=== PATIENT | female | born 1935 | race Caucasian/White ===

== ENCOUNTER → 2017-04-07 | Outpatient (CLI) | payer MEDICARE, BC | LOC: RAD 10:55 | PROVIDERS: ATTEND Internal Medicine | DX: Z12.31 Encounter for screening mammogram for malignant neoplasm of breast (principal) | CPT/HCPCS: 77067 ==

== ENCOUNTER 2017-08-07 13:28 | Emergency (ER) | payer MEDICARE, BC ==
[~2017-08-07] VITALS: Ht 160 cm; Wt 65.8 kg
--- OUTSIDE RECORDS SUMMARY | 2017-08-07 13:34 | XMS REPORT | Continuity of Care Document ---
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 Phone [employer] Unavailable Unavailable Problems Problem Status Onset Date Classification Date Reported Comments Source Diarrhea (finding) 2015 Diagnosis 07/26/2016 [facility] Hypertensive disorder, systemic arterial (disorder) 04/01/2016 [facility] Impacted cerumen (disorder) 04/01/2016 Diagnosis 2015 [facility] Single major depressive episode, mild (disorder) 04/01/2016 Diagnosis 04/05/2016 [facility] Pure hypercholesterolemia (disorder) 04/01/2016 [facility]2016 [facility] Gastroesophageal reflux disease (disorder) 10/02/2015 Diagnosis 10/06/2015 [facility] Bursitis of shoulder (disorder) 09/22/2015 Diagnosis [facility] Shoulder joint pain (finding) 06/25/2015 Diagnosis 2014 [facility] Follow-up examination following other surgery 05/28/2015 Diagnosis 06/01/2015 [facility] Radial styloid tenosynovitis 05/13/2015 Diagnosis 2014 [facility], [facility]. Goiter, unspecified 2014 Diagnosis 04/13/2015 [facility] Pain in joint involving shoulder region 04/09/2015 Diagnosis 04/13/2015 [facility] Need for prophylactic vaccination against Streptococcus pneumoniae [ pneumococcus] 04/09/2015 Diagnosis 04/13/2015 [facility] Unspecified essential hypertension 04/09/2015 Diagnosis 04/13/2015 [facility] Pain in limb 04/09/2015 Diagnosis 04/13/2015 [facility] Coronary atherosclerosis of unspecified type of vessel, [place] or graft 03/12/2015 Diagnosis 03/16/2015 [facility] Unspecified chest pain 03/06 Diagnosis 03/10/2015 [facility] Cardiology [facility] Brachial neuritis or radiculitis NOS 11/07/2014 Diagnosis 11/11/2014 [facility] Neurology Esophageal reflux 2014 [facility] Oste[facility]osis, unspecified Diagnosis 10/13/2014 [facility] Carpal tunnel syndrome 10/09 Diagnosis 10/13/2014 [facility] Lateral epicondylitis 2013 Diagnosis 06/18/2014 [facility] Carpal tunnel syndrome 06/14 Diagnosis 06/18/2014 [facility] Depressive disorder, not elsewhere classified 04/12/2014 Diagnosis 04/16/2014 [facility] Screening for osteoporosis 04/12/2014 Diagnosis [facility] Other and unspecified hyperlipidemia 04/12/2014 Diagnosis 04/16/2014 [facility], [facility]iology Services Allergic rhinitis, cause unspecified 04/12/2014 Diagnosis 04/16/2014 [facility] Unspecified essential hypertension 04/12/2014 Diagnosis 04/16/2014 [facility], [facility] Esophageal reflux 2013 Diagnosis 04/16/2014 [facility] Other and unspecified angina pectoris 01/24/2014 Diagnosis 01/28/2014 [facility] Allergic rhinitis (disorder) Active Problem 04/19/2016 [facility], [facility], [facility], [facility], [facility] Cardiology Services, [facility] Neurology Cervical radiculopathy (disorder) Active Problem 2015 [facility], [facility], [facility], [facility], [facility] Cardiology Services, [facility] Neurology Coronary arteriosclerosis (disorder) Active Problem 04/19 [facility], [facility], [facility] Depressive disorder (disorder) Active Problem 12/15/2015 [facility]. , [facility], [facility], [facility] Cardiology [facility], [facility] Neurology, [facility] Gastroesophageal reflux disease (disorder) Active Problem 04/19/2016 [facility], [facility], [facility], [facility] Card[facility] Services, [facility] Neurology, [facility] Hypertensive disorder, systemic arterial (disorder) Active Problem 04/19/2016 [facility], [facility], [facility] Cardiology Services, [facility] Neurology, [facility] 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) Active Problem 04/19/2016 [facility], [facility], [facility], [facility] Cardiology Services, [facility] Neurology Osteoporosis (disorder) Active Problem 04/19/2016 [facility], [facility], [facility] Cardiology Services, [facility] Neurology, [facility] Pure hypercholesterolemia (disorder) Active Problem 04/19 [facility], [facility] Single major depressive episode, mild (disorder) Active Problem 04/19/2016 [facility] Hyperlipidemia (disorder) Active Problem 09/26/2015 [facility], [facility], [facility] Card[facility], [facility] Neurology, [facility] Discharge Diagnosis: Bursitis of right shoulder Diagnosis 12/15/2015 [facility] Discharge Diagnosis: Stiffness of right shoulder, not elsewhere classified Diagnosis 12/15/2015 [facility] Discharge Diagnosis: Other symptoms and signs involving the musculoskeletal system Diagnosis 12/15/2015 [facility] Medications Medication Details Route Status Patient Instructions Ordering Provider Order Date Source No Known Medications No known medications Active [facility] Allergies, Adverse Reactions, Alerts Substance Category Reaction Severity Reaction type Status Date Reported Comments Source penicillin Assertion hives Drug allergy [facility], [facility], [facility], [facility] Neurology penicillin drug allergy hives Allergy Active [facility] Immunizations Immunization Date Given Site Status Last Updated Comments Source influenza virus vaccine 07/22/2016 Right Deltoid influenza virus vaccine [facility] Influenza, high dose seasonal 06/25/2015 Left Deltoid influenza virus vaccine [facility], [facility] Pneumococcal conjugate PCV 13 04/09/2015 Left Deltoid pneumococcal 13-valent vaccine [facility], [facility] Influenza, high dose seasonal 06/14/2014 Right [facility]to[facility] influenza virus [facility] influenza virus vaccine 06/12/2013 influenza virus vaccine<sup>1</sup> [facility] Location History: [facility], [facility] Influenza, seasonal, injectable 06/23/2012 Left [facility]toid influenza virus [facility], [facility] zoster vaccine live 09/12/2009 zoster vaccine live [facility] , [facility] pneumococcal 23-valent vaccine 04/14/2000 pneumococcal 23-valent vaccine [facility], [facility] Cardiology Services, [facility] Neurology, [facility] diphtheria-tetanus toxoids 04/14/2000 diphtheria-tetanus toxoids [facility], [facility]iology Services, [facility] pneumococcal 23-valent vaccine 04/14/2000 pneumococcal 23-valent vaccine [facility], [facility] diphtheria-tetanus toxoids 04/14/2000 diphtheria-tetanus toxoids [facility], [facility] Results Vital Signs Encounters Location Location Details Encounter Type Encounter Number Reason For Visit Attending Provider ADM Date DC Date Status Source OFPR [id number] Clinic ( Outpatient) [id number] Aldo Bryan 08/16/2013 Active [facility] OFPR CD:[id number] Clinic ( Outpatient) [id number] . LAB OFPR 08/17/2013 Active [facility] CSOL CD:[id number] Clinic ( Outpatient) [id number] [facility] 01[facility]24/2014 Active [facility] Cardiology Services Clinic [id number] [facility] 01/24/2014 [facility] CD:[id number] Outpatient [id number] Aldo Bryan 03/27/2014 Active [facility], [facility]. [facility] [id number] Aldo Bryan 04/12/2014 04/13/2014 [facility] [id number] . LAB OFPR 04/15/2014 04/16/2014 [facility] [id number] Outpatient [id number] Aldo Bryan 04/19/2014 Active [facility]. [facility] [id number] Aldo Bryan 06/14/2014 06/15/2014 [facility] [id number] Aldo Bryan 10/09/2014 10/10/2014 [facility] [id number] Outpatient [id number] Aldo Bryan 10/10/2014 Active [facility] [id number] . LAB OFPR 10/10/2014 10/11/2014 [facility] OFDE CD:[id number] Clinic ( Outpatient) [id number] . LAB OFPR 10/11/2014 Active [facility] [id number] Sabas Anderson 11/07/2014 11/08/2014 [facility] Neurology [facility] CD:[id number] Outpatient [id number] Aldo Bryan 11/28/2014 Active [facility] [id number] . LAB OFPR 12/16/2014 12/17/2014 [facility] Cardiology Services Clinic [id number] Sophia Spencer 03/06/2015 03/07/2015 [facility] Cardiology Services [facility] CD:[id number] Outpatient [id number] Miko Beverley 03/12/201509/2014 Active [facility] CD:[id number] Outpatient [id number] Aldo Glodidier 04/01/2015 Active [facility] Services [facility] [id number] Miko Beverley 04/01/2015 [facility] Cardiology Services [facility] [id number] Aldo Codydidier 04/09/2015 04/10/2015 [id number] [id number] Kalyani Llanos 04/23/2015 Active [facility] CD:[id number] Clinic ( Outpatient) [id number] Kalyani Llanos 04/23/2015 Active [facility] CD:[id number] Amb Surgery [id number] Kalyani Llanos 05/13/2015 05/13/2015 Active [facility] [id number] Kalyani Llanos 05/28/2015 05/29/2015 [facility] [id number] Aldo Bryan 06/25/2015 06/26/2015 [facility] Orth[facility] Clinic [id number] Lupe Pandya 09/22/2015 09/23/2015 [facility] CD:[id number] Outpatient [id number] Lupe Pandya 09/23/2015 10/12/2015 Active [facility] [id number] Aldo Bryan 10/02/2015 10/03/2015 [facility] CD:[id number] Outpatient [id number] Lupe Pandya 10/13/2015 11/10/2015 Active [facility] CD:[id number] Outpatient [id number] Lupe Pandya 11/11/2015 12/11/2015 Active [facility] [id number] Aldo Bryan 04/01/2016 04/02/2016 [facility] CD:[id number] Outpatient [id number] Aldo Bryan 04/02/2016 Active [facility] CI CD:[id number] Outpatient [id number] Aldo Bryan 04/14/2016 Active [facility] [id number] Aldo Bryan 07/22/2016 07/23/2016 [facility] [id number] . LAB OFPR 07/26/2016 07/27/2016 [facility] Procedures Procedure Code Date Perfomer Comments Source First Dorsal Compartment Release, Right 05/13/2015 [facility] No data available for this section Pending sale to [facility] Plan of Care Social History Assessment and Plan Family History Value Date Source Advance Directives Order Name Results Value Date Source
[2017-08-07] MEDS ORDERED: OMEP20CA12 (13:51)
[2017-08-07] MEDS ORDERED: SPIR100T2 (13:51)
[2017-08-07] MEDS ORDERED: LOVA20TA2 (13:51)
[2017-08-07] MEDS ORDERED: ATEN25TA (13:51)
[2017-08-07] MEDS ORDERED: FLUO10CA19 (13:51)
[2017-08-07] MEDS ORDERED: FLUT16SP22 (13:51)
[2017-08-07] MEDS ORDERED: ALEN70TA47 (13:51)
--- NOTE | 2017-08-07 13:53 | ED Cough/URI ---
General Chief Complaint: Cough/Cold/Flu Symptoms Stated Complaint: BP ISSUES/NOT FEELING WELL Nursing Triage Note: pt reprots nasal congestion, dental pain, and head congestion/pain starting this morning. pt also reports cough x2 days. pt alos reports elevated bp. Source: patient, family (daughter and granddaughter) Exam Limitations: no limitations History of Present Illness Time seen by provider: 13:40 Initial Comments Patient presents to ER by private conveyance with her family and a chief complaint that today she woke up with some headache, frontal and maxillary sinus pain. For the last week or 2 weeks she's had some nasal discharge that was yellow as well as she has been coughing up yellow phlegm. She does not have shortness of breath however her chest does ache especially with deep inspiration or coughing. She routinely uses Advil for osteoarthritis. She denies any chest pain otherwise nor abdominal pain. No nausea, vomiting, fever, chills, diarrhea, constipation. She does not have any coronary artery disease history. About 2 months ago her blood pressure medicines were changed and she was taken off the medication because she was having problems with either syncope or near syncope. She says for 2 weeks she long her blood pressure using her blood pressure cuff and it was [address] Perez kept her on that medication regimen. She says she didn't take her medications this morning however she was a little late taking her blood pressure medicines because she had to take 30 minutes at least after her osteoporosis medication. She is having no weakness, facial asymmetry, speech changes per the patient or her family. She has not had her blood pressure cuff checked against a mercury cuff at her doctor's clinic. Patient states she has some dental pain all over but she saw her dentist not that long ago was told that her teeth are okay and without cavities or abscesses. She has no oropharynx discharge, malodor, pain, throat swelling, hoarseness, dysphonia. She is using a second generation antihistamine as well as fluticasone nasal spray. Allergies and Home Medications Allergies Coded Allergies: Penicillins (Verified Allergy, Unknown, 08/07/17) Home Medications Alendronate Sodium 70 Mg Tablet, (Reported) Atenolol 25 Mg Tablet, (Reported) Fluoxetine HCl 10 Mg Capsule, (Reported) Fluticasone Propionate 16 Gm Hendricks.susp, (Reported) Lovastatin 20 Mg Tablet, (Reported) Omeprazole 20 Mg Capsule.dr (Reported) Spironolactone 100 Mg Tablet, (Reported) Constitutional: No chills, No diaphoresis, No dizziness, No fever, malaise, No weakness EENTM: ear pain (bilat), mouth pain (dental pain all over), nose congestion, No ear discharge, No hearing loss, No epistaxis, No throat pain Respiratory: cough, phlegm (yellow), No wheezing Cardiovascular: No chest pain, No palpitations Gastrointestinal: No abdominal pain, No nausea, No vomiting Genitourinary: No discharge, No dysuria, frequency (times one week) Musculoskeletal: No back pain, No joint pain Skin: No pruritus, No rash Psychiatric/Neurological: Headache (global times one day constant), Denies Numbness, Denies Paresthesia Past Felsrns-Burese-Qlywcc Hx Patient Social History Alcohol Use: Denies Use Recreational Drug Use: No Smoking Status: Never a Smoker Recent Foreign Travel: No Contact w/Someone Who Travel: No Recent Infectious Disease Expo: No Recent Hopitalizations: No Physical Abuse: No Sexual Abuse: No Mistreated: No Surgeries History of Surgeries: Yes (l foot, heart cath no stents) Surgeries: Hysterectomy, Orthopedic Respiratory History of Respiratory Disorde: No Cardiovascular History of Cardiac Disorders: Yes Cardiac Disorders: Hypertension Neurological History of Neurological Disord: No Genitourinary History of Genitourinary Disor: No Gastrointestinal History of Gastrointestinal Di: No Musculoskeletal History of Musculoskeletal Dis: No Endocrine History of Endocrine Disorders: No HEENT History of HEENT Disorders: No Cancer History of Cancer: No Psychosocial History of Psychiatric Problem: No Suicide Risk Score: 0 Integumentary History of Skin or Integumenta: No Blood Transfusions History of Blood Disorders: No Physical Exam Vital Signs Vital Sign - Last 12Hours 08/07/17 13:42 Temp 97.8 Pulse 98 Resp 20 B/P (MAP) 191/101 Pulse Ox 94 O2 Delivery Room Air Capillary Refill : Less Than 3 Seconds General Appearance: WD/WN, no apparent distress Eyes: Bilateral Eye Normal Inspection, Bilateral Eye PERRL, Bilateral Eye EOMI HEENT: PERRL/EOMI, TMs normal, pharynx normal, other (nasopharynx with thick purulent discharge. Maxillary sinus tender to palpation. Frontal sinuses nontender. TMJ nontender. Dentition without tenderness, abscess, erythema.) Neck: non-tender, supple, normal inspection Respiratory: chest non-tender, lungs clear, normal breath sounds, no respiratory distress, no accessory muscle use, No rales, No rhonchi, No wheezing Cardiovascular: normal peripheral pulses, regular rate, rhythm, no edema Neurologic/Psychiatric: alert, normal mood/affect, oriented x 3 Skin: normal color, warm/dry Progress/Results/Core Measures Suspected Sepsis Recent Fever Within 48 Hours: No Infection Criteria Present: None New/Unexplained Altered Menta: No Sepsis Screen: No Definite Risk Sepsis Diagnosis: SIRS Temperature:97.8 Pulse: 98 Respiratory Rate: 20 Laboratory Tests 08/07/17 14:00: White Blood Count 8.8 Blood Pressure 191 /101 Mean: 131 Laboratory Tests 08/07/17 14:00: Creatinine 0.73, Platelet Count 206, Total Bilirubin 0.9 Results/Orders Lab Results Laboratory Tests Test 08/07/17 13:58 08/07/17 14:00 08/07/17 14:38 Range/Units Glucometer 103 70-110 MG/DL White Blood Count 8.8 4.3-11.0 10^3/uL Red Blood Count 4.25 L 4.35-5.85 10^6/uL Hemoglobin 12.7 11.5-16.0 G/DL Hematocrit 36 35-52 % Mean Corpuscular Volume 85 80-99 FL Mean Corpuscular Hemoglobin 30 25-34 PG Mean Corpuscular Hemoglobin Concent 35 32-36 G/DL Red Cell Distribution Width 12.3 10.0-14.5 % Platelet Count 206 130-400 10^3/uL Mean Platelet Volume 9.6 7.4-10.4 FL Neutrophils (%) (Auto) 75 42-75 % Lymphocytes (%) (Auto) 18 12-44 % Monocytes (%) (Auto) 6 0-12 % Eosinophils (%) (Auto) 1 0-10 % Basophils (%) (Auto) 1 0-10 % Neutrophils # (Auto) 6.6 1.8-7.8 X 10^3 Lymphocytes # (Auto) 1.5 1.0-4.0 X 10^3 Monocytes # (Auto) 0.6 0.0-1.0 X 10^3 Eosinophils # (Auto) 0.1 0.0-0.3 10^3/uL Basophils # (Auto) 0.0 0.0-0.1 10^3/uL Sodium Level 138 135-145 MMOL/L Potassium Level 3.7 3.6-5.0 MMOL/L Chloride Level 104 98-107 MMOL/L Carbon Dioxide Level 24 21-32 MMOL/L Anion Gap 10 5-14 MMOL/L Blood Urea Nitrogen 9 7-18 MG/DL Creatinine 0.73 0.60-1.30 MG/DL Estimat Glomerular Filtration Rate > 60 BUN/Creatinine Ratio 12 Glucose Level 106 H 70-105 MG/DL Calcium Level 9.2 8.5-10.1 MG/DL Total Bilirubin 0.9 0.1-1.0 MG/DL Aspartate Amino Transf (AST/SGOT) 25 5-34 U/L Alanine Aminotransferase (ALT/SGPT) 24 0-55 U/L Alkaline Phosphatase 86 40-136 U/L Total Protein 7.1 6.4-8.2 GM/DL Albumin 3.8 3.2-4.5 GM/DL Urine Color YELLOW Urine Clarity CLEAR Urine pH 8 5-9 Urine Specific [place] 1.010 L 1.016-1.022 Urine Protein NEGATIVE NEGATIVE Urine Glucose (UA) NEGATIVE NEGATIVE Urine Ketones NEGATIVE NEGATIVE Urine Nitrite NEGATIVE NEGATIVE Urine Bilirubin NEGATIVE NEGATIVE Urine Urobilinogen NORMAL NORMAL MG/DL Urine Leukocyte Esterase 1+ H NEGATIVE Urine RBC (Auto) NEGATIVE NEGATIVE Urine RBC NONE /HPF Urine WBC 0-2 /HPF Urine Squamous Epithelial Cells RARE /HPF Urine Crystals NONE /LPF Urine Bacteria TRACE /HPF Urine Casts NONE /LPF Urine Mucus NEGATIVE /LPF Urine Culture Indicated NO My Orders Orders - SUNITA PINO Cbc With Automated Diff (08/07/17 13:53) Comprehensive Metabolic Panel (08/07/17 13:53) Ua Culture If Indicated (08/07/17 13:53) Chest Pa/Lat (2 View) (08/07/17 13:53) Accucheck Stat ONCE (08/07/17 13:53) Metoprolol Tartrate (Ir) Tab (Lopressor (08/07/17 15:00) Vital Signs/I&O Vital Sign - Last 12Hours 08/07/17 08/07/17 13:42 13:42 Temp 97.8 Pulse 98 Resp 20 B/P (MAP) 191/101 Pulse Ox 94 O2 Delivery Room Air Capillary Refill : Less Than 3 Seconds Blood Pressure Mean: 131 Progress Note : Time: 14:00 Progress Note Blood pressure does not seem to be associated with cardiac or neurologic problems. We will obtain chest x-ray, urine, basic blood in the kidneys and white count. Her maxillary sinusitis could certainly explain it. She is using Flonase which would explain why her ears look good. Does not seem to be a dental origin for her facial pain. She'll probably respond well to a Z-Rosalino. Would like to look for any other infectious source for her acute hypertension. At least 2 weeks ago her blood pressure was normal so this hypertension is probably related to her recent illness. We will allow her to rest for 10-15 minutes and see what her blood pressure does and if it goes below 160 systolic no further intervention needed today. Plan will be to have her follow up to 4 weeks with her primary care physician with a daily log of her blood pressure and get her blood pressure cuff checked against the clinic's blood pressure cuff. Diagnostic Imaging Diagonstic Imaging: Xray Plain Films/CT/US/NM/MRI: chest (2v) Reviewed: Reviewed by Me Departure Impression Impression: Primary Impression: Maxillary sinusitis, acute Qualified Codes: J01.01 - Acute recurrent maxillary sinusitis Additional Impressions: Asymptomatic hypertension Bronchitis Disposition: HOME, SELF-CARE Condition: Stable Departure-Patient Inst. Decision time for Depature: 15:27 Referrals: VISH PEREZ MD (PCP/Family) Primary Care Physician Add. Discharge Instructions: Drink copious amounts of fluids to help flush your nasal sinuses out. Take 2 tablets of the azithromycin today and then every day after that take one tablet until completion. If you're having pain or fevers you should take 1000 g Tylenol and/or 800 mg of Advil every 8 hours as needed. If you're not improving in 7-10 days then you should follow up with your primary care physician for further evaluation and management. Plan to follow up with your primary care physician in one to 2 weeks to address your blood pressure. You may log your blood pressure daily in the morning when you first get up and take that with you to your appointment. If you have wheezing or shortness of breath you may use 2 puffs of albuterol by mouth every 4 hours as needed. If this does not improve your wheezing or shortness of breath you should follow up with your primary care physician. All discharge instructions reviewed with patient and/or family. Voiced understanding. Scripts Albuterol Sulfate (PROAIR HFA) 1 Puff Puff 2 PUFF IH Q4H Y for WHEEZING, #1 EACH 0 Refills 1 PUFF = 90 MCG Prov: SUNITA PINO 08/07/17 Azithromycin (Azithromycin) 250 Mg Tablet 250 MG PO UD for 5 Days, #6 TAB 0 Refills TAKE 2 TABLETS ON DAY ONE THEN TAKE 1 TABLET DAILY FOR FOUR MORE DAYS Prov: SUNITA PINO 08/07/17 Copy Copies To 1: VISH PEREZ MD, TITUS J Aug 07, 2017 13:53
[2017-08-07 14:09] LABS: BASOPHILS % (AUTO) 1 % (0-10); EOSINOPHILS # (AUTO) 0.1 10^3/uL (0.0-0.3); EOSINOPHILS % (AUTO) 1 % (0-10); LYMPHOCYTES # (AUTO) 1.5 X 10^3 (1.0-4.0); LYMPHOCYTES % (AUTO) 18 % (12-44); MEAN CORPUSCULAR HEMOGLOBIN 30 PG (25-34); MEAN CORPUSCULAR HGB CONC 35 G/DL (32-36); MEAN CORPUSCULAR VOLUME 85 FL (80-99); MEAN PLATELET VOLUME 9.6 FL (7.4-10.4); MONOCYTES # (AUTO) 0.6 X 10^3 (0.0-1.0); MONOCYTES % (AUTO) 6 % (0-12); NEUTROPHILS # (AUTO) 6.6 X 10^3 (1.8-7.8); NEUTROPHILS % (AUTO) 75 % (42-75); PLATELET COUNT 206 10^3/uL (130-400); RED BLOOD COUNT 4.25 10^6/uL (4.35-5.85); RED CELL DISTRIBUTION WIDTH 12.3 % (10.0-14.5); WHITE BLOOD COUNT 8.8 10^3/uL (4.3-11.0)
[2017-08-07 14:31] LABS: ALANINE AMINOTRANSFERASE 24 U/L (0-55); ALBUMIN 3.8 GM/DL (3.2-4.5); ANION GAP 10 MMOL/L (5-14); ASPARTATE AMINO TRANSFERASE 25 U/L (5-34); BILIRUBIN,TOTAL 0.9 MG/DL (0.1-1.0); BLOOD UREA NITROGEN 9 MG/DL (7-18); BUN/CREATININE RATIO 12; CALCIUM 9.2 MG/DL (8.5-10.1); CARBON DIOXIDE 24 MMOL/L (21-32); CHLORIDE 104 MMOL/L (98-107); CREATININE SERUM 0.73 MG/DL (0.60-1.30); GFR ESTIMATED > 60; GLUCOSE 106 MG/DL (70-105); POTASSIUM 3.7 MMOL/L (3.6-5.0); SODIUM 138 MMOL/L (135-145); TOTAL PROTEIN 7.1 GM/DL (6.4-8.2)
--- NOTE | 2017-08-07 14:31 | Diagnostic Imaging Report ---
INDICATION: Head pain, facial pressure. FINDINGS: Air trapping and chronic COPD. There is mild cardiomegaly. There is prominence of interstitial lung markings and Jennifer Bs which may be chronic or reflect a process such as interstitial edema. Some thickening of the central airways and parabronchial cuffing which may be from bronchitis or other reactive airway disease. Some partial atelectasis in the lung bases. IMPRESSION: Borderline cardiomegaly, underlying COPD and air trapping chronic. There are patchy zones of nonspecific basilar infiltrate or atelectasis with some thickening of the central airways and suggestion of bronchitis. No pneumothorax. No substantial venous congestion. Dictated by: Dictated on workstation # [id number]
[2017-08-07 14:44] LABS: BILIRUBIN,URINE NEGATIVE (NEGATIVE); KETONES,URINE NEGATIVE (NEGATIVE); LEUKOCYTE ESTERASE ,URINE 1+ (NEGATIVE); NITRITE,URINE NEGATIVE (NEGATIVE); PH,URINE 8 (5-9); PROTEIN,URINE NEGATIVE (NEGATIVE); UROBILINOGEN,URINE NORMAL (NORMAL)
[2017-08-07 14:52] LABS: SQUAMOUS EPITHELIAL CELL,UR RARE /HPF; WBC,URINE 0-2 /HPF
[2017-08-07] MEDS ORDERED: meTOprolol TARTRATE 25 MG (LOPRESSOR) TABLET PO ONE (15:00)
[2017-08-07] MEDS ORDERED: AZIT250T12 PO (15:29)
[2017-08-07] MEDS ORDERED: RT-ALBUINH IH (15:29)
[2017-08-07 15:47] VITALS: BP 176/85
== END 2017-08-07 15:50 | disposition home or self-care (01) ==
LOC: EDUNIT# 13:28 → ER 13:31
DX: J01.00 Acute maxillary sinusitis, unspecified (principal); I10 Essential (primary) hypertension; J40 Bronchitis, not specified as acute or chronic; Z90.710 Acquired absence of both cervix and uterus
CPT/HCPCS: 36415; 71020; 80053; 81000; 82962; 85025; 99283

== ENCOUNTER 2017-10-21 05:32 | Outpatient (CLI) | payer MEDICARE ==
[~2017-10-21] VITALS: Ht 160 cm; Wt 65.8 kg
[~2017-10-21 05:32] MED LIST: ALEN70TA47 PO; ATEN25TA PO; AZIT250T12 PO; FLUO10CA19 PO; FLUT16SP22 NSEACH; LOVA20TA2 PO; OMEP20CA12 PO; RT-ALBUINH IH; SPIR100T2
[2017-10-21] MEDS ORDERED: SPIR50TA2 PO (15:10)
== END 2017-10-21 15:13 ==
LOC: PREOP 05:32
PROVIDERS: ATTEND Internal Medicine
DX: Z01.818 Encounter for other preprocedural examination (principal); Z12.11 Encounter for screening for malignant neoplasm of colon

== ENCOUNTER 2017-10-28 07:00 | Day surgery (SDC) | payer MEDICARE ==
--- NOTE | 2017-10-27 15:35 | HISTORY AND PHYSICAL ---
DATE OF SERVICE: COLONOSCOPY HISTORY AND PHYSICAL HISTORY OF PRESENT ILLNESS: The patient is an 82-year-old white female, who presented to the office for followup of hypertension on 10/03/2017. It has been 10 years since her last colonoscopy and she had had a past history of colon polyps. She denied any bowel habit change and had been feeling well. She has noted no bright red blood per rectum or melena. PHYSICAL EXAMINATION: GENERAL: Revealed a white female, who appeared to be in no acute distress. VITAL SIGNS: Blood pressure was 130/60. Weight is 146.2 pounds, was down 2.8 pounds from 2 months earlier, but at the low end of her usual weight range. CHEST: Clear. CARDIOVASCULAR: Regular rate and rhythm without murmur, S3 or S4. ABDOMEN: Soft, supple without mass, organomegaly or tenderness. EXTREMITIES: Reveal no cyanosis, clubbing or edema. ASSESSMENT AND PLAN: 1. The patient was set up for screening colonoscopy as she is quite spry for her age and would expect a life expectancy well into her 90s, on average. 2. Hypertension, under good control. She is scheduled for routine followup in 4 months. Job ID: [id number] DocumentID: [id number] Dictated Date: 10/27/2017 13:56:44 Cracking Still Operator Date: 10/27/2017 14:29:47 Dictated By: VISH PEREZ MD
[~2017-10-28] VITALS: Ht 160 cm; Wt 65.8 kg
[~2017-10-28 07:00] MED LIST changes: +SPIR50TA2 PO
[2017-10-28] MEDS ORDERED: 1/2 NS IV SOLUTION 1,000 ML IV STA (07:09)
[2017-10-28] MEDS ORDERED: MIDAZOLAM 2 MG/2 ML (VERSED) VIAL IVP PRN (07:15)
[2017-10-28] MEDS ORDERED: LIDOCAINE JELLY 2% (XYLOCAINE) 5 ML TUBE MM PRN (07:15)
[2017-10-28] MEDS ORDERED: fentaNYL INJECTION 100 MCG/2 ML AMP IVP PRN (07:15)
[2017-10-28 07:22] VITALS: BP 130/69
[2017-10-28] MEDS ORDERED: LIDOCAINE JELLY 2% (XYLOCAINE) 5 ML TUBE ONE (07:42)
[2017-10-28] MEDS ORDERED: fentaNYL INJECTION 100 MCG/2 ML AMP ONE (07:42)
[2017-10-28] MEDS ORDERED: MIDAZOLAM 2 MG/2 ML (VERSED) VIAL ONE (07:43)
--- NOTE | 2017-10-28 08:06 | Pre-Op Note & Conscious Sedat ---
Pre-Operative Progress Note H&P Reviewed The H&P was reviewed, patient examined and no changes noted. Date H&P Reviewed: Oct 28, 2017 Time H&P Reviewed: 07:55 Conscious Sedation Pre-Proced ASA Class: 2 Airway Mallampati Classification: ([place] appropriate class) I. II. III, IV Lungs Heart ASA score ASA 1: a normal healthy patient ASA 2: a patient with a mild systemic disease (mid diabetes, controlled hypertension, obesity ASA 3: a patient with a severe systemic disease that limits activity (angina , COPD, prior Myocardial infarction) ASA 4: a patient with an incapacitating disease that is a constant threat to life (CHF, renal failure) ASA 5: a moribund patient not expected to survive 24 hrs. (ruptured aneurysm) ASA 6: a declared brain patient whose organs are being harvested. For emergent operations, add the letter E after the classification Grade 2 Sedation Plan: Analgesia, Amnesia, Plan communicated to team members, Discussed options with patient/fam, Discussed risks with patient/fam Note The patient is an appropriate candidate to undergo the planned procedure, sedation, and anesthesia. The patient immediately re-assessed prior to indication. VISH PEREZ MD Oct 28, 2017 08:05
[2017-10-28 08:55] VITALS: BP 130/69
[2017-10-28 09:25] VITALS: BP 117/58
[2017-10-28 09:30] VITALS: BP 117/58
--- NOTE | 2017-10-28 12:07 | OPERATIVE REPORT ---
DATE OF SERVICE: 10/28/2017 PROCEDURE PERFORMED: Screening colonoscopy. The patient was placed in the left lateral decubitus position. Prior to undergoing colonoscopy, digital rectal evaluation was performed. Anal sphincter tone was normal and the perianal reflex was intact. No abnormalities on additional inspection of the anal canal or distal rectal vault. The colonoscope was then inserted into the rectum and under direct visualization advanced to the cecum. The cecum was identified by identification of the valve and cecal strap. Photographic documentation was obtained. Colonic prep was good. FINDINGS: There was no evidence for internal or external hemorrhoids. The rectum, sigmoid colon, descending colon, splenic flexure, transverse colon, hepatic flexure, ascending colon and cecum were unremarkable. No evidence for neoplasia or diverticular disease was noted. ASSESSMENT: Normal colonoscopy to the cecum. Considering this patient's age, we will not be recommending future screening colonoscopy. Job ID: [id number] DocumentID: [id number] Dictated Date: 10/28/2017 09:13:48 Front Loader Residential Driver Date: 10/28/2017 12:06:27 Dictated By: VISH PEREZ MD
--- OUTSIDE RECORDS SUMMARY | 2017-10-28 16:18 | XMS REPORT ---
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
--- OUTSIDE RECORDS SUMMARY | 2017-10-28 16:18 | XMS REPORT ---
Author Author [facility] Organization [facility] Address Unknown Phone Unavailable Care Team Providers Care Fiction And Nonfiction Author Name Role Phone Aldo Bryan PCP Aldo Bryan PCP Encounter [id number] Date(s): 11/07/14 - 11/07/14 [facility] 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
--- OUTSIDE RECORDS SUMMARY | 2017-10-28 16:18 | XMS REPORT ---
Author Author [facility] Organization [facility] Address Unknown Phone Unavailable Care Team Providers Care Printer Technician Name Role Phone Aldo Bryan PCP Aldo Bryan PCP Encounter [id number] Date(s): 10/10/14 - 10/10/14 [place] [address]- Attending Physician: LAB OFPR Vital Signs No data available for this [...] Medications No data available for this section Results No data available for this section Immunizations Vaccine Date Refusal Reason diphtheria-tetanus toxoids 04/14/00 pneumococcal 23-valent vaccine 04/14/00 Procedures No data available for this section Social History No data available for this section Assessment and Plan No data available for this section
--- OUTSIDE RECORDS SUMMARY | 2017-10-28 16:18 | XMS REPORT ---
Author Organization Unknown Address Unknown Phone Unavailable Care Team Providers Care Take Off Man Name Role Phone Aldo Bryan PCP Aldo Bryan PCP Encounter [id number] Date(s): 06/14/14 - 06/14/14 [place] [address]- Discharge Diagnosis: Lateral epicondylitis of right elbow Discharge Diagnosis: Carpal tunnel syndrome, right Attending Physician: Aldo Bryan MD Vital Signs No data available for [...]
--- OUTSIDE RECORDS SUMMARY | 2017-10-28 16:18 | XMS REPORT ---
Author Organization Unknown Address Unknown Phone Unavailable Care Team Providers Care Mold Yard Crane Operator Name Role Phone Aldo Bryan PCP Aldo Bryan PCP Encounter [id number] Date(s): 01/24/14 - 01/24/14 [facility] [address] [place] [id number] Discharge Diagnosis: Hyperlipidemia Discharge Diagnosis: HTN - Hypertension Discharge Diagnosis: Stable angina Attending Physician: Miko Lowery MD Referring Physician: Miko Lowery MD Reason for Visit P8G/ANNUAL FOLLOW UP Problem List Condition Effective Dates Status Health Status Informant Depression(Confirmed Active ) GERD - Active Gastro-esophageal [...]
--- OUTSIDE RECORDS SUMMARY | 2017-10-28 16:18 | XMS REPORT ---
Author Author [facility] [employer]. Organization [facility] Address Unknown Phone Unavailable Care Team Providers Care Shrimping Boat Captain Name Role Phone Aldo Bryan PCP Alod Bryan PCP Encounter [id number] Date(s): 03/12/15 - 03/12/15 [facility] [address] [place] [id number] Discharge Diagnosis: Coronary artery disease Discharge Disposition: Home Attending Physician: Miko Lowery MD Admitting Physician: Miko Lowery MD Referring Physician: Aldo Bryan MD Vital Signs No data available for this section Problem List Condition Effective Dates Status Health Status Informant Allergic Active rhinitis(Confirmed) Cervical Active radiculopathy at C8(Confirmed) Coronary artery Active disease(Confirmed) Depression(Confirmed Active ) GERD - Active Gastro-esophageal reflux disease(Confirmed) HTN - Active Hypertension(Confirm ed) Hyperlipidemia(Confi Active rmed) 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
--- OUTSIDE RECORDS SUMMARY | 2017-10-28 16:18 | XMS REPORT ---
Author Author [facility] Address Unknown Phone Unavailable Care Team Providers Care Supervisor Asbestos Textile Name Role Phone Aldo Bryan PCP Aldo Bryan PCP Encounter [id number] [id number] Date(s): 04/01/15 - 03/13/15 [facility] [id number] [place] [id number] Attending Physician: Miko Lowery MD Referring Physician: Miko Lowery MD Vital Signs No data available for [...]
--- OUTSIDE RECORDS SUMMARY | 2017-10-28 16:18 | XMS REPORT ---
Author Author [facility] Organization [facility] Address Unknown Phone Unavailable Care Team Providers Care Assistant Executive Housekeeper Name Role Phone Aldo Bryan PCP Aldo Bryan PCP Encounter [id number] Date(s): 07/22/16 - 07/22/16 [place] [address]- Attending Physician: Aldo Bryan MD Vital Signs No data available for this section Problem List Condition Effective Dates Status Health Status Informant Allergic Active rhinitis(Confirmed) Cervical Active radiculopathy at C8(Confirmed) Coronary artery Active disease(Confirmed) GERD - Active Gastro-esophageal reflux disease(Confirmed) HTN - Active Hypertension(Confirm ed) 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, dry, both eyes(Confirmed) Osteoporosis(Confirm Active ed) Hyperlipidemia(Confi Active rmed) Depression(Confirmed Active ) Diagnosis Diagnosis Type Effective Dates Health Status Clinical Service Informant Diarrhea, Discharge 07/22/16 unspecified Diagnosis Allergies, Adverse Reactions, Alerts Substance Reaction Severity Status penicillin hives Active Medications No Known Medications Results No data available for this section Immunizations Given and Recorded Vaccine Date Status Refusal Reason diphtheria-tetanus toxoids 04/14/00 Recorded influenza virus vaccine 07/22/16 Given influenza virus vaccine 06/25/15 Given influenza virus vaccine 06/14/14 Given influenza virus vaccine1 06/12/13 Recorded influenza virus vaccine 06/23/12 Given pneumococcal 13-valent vaccine 04/09/15 Given pneumococcal 23-valent vaccine 04/14/00 Recorded zoster vaccine live 09/12/09 Recorded 1Location History: [facility] Procedures No data available for this section Social History No data available for this section Assessment and Plan No data available for this section
--- OUTSIDE RECORDS SUMMARY | 2017-10-28 16:18 | XMS REPORT ---
Author Organization Unknown Address Unknown Phone Unavailable Care Team Providers Care Mailer Name Role Phone Aldo Bryan PCP Aldo Bryan PCP Encounter [id number] [id number] Date(s): 04/12/14 - 04/12/[address] [id number] Discharge Diagnosis: Depression Discharge Diagnosis: Screening for Osteoporosis Discharge Diagnosis: Hyperlipidemia Discharge Diagnosis: Epicondylitis, lateral, right Discharge Diagnosis: Allergic rhinitis Discharge Diagnosis: HTN - Hypertension Discharge Diagnosis: GERD - Gastro-esophageal reflux disease Attending Physician: Aldo Bryan MD Reason for Visit HTN/CHOL/OTHER ISSUE WOULD NOT SAY Problem List Condition Effective Dates Status Health [...]
--- OUTSIDE RECORDS SUMMARY | 2017-10-28 16:18 | XMS REPORT ---
Author Author [employer] Organization [facility] Address Unknown Phone Unavailable Care Team Providers Care Fisheries Enforcement Officer Name Role Phone Aldo Bryan PCP Aldo Bryan PCP Encounter [id number] Date(s): 10/10/14 - 10/11/14 [facility] [address] Discharge Disposition: Home Attending Physician: Aldo Bryan MD Admitting Physician: Aldo Bryan MD Referring Physician: Aldo Bryan MD Vital [...]
--- OUTSIDE RECORDS SUMMARY | 2017-10-28 16:18 | XMS REPORT ---
Author Organization Unknown Address Unknown Phone Unavailable Care Team Providers Care Digital Associate Media Director Name Role Phone Aldo Bryan PCP Aldo Bryan PCP Encounter [facility]_NBR [id number] Date(s): 03/27/14 - 03/28/[address] Attending Physician: Aldo Bryan MD Admitting Physician: Aldo Bryan MD Referring Physician: Aldo Bryan MD Reason for Visit ROUTINE Problem List Condition Effective Dates Status Health [...]
--- OUTSIDE RECORDS SUMMARY | 2017-10-28 16:18 | XMS REPORT ---
Author Author [facility] Organization [facility] Address Unknown Phone Unavailable Care Team Providers Care Technical Maintenance Technician Name Role Phone Aldo Bryan PCP Aldo Bryan PCP Encounter [id number] [id number] Date(s): 12/16/14 - 12/16/14 [place] [address]- Attending Physician: LAB OFPR Vital Signs No [...]
--- OUTSIDE RECORDS SUMMARY | 2017-10-28 16:18 | XMS REPORT | Continuity of Care Document ---
Author Author [employer] Organization [facility] Address Unknown Phone Unavailable Care Team Providers Care Forestry Faculty Member Name Role Phone [employer] Unavailable Unavailable Problems Problem Status Onset Date Classification Date Reported Comments Source Diarrhea (finding) 2015 Diagnosis 07/26/2016 [facility] Pure hypercholesterolemia (disorder) 04/01/2016 Diagnosis 04/05/2016 [facility] Hypertensive disorder, systemic arterial (disorder) 04/01/2016 Diagnosis 04/05/2016 [facility] Impacted cerumen (disorder) 04/01/2016 Diagnosis 2015 [facility] Single major depressive episode, mild (disorder) 04/01/2016 Diagnosis 04/05/2016 [facility] Gastroesophageal reflux disease (disorder) 10/02/2015 Diagnosis 10/06/2015 [facility] Bursitis of shoulder (disorder) 09/22/2015 Diagnosis [facility] Shoulder joint pain (finding) 06/25/2015 Diagnosis 2014 [facility] Follow-up examination following other surgery 05/28/2015 Diagnosis 06/01/2015 [facility] Radial styloid tenosynovitis 05/13/2015 Diagnosis 2014 [facility] Pain in limb 04/09/2015 Diagnosis 04/13/2015 [facility] Unspecified essential hypertension 04/09/2015 Diagnosis 04/13/2015 [facility] Goiter, unspecified 2014 Diagnosis 04/13/2015 [facility] Pain in joint involving shoulder region 04/09/2015 Diagnosis 04/13/2015 [facility] Need for prophylactic vaccination against Streptococcus pneumoniae [ pneumococcus] 04/09/2015 Diagnosis 04/13/2015 [facility] Coronary atherosclerosis of unspecified type of vessel, craig or graft 03/12/2015 Diagnosis 03/16/2015 [facility] Unspecified chest pain 03/06 Diagnosis 03/10/2015 [facility] Brachial neuritis or radiculitis NOS 11/07/2014 Diagnosis 11/11/2014 [facility] Esophageal reflux 2014 Diagnosis 10/13/2014 [facility] Osteoporosis, unspecified Diagnosis 10/13/2014 [facility] Carpal tunnel syndrome 10/09 Diagnosis 10/13/2014 [facility] Lateral epicondylitis 2013 Diagnosis 06/18/2014 [facility] Carpal tunnel syndrome 06/14 Diagnosis 06/18/2014 [facility] Depressive disorder, not elsewhere classified 04/12/2014 Diagnosis 04/16/2014 [facility] Screening for osteoporosis 04/12/2014 Diagnosis 2013 [facility] Other and unspecified hyperlipidemia 04/12/2014 Diagnosis 04/16/2014 [facility] Allergic rhinitis, cause unspecified 04/12/2014 Diagnosis 04/16/2014 [facility] Unspecified essential hypertension 04/12/2014 Diagnosis 04/16/2014 [facility] Esophageal reflux 2013 Diagnosis 04/16/2014 [facility] Other and unspecified angina pectoris 01/24/2014 Diagnosis 01/28/2014 [facility] Depressive disorder (disorder) Active Problem 10/06/2015 [facility] Gastroesophageal reflux disease (disorder) Active Problem 07/30/2016 [facility] Hypertensive disorder, systemic arterial (disorder) Active Problem 07/30/2016 [facility] Hyperlipidemia (disorder) Active Problem 06/29/2015 [facility] Osteoporosis (disorder) Active Problem 07/30/2016 [facility] Allergic rhinitis (disorder) Active Problem 07/30/2016 [facility] 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 Discharge Diagnosis: Stiffness of right shoulder, not elsewhere classified Diagnosis 12/15/2015 [facility] Discharge Diagnosis: Other symptoms and signs involving the musculoskeletal system Diagnosis 12/15/2015 [facility] Medications Medication Details Route Status Patient Instructions Ordering Provider Order Date Source No Known Medications No known medications [facility] Allergies, Adverse Reactions, Alerts Substance Category Reaction Severity Reaction type Status Date Reported Comments Source penicillin drug allergy hives Allergy Active [facility] penicillin Assertion hives Drug allergy [facility] Immunizations Immunization Date Given Site Status Last Updated Comments Source influenza virus vaccine 07/22/2016 Right Deltoid influenza virus vaccine [facility] Influenza, high dose seasonal 06/25/2015 [facility] Pneum[facility] PCV 13 04/09/2015 Left Deltoid pneumococcal 13-valent vaccine [facility] Influenza, high dose seasonal 06/14/2014 [facility] virus vaccine 06/12/2013 influenza virus vaccine<sup>1</sup> [facility] Location History: [facility] Influenza, seasonal, injectable 06/23/2012 Left [facility] live 09/12/2009 zoster vaccine live [facility] pneumococcal 23-valent vaccine 04/14/2000 pneumococcal 23-valent vaccine [facility] diphtheria-tetanus toxoids 04/14/2000 diphtheria-tetanus toxoids [facility] pneumococcal 23-valent vaccine 04/14/2000 pneumococcal 23-valent vaccine [facility] diphtheria-tetanus toxoids 04/14/2000 diphtheria-tetanus toxoids [facility] Results Vital Signs Encounters Location Location Details Encounter Type Encounter Number Reason For Visit Attending Provider ADM Date DC Date Status Source OFPR [id number] Clinic ( Outpatient) [id number] Aldo [facility] 08/16/2013 [place] [employer] [facility] OFPR [id number] Clinic ( Outpatient) [id number] . LAB OF[facility] 08/17/2013 [place] [facility] CSOL [id number] Clinic ( Outpatient) [id number] [facility] 01/24/2014 Active [facility] Services CSOL [id number] Clinic ( Outpatient) [id number] [facility] 01/24/2014 Active [facility], [facility] Services Clinic [id number] [facility] 01/24/2014 [facility] CD:[id number] Outpatient [id number] [facility] 03/27/2014 Active [facility], [facility]. Pavilion [id number] [facility] 03/27/2014 03/29/2014 [facility]. OFPR [id number] Clinic ( Outpatient) [id number] [facility] 04/12/[address] [facility] [id number] [facility] 04/12/2014 04/13/2014 [facility] OFPR [id number] Clinic ( Outpatient) [id number] . LAB OFPR 04/15/[address] [facility] [id number] . LAB OFPR 04/15/2014 04/16/2014 [facility] OMCI CD:[id number] Outpatient [id number] [facility] 04/19/2014 Active [facility]. OFPR CD:[id number] Clinic ( Outpatient) [id number] [facility] 06/14/[address] [facility] [id number] [facility] 06/14/2014 06/15/2014 [facility] OFPR [id number] Clinic ( Outpatient) [id number] [facility] 10/09/[address] [facility] [id number] [facility] 10/09/2014 10/10/2014 [facility] OMCI CD:[id number] Outpatient [id number] [facility] 10/10/2014 Active [facility]. OFPR [id number] Clinic ( Outpatient) [id number] . LAB OFPR 10/10/2014 Active [facility], [facility]. Pavilion [id number] [facility] 10/10/2014 10/12/2014 [facility]. [facility] [id number] . LAB OFPR 10/10/2014 10/11/2014 [facility] OFPR CD:[id number] Clinic ( Outpatient) [id number] . LAB OFPR 10/11/2014 Active Count includes the [facility] [id number] Clinic ( Outpatient) [id number] Sab[facility] Julio Cynes 11/07/2014 [facility] [id number] [facility] 11/07/2014 11/08/2014 [facility] OMCI CD:[id number] Outpatient [id number] Aldo Bryan 11/28/2014 Active [facility], [facility] OFPR CD:[id number] Clinic ( Outpatient) [id number] . LAB OFPR 12/16/2014 [facility] [id number] . LAB OFPR 12/16/2014 12/17/2014 [facility] CSOL [id number] Clinic ( Outpatient) [id number] [facility] [place] 03/06/2015 [facility] Cardiology Services [facility] Services Clinic [id number] [facility] 03/06/2015 03/07/2015 [facility] CD:[id number] Outpatient [id number] [facility] 03/12/201509/2014 Active [facility], [facility]. Extended Recovery [id number] [facility] 03/12/2015 03/12/2015 [facility], [facility] OMCI CD:[id number] Outpatient [id number] Aldo Bryan 04/01/2015 Active [facility] CSOL [id number] Clinic ( Outpatient) [id number] [facility] 04/01/2015 Active [facility] Cardiology Services [facility], [facility] Pavilion [id number] Aldo Bryan 04/01/2015 04/03/2015 [facility], [facility] Cardiology Services Clinic [id number] [facility] 04/01/2015 [facility] OFPR [id number] Clinic ( Outpatient) [id number] Aldo Bryan 04/09/[address] [facility] [id number] Aldo Bryan 04/09/2015 04/10/2015 [facility] JCO [id number] Clinic ( Outpatient) [id number] [facility] 04/23/2015 Active [facility] JCO [id number] Clinic ( Outpatient) [id number] Kalyani Llanos 04/23/2015 Active [facility] CI CD:[id number] Amb Surgery [id number] Kalyani Llanos 05/13/2015 05/13/2015 Active [facility] Ambulatory Surgery [id number] KalyaniBolivar Llanos 201405/14/2015 [facility] JCO CD:[id number] Clinic ( Outpatient) [id number] Kalyani Llanos 05/28/2015 Active [facility] Orthopedics & Sports [facility] [id number] KalyaniBolivar Llanos 05/28/2015 05/29/2015 [facility] CD:[id number] Clinic ( Outpatient) [id number] Aldo Bryan 06/25/2015 Active [facility] [id number] Aldo Bryna 06/25/2015 06/26/2015 [facility] JCO [id number] Clinic ( Outpatient) [id number] Lupe Pandya 09/22/2015 Active [facility] [id number] Lupe Pandya 09/22/2015 09/23/2015 [facility] CD:[id number] Outpatient [id number] Lupe Pandya 09/23/2015 10/12/2015 Active [facility] Series Outpatient [id number] Lupe Pandya 09/23/2015 10/13/2015 [facility] OFMT CD:[id number] Clinic ( Outpatient) [id number] Aldo Bryan 10/02/2015 Active [facility] [id number] Aldo Bryan 10/02/2015 10/03/2015 [facility] OMCI CD:[id number] Outpatient [id number] Lupe Pandya 10/13/2015 11/10/2015 Active [facility] Series Outpatient [id number] Lupe Pandya 10/13/2015 11/11/2015 [facility] OMCI CD:[id number] Outpatient [id number] Lupe [place] 11/11/2015 12/11/2015 Active [facility] Series Outpatient [id number] Lupe [place] 11/11/2015 12/12/2015 [facility] OFPR CD:[id number] Clinic ( Outpatient) [id number] [facility] 04/01/2016 [facility] [id number] [facility] 04/01/2016 04/02/2016 [facility] OMCI CD:[id number] Outpatient [id number] [facility] 04/02/2016 Active [facility] Pavilion [id number] [facility] 04/02/2016 04/04/2016 [facility] OMCI CD:[id number] Outpatient [id number] [facility] 04/14/2016 Active [facility] Pavilion [id number] [facility] 04/14/2016 04/16/2016 [facility] OFPR CD:[id number] Clinic ( Outpatient) [id number] [facility] 07/22/2016 [facility] [id number] [facility] 07/22/2016 07/23/2016 [facility] OFPR CD:[id number] Clinic ( Outpatient) [id number] . LAB OFPR 07/26/2016 [facility] [id number] . LAB OFPR 07/26/2016 07/27/2016 [facility] Procedures Procedure Code Date Perfomer Comments Source First Dorsal Compartment Release, Right 05/13/2015 [facility]. Plan of Care Social History Assessment and Plan Family History Advance Directives Functional Status
--- OUTSIDE RECORDS SUMMARY | 2017-10-28 16:18 | XMS REPORT ---
Author Author [facility] Address Unknown Phone Unavailable Care Team Providers Care Patient Advocate Name Role Phone Aldo Bryan PCP Aldo Bryan PCP Encounter [id number] [id number] Date(s): 10/09/14 - 10/09/14 [place] [address]- Discharge Diagnosis: Pain of left calf Discharge Diagnosis: GERD - Gastro-esophageal reflux disease Discharge Diagnosis: Osteoporosis Discharge Diagnosis: Bilateral carpal tunnel syndrome Discharge Diagnosis: HTN - Hypertension Attending Physician: Aldo Bryan MD Vital Signs [...]
--- OUTSIDE RECORDS SUMMARY | 2017-10-28 16:19 | XMS REPORT ---
Author Author [place] [employer] Organization [facility] Address Unknown Phone Unavailable Care Team Providers Care Dry House Operator Name Role Phone Aldo Bryan PCP Aldo Bryan PCP Encounter [email or web address] [id number] Date(s): 11/11/15 - 12/11/15 [facility] [address] Discharge Diagnosis: Bursitis of right shoulder Discharge Diagnosis: Stiffness of right shoulder, not elsewhere classified Discharge Diagnosis: Other symptoms and signs involving the musculoskeletal system Discharge Disposition: Home Attending Physician: Lupe Pandya MD Admitting Physician: Lupe Pandya MD Referring Physician: Aldo Bryan MD Vital Signs No data available for this section Problem List Condition Effective Dates Status Health Status Informant Allergic Active rhinitis(Confirmed) Cervical Active radiculopathy at C8(Confirmed) Coronary artery Active disease(Confirmed) Depression(Confirmed Active ) GERD - Active Gastro-esophageal reflux disease(Confirmed) HTN - Active Hypertension(Confirm ed) 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
--- OUTSIDE RECORDS SUMMARY | 2017-10-28 16:19 | XMS REPORT ---
Author Author [facility] Organization [facility] Address Unknown Phone Unavailable Care Team Providers Care Bartender Manager Name Role Phone Aldo Bryan PCP Aldo Bryan PCP Encounter [id number] [id number] Date(s): 09/22/15 - 09/22/15 [facility] [address] [place] [address]- Attending Physician: Lupe Pandya MD Vital Signs No data available for this section Problem List Condition Effective Dates Status Health Status Informant Allergic Active rhinitis(Confirmed) Cervical Active radiculopathy at C8(Confirmed) Coronary artery Active disease(Confirmed) Depression(Confirmed Active ) GERD - Active Gastro-esophageal reflux disease(Confirmed) HTN - Active Hypertension(Confirm ed) Hyperlipidemia(Confi Active rmed) 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, dry, both eyes(Confirmed) Osteoporosis(Confirm Active ed) Diagnosis Diagnosis Type Effective Dates Health Status Clinical Service Informant Bursitis of right Discharge 09/22/15 Non-Specified shoulder Diagnosis Allergies, Adverse Reactions, Alerts Substance Reaction [...]
--- OUTSIDE RECORDS SUMMARY | 2017-10-28 16:19 | XMS REPORT ---
Author Author [facility] Organization [facility] Address Unknown Phone Unavailable Care Team Providers Care Leguillon Debeader Name Role Phone Aldo Bryan PCP Aldo Bryan PCP Encounter [id number] [id number] Date(s): 05/28/15 - 05/28/15 [facility] [address] [place] [address]- Discharge Diagnosis: Follow-up examination after orthopedic surgery Attending Physician: Kalyani Llanos MD Vital Signs No data available for [...]
--- OUTSIDE RECORDS SUMMARY | 2017-10-28 16:19 | XMS REPORT ---
Author Author [facility] Address Unknown Phone Unavailable Care Team Providers Care Barber Instructor Name Role Phone Aldo Bryan PCP Aldo Bryan PCP Encounter [id number] [id number] Date(s): 06/25/15 - 06/25/15 [place] [address]- Discharge Diagnosis: Right shoulder pain Attending Physician: Aldo Bryan MD Vital Signs [...]
--- OUTSIDE RECORDS SUMMARY | 2017-10-28 16:19 | XMS REPORT ---
Author Author [facility] Organization [facility] Address Unknown Phone Unavailable Care Team Providers Care Grain Elevator Agent Name Role Phone Aldo Bryan PCP Aldo Bryan PCP Encounter [id number] [id number] Date(s): 04/01/16 - 04/01/16 [place] [address]- Attending Physician: Aldo Bryan MD Vital Signs [...] Effective Dates Health Status Clinical Service Informant HTN - Hypertension Discharge 04/01/16 Diagnosis Left ear impacted Discharge 04/01/16 cerumen Diagnosis Major depressive Discharge 04/01/16 disorder, single Diagnosis episode, mild Pure Discharge 04/01/16 hypercholesterolem Diagnosis ia Allergies, Adverse Reactions, Alerts Substance Reaction Severity Status penicillin hives Active Medications No Known Medications Results No data available for this section Immunizations Given and Recorded Vaccine Date Status Refusal Reason diphtheria-tetanus toxoids 04/14/00 Recorded influenza virus vaccine 06/25/15 Given influenza virus [...]
--- OUTSIDE RECORDS SUMMARY | 2017-10-28 16:19 | XMS REPORT ---
Author Author [facility] Address Unknown Phone Unavailable Care Team Providers Care Christian Science Nurse Name Role Phone Aldo Bryan PCP Aldo Bryan PCP Encounter [id number] [id number] Date(s): 10/02/15 - 10/02/15 [place] [address]- Attending Physician: Aldo Bryan MD Vital Signs No data available for this section Problem List Condition Effective Dates Status Health Status Informant Allergic Active rhinitis(Confirmed) Cervical Active radiculopathy at C8(Confirmed) Coronary artery Active disease(Confirmed) Depression(Confirmed Active ) GERD - Active Gastro-esophageal reflux disease(Confirmed) HTN - Active Hypertension(Confirm ed) 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, dry, both eyes(Confirmed) Osteoporosis(Confirm Active ed) Hyperlipidemia(Confi Active rmed) Diagnosis Diagnosis Type Effective Dates Health Status Clinical Service Informant GERD - Discharge 10/02/15 Non-Specified Gastro-esophageal Diagnosis reflux disease Pure Discharge 10/02/15 Non-Specified hypercholesterolem Diagnosis ia HTN - Hypertension Discharge 10/02/15 Non-Specified Diagnosis Allergies, Adverse Reactions, Alerts Substance Reaction [...]
--- OUTSIDE RECORDS SUMMARY | 2017-10-28 16:19 | XMS REPORT ---
Author Author [place] [employer] Organization [facility] Address Unknown Phone Unavailable Care Team Providers Care Canine Deputy Name Role Phone Aldo Bryan PCP Aldo Bryan PCP Encounter [id number] Date(s): 04/02/16 - 04/03/16 [facility] [address] Attending Physician: Aldo Bryan MD Admitting Physician: [...] ed) Hyperlipidemia(Confi Active rmed) Depression(Confirmed Active ) Allergies, Adverse Reactions, Alerts Substance Reaction Severity [...]
--- OUTSIDE RECORDS SUMMARY | 2017-10-28 16:19 | XMS REPORT ---
Author Author [place] [employer] Organization [facility] Address Unknown Phone Unavailable Care Team Providers Care Switch Technician Name Role Phone Aldo Bryan PCP Aldo Bryan PCP Encounter [email or web address] [id number] Date(s): 10/13/15 - 11/10/15 [facility] [id number] [place] [address] Discharge Diagnosis: Bursitis of right shoulder [...]
--- OUTSIDE RECORDS SUMMARY | 2017-10-28 16:19 | XMS REPORT ---
Author Author [place] [employer] Organization [facility] Address Unknown Phone Unavailable Care Team Providers Care Business Support Associate Name Role Phone Aldo Bryan PCP Aldo Bryan PCP Encounter [email or web address] [id number] Date(s): 09/23/15 - 10/12/15 [facility] [address] Discharge Diagnosis: Bursitis of right [...]
--- OUTSIDE RECORDS SUMMARY | 2017-10-28 16:19 | XMS REPORT ---
Author Author [facility] Organization [facility] Address Unknown Phone Unavailable Care Team Providers Care Wrapper Sorter Name Role Phone Aldo Bryan PCP Aldo Bryan PCP Encounter [id number] [id number] Date(s): 07/26/16 - 07/26/16 [place] [address]- Attending Physician: LAB OFPR Vital Signs No [...]
--- OUTSIDE RECORDS SUMMARY | 2017-10-28 16:19 | XMS REPORT ---
Author Author [facility] Organization [facility] Address Unknown Phone Unavailable Care Team Providers Care Mortgage Closing Clerk Name Role Phone Aldo Bryan PCP Aldo Bryan PCP Encounter [id number] [id number] Date(s): 04/09/15 - 04/09/15 [place] [address]- Discharge Diagnosis: Thyromegaly Discharge Diagnosis: Chronic right shoulder pain Discharge Diagnosis: Pneumococcal Vaccination Discharge Diagnosis: HTN - Hypertension Discharge Diagnosis: Chronic pain of right thumb Attending Physician: Aldo Bryan MD Vital Signs [...]
--- OUTSIDE RECORDS SUMMARY | 2017-10-28 16:19 | XMS REPORT ---
Author Author [facility] Address Unknown Phone Unavailable Care Team Providers Care Auto Body Service Mechanic Name Role Phone Aldo Bryan PCP Aldo Bryan PCP Encounter [id number] [id number] Date(s): 03/06/15 - 03/06/15 [facility] [address] [place] [id number] Discharge Diagnosis: Chest pain Attending Physician: Sophia Spencer APRN Referring Physician: Miko Lowery MD Vital Signs [...]
--- OUTSIDE RECORDS SUMMARY | 2017-10-28 16:19 | XMS REPORT ---
Author Author [employer] [facility] Address Unknown Phone Unavailable Care Team Providers Care Veneer Glue Spreader Name Role Phone Aldo Bryan PCP Aldo Bryan PCP Encounter [id number] Date(s): 04/01/15 - 04/02/[address] [facility] [address] Discharge Disposition: Home Attending Physician: [...]
--- OUTSIDE RECORDS SUMMARY | 2017-10-28 16:19 | XMS REPORT ---
Author Author [employer] [facility] Address Unknown Phone Unavailable Care Team Providers Care Ladle Liner Helper Name Role Phone Aldo Bryan PCP Aldo Bryan PCP Encounter [id number] Date(s): 05/13/15 - 05/13/15 [facility] [address] [address] Discharge Diagnosis: Radial styloid tenosynovitis of right hand Attending Physician: Kalyani Llanos MD Admitting Physician: Kalyani Llanos MD Referring Physician: Aldo Bryan MD Vital [...] Procedures Procedure Date Related Diagnosis Body Site First Dorsal Compartment Release, Right 05/13/15 Social History No data available for this section Assessment and Plan No data available for this section
--- OUTSIDE RECORDS SUMMARY | 2017-10-28 16:20 | XMS REPORT ---
Author Author [employer] Organization [email or web address] Address Unknown Phone Unavailable Care Team Providers Care Crankshaft Balancer Name Role Phone Aldo Bryan PCP Aldo Bryan PCP Encounter [id number] Date(s): 04/14/16 - 04/15/16 [facility] [address] Attending Physician: Aldo Bryan MD Admitting Physician: Alod Bryan MD Referring Physician: Aldo Bryan MD [...]
== END 2017-10-28 09:30 | disposition home or self-care (01) ==
LOC: ENDO 07:00
PROVIDERS: ATTEND Internal Medicine
DX: Z12.11 Encounter for screening for malignant neoplasm of colon (principal); I10 Essential (primary) hypertension; Z86.010 Personal history of colon polyps

== ENCOUNTER → 2019-05-16 | Outpatient (CLI) | payer MEDICARE ==
[~2019-05-16] MED LIST changes: -ALEN70TA47 PO; +ALEN70TA5 PO; -OMEP20CA12 PO; +OMEP20CA13 PO; -SPIR100T2; +SPIR100T4; -SPIR50TA2 PO; +SPIR50TA4 PO
--- NOTE | 2019-05-16 18:40 | Diagnostic Imaging Report ---
INDICATION: Routine screening. Comparison is made with prior mammogram from 05/09/2018 and 04/07/2017. 2-D and 3-D bilateral screening mammography was performed with CAD. The current study was also evaluated with a Computer Aided Detection (CAD) system. 3-D tomosynthesis was also performed and reviewed. Scattered fibroglandular densities are identified bilaterally. Nodular densities in the right breast appears stable and most consistent with benign etiology. No new mass or malignant appearing microcalcifications are seen. Axillae are unremarkable. IMPRESSION: No mammographic features suspicious for malignancy are identified. ACR BI-RADS Category 2: Benign findings. Result letter will be mailed to the patient. Note: At least 10% of breast cancer is not imaged by mammography. Dictated by: Dictated on workstation # [id number]
== END ==
LOC: RAD 09:04
PROVIDERS: ATTEND Internal Medicine
DX: Z12.31 Encounter for screening mammogram for malignant neoplasm of breast (principal)
CPT/HCPCS: 77067

== ENCOUNTER → 2020-01-30 | Outpatient (CLI) | payer MEDICARE ==
[~2020-01-30] MED LIST changes: -FLUO10CA19 PO; +FLUO10CA30 PO; -OMEP20CA13 PO; +OMEP20CA18 PO
--- NOTE | 2020-01-30 11:31 | Diagnostic Imaging Report ---
PROCEDURE: CT head without contrast. TECHNIQUE: Multiple contiguous axial images were obtained through the brain without the use of intravenous contrast. Auto Exposure Controls were utilized during the CT exam to meet ALARA standards for radiation dose reduction. DATE: January 30, 2020. COMPARISON: None. INDICATION: 84-year-old female, fall 3 months ago. Dizziness. Memory loss. FINDINGS: There are areas of abnormal low-attenuation in the periventricular and subcortical white matter which are nonspecific but most likely relate to changes of chronic small vessel ischemic disease. The ventricles and cerebral spinal fluid spaces are of normal size and configuration for the patient's age. There is no mass effect or midline shift. There is no acute intracranial hemorrhage. There is no abnormal extra-axial fluid collection. The visualized portions of the paranasal sinuses, mastoid air cells and middle ears are well aerated. There is no identified skull fracture. IMPRESSION: 1. No identified acute intracranial abnormality. 2. Mild probable changes of chronic small vessel ischemic disease. Dictated by: Dictated on workstation # [id number]
== END ==
LOC: RAD 10:17
PROVIDERS: ATTEND Internal Medicine
DX: I10 Essential (primary) hypertension (principal); R41.3 Other amnesia
CPT/HCPCS: 70450

== ENCOUNTER 2020-03-06 11:10 | Emergency (ER) | payer MEDICARE ==
[~2020-03-06] VITALS: Ht 157.5 cm; Wt 65.8 kg
--- NOTE | 2020-03-06 11:27 | ED Upper Extremity ---
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 PEREZ Allergies and Home Medications Allergies Coded Allergies: Penicillins (Verified Allergy, Unknown, 08/07/17) Home Medications Alendronate Sodium 70 Mg Tablet, 70 MG PO WEEK, (Reported) Atenolol 25 Mg Tablet, 50 MG PO DAILY, (Reported) take 2 (25mg) tabs Fluoxetine HCl 10 Mg Capsule, 10 MG PO DAILY, (Reported) Fluticasone Propionate 16 Gm [place].susp, 1 SPRAY NSEACH DAILY, (Reported) Hydrocodone/Acetaminophen 1 Each Tablet, 1 EACH PO Q4-6 HOURS PRN for PAIN Prescribed by: FARZAD MORRIS on 03/06/20 1219 Lovastatin 20 Mg Tablet, 20 MG PO HS, (Reported) Omeprazole 20 Mg Capsule.dr, 20 MG PO DAILY, (Reported) Spironolactone 50 Mg Tablet, 50 MG PO DAILY, (Reported) Patient Home Medication List Home Medication List Reviewed: Yes Review of Systems Constitutional: no symptoms reported Musculoskeletal: see HPI Skin: no symptoms reported Psychiatric/Neurological: No Symptoms Reported Past Fopozwd-Ropcpx-Ukacdm Hx Past Med/Social Hx: Reviewed and Corrections made Patient Social History Recent Foreign Travel: No Contact w/Someone Who Travel: No Recent Hopitalizations: No Immunizations Up To Date Date of Influenza Vaccine: Jun 20, 2017 Seasonal Allergies Seasonal Allergies: No Past Medical History Surgeries: Yes (CARDIAC CATH-NO INTERVENTION; RIGHT KNEE SCOPE; HYST/BSO; LEFT FOOT SURGERY) Gallbladder, Hysterectomy, Oophorectomy, Orthopedic Respiratory: No Cardiac: Yes (CARDIAC CATH-NO INTERVENTION) Hypertension Neurological: No Reproductive Disorders: No Genitourinary: No Gastrointestinal: No Musculoskeletal: Yes (LEFT FOOT AND RIGHT KNEE SURGERY) Endocrine: No HEENT: No Cancer: No Psychosocial: No Integumentary: No Blood Disorders: No Physical Exam Vital Signs Vital Signs - First Documented 03/06/20 11:13 Temp 36.6 Pulse 92 Resp 18 B/P (MAP) 177/87 (117) Pulse Ox 98 O2 Delivery Room Air Capillary Refill : Height, Weight, BMI Height: 5'3.00" Weight: 145lbs. 0.0oz. 65.596314wv; 25.7 BMI Method:Stated General Appearance: WD/WN, no apparent distress, thin Neck: normal inspection Cardiovascular: normal peripheral pulses, regular rate, rhythm Respiratory: chest non-tender, normal breath sounds Gastrointestinal: non tender Back: normal inspection, no CVA tenderness, no vertebral tenderness Shoulder: normal inspection, non-tender, no evidence of injury Elbow/Forearm: Left (MILD TENDERNESS TO LEFT ELBOW AND FOREARM) Wrist: Yes bone tenderness (LEFT WRIST), Yes ecchymosis, Yes limited ROM, Yes pain, Yes soft tissue tenderness, Yes swelling Hand: normal inspection Neurologic/Tendon: normal sensation, normal motor functions, normal tendon functions Neurologic/Psychiatric: blueprint duplicator II-XII nml as tested, no motor/sensory deficits, alert, normal mood/affect, oriented x 3 Skin: normal color, warm/dry, ecchymosis Procedures/Interventions Splinting and Joint Reduction : Arm Sling: [place] Splints: [place] Wrist Progress/Results/Core Measures Results/Orders My Orders Orders - ARTUROFARZAD DO Humerus, Left, 2 Views (03/06/20 11:22) Wrist, Left, 3 Views Or More (03/06/20 11:22) Ed Ortho/Other Supplies Order (03/06/20 12:15) Hydrocodone/Apap 5/325 Tablet (Lortab 5 (03/06/20 12:30) Vital Signs/I&O 03/06/20 11:13 Temp 36.6 Pulse 92 Resp 18 B/P (MAP) 177/87 (117) Pulse Ox 98 O2 Delivery Room Air Diagnostic Imaging Comments XRAYS LEFT WRIST--FX DISTAL RADIUS AND ULNAR STYLOID XRAYS LEFT HUMERUS--NO ACUTE PROCESS -PER RADIOLOGIST REPORTS AT 1228 Reviewed: Reviewed by Me Departure Impression Primary Impression: Left wrist fracture Disposition: 01 HOME, SELF-CARE Condition: Stable Departure-Patient Inst. Referrals: VISH PEREZ MD (PCP/Family) Primary Care Physician BRENDAN HAIDER MD Patient Instructions: How to Use a Shoulder Sling, SPLINT CARE, Wrist Fracture (DC) Add. Discharge Instructions: WEAR SPLINT AND SLING AT ALL TIMES ICE TO AREA AT 20 MINUTE INTERVALS FOLLOW UP WITH DR. HAIDER IN 2-3 DAYS FOR FURTHER CARE All discharge instructions reviewed with patient and/or family. Voiced understanding. Scripts Hydrocodone/Acetaminophen (Hydrocodone-Acetamin 5-325 mg) 1 Each Tablet 1 EACH PO Q4-6 HOURS PRN for PAIN, #20 TAB Prov: FARZAD MORRIS DO 03/06/20 FARZAD MORRIS DO Mar 06, 2020 11:27
--- OUTSIDE RECORDS SUMMARY | 2020-03-06 11:57 | XMS REPORT ---
Author Author [email or web address] [facility] [employer] [facility] Specific [employer] Address [address] [place] [id number] Care Team Providers Care Data Communications Technician Name Role Phone VISH PEREZ Unavailable VISH PEREZ MD Unavailable Unavailable VISH PEREZ MD Unavailable Unavailable SUNITA PINO Unavailable Unavailable Unavailable Unavailable Unavailable Unavailable Allergies No Information Medications No Information Problems Active Problems Problem Normalized Date Last Normalized Normalized Provider Fa cility Classification Problem(s) Recorded Problem Problem Sta tus Duration Residual Acquired Episodic Active SUNITA ODETTE [facility] Via codes; absence of [facility] unclassified both cervix Hospital - (3 sources.) and uterus [facility] (28696) Other upper Acute Episodic Active SUNITA ODETTE [facility] Via respiratory maxillary [facility] infections (3 sinusitis, Hospital - sources.) unspecified [facility] (83924) Other Encounter for Episodic Active VISH PEREZ , Not Available screening for screening (65319) suspected mammogram for conditions malignant (not mental neoplasm of disorders or breast infectious Translations: disease) (20 [ ENCOUNTER sources.) FOR SCREENING FOR MALIGNANT NE] Essential Essential 01-31-2020 - Chronic Active SUNITA ODETTE [facility] Via hypertension (primary) [facility] (9 sources.) hypertension [facility] ([address]63) Headache; Headache Episodic Active SUNITA ODETTE [facility] Via including [facility] migraine (3 Hospital - sources.) [facility] (03730) Residual Other amnesia 01-31-2020 - Episodic Active VISH CHAVIS ON , [facility] Via codes; [facility] unclassified Hospital - (3 sources.) [facility] (45505) Past or Other Problems Problem Normalized Date Last Normalized Normalized Provider Fa cility Classification Problem(s) Recorded Problem Problem Sta tus Duration Other and Personal Episodic Completed VISH PEREZ , [facility] Via unspecified history of [facility] benign colonic polyps Hospital - neoplasm (3 [facility] sources.) (05140) Procedures The data below is from unstructured sourcesNo procedure information available. Immunizations No Information Results No Information Vital Signs The data below is from unstructured sources Vital Response Date/Time Temperature (Fahrenheit) 97.8 degree s F (97.6 - 99.5) 08/07/2017 1:42pm Temperature (Calculated Celsius) 36. 79504 degrees C (36.4 - 37.5) 08/07/2017 1:42pm Temperature Source Temporal 08/07/2017 1:42pm Pulse Rate (adult) 98 bpm (60 - 90) 08/07/2017 1:42pm Respiratory Rate 20 bpm (12 - 24) 08/07/2017 1:42pm O2 Sat by Pulse Oximetry 94 % (88 - 100) 08/07/2017 1:42pm Blood Pressure 191/101 mm Hg 08/07/2017 1:42pm Blood Pressure Mean 131 mm Hg (65 - 110) 08/07/2017 1:42pm Pain Numeric Pain Scale 6 1:42pm Height (Feet) 5 feet 1:42pm Height (Inches) 3.00 inches 08/07/2017 1:42pm Height (Calculated Centimeters) 160. 907422 cm 08/07/2017 1:42pm Height Method Stated 1:42pm Weight (Pounds) 145 pounds 08/07/2017 1:42pm Weight (Calculated Kilograms) 65.770 894 kilograms 08/07/2017 1:42pm Weight Method Stated 1:42pm Capillary Refill Capillary Refill Less Than 3 Seconds 08/07/2017 1:42pm Height 5 ft 3 in 017 1:42pm Weight 145 lb 08/07/2017 1:42pm Body Mass Index 25.7 kg/m^2 08/07/2017 1:42pm Vital Response Date/Time Height (Feet) 5 feet 05/2018 3:00pm Height (Inches) 3.00 inches 10/21/2017 3:00pm Height (Calculated Centimeters) 160. 781004 cm 10/21/2017 3:00pm Weight (Pounds) 145 pounds 10/21/2017 3:00pm Weight (Ounces) 0.0 oz 0 10/21/2017 3:00pm Weight (Calculated Grams) 58437.89 gm 10/21/2017 3:00pm Weight (Calculated Kilograms) 65.770 894 kilograms 10/21/2017 3:00pm Calculated BMI 25.7 05/2018 3:00pm Vital Response Date/Time Temperature (Fahrenheit) 97.9 degree s F (97.6 - 99.5) 10/28/2017 9:30am Temperature (Calculated Celsius) 36. 21840 degrees C (36.4 - 37.5) 10/28/2017 9:30am Temperature Source Temporal 10/28/2017 9:30am Pulse Rate (adult) 67 bpm (60 - 90) 10/28/2017 9:30am Respiratory Rate 18 bpm (12 - 24) 10/28/2017 9:30am O2 Sat by Pulse Oximetry 97 % (88 - 100) 10/28/2017 9:30am Blood Pressure 117/58 mm Hg 10/28/2017 9:30am Blood Pressure Mean 89 mm Hg (65 - 110) 10/28/2017 7:22am Pain Numeric Pain Scale 0-No Pain 10/28/2017 9:30am Pain Intensity 0 2017 9:25am Height (Feet) 5 feet 7:17am Height (Inches) 3.00 inches 10/28/2017 7:17am Height (Calculated Centimeters) 160. 390041 cm 10/28/2017 7:17am Weight (Pounds) 145 pounds 10/28/2017 7:17am Weight (Ounces) 0.0 oz 0 10/28/2017 7:17am Weight (Calculated Grams) 63973.89 gm 10/28/2017 7:17am Weight (Calculated Kilograms) 65.770 894 kilograms 10/28/2017 7:17am Calculated BMI 25.7 10/13 7:17am Vital Response Date/Time Temperature (Fahrenheit) 97.9 degree s F (97.6 - 99.5) 10/28/2017 9:30am Temperature (Calculated Celsius) 36. 36903 degrees C (36.4 - 37.5) 10/28/2017 9:30am Temperature Source Temporal 10/28/2017 9:30am Pulse Rate (adult) 67 bpm (60 - 90) 10/28/2017 9:30am Respiratory Rate 18 bpm (12 - 24) 10/28/2017 9:30am O2 Sat by Pulse Oximetry 97 % (88 - 100) 10/28/2017 9:30am Blood Pressure 117/58 mm Hg 10/28/2017 9:30am Blood Pressure Mean 89 mm Hg (65 - 110) 10/28/2017 7:22am Pain Numeric Pain Scale 0-No Pain 10/28/2017 9:30am Pain Intensity 0 2017 9:25am Height (Feet) 5 feet 7:17am Height (Inches) 3.00 inches 10/28/2017 7:17am Height (Calculated Centimeters) 160. 894696 cm 10/28/2017 7:17am Weight (Pounds) 145 pounds 10/28/2017 7:17am Weight (Ounces) 0.0 oz 0 10/28/2017 7:17am Weight (Calculated Grams) 73201.89 gm 10/28/2017 7:17am Weight (Calculated Kilograms) 65.770 894 kilograms 10/28/2017 7:17am Calculated BMI 25.7 10/13 7:17am Interventions No Information Plan of Treatment The data below is from unstructured sources Discharge Date 08/07/17 3:50pm Disposition 01 HOME, SELF-CARE Condition at Discharge Stable Prescriptions See Medication Section Referrals VISH PEREZ MD Order Date: Primary Care Physician Address: [address] [place] [address], [address] [place] [id number] Additional Instructions/Education Dr reid copious amounts of fluids to help flush your nasal sinuses out. Take 2 tablets of the azithromycin today and then every day after that take one tablet until completion. If you're having pain or fevers you should take 1000 g Tylenol and/or 800 mg of Advil every 8 hours as needed. If you're not improving in 7-10 days then you should follow up with your primary care physician for further evaluation and management. Plan to follow up with your primary care physician in one to 2 weeks to address your blood pressure. You may log your blood pressure daily in the morning when you first get up and take that with you to your appointment. If you have wheezing or shortness of breath you may use 2 puffs of albuterol by mouth every 4 hours as needed. If this does not improve your wheezing or shortness of breath you should follow up with your primary care physician. All discharge instructions reviewed with patient and/or family. Voiced understanding. Discharge Date 10/21/17 3:13pm Prescriptions See Medication Section Discharge Date 10/28/17 9:30am Instructions/Education Provided COLO NOSCOPY Prescriptions See Medication Section Discharge Date 10/28/17 9:30am Instructions/Education Provided COLO NOSCOPY Prescriptions See Medication Section Goals No Information Social History No Information Functional Status The data below is from unstructured sourcesNo functional status information available.No functional status information available.No functional status information available.No functional status information available.No functional status information available. Mental Status No Information Encounters Encounter Normalized Encounter Encounter Diagnosis Care Provi bogdan Organization Date Type 08-07-2017 Emergency department no information no name no organization name - patient visit 08-07-2017 05-09-2018 Patient encounter no information no name no or ganization name 05-09-2018 Patient encounter no information no name no or ganization name 10-28-2017 Patient encounter no information no name no or ganization name - 10-28-2017 04-07-2017 Patient encounter no information no name no or ganization name 01-30-2020 Patient encounter no information VISH PEREZ MD (no [facility] procedure phone) [facility] (no phone) 05-16-2019 Patient encounter no information no name no or ganization name procedure 05-16-2019 Patient encounter no information no name no or ganization name procedure 10-21-2017 Patient encounter no information no name no or ganization name - procedure 10-21-2017 04-07-2017 Patient encounter no information no name no or ganization name procedure no information Encounter for other no name no organiz ation name preprocedural examination Medical Equipment No Information Payers No Information Advance Directives Directive Response Recor ded Date/Time Advance Directives No 1:42pm Resuscitation Status Full Code 08/07/17 1:42pm Directive Response Recor ded Date/Time Advance Directives No 3:02pm Resuscitation Status Full Code 10/21/17 3:02pm Directive Response Recor ded Date/Time Advance Directives No 7:23am Health Care Power of Charge Operator No 10/28/17 7:23am Organ Donor No 10/28/17 7:23am Resuscitation Status Full Code 10/28/17 7:23am Discharge Instructions No hospital discharge instruction information available.No hospital discharge instruction information available.No hospital discharge instruction information available. Additional Source Comments This clinical document has been generated using [employer] software that has been certified by the Office of the National Coordinator for Health Information Technology (ONC 15.99.04.3023.Diam.31.00.0.752380) and the National Committee for Register Of Deeds (NCQA, as an eMeasure certified technology). FOR RECORDS PERTAINING TO PATIENTS WHO ARE OR HAVE BEEN ENROLLED IN A CHEMICAL D EPENDENCY/SUBSTANCE ABUSE PROGRAM, SOME INFORMATION MAY BE OMITTED. This clinica l summary was aggregated from multiple sources. Caution should be exercised in using it in the provision of clinical care. This summary normalizes information from multiple sources, and as a consequence, information in this document may ma terially change the coding, format and clinical context of patient data. In myla tion, data may be omitted in some cases. CLINICAL DECISIONS SHOULD BE BASED ON T HE PRIMARY CLINICAL RECORDS. [employer] provides no warranty or guara ntee of the accuracy or completeness of information in this document.The followi ng information is based on time limited clinical information
--- OUTSIDE RECORDS SUMMARY | 2020-03-06 11:58 | XMS REPORT | Continuity of Care Document ---
Author Organization Unknown Address Unknown Phone Unavailable Allergies Active Description Code Type Severity Reaction Onset Reported/Identified Relationship to Patient Clinical Status Yes Penicillins [id number] Drug Aller gy Unknown N/A 08/07/2017 Medications There is no data. Problems Date Dx Coded Attending Type Code Diagnosis Diagnosed By 05/06/2017 VISH PEREZ MD, Ot Z12. 31 ENCNTR SCREEN MAMMOGRAM FOR MALIGNANT NE 08/07/2017 VISH PEREZ MD, Ot Z12. 31 ENCNTR SCREEN MAMMOGRAM FOR MALIGNANT NE 08/07/2017 SUNITA PINO MD Ot I10 ESSENTIAL (PRIMARY) HYPERTENSION 08/07/2017 SUNITA PINO MD Ot J01. 00 ACUTE MAXILLARY SINUSITIS, UNSPECIFIED 08/07/2017 SUNITA PINO MD Ot J40 BRONCHITIS, NOT SPECIFIED ACUTE OR CH 08/07/2017 SUNITA PINO MD Ot R51 HEADACHE 08/07/2017 SUNITA PINO MD Ot Z90.710 ACQUIRED ABSENCE OF BOTH CERVIX AND UTER 10/21/2017 VISH PEREZ MD Ot Z01.818 ENCOUNTER FOR OTHER PREPROCEDURAL EXAMIN 10/21/2017 VISH PEREZ MD Ot Z12. 11 ENCOUNTER FOR SCREENING FOR MALIGNANT NE 10/25/2017 VISH PEREZ MD Ot Z01.818 ENCOUNTER FOR OTHER PREPROCEDURAL EXAMIN 10/25/2017 VISH PEREZ MD Ot Z12. 11 ENCOUNTER FOR SCREENING FOR MALIGNANT NE 10/27/2017 VISH PEREZ MD Ot Z01.818 ENCOUNTER FOR OTHER PREPROCEDURAL EXAMIN 10/27/2017 VISH PEREZ MD Ot Z12. 11 ENCOUNTER FOR SCREENING FOR MALIGNANT NE 10/27/2017 VISH PEREZ MD Ot Z12. 31 ENCNTR SCREEN MAMMOGRAM FOR MALIGNANT NE 10/28/2017 VISH PEREZ MD Ot I10 ESSENTIAL (PRIMARY) HYPERTENSION 10/28/2017 VISH PEREZ MD Ot Z12. 11 ENCOUNTER FOR SCREENING FOR MALIGNANT NE 10/28/2017 VISH PEREZ MD Ot Z86.010 PERSONAL HISTORY OF COLONIC POLYPS 11/01/2017 VISH PEREZ MD Ot I10 ESSENTIAL (PRIMARY) HYPERTENSION 11/01/2017 VISH PEREZ MD Ot Z12. 11 ENCOUNTER FOR SCREENING FOR MALIGNANT NE 11/01/2017 VISH PEREZ MD Ot Z86.010 PERSONAL HISTORY OF COLONIC POLYPS 05/10/2018 VISH PEREZ MD Ot Z12. 31 ENCNTR SCREEN MAMMOGRAM FOR MALIGNANT NE 06/02/2018 VISH PEREZ MD Ot Z12. 31 ENCNTR SCREEN MAMMOGRAM FOR MALIGNANT NE 04/30/2019 VISH PEREZ MD Ot Z12. 31 ENCNTR SCREEN MAMMOGRAM FOR MALIGNANT NE 05/12/2019 VISH PEREZ MD Ot Z12. 31 ENCNTR SCREEN MAMMOGRAM FOR MALIGNANT NE 05/16/2019 VISH PEREZ MD Ot Z12. 31 ENCNTR SCREEN MAMMOGRAM FOR MALIGNANT NE 05/16/2019 VISH PEREZ MD Ot Z12. 31 ENCNTR SCREEN MAMMOGRAM FOR MALIGNANT NE 05/16/2019 VISH PEREZ MD Ot Z12. 31 ENCNTR SCREEN MAMMOGRAM FOR MALIGNANT NE 05/22/2019 VISH PEREZ MD Ot Z12. 31 ENCNTR SCREEN MAMMOGRAM FOR MALIGNANT NE 06/07/2019 VISH PEREZ MD Ot Z12. 31 ENCNTR SCREEN MAMMOGRAM FOR MALIGNANT NE 01/31/2020 VISH PEREZ MD Ot I10 ESSENTIAL (PRIMARY) HYPERTENSION 01/31/2020 VISH PEREZ MD Ot R41. 3 OTHER AMNESIA 02/22/2020 VISH PEREZ MD Ot I10 ESSENTIAL (PRIMARY) HYPERTENSION 02/22/2020 VISH PEREZ MD Ot R41. 3 OTHER AMNESIA Procedures There is no data. Results Test Result Range Capillary blood glucose measurement by g lucometer (mass/volume) - 08/07/17 13:58 Capillary blood glucose measurement by glucometer (mas s/volume) 103 mg/dL 70-110 Complete blood count (CBC) with automate d white blood cell (WBC) differential - 08/07/17 14:00 Blood leukocytes automated count (number/volume) 8.8 10*3/uL 4.3-11.0 Blood erythrocytes automated count (number/volume) 4.25 10*6/uL 4.35-5.85 Venous blood hemoglobin measurement (mass/volume) 12.7 g/dL 11.5-16.0 Blood hematocrit (volume fraction) 36 % 35-52 Automated erythrocyte mean corpuscular volume 85 [ foz_us] 80-99 Automated erythrocyte mean corpuscular h emoglobin (mass per erythrocyte) 30 pg 25-34 Automated erythrocyte mean corpuscular h emoglobin concentration measurement (mass/volume) 35 g/dL 32-36 Automated erythrocyte distribution width ratio 12. 3 % 10.0- 14.5 Automated blood platelet count (count/volume) 206 10*3/uL 130-400 Automated blood platelet mean volume measurement 9.6 [foz_us] 7.4-10.4 Automated blood neutrophils/100 leukocytes 75 % 42-75 Automated blood lymphocytes/100 leukocytes 18 % 12-44 Blood monocytes/100 leukocytes 6 % 0-12 Automated blood eosinophils/100 leukocytes 1 % 0-10 Automated blood basophils/100 leukocytes 1 % 0-10 Blood neutrophils automated count (number/volume) 6.6 10*3 1.8-7.8 Blood lymphocytes automated count (number/volume) 1.5 10*3 1.0-4.0 Blood monocytes automated count (number/volume) 0. 6 10*3 0.0-1.0 Automated eosinophil count 0.1 10*3/uL 0 .0-0.3 Automated blood basophil count (count/volume) 0.0 10*3/uL 0.0-0.1 Comprehensive metabolic panel - 08/07/17 14:00 Serum or plasma sodium measurement (moles/volume) 138 mmol/L 135-145 Serum or plasma potassium measurement (moles/volume) 3.7 mmol/L 3.6-5.0 Serum or plasma chloride measurement (moles/volume) 104 mmol/L 98-107 Carbon dioxide 24 mmol/L 21-32 Serum or plasma anion gap determination (moles/volume) 10 mmol/L 5-14 Serum or plasma urea nitrogen measurement (mass/volume ) 9 mg/dL 7-18 Serum or plasma creatinine measurement (mass/volume) 0.73 mg/dL 0.60-1.30 Serum or plasma urea nitrogen/creatinine mass ratio 12 NRG Serum or plasma creatinine measurement w ith calculation of estimated glomerular filtration rate > NRG Serum or plasma glucose measurement (mass/volume) 106 mg/dL 70-105 Serum or plasma calcium measurement (mass/volume) 9.2 mg/dL 8.5-10.1 Serum or plasma total bilirubin measurement (mass/volu me) 0.9 mg/dL 0.1-1.0 Serum or plasma alkaline phosphatase myles surement (enzymatic activity/volume) 86 U/L 40-136 Serum or plasma aspartate aminotransfera se measurement (enzymatic activity/volume) 25 U/L 5-34 Serum or plasma alanine aminotransferase measurement (enzymatic activity/volume) 24 U/L 0-55 Serum or plasma protein measurement (mass/volume) 7.1 g/dL 6.4-8.2 Serum or plasma albumin measurement (mass/volume) 3.8 g/dL 3.2-4.5 Complete urinalysis with reflex to cultu re - 08/07/17 14:38 Urine color determination YELLOW NRG Urine clarity determination CLEAR NR G Urine pH measurement by test strip 8 5-9 Specific gravity of urine by test strip 1.010 1.016-1.022 Urine protein assay by test strip, semi-quantitative NEGATIVE NEGATIVE Urine glucose detection by automated test strip NE GATIVE NEGATIVE Erythrocytes detection in urine sediment by light micr oscopy NEGATIVE NEGATIVE Urine ketones detection by automated test strip NE GATIVE NEGATIVE Urine nitrite detection by test strip NEGATIVE NEGATIVE Urine total bilirubin detection by test strip NEGA TIVE NEGATIVE Urine urobilinogen measurement by automated test strip (mass/volume) NORMAL NORMAL Urine leukocyte esterase detection by dipstick 1+ NEGATIVE Automated urine sediment erythrocyte cou nt by microscopy (number/high power field) NONE NRG Automated urine sediment leukocyte count by microscopy (number/high power field) [HPF] NRG Bacteria detection in urine sediment by light microsco py TRACE NRG Squamous epithelial cells detection in u rine sediment by light microscopy RARE NRG Crystals detection in urine sediment by light microsco py NONE NRG Casts detection in urine sediment by light microscopy NONE NRG Mucus detection in urine sediment by light microscopy NEGATIVE NRG Complete urinalysis with reflex to culture NO NRG Encounters ACCT No. Visit Date/Time Discharge Status Pt. Type Provider Facility Loc./Unit Complaint [id number] 01/30/2020 10:17:00 020 23:59:59 CLS Outpatient VISH PEREZ MD [facility] RAD MEMORY LOSS [id number] 05/16/2019 09:04:00 019 23:59:59 CLS Outpatient VISH PEREZ MD [facility] RAD SCREENING Z12.31 [id number] 05/09/2018 10:52:00 018 23:59:59 CLS Outpatient VISH PEREZ MD [facility] RAD SCREENING [id number] 10/28/2017 07:00:00 018 09:30:00 DIS Outpatient VISH PEREZ MD [facility] ENDO SCREENING [id number] 10/21/2017 05:32:00 018 15:13:00 DIS Outpatient VISH PEREZ MD [facility] PREOP COLONOSCOPY [id number] 08/07/2017 13:31:00 017 15:50:00 DIS Emergency SUNITA PINO MD [facility] ER BP ISSUES/NOT FEELING W ELL [id number] 04/07/2017 10:55:00 017 23:59:59 CLS Outpatient VISH PEREZ MD [facility] RAD ROUTINE SCREENING
--- OUTSIDE RECORDS SUMMARY | 2020-03-06 11:58 | XMS REPORT | Continuity of Care Document ---
Author Author YANICK MAYNARD Organization [facility] Address Unknown Phone Unavailable Care Team Providers Care Lone Lead Lineman Name Role Phone [facility] Unavailable Unavailable Problems Problem Status Onset Date Classification Date Reported Comments Source Diarrhea (finding) 07/22/2016 Diagnosis 07/26/2016 [facility], Pure hypercholesterolemia (disorder) 04/01/2016 Diagnosis 04/05/2016 [facility] [employer] [facility], Hypertensive disorder, systemic arterial (disorder) 04/01/2016 Diagnosis 04/05/2016 [facility], Impacted cerumen (disorder) 04/01/2016 Diagnosis 04/05/2016 [facility], Single major depressive episode, mild (disorder) 04/01/2016 Diagnosis 04/05/2016 [facility], Gastroesophageal reflux disease (disorder) 10/02/2015 Diagnosis 10/06/2015 [facility] [employer] [facility], Bursitis of shoulder (disorder) 09/22/2015 Diagnosis 09/26/2015 [facility], Shoulder joint pain (finding) 06/25/2015 [facility] [place], Follow-up examination following other surgery 05/28/2015 Diagnosis 06/01/2015 [facility], Radial styloid tenosynovitis 05/13/2015 Diagnosis 05/17/2015 [facility] Unspecified essential hypertension 04/09/2015 Diagnosis 04/13/2015 [facility] [employer] [facility] [place], [facility], Pain in limb 04/09/2015 Diagnosis 04/13/2015 [facility], Goiter, unspecified 04/09/2015 Diagnosis 04/13/2015 [facility], Pain in joint involving shoulder region 04/09/2015 Diagnosis 04/13/2015 [facility], Need for prophylactic vaccination agains t Streptococcus pneumoniae [pneumococcus] 04/09/2015 Diagnosis 04/13/2015 [facility], Coronary atherosclerosis of unspecified type of vessel, [place] or graft 03/12/2015 Diagnosis 03/16/2015 [facility] Unspecified chest pain 03/06/2015 Diagnosis 03/10/2015 [facility], Brachial neuritis or radiculitis NOS 11/07/2014 Diagnosis 11/11/2014 [facility] Neurology, Carpal tunnel syndrome 10/09/2014 Diagnosis 10/13/2014 [facility], Esophageal reflux 10/09/2014 Diagnosis 10/13/2014 [facility], Osteoporosis, unspecified 10/09/2014 Diagnosis 10/13/2014 [facility], Lateral epicondylitis 06/14/2014 Diagnosis 06/18/2014 [facility], Depressive disorder, not elsewhere classified 04/12/2014 [facility] Screening for osteoporosis 04/12/2014 Diagnosis 04/16/2014 [facility], Other and unspecified hyperlipidemia 04/12/2014 Diagnosis 04/16/2014 [facility], [facility], Allergic rhinitis, cause unspecified 04/12/2014 Diagnosis 04/16/2014 [facility], Other and unspecified angina pectoris 01/24/2014 Diagnosis 01/28/2014 [facility], Allergic rhinitis (disorder) A ctive Problem [facility], [facility], [facility]rology, [facility], Cervical radiculopathy (disorder) Active Problem [facility], [facility], [facility] Neurology, [facility] Orthopedics [facility], Coronary arteriosclerosis (disorder) Active Problem [facility], [facility]iology [facility], [facility] Orthopedics [facility], Gastroesophageal reflux disease (disorder) Active Problem 07/30/2016 [facility], [facility], [facility] Cardiology [facility], [facility] Neurology, [facility] Orthopedics Sports [facility], [facility], Hypertensive disorder, systemic arterial (disorder) Active Problem 07/30/2016 [facility], [facility], [facility] Cardiology [facility], [facility] Neurology[facility] Orthopedics Sports [facility], [facility], Nonexudative age-related macular degener ation (disorder) Active Prob yi 07/30/2016 [facility], [facility] Cardiology [facility], [facility] Neurology[facility], Osteoporosis (disorder) Active Problem 07/30/2016 [facility], [facility]iology [facility], [facility] Neurology, [facility] Orthopedics [facility], [facility], Pure hypercholesterolemia (disorder) Active Problem [facility], [facility], Single major depressive episode, mild (disorder) Active Problem 07/30/2016 [facility], [facility], Depressive disorder (disorder) Active Problem 12/2015 [facility], [facility], [facility] Neurology, [facility] Orthopedics Sports [facility], [facility], Hyperlipidemia (disorder) Acti ve Problem [facility], [facility], [facility] Neurology, [facility] Orthopedics & Sports Medi [facility], [facility], Discharge Diagnosis: Bursitis of right shoulder Diagnosis 12/15/2015 [facility] Discharge Diagnosis: Stiffness of right shoulder, not elsewhere classified Diagnosis 12/15/2015 [facility] Discharge Diagnosis: Other symptoms and signs involving the musculoskeletal system Diagnosis 12/15/2015 [facility], Medications No Data Provided for This Section Allergies, Adverse Reactions, Alerts Substance Category Reaction Severity Reaction type Status Date Reported Comments Source penicillin drug allergy hives Allergy Active [facility], penicillin Assertion hives Drug allergy [facility], [facility], [facility] Cardiology [facility], [facility] Neurology, [facility] Orthopedics & Sports [facility], Immunizations Immunization Date Given Site Status Last Updated Comments Source Evaluated Forecast 03/06/2020 completed table.evaluated-forecast { border-collapse: collapse; font-family: [place], Helvetica, sans-serif; } .evaluated-forecast th, .evaluated-forecast td { paddinpx 8px; } .evaluated-forecast thead th { background: #[id number]; text-transform: lowercase; text-align: left; font-size: 15px; color: #fff; } .evaluated-forecast tr { border: 1px solid #[id number]; } .evaluated- forecast tbody tr { border-bottom: 1px solid #[id number]; } .evaluated- forecast tbody tr:nth-child(odd) { background: #[id number]; } .e valuated-forecast tbody th, .evaluated-forecast tbody tr td { border- right: 1px solid #[id number]; } .evaluated-forecast tfoot th { background: #[id number]; text-align: left; font-weight: normal; font-size: 10px; color: #fff; } .evaluated-forecast tr *:nth- child(3), .evaluated-forecast tr *:nth-child(4) { text-align: right; } Tdap 1942 PPSV23 (Pneumovax 23) 2001 ELLIOTT (Varivax) 07/24/2009 Zoster Subunit (Shingrix) 08/21/2009 Influenza IIV4 MDV 03/12/2019 Polio, UF KN49303-0^Too Old^LN MMR DT41594-0^Immune^LN Hib, UF NM72215-0^Too Old^LN Hep B, UF QO46758-2^Too Old^LN Hep A, UF UG61408-8^Too Old^LN Rotavirus, UF AS25199-3^Too Old^LN Meningococcal, UF AH35828-7^Too Old^LN HPV, UF WD76095-8^Too Old^LN [id number], influenza virus vaccine 07/22/2016 Right Deltoid influenza virus vaccine [facility], Influenza, high dose seasonal 06/25/2015 Left Deltoid influenza virus vaccine [facility], [facility], Pneumococcal conjugate PCV 13 04/09/2015 Left Deltoid pneumococcal 13-valent vaccine [facility], Influenza, high dose seasonal 06/14/2014 Right Deltoid influenza virus vaccine [facility], [facility], influenza virus vaccine 06/12/2013 influenza virus vaccine<sup>1</sup> [facility] Location History: [facility], [facility], Influenza, seasonal, injectable 06/23/2012 Left Deltoid influenza virus vaccine [facility], [facility], zoster vaccine live 09/12/2009 zoster vaccine live [facility], Zoster (Zostavax) 06/26/2009 Left Posterolateral fat of Upper Arm Not Given [id number], pneumococcal 23-valent vaccine 04/14/2000 pneumococcal 23-valent vaccine [facility], [facility] Services, [facility] Neurology, [facility] Orthopedics & Sports [facility], diphtheria-tetanus toxoids 04/14/2000 diphtheria-tetanus toxoids [facility], [facility], [facility] Neurology, [facility] Orthopedics & Sports [facility], pneumococcal 23-valent vaccine 04/14/2000 pneumococcal 23-valent vaccine [facility], [facility], diphtheria-tetanus toxoids 04/14/2000 diphtheria-tetanus toxoids [facility], [facility], Results No Data Provided for This Section Pathology Reports No Data Provided for This Section Diagnostic Reports No Data Provided for This Section Consultation Notes No Data Provided for This Section Discharge Summaries No Data Provided for This Section History and Physicals No Data Provided for This Section Vital Signs No Data Provided for This Section Encounters Location Location Details Encounter Type Encounter Number Reason For Visit Attending Provider ADM Date DC Date Status Source OFPR CD:[id number] Clinic (Outpatient) [id number] [facility] 08/16/2013 Active [facility] CD:[id number] Clinic (Outpatient) [id number] . LAB OFPR 08/17/2013 [facility] [id number] [facility] 01/24/2014 01/25/2014 [facility], [facility] CD:[id number] Clinic (Outpatient) [id number] [facility] 01/24/2014 [facility] CD:[id number] Outpatient [id number] Tiana Bryan 03/27/2014 03/27/2014 [facility] [id number] [facility] 04/12/2014 04/13/2014 [facility] [id number] . LAB OFPR 04/15/2014 04/16/2014 [facility] CD:[id number] Outpatient [id number] Tiana Bryan 04/19/2014 04/19/2014 Active [facility] [id number] Aldo Glodidier 06/14/2014 06/15/2014 [facility] [id number] Aldo Bryan 10/09/2014 10/10/2014 [facility] CD:[id number] Outpatient [id number] Tiana Bryan 10/10/2014 10/10/2014 Active [facility], [facility] [id number] . LAB OFPR 10/10/2014 10/11/2014 [facility] CD:[id number] Clinic (Outpatient) [id number] . LAB OFPR 10/11/2014 Active Count includes the [facility]rology [facility] [id number] Sabas Barron 11/07/2014 11/08/2014 [facility] Neurology, [facility] CD:[id number] Outpatient [id number] Tiana Bryan 11/28/2014 11/28/2014 Active [facility], [facility] [id number] . LAB OFPR 12/16/2014 12/17/2014 [facility] Cardiology Services Clinic [id number] Sophia Beverley Tj 03/06/2015 03/07/2015 [facility], [facility] CD:[id number] Outpatient [id number] Miko Lowery 03/12/2015 03/12/2015 Active [facility], [facility] CD:[id number] Outpatient [id number] Tiana vashti Irvin 04/01/2015 04/01/2015 Active [facility], [facility] Cardiology Services Clinic [id number] Miko Beverley Beverley 04/01/2015 03/13/2015 [facility], [facility] [id number] Aldo Glodidier 04/09/2015 04/10/2015 [facility] CD:[id number] Clinic (Outpatient) [id number] Kalyani Llanos 04/23/2015 Active [facility]ics [facility], [facility] CD:[id number] Clinic (Outpatient) [id number] KalyaniHome Llanos 04/23/2015 Active [facility] access hospital Orthopedics & Sports Medicine, [facility] CD:[id number] Amb Surgery [id number] Kalyani Viet 05/13/2015 05/13/2015 Active [facility] Orthopedics Clinic [id number] KalyaniHome Llanos 05/28/2015 05/29/2015 [facility] Orthopedics & Sports [facility], [facility] [id number] Aldo Bryan 06/25/2015 06/26/2015 [facility] [id number] Lupe Pandya 09/22/2015 09/23/2015 [facility] Orthopedics & Sports [facility], [facility] CD:[id number] Outpatient [id number] Luep Pandya 09/23/2015 10/13/2015 Discharged [facility] [id number] Aldo Bryan 10/02/2015 10/03/2015 [facility] CD:[id number] Outpatient [id number] Lupe Pandya 10/13/2015 11/11/2015 Discharged [facility] CD:[id number] Outpatient [id number] Lupe Pandya 11/11/2015 12/12/2015 Discharged [facility] [id number] Aldo Bryan 04/01/2016 04/02/2016 [facility] [place] CD:[id number] Outpatient [id number] Tiana Bryan 04/02/2016 04/02/2016 Active [facility] CD:[id number] Outpatient [id number] Tiana Bryan 04/14/2016 04/14/2016 Active [facility] [id number] Aldo Bryan 07/22/2016 07/23/2016 [facility] [id number] . [facility] 07/26/2016 07/27/2016 [facility] [place], Procedures Procedure Code Date Perfomer Comments Source First Dorsal Compartment Release, Right 05/13/2015 [facility], [facility] cardaic cath [facility], [facility] Plan of Care No Data Provided for This Section Social History No Data Provided for This Section Assessment and Plan No Data Provided for This Section Family History No Data Provided for This Section Advance Directives No Data Provided for This Section Functional Status No Data Provided for This Section
[2020-03-06] MEDS ORDERED: HYDR-83 PO (12:19)
--- NOTE | 2020-03-06 12:22 | Diagnostic Imaging Report ---
Clinical indication: Patient fell landing on left wrist. Patient has left wrist swelling and bruising. EXAM: X-ray of the left humerus, 2 views. COMPARISON: None. FINDINGS: There is no acute fracture or dislocation. There is mild hypertrophic spurs involving the left acromioclavicular interval and left glenoid rim. IMPRESSION: There is no acute fracture or dislocation. Dictated by: Dictated on workstation # [id number]
--- NOTE | 2020-03-06 12:24 | Diagnostic Imaging Report ---
INDICATION: Left wrist injury from a fall Three views of the left wrist show a dorsally displaced and dorsally angulated fracture of the distal radius at the level of the metaphysis. There is associated ulnar styloid fracture. There is calcification of the triangular fibrocartilage. IMPRESSION: 1. Dorsally impacted and displaced fracture of the distal radius with associated ulnar styloid fracture. Dictated by: Dictated on workstation # [id number]
[2020-03-06 12:30] VITALS: BP 177/87
[2020-03-06] MEDS ORDERED: HYDROcodone/APAP 5 MG/325 MG (LORTAB) TAB PO ONE (12:30)
== END 2020-03-06 12:30 | disposition home or self-care (01) ==
LOC: EDUNIT# 11:10 → ER 11:11
DX: S52.502A Unspecified fracture of the lower end of left radius, initial encounter for closed fracture (principal); S52.612A Displaced fracture of left ulna styloid process, initial encounter for closed fracture; I10 Essential (primary) hypertension; Z88.0 Allergy status to penicillin; Z79.51 Long term (current) use of inhaled steroids; Z95.9 Presence of cardiac and vascular implant and graft, unspecified; W18.39XA Other fall on same level, initial encounter
CPT/HCPCS: 73060; 73110; 99282; A4565

== ENCOUNTER 2020-05-23 10:24 | Outpatient (RCR) | payer MEDICARE ==
[~2020-05-23 10:24] MED LIST changes: +ACHD5005 PO
== END 2020-06-09 10:00 | disposition home or self-care (01) ==
PROVIDERS: ATTEND Orthopaedic Surgery
DX: R26.89 Other abnormalities of gait and mobility (principal); R29.6 Repeated falls; I10 Essential (primary) hypertension; H26.9 Unspecified cataract

== ENCOUNTER 2021-04-26 13:34 | Emergency (ER) | payer MEDICARE ==
[~2021-04-26] VITALS: Ht 165 cm; Wt 65.0 kg
[~2021-04-26 13:34] MED LIST changes: -ALEN70TA5 PO; +ALEN70TA80 PO; -FLUO10CA30 PO; +FLUO10CA31 PO
[2021-04-26 14:42] LABS: BASOPHILS % (AUTO) 0 % (0-10); EOSINOPHILS # (AUTO) 0.1 10^3/uL (0.0-0.3); EOSINOPHILS % (AUTO) 1 % (0-10); HEMATOCRIT 39 % (35-52); HEMOGLOBIN 13.3 g/dL (11.5-16.0); LYMPHOCYTES # (AUTO) 1.6 10^3/uL (1.0-4.0); LYMPHOCYTES % (AUTO) 20 % (12-44); MEAN CORPUSCULAR HEMOGLOBIN 31 pg (25-34); MEAN CORPUSCULAR HGB CONC 34 g/dL (32-36); MEAN CORPUSCULAR VOLUME 90 fL (80-99); MEAN PLATELET VOLUME 9.4 fL (9.0-12.2); MONOCYTES # (AUTO) 0.7 10^3/uL (0.0-1.0); MONOCYTES % (AUTO) 9 % (0-12); NEUTROPHILS # (AUTO) 5.6 10^3/uL (1.8-7.8); NEUTROPHILS % (AUTO) 69 % (42-75); PLATELET COUNT 208 10^3/uL (130-400); WHITE BLOOD COUNT 8.1 10^3/uL (4.3-11.0)
[2021-04-26 14:45] LABS: ALBUMIN 4.5 GM/DL (3.2-4.5); POTASSIUM 4.5 MMOL/L (3.6-5.0)
[2021-04-26] MEDS ORDERED: NS IV 500 ML 500 ML IV ONE (14:45)
[2021-04-26 14:46] LABS: CALCIUM 10.1 MG/DL (8.5-10.1)
--- NOTE | 2021-04-26 14:47 | ED GI ---
General Chief Complaint: Abdominal/GI Problems Stated Complaint: RECIEVED COVID SHOT, DIARRHEA,WEAKNESS Nursing Triage Note: ARRIVED VIA WC WITH COMPLAINTS X2 BLACK DIARRHEA STOOLS. ONE YESTERDAY AND ONE TODAY. Source of Information: Patient, Caregiver Exam Limitations: Physical Impairments History of Present Illness Date Seen by Provider: Apr 26, 2021 Time Seen by Provider: 14:25 Initial Comments Here with report of 2 diarrhea episodes, one yesterday and one today. Both episodes involved watery black stools. Patient has had some rumbling in her abdomen without significant pain and she does not have pain currently. She does have dementia so is a little confused and answering questions. Family member at bedside is assisting. Patient really denies no other complaints other than the diarrhea. She is apparently not on blood thinners and does not take aspirin. She had normal colonoscopy 3 years ago reportedly per family members. She f omarlows with Dr. Ribera. Timing/Duration: 1-2 Days, Intermittent Severity/Quality: Mild, Cramping Location: Generalized Abdomen Radiation: No Radiation Activities at Onset: None Modifying Factors: Improves With Defecating Associated Symptoms: No Back Pain, No Chest Pain, No Fever/Chills, No Nausea/Vomiting, No Shortness of Air; Weakness Allergies and Home Medications Allergies Coded Allergies: Penicillins (Verified Allergy, Unknown, 08/07/17) Home Medications Alendronate Sodium 70 Mg Tablet, 70 MG PO WEEK, (Reported) Atenolol 25 Mg Tablet, 50 MG PO DAILY, (Reported) take 2 (25mg) tabs Fluoxetine HCl 10 Mg Capsule, 10 MG PO DAILY, (Reported) Fluticasone Propionate 16 Gm [place].susp, 1 SPRAY NSEACH DAILY, (Reported) Hydrocodone/Acetaminophen 1 Each Tablet, 1 EACH PO Q4-6 HOURS PRN for PAIN Prescribed by: FARZAD MORRIS on 03/06/20 1219 Lovastatin 20 Mg Tablet, 20 MG PO HS, (Reported) Omeprazole 20 Mg Capsule.dr, 20 MG PO DAILY, (Reported) Spironolactone 50 Mg Tablet, 50 MG PO DAILY, (Reported) Patient Home Medication List Home Medication List Reviewed: Yes Review of Systems Review of Systems Constitutional: see HPI; No chills, No fever EENTM: No Symptoms Reported Respiratory: Denies Cough, Denies Shortness of Air Cardiovascular: Denies Chest Pain, Denies Edema Gastrointestinal: Diarrhea; Denies Vomiting Genitourinary: No Symptoms Reported Musculoskeletal: no symptoms reported All Other Systems Reviewed Negative Unless Noted: Yes Past Ziaxhxw-Zjpnaq-Wcusdj Hx Patient Social History Tobacco Use?: No Substance use?: No Immunizations Up To Date Second COVID19 Vaccination Doug: UNKNOWN Seasonal Allergies Seasonal Allergies: No Past Medical History Surgeries: Yes (CARDIAC CATH-NO INTERVENTION; RIGHT KNEE SCOPE; HYST/BSO; LEFT FOOT SURGERY) Gallbladder, Hysterectomy, Oophorectomy, Orthopedic Respiratory: No Cardiac: Yes (CARDIAC CATH-NO INTERVENTION) Hypertension Neurological: No Reproductive Disorders: No Genitourinary: No Gastrointestinal: No Musculoskeletal: Yes (LEFT FOOT AND RIGHT KNEE SURGERY) Endocrine: No HEENT: Yes Cataract Hearing Impairment: Hard of Hearing Cancer: No Psychosocial: No Integumentary: No Blood Disorders: No Family Medical History Reviewed Nursing Family Hx Physical Exam Vital Signs Vital Signs - First Documented 04/26/21 14:10 Temp 37.0 Pulse 83 Resp 16 B/P (MAP) 146/82 (103) Pulse Ox 98 O2 Delivery Room Air Capillary Refill : Less Than 3 Seconds Height/Weight/BMI Height: 5'3.00" Weight: 145lbs. 0.0oz. 65.890254kc; 23.00 BMI Method:Stated General Appearance: WD/WN, no apparent distress HEENT: PERRL/EOMI, pharynx normal Neck: full range of motion, supple Respiratory: lungs clear, normal breath sounds Cardiovascular: regular rate, rhythm, no murmur Peripheral Pulses: 2+ Dorsalis Pedis (R), 2+ Left Dors-Pedis (L), 2+ Radial Pulses (R), 2+ Radial Pulses (L) Gastrointestinal: non tender, soft Extremities: non-tender, normal inspection Back: normal inspection, no CVA tenderness, no vertebral tenderness Neurologic/Psychiatric: alert, normal mood/affect Skin: normal color, warm/dry Progress/Results/Core Measures Results/Orders Lab Results Laboratory Tests Test 04/26/21 14:25 04/26/21 15:43 Range/Units White Blood Count 8.1 4.3-11.0 10^3/uL Red Blood Count 4.32 3.80-5.11 10^6/uL Hemoglobin 13.3 11.5-16.0 g/dL Hematocrit 39 35-52 % Mean Corpuscular Volume 90 80-99 fL Mean Corpuscular Hemoglobin 31 25-34 pg Mean Corpuscular Hemoglobin Concent 34 32-36 g/dL Red Cell Distribution Width 12.4 10.0-14.5 % Platelet Count 208 130-400 10^3/uL Mean Platelet Volume 9.4 9.0-12.2 fL Immature Granulocyte % (Auto) 1 % Neutrophils (%) (Auto) 69 42-75 % Lymphocytes (%) (Auto) 20 12-44 % Monocytes (%) (Auto) 9 0-12 % Eosinophils (%) (Auto) 1 0-10 % Basophils (%) (Auto) 0 0-10 % Neutrophils # (Auto) 5.6 1.8-7.8 10^3/uL Lymphocytes # (Auto) 1.6 1.0-4.0 10^3/uL Monocytes # (Auto) 0.7 0.0-1.0 10^3/uL Eosinophils # (Auto) 0.1 0.0-0.3 10^3/uL Basophils # (Auto) 0.0 0.0-0.1 10^3/uL Immature Granulocyte # (Auto) 0.0 0.0-0.1 10^3/uL Sodium Level 134 L 135-145 MMOL/L Potassium Level 4.5 3.6-5.0 MMOL/L Chloride Level 98 98-107 MMOL/L Carbon Dioxide Level 26 21-32 MMOL/L Anion Gap 10 5-14 MMOL/L Blood Urea Nitrogen 20 H 7-18 MG/DL Creatinine 0.95 0.60-1.30 MG/DL Estimat Glomerular Filtration Rate 56 BUN/Creatinine Ratio 21 Glucose Level 92 70-105 MG/DL Calcium Level 10.1 8.5-10.1 MG/DL Corrected Calcium 9.7 8.5-10.1 MG/DL Total Bilirubin 0.6 0.1-1.0 MG/DL Aspartate Amino Transf (AST/SGOT) 25 5-34 U/L Alanine Aminotransferase (ALT/SGPT) 21 0-55 U/L Alkaline Phosphatase 62 40-136 U/L C-Reactive Protein High Sensitivity 0.37 0.00-0.50 MG/DL Total Protein 7.7 6.4-8.2 GM/DL Albumin 4.5 3.2-4.5 GM/DL Urine Color YELLOW Urine Clarity CLEAR Urine pH 6.0 5-9 Urine Specific [place] 1.015 L 1.016-1.022 Urine Protein NEGATIVE NEGATIVE Urine Glucose (UA) NEGATIVE NEGATIVE Urine Ketones 1+ H NEGATIVE Urine Nitrite NEGATIVE NEGATIVE Urine Bilirubin NEGATIVE NEGATIVE Urine Urobilinogen 0.2 < = 1.0 MG/DL Urine Leukocyte Esterase 1+ H NEGATIVE Urine RBC (Auto) NEGATIVE NEGATIVE Urine RBC NONE /HPF Urine WBC 5-10 H /HPF Urine Squamous Epithelial Cells 0-2 /HPF Urine Renal Epithelial Cells 0-2 /HPF Urine Crystals NONE /LPF Urine Bacteria TRACE /HPF Urine Casts PRESENT /LPF Urine Hyaline Casts 0-2 H /LPF Urine Mucus NEGATIVE /LPF Urine Culture Indicated YES My Orders Orders - RIGO MASON MD Cbc With Automated Diff (04/26/21 14:37) Comprehensive Metabolic Panel (04/26/21 14:37) Hs C Reactive Protein (04/26/21 14:37) Ua Culture If Indicated (04/26/21 14:37) Ed Iv/Invasive Line Start (04/26/21 14:37) Fecal Occult Bedside (04/26/21 14:37) Straight Cath For Spec.-Adult (04/26/21 14:37) Ns Iv 500 Ml (Sodium Chloride 0.9%) (04/26/21 14:45) Urine Culture (04/26/21 15:43) Medications Given in ED Current Medications Medications Dose Ordered Sig/Ricki Route Start Time Stop Time Status Last Admin Dose Admin Sodium Chloride 500 ml @ 0 mls/hr Q0M ONCE IV 04/26/21 14:45 04/26/21 14:46 DC 04/26/21 14:48 500 MLS/HR Vital Signs/I&O 04/26/21 14:10 Temp 37.0 Pulse 83 Resp 16 B/P (MAP) 146/82 (103) Pulse Ox 98 O2 Delivery Room Air Blood Pressure Mean: 103 Progress Progress Note : Progress Note Seen and evaluated. Labs and UA ordered. Normal saline 500 mL bolus ordered. Monitor patient. 1625: UA is slightly concerning for urinary tract infection. We will go ahead and treat that outpatient. Otherwise she is doing well now. Discharged home with return precautions. Patient and family verbalized understand instructions and agreement with plan. Departure Impression Primary Impression: UTI (urinary tract infection) Qualified Codes: N30.00 - Acute cystitis without hematuria Additional Impressions: Diarrhea Qualified Codes: R19.7 - Diarrhea, unspecified Dehydration Disposition: HOME, SELF-CARE Condition: Improved Departure-Patient Inst. Decision time for Depature: 16:27 Referrals: SILKE RODRIGUEZ DO (PCP) Primary Care Physician Patient Instructions: Diarrhea, Adult ED, Urinary Tract Infection, Adult ED, Dehydration, Adult (DC) Add. Discharge Instructions: All discharge instructions reviewed with patient and/or family. Voiced understanding. Encourage/drink plenty of fluids. Eat a light diet over the next few days and then advance as tolerated. Follow-up with your doctor in a few days for recheck. Return for worse pain, fever, vomiting, weakness, breathing problems or other concerns as needed. Scripts Nitrofurantoin Macrocrystal (Nitrofurantoin) 100 Mg Capsule 100 MG PO BID, #6 CAP 0 Refills Prov: RIGO MASON MD 04/26/21 RIGO MASON MD Apr 26, 2021 14:47
[2021-04-26 14:48] LABS: TOTAL PROTEIN 7.7 GM/DL (6.4-8.2)
[2021-04-26 14:49] LABS: BILIRUBIN,TOTAL 0.6 MG/DL (0.1-1.0)
[2021-04-26 14:51] LABS: CREATININE SERUM 0.95 MG/DL (0.60-1.30)
[2021-04-26 15:51] LABS: BILIRUBIN,URINE NEGATIVE (NEGATIVE); CLARITY,URINE CLEAR; COLOR,URINE YELLOW; GLUCOSE, URINE (UA) NEGATIVE (NEGATIVE); KETONES,URINE 1+ (NEGATIVE); LEUKOCYTE ESTERASE ,URINE 1+ (NEGATIVE); NITRITE,URINE NEGATIVE (NEGATIVE); PROTEIN,URINE NEGATIVE (NEGATIVE)
[2021-04-26 16:17] LABS: BACTERIA,URINE TRACE /HPF; RENAL EPITHELIAL CELLS,URINE 0-2 /HPF; SQUAMOUS EPITHELIAL CELL,UR 0-2 /HPF
[2021-04-26 16:18] LABS: HYALINE CASTS, URINE 0-2 /LPF
[2021-04-26] MEDS ORDERED: NITR100C PO (16:27)
[2021-04-26 16:43] VITALS: BP 139/81
== END 2021-04-26 16:43 | disposition home or self-care (01) ==
LOC: EDUNIT# 13:34 → ER 13:36
DX: N39.0 Urinary tract infection, site not specified (principal); R19.7 Diarrhea, unspecified; E86.0 Dehydration; I10 Essential (primary) hypertension; Z79.899 Other long term (current) drug therapy
CPT/HCPCS: 36415; 80053; 81000; 82274; 85025; 86141; 87077; 87088

== ENCOUNTER 2021-05-04 09:51 | Emergency (ER) | payer MEDICARE ==
[~2021-05-04] VITALS: Ht 167.7 cm; Wt 68.0 kg
[~2021-05-04 09:51] MED LIST changes: +NITR100C PO
--- NOTE | 2021-05-04 11:15 | ED General ---
General Chief Complaint: Trauma-Non Activation Stated Complaint: WEAKNESS,FALL Nursing Triage Note: PT BROUGHT IN BY [facility] FROM HOME WITH COMPLAINT OF FALL. PT FELL GOING TO THE BATHROOM. DAUGHTER AND CAREGIVER WERE UNABLE TO GET PT UP OFF FLOOR. PT WAS IN ER A LAST TUESDAY AND DIAGNOSED WITH UTI. PER DAUGHTER, PT HAS BEEN GETTING PROGRESSIVELY WEAKER OVER THE WEEK. PT IS COMPLAINING OF RIGHT HIP PAIN. Source of Information: Patient Exam Limitations: No Limitations History of Present Illness Date Seen by Provider: May 04, 2021 Time Seen by Provider: 11:12 Initial Comments To ER with reports of general weakness and several falls. They were here about a week ago, diagnosed with urinary tract infection. Given antibiotics and completed those. Call Dr. Ribera today because patient was too weak to get out of bed even with help and he recommended to call EMS and come to ER. Daughter notices the patient has had increasing weakness over the course of the past week despite treatment for the UTI. She does have some right hip pain as result of the fall. She initially had some neck pain after the fall but that resolved about 2 days later. She has underlying dementia. Timing/Duration: 1 Week Severity: Moderate Associated Systoms: Denies Symptoms Allergies and Home Medications Allergies Coded Allergies: Penicillins (Verified Allergy, Unknown, 08/07/17) Home Medications Acetaminophen 500 Mg Tablet, 500-1,000 MG PO Q8H PRN for PAIN-MILD (1-4), (Reported) Fluoxetine HCl 10 Mg Capsule, 10 MG PO DAILY, (Reported) Lovastatin 20 Mg Tablet, 20 MG PO HS, (Reported) Omeprazole 20 Mg Capsule.dr, 20 MG PO DAILY, (Reported) Spironolactone 50 Mg Tablet, 50 MG PO HS, (Reported) Valproic Acid 250 Mg Capsule, 250 MG PO BID, (Reported) Patient Home Medication List Home Medication List Reviewed: Yes Review of Systems Review of Systems Constitutional: see HPI EENTM: see HPI Respiratory: no symptoms reported Cardiovascular: no symptoms reported Genitourinary: no symptoms reported Musculoskeletal: see HPI Skin: no symptoms reported Psychiatric/Neurological: No Symptoms Reported Hematologic/Lymphatic: No Symptoms Reported Immunological/Allergic: no symptoms reported Past Gwwebya-Snlhtd-Yjykda Hx Patient Social History Tobacco Use?: No Smoking Status: Never a Smoker Substance use?: No Alcohol Use?: No Pt feels they are or have been: No Seasonal Allergies Seasonal Allergies: No Past Medical History Surgeries: Yes (CARDIAC CATH-NO INTERVENTION; RIGHT KNEE SCOPE; HYST/BSO; LEFT FOOT SURGERY) Gallbladder, Hysterectomy, Oophorectomy, Orthopedic Respiratory: No Cardiac: Yes (CARDIAC CATH-NO INTERVENTION) Hypertension Neurological: No Reproductive Disorders: No Genitourinary: No Gastrointestinal: No Musculoskeletal: Yes (LEFT FOOT AND RIGHT KNEE SURGERY) Endocrine: No HEENT: Yes Cataract Hearing Impairment: Hard of Hearing Cancer: No Psychosocial: No Integumentary: No Blood Disorders: No Physical Exam Vital Signs Vital Signs - First Documented 05/04/21 09:55 Temp 36.6 Pulse 82 Resp 16 B/P (MAP) 186/79 (114) Pulse Ox 95 O2 Delivery Room Air Capillary Refill : Less Than 3 Seconds Height, Weight, BMI Height: 5'3.00" Weight: 145lbs. 0.0oz. 65.746262gw; 24.00 BMI Method:Stated General Appearance: No Apparent Distress, WD/WN Eyes: Bilateral Eye Normal Inspection, Bilateral Eye PERRL, Bilateral Eye EOMI Neck: Full Range of Motion, Normal Inspection Respiratory: No Accessory Muscle Use, No Respiratory Distress Cardiovascular: Regular Rate, Rhythm, Normal Peripheral Pulses Gastrointestinal: Normal Bowel Sounds, Non Tender, Soft Extremity: Normal Capillary Refill, Normal Inspection, Other (Full ROM right hip, palpable hematoma over greater trochanter. ) Neurologic/Psychiatric: Alert Skin: Normal Color, Warm/Dry Progress/Results/Core Measures Suspected Sepsis SIRS Temperature: Pulse: 82 Respiratory Rate: 16 Laboratory Tests 05/04/21 10:00: White Blood Count 8.2 Blood Pressure 186 /79 Mean: 114 Laboratory Tests 05/04/21 10:00: Creatinine 0.89, INR Comment 1.1, Platelet Count 215, Total Bilirubin 0.7 Results/Orders Lab Results Laboratory Tests Test 05/04/21 10:00 05/04/21 10:42 05/04/21 13:16 Range/Units White Blood Count 8.2 4.3-11.0 10^3/uL Red Blood Count 4.41 3.80-5.11 10^6/uL Hemoglobin 13.6 11.5-16.0 g/dL Hematocrit 40 35-52 % Mean Corpuscular Volume 90 80-99 fL Mean Corpuscular Hemoglobin 31 25-34 pg Mean Corpuscular Hemoglobin Concent 34 32-36 g/dL Red Cell Distribution Width 12.3 10.0-14.5 % Platelet Count 215 130-400 10^3/uL Mean Platelet Volume 9.6 9.0-12.2 fL Immature Granulocyte % (Auto) 1 % Neutrophils (%) (Auto) 67 42-75 % Lymphocytes (%) (Auto) 21 12-44 % Monocytes (%) (Auto) 9 0-12 % Eosinophils (%) (Auto) 2 0-10 % Basophils (%) (Auto) 1 0-10 % Neutrophils # (Auto) 5.5 1.8-7.8 10^3/uL Lymphocytes # (Auto) 1.7 1.0-4.0 10^3/uL Monocytes # (Auto) 0.8 0.0-1.0 10^3/uL Eosinophils # (Auto) 0.2 0.0-0.3 10^3/uL Basophils # (Auto) 0.1 0.0-0.1 10^3/uL Immature Granulocyte # (Auto) 0.1 0.0-0.1 10^3/uL Prothrombin Time 14.3 12.2-14.7 SEC INR Comment 1.1 0.8-1.4 Sodium Level 135 135-145 MMOL/L Potassium Level 4.1 3.6-5.0 MMOL/L Chloride Level 98 98-107 MMOL/L Carbon Dioxide Level 28 21-32 MMOL/L Anion Gap 9 5-14 MMOL/L Blood Urea Nitrogen 20 H 7-18 MG/DL Creatinine 0.89 0.60-1.30 MG/DL Estimat Glomerular Filtration Rate 60 BUN/Creatinine Ratio 22 Glucose Level 90 70-105 MG/DL Calcium Level 10.1 8.5-10.1 MG/DL Corrected Calcium 9.9 8.5-10.1 MG/DL Total Bilirubin 0.7 0.1-1.0 MG/DL Aspartate Amino Transf (AST/SGOT) 19 5-34 U/L Alanine Aminotransferase (ALT/SGPT) 15 0-55 U/L Alkaline Phosphatase 66 40-136 U/L B-Type Natriuretic Peptide 85.0 <100.0 PG/ML Total Protein 7.4 6.4-8.2 GM/DL Albumin 4.2 3.2-4.5 GM/DL Urine Color YELLOW Urine Clarity CLEAR Urine pH 6.5 5-9 Urine Specific [place] 1.015 L 1.016-1.022 Urine Protein NEGATIVE NEGATIVE Urine Glucose (UA) NEGATIVE NEGATIVE Urine Ketones NEGATIVE NEGATIVE Urine Nitrite NEGATIVE NEGATIVE Urine Bilirubin NEGATIVE NEGATIVE Urine Urobilinogen 1.0 < = 1.0 MG/DL Urine Leukocyte Esterase NEGATIVE NEGATIVE Urine RBC (Auto) NEGATIVE NEGATIVE Urine RBC NONE /HPF Urine WBC RARE /HPF Urine Squamous Epithelial Cells RARE /HPF Urine Crystals NONE /LPF Urine Bacteria NEGATIVE /HPF Urine Casts NONE /LPF Urine Mucus NEGATIVE /LPF Urine Culture Indicated NO SARS-CoV-2 RNA (RT-PCR) Not Detected Not Detecte My Orders Orders - MICHAEL SILVA APRN Gee Cath (05/04/21 11:10) Cbc With Automated Diff (05/04/21 11:10) Comprehensive Metabolic Panel (05/04/21 11:10) Protime With Inr (05/04/21 11:10) Ua Culture If Indicated (05/04/21 11:10) Ct Head/Cervical Spine Wo (05/04/21 11:10) Ct Abdomen/Pelvis Wo (05/04/21 11:10) Pelvis With Right Hip 2-3views (05/04/21 11:10) BNP (05/04/21 11:10) Covid 19 Inhouse Test (05/04/21 12:48) Vital Signs/I&O 05/04/21 05/04/21 09:55 14:07 Temp 36.6 Pulse 82 77 Resp 16 17 B/P (MAP) 186/79 (114) 161/96 Pulse Ox 95 95 O2 Delivery Room Air Room Air Capillary Refill : Less Than 3 Seconds Blood Pressure Mean: 114 Diagnostic Imaging Diagonstic Imaging: CT Comments NAME: YANICK ENCISO Marilyn [facility] REC#: [id number] PT STATUS: REG ER : 1935 PHYSICIAN: MICHAEL SILVA APRN ADMIT DATE: 05/04/21/ER Draft Date of Exam:05/04/21 CT HEAD/CERVICAL SPINE WO PROCEDURE: CT head and CT cervical spine without contrast. TECHNIQUE: Multiple contiguous axial images were obtained through the brain and cervical spine without the use of intravenous contrast. Sagittal and coronal reformations through the cervical spine were then performed. Auto Exposure Controls were utilized during the CT exam to meet ALARA standards for radiation dose reduction. INDICATION: Fall. Weakness. COMPARISON: CT head without contrast from 01/30/2020. FINDINGS: CT HEAD: Moderate generalized parenchymal volume loss and leukoaraiosis. No CT evidence of a territorial infarction. No intracranial hemorrhage, mass effect, hydrocephalus, or extra-axial fluid collections. Osseous structures are intact. Paranasal sinuses and mastoids are clear. CT CERVICAL SPINE: Grade 1 anterolisthesis of C4 on C5 and retrolisthesis of C5 on C6. Advanced degenerative endplate changes at C5-C6. Vertebral body heights are preserved. No fractures. Mild atherosclerotic calcifications in the carotid bifurcations. Mass in the left thyroid measuring up to 2.6 cm. Lung apices are clear. IMPRESSION: 1. No acute intracranial or cervical spine CT findings. Chronic findings as above. 2. Mass in the left thyroid measuring up to 2.6 cm. Recommend nonemergent evaluation with dedicated ultrasound. Dictated on workstation # [id number] Dict: 05/04/21 1207 Trans: 05/04/21 1222 [id number] Interpreted by: JOHANN OLMSTEAD MD Electronically signed by: NAME: YANICK ENCISO [facility] REC#: [id number] PT STATUS: REG ER : 1935 PHYSICIAN: MICHAEL SILVA APRN ADMIT DATE: 05/04/21/ER Draft Date of Exam:05/04/21 CT ABDOMEN/PELVIS WO PROCEDURE: CT abdomen and pelvis without contrast. TECHNIQUE: Multiple contiguous axial images were obtained through the abdomen and pelvis without the use of intravenous contrast. Auto Exposure Controls were utilized during the CT exam to meet ALARA standards for radiation dose reduction. INDICATION: Fall and weakness. No prior studies are available for comparison. Imaging through lung bases does show some linear scarring or atelectasis in the left lower lobe as well as the lingula. The liver is unremarkable. Gallbladder surgically absent. There is no biliary duct dilatation. Pancreas and spleen are unremarkable. No adrenal mass is detected. No renal calculi or hydronephrosis is seen. Aorta is heavily calcified but nonaneurysmal. Bowel loops are of normal caliber. There is no obstruction. No free fluid or fluid collection seen. The bladder is decompressed by Gee catheter. Bony structures are nonacute. IMPRESSION: Unremarkable noncontrast CT of abdomen and pelvis. No acute features detected. Dictated on workstation # [id number] Dict: 05/04/21 1213 Trans: 05/04/21 1222 [facility] [id number] Interpreted by: CALIXTO GOMEZ MD Electronically signed by: Departure Communication (Admissions) Family Conversation ADmitted inpt rehab to dr villegas NAME: YANICK ENCISO [facility] REC#: [id number] PT STATUS: REG ER : 1935 PHYSICIAN: MICHAEL SILVA APRN ADMIT DATE: 05/04/21/ER Draft Date of Exam:05/04/21 PELVIS WITH RIGHT HIP 2-3VIEWS Indication: Fall, right hip pain FINDINGS: AP pelvis with 2 views right hip shows arthritic changes to the bilateral hips, the symphysis and SI joints but no fracture, avulsion or dislocation. IMPRESSION: Chronic degenerative changes but no acute appearing abnormality apparent. Dictated on workstation # [id number] Dict: 05/04/21 1147 Trans: 05/04/21 1151 [facility] [id number] Interpreted by: EUGENIE GE Electronically signed by: Impression Primary Impression: General weakness Disposition: ADMITTED INPATIENT Condition: Stable Admissions Decision to Admit Reason: Admit from ER (General) Decision to Admit/Date: May 04, 2021 Time/Decision to Admit Time: 15:00 Departure-Patient Inst. Referrals: NO,LOCAL PHYSICIAN (PCP/Family) Primary Care Physician MICHAEL SILVA APRN May 04, 2021 11:15
[2021-05-04 11:17] LABS: BASOPHILS # (AUTO) 0.1 10^3/uL (0.0-0.1); BASOPHILS % (AUTO) 1 % (0-10); EOSINOPHILS # (AUTO) 0.2 10^3/uL (0.0-0.3); EOSINOPHILS % (AUTO) 2 % (0-10); HEMATOCRIT 40 % (35-52); HEMOGLOBIN 13.6 g/dL (11.5-16.0); LYMPHOCYTES # (AUTO) 1.7 10^3/uL (1.0-4.0); LYMPHOCYTES % (AUTO) 21 % (12-44); MEAN CORPUSCULAR HEMOGLOBIN 31 pg (25-34); MEAN CORPUSCULAR HGB CONC 34 g/dL (32-36); MEAN CORPUSCULAR VOLUME 90 fL (80-99); MEAN PLATELET VOLUME 9.6 fL (9.0-12.2); MONOCYTES # (AUTO) 0.8 10^3/uL (0.0-1.0); MONOCYTES % (AUTO) 9 % (0-12); NEUTROPHILS # (AUTO) 5.5 10^3/uL (1.8-7.8); NEUTROPHILS % (AUTO) 67 % (42-75); PLATELET COUNT 215 10^3/uL (130-400); WHITE BLOOD COUNT 8.2 10^3/uL (4.3-11.0)
[2021-05-04 11:17] LABS: BILIRUBIN,URINE NEGATIVE (NEGATIVE); CLARITY,URINE CLEAR; COLOR,URINE YELLOW; GLUCOSE, URINE (UA) NEGATIVE (NEGATIVE); KETONES,URINE NEGATIVE (NEGATIVE); LEUKOCYTE ESTERASE ,URINE NEGATIVE (NEGATIVE); NITRITE,URINE NEGATIVE (NEGATIVE); PH,URINE 6.5 (5-9); PROTEIN,URINE NEGATIVE (NEGATIVE)
[2021-05-04 11:18] LABS: ALBUMIN 4.2 GM/DL (3.2-4.5)
[2021-05-04 11:19] LABS: POTASSIUM 4.1 MMOL/L (3.6-5.0)
[2021-05-04 11:20] LABS: CALCIUM 10.1 MG/DL (8.5-10.1)
[2021-05-04 11:21] LABS: INR 1.1 (0.8-1.4); PROTHROMBIN TIME PATIENT 14.3 SEC (12.2-14.7); TOTAL PROTEIN 7.4 GM/DL (6.4-8.2)
[2021-05-04 11:23] LABS: BILIRUBIN,TOTAL 0.7 MG/DL (0.1-1.0)
[2021-05-04 11:25] LABS: CREATININE SERUM 0.89 MG/DL (0.60-1.30)
[2021-05-04 11:28] LABS: BACTERIA,URINE NEGATIVE /HPF; SQUAMOUS EPITHELIAL CELL,UR RARE /HPF; WBC,URINE RARE /HPF
--- NOTE | 2021-05-04 11:52 | Diagnostic Imaging Report ---
Indication: Fall, right hip pain FINDINGS: AP pelvis with 2 views right hip shows arthritic changes to the bilateral hips, the symphysis and SI joints but no fracture, avulsion or dislocation. IMPRESSION: Chronic degenerative changes but no acute appearing abnormality apparent. Dictated by: Dictated on workstation # [id number]
--- NOTE | 2021-05-04 12:22 | Diagnostic Imaging Report ---
PROCEDURE: CT head and CT cervical spine without contrast. TECHNIQUE: Multiple contiguous axial images were obtained through the brain and cervical spine without the use of intravenous contrast. Sagittal and coronal reformations through the cervical spine were then performed. Auto Exposure Controls were utilized during the CT exam to meet ALARA standards for radiation dose reduction. INDICATION: Fall. Weakness. COMPARISON: CT head without contrast from 01/30/2020. FINDINGS: CT HEAD: Moderate generalized parenchymal volume loss and leukoaraiosis. No CT evidence of a territorial infarction. No intracranial hemorrhage, mass effect, hydrocephalus, or extra-axial fluid collections. Osseous structures are intact. Paranasal sinuses and mastoids are clear. CT CERVICAL SPINE: Grade 1 anterolisthesis of C4 on C5 and retrolisthesis of C5 on C6. Advanced degenerative endplate changes at C5-C6. Vertebral body heights are preserved. No fractures. Mild atherosclerotic calcifications in the carotid bifurcations. Mass in the left thyroid measuring up to 2.6 cm. Lung apices are clear. IMPRESSION: 1. No acute intracranial or cervical spine CT findings. Chronic findings as above. 2. Mass in the left thyroid measuring up to 2.6 cm. Recommend nonemergent evaluation with dedicated ultrasound. Dictated by: Dictated on workstation # [id number]
--- NOTE | 2021-05-04 12:22 | Diagnostic Imaging Report ---
PROCEDURE: CT abdomen and pelvis without contrast. TECHNIQUE: Multiple contiguous axial images were obtained through the abdomen and pelvis without the use of intravenous contrast. Auto Exposure Controls were utilized during the CT exam to meet ALARA standards for radiation dose reduction. INDICATION: Fall and weakness. No prior studies are available for comparison. Imaging through lung bases does show some linear scarring or atelectasis in the left lower lobe as well as the lingula. The liver is unremarkable. Gallbladder surgically absent. There is no biliary duct dilatation. Pancreas and spleen are unremarkable. No adrenal mass is detected. No renal calculi or hydronephrosis is seen. Aorta is heavily calcified but nonaneurysmal. Bowel loops are of normal caliber. There is no obstruction. No free fluid or fluid collection seen. The bladder is decompressed by Gee catheter. Bony structures are nonacute. IMPRESSION: Unremarkable noncontrast CT of abdomen and pelvis. No acute features detected. Dictated by: Dictated on workstation # [id number]
[2021-05-04] MEDS ORDERED: LOPERAMIDE 2 MG (IMODIUM) TABLET PO PRN ×2 (13:45)
[2021-05-04] MEDS ORDERED: ENOXAPARIN 40 MG/0.4 ML (LOVENOX) SYR SC SCH ×2 (13:45)
[2021-05-04] MEDS ORDERED: guaiFENesin/CODEINE (ROBITUSSIN AC) 10ML UDC PO PRN ×2 (13:45)
[2021-05-04] MEDS ORDERED: NALOXONE 0.4 MG/ML 1 ML (NARCAN) VIAL IV PRN (13:45)
[2021-05-04] MEDS ORDERED: ALPRAZolam 0.25 MG (XANAX) TAB PO PRN ×2 (13:45)
[2021-05-04] MEDS ORDERED: MELATONIN 3 MG TABLET PO PRN ×2 (13:45)
[2021-05-04] MEDS ORDERED: ONDANSETRON 4 MG (ZOFRAN) ORAL DISSOLVE TAB PO PRN ×2 (13:45)
[2021-05-04] MEDS ORDERED: diphenhydrAMINE 25 MG TAB (BENADRYL) PO PRN ×2 (13:45)
[2021-05-04] MEDS ORDERED: LACTULOSE SYRUP 10GM/15ML (ENULOSE) 30ML UDC PO PRN ×2 (13:45)
[2021-05-04] MEDS ORDERED: DOCUSATE SODIUM 100 MG (COLACE) CAP PO PRN ×2 (13:45)
[2021-05-04] MEDS ORDERED: FLEET ENEMA ADULT 1 EA BTL PR PRN ×2 (13:45)
[2021-05-04] MEDS ORDERED: CALCIUM CARBONATE 500 MG (TUMS) TAB.CHEW PO PRN ×2 (13:45)
[2021-05-04] MEDS ORDERED: BISACODYL 10 MG SUPP (DULCOLAX) PR PRN ×2 (13:45)
[2021-05-04 14:07] VITALS: BP 161/96
[2021-05-04] MEDS ORDERED: ACET-2267 PO (14:55)
[2021-05-04] MEDS ORDERED: VALP250C3 PO (14:55)
[2021-05-04] MEDS ORDERED: polyethylene glycoL POWDER 17 GM (MIRALAX) PACK PO SCH ×2 (21:00)
[2021-05-04] MEDS ORDERED: SENNA W/DOCUSATE (SENOKOT S) TABLET PO SCH ×2 (21:00)
== END 2021-05-04 14:07 | disposition other institution (70) ==
LOC: EDUNIT# 09:51 → ER 09:55
DX: R53.1 Weakness (principal); I10 Essential (primary) hypertension; Z20.822 Contact with and (suspected) exposure to COVID-19
CPT/HCPCS: 36415; 51702; 70450; 72125; 74176; 80053; 81000; 83880; 85025; 85610; 87636

== ENCOUNTER 2021-05-04 13:40 | Inpatient (IN) | payer MEDICARE ==
[~2021-05-04] VITALS: Ht 160 cm; Wt 64.7 kg
[2021-05-04 14:10] VITALS: BP 211/81
[2021-05-04 14:15] VITALS: BP 171/77
[2021-05-04 14:36] VITALS: BP 146/68
[2021-05-04] MEDS ORDERED: ACET-2267 PO (14:55)
[2021-05-04] MEDS ORDERED: VALP250C3 PO (14:55)
--- NOTE | 2021-05-04 15:21 | Physical Therapy Evaluation ---
PT Evaluation-General Medical Diagnosis Admission Date May 04, 2021 at 13:40 Medical Diagnosis: Debility, weakness, falls Onset Date: May 04, 2021 Therapy Diagnosis Therapy Diagnosis: impaired mobility, strength, endurance, balance Height/Weight Height (Feet): 5 Height (Inches): 3.00 Weight (Pounds): 145 Weight (Ounces): 0.0 Precautions Precautions/Isolations: Fall Prevention, Standard Precautions, Pressure Ulcer Referral Physician: Irene Nj DO Reason for Referral: Evaluation/Treatment Medical History Additional Medical History Past Medical History Surgeries: Yes (CARDIAC CATH-NO INTERVENTION; RIGHT KNEE SCOPE; HYST/BSO; LEFT FOOT SURGERY) Gallbladder, Hysterectomy, Oophorectomy, Orthopedic Respiratory: No Cardiac: Yes (CARDIAC CATH-NO INTERVENTION) Hypertension Neurological: No Reproductive Disorders: No Genitourinary: No Gastrointestinal: No Musculoskeletal: Yes (LEFT FOOT AND RIGHT KNEE SURGERY) Endocrine: No HEENT: Yes Cataract Hearing Impairment: Hard of Hearing Reviewed History: Yes Social History Home: Single Level Current Living Status: Entry Into Home: Stairs With Railing PT Steps Into Home: 2 patient has a live-in caregiver Prior Prior Level of Function SCALE: Activities may be completed with or without assistive devices. 2-Klhcajnhkv-cdsypku completes the activity by him/herself with no assistance from a helper. 5-Set-up or Clean-up Assistance-helper sets up or cleans up; patient completes activity. Allen assists only prior to or following the activity. 4-Supervision or Touching Assistance-helper provides verbal cues and/or touching/steadying and/or contact guard assistance as patient completes activity. Assistance may be provided throughout the activity or intermittently. 3-Partial/Moderate Assistance-helper does LESS THAN HALF the effort. Allen lifts, holds or supports trunk or limbs, but provides less than half the effort. 2-Substantial/Maximal Assistance-helper does MORE THAN HALF the effort. Allen lifts or holds trunk or limbs and provides more than half the effort. 0-Vqpnamezm-vabkgc does ALL the effort. Patient does none of the effort to complete the activity. Or, the assistance of 2 or more helpers is required for the patient to complete the activity. If activity was not attempted, code reason: 7-Patient Refused. 9-Not Applicable-not attempted and the patient did not perform the activity before the current illness, exacerbation or injury. 10-Not Attempted due to Environmental Limitations-(lack of equipment, weather restraints, etc.). 88-Not Attempted due to Medical Conditions or Safety Concerns. Bed Mobility: 3 Transfers (B,C,W/C): 3 Gait: 3 Stairs: 3 Indoor Mobility (Ambulation): Needed Some Help Stairs: Needed Some Help Prior Devices Use: Walker PT Evaluation-Current Subjective Patient in bed pre tx, agrees to PT, has unrated pain in right low back and pelvis. Will be co-treating with OT due to poor patient mobility, strength, endurance, balance, severe pain with activity, coordinate UE and LE during activity. Initially patient has a BP of 171/77 but after a few minutes it comes down to 146/68. Pt/Family Goals Patient is unsure if she has any goals for therapy. Objective Patient Orientation: Person, Confused ROM/Strength ROM Lower Extremities WNL except not tested at the hip on either side due to pain. Strength Lower Extremities LLE (knee flexion 3+/5, knee extension 3+/5, dorsiflexion 4/5), RLE (knee flexion 3+/5, knee extension 3+/5, dorsiflexion 4/5), hip not tested due to pain. Sensory Vision: Wears Glasses Hearing: Hearing Aid/Aides Sensation Right Lower Extremit: Intact Sensation Left Lower Extremity: Intact Transfers Roll Left & Right (QC): 3 Sit to Lying (QC): 2 Lying to Sitting/Side of Bed(Q: 2 Sit to Stand (QC): 3 Chair/Ida-bu-Zxkrq Xfer(QC): 3 Toilet Transfer (QC): 3 Car Transfer (QC): 3 Patient performs bed mobility with min assist, supine <-> sit with max assist, sit <-> stand and transfers with min assist, car transfer min assist. Patient needs frequent cues for hand placement and positioning. She will often let go of walker to turn and do something. Needs cues for safety. Gait Does the Patient Walk?: Yes Mode of Locomotion: Walk Anticipated Mode of Locomotion: Walk Walk 10 feet (QC): 3 Walk 50 ft with 2 Turns(QC): 3 Walk 150 ft (QC): 3 Walking 10ft/uneven surface-QC: 3 Distance: 150', 120' Gait Assistive Device: FWW Comments/Gait Description Patient can ambulate 150' with a rolling walker with min assist (including 50' with at least 2 turns of 90 degrees and 10' over an uneven surface). Patient needs min assist to help guide walker especially in a cramped area. She has shuffling steps. Wheelchair Training Does the Pt Use a Wheelchair?: No Wheel 50 ft with 2 turns (QC): 9 Wheel 150 ft (QC): 9 Stairs #of Steps: 1 1 Step (curb) (QC): 3 4 Steps (QC): 88 12 Steps (QC): 88 Walking Assistive Device: Walker Patient can go up and down 1 step using a rolling walker with min assist for balance. Patient needs cues for foot placement and safety. Balance Sitting Static: Normal Sitting Dynamic: Normal Standing Static: Poor Standing Dynamic: Poor Picking up an Object (QC): 88 Treatment Patient also performed bathing and dressing and then ADl's at the sink. Patient was fatigued and losing balance at the sink so she had to complete it in a chair. Assessment/Needs Patient has impaired mobility, strength, endurance, balance. Patient in recliner post tx with nurse call, phone, tray, all needs met, chair alarm on. Patient is confused and needs frequent redirection and cues for safety and positioning. Rehab Potential: Fair PT Short Term Goals Short Term Goals Time Frame: May 11, 2021 Roll Left & Right: 6 Sit to lyin Lying to sitting on side of be: 3 Sit to stand: 4 Chair/efz-vk-weyvc transfer: 4 Walk 10 feet: 4 Walk 50 feet with two turns: 4 Walk 150 feet: 4 PT Classified Ad Taker Goals Penitentiary Goals PT Classified Ad Taker Goals Time Frame: May 25, 2021 Roll Left & Right (QC): 6 Sit to Lying (QC): 5 Lying-Sitting on Side/Bed(QC): 5 Sit to Stand (QC): 4 (SBA) Chair/Byn-ff-Jvzre Xfer(QC): 4 (SBA) Toilet Transfer (QC): 4 (SBA) Car Transfer (QC): 4 (SBA) Does the Patient Walk: Yes Walk 10 feet (QC): 4 (SBA) Walk 50ft with 2 Turns (QC): 4 (SBA) Walk 150 ft (QC): 4 (SBA) Walking 10ft on Uneven Surface: 4 (SBA) 1 Step (curb) (QC): 4 (CGA) 4 Steps (QC): 4 (CGA) 12 Steps (QC): 88 Picking up an Object (QC): 88 Wheel 50 feet with 2 turns (QC: 9 Wheel 150 feet: 9 PT Plan Problem List Problem List: Activity Tolerance, Functional Strength, Safety, Balance, Gait, Transfer, Bed Mobility, ROM Treatment/Plan Treatment Plan: Continue Plan of Care Treatment Plan: Bed Mobility, Education, Functional Activity Riley, Functional Strength, Group Therapy, Gait, Safety, Therapeutic Exercise, Transfers Treatment Duration: May 25, 2021 Frequency: At least 5 of 7 days/Wk (IRF) Estimated Hrs Per Day: 1.5 hours per day Patient and/or Family Agrees t: Yes Safety Risks/Education Patient Education: Gait Training, Transfer Techniques, Steps, Correct Positioning, Safety Issues Teaching Recipient: Patient Teaching Methods: Demonstration, Discussion Response to Teaching: Reinforcement Needed Discharge Recommendations Plan Patient will perform bed mobility and transfer training, balance and endurance training, functional strengthening, stair training, gait training, and education, to improve functional mobility and independence at home. Therapy Discharge Recommendati: 24 Hour Supervision Time/GCodes Time In: 1350 Time Out: 1530 Total Billed Treatment Time: 90 Total Billed Treatment 1 visit EVM 10' FA 80' PT eval from [id number], OT eval from [id number], co-treat from [id number] PT performed bed mobility, transfers, ambulation, stair training, gait training, standing and balance and positioning during bathing and dressing and ADL's, OT performed ADL's, bathing, dressing, assist with UE positioning and safety during mobility BARTOLO CRUZ PT May 04, 2021 15:21
--- NOTE | 2021-05-04 15:24 | Occupational Therapy Eval ---
OT Evaluation-General/PLF Medical Diagnosis Admission Date May 04, 2021 at 13:40 Medical Diagnosis: Debility, weakness, falls Onset Date: May 04, 2021 Therapy Diagnosis Therapy Diagnosis: decreased ADL status, weakness Height/Weight Height (Feet): 5 Height (Inches): 3.00 Weight (Pounds): 145 Weight (Ounces): 0.0 Precautions Precautions/Isolations: Fall Prevention, Standard Precautions, Pressure Ulcer Referral Physician: Ondina Referral Reason: Evaluation/Treatment Medical History Current History EMS from home c/o fall. Recent visit to ER 04/26, dx with UTI. Admit to ARU 05/04/21 for skilled therapies and medication management. Social History Home: Single Level Current Living Status: Caregiver Entry Into Home: Stairs With Railing Steps Into Home: 2 ADL-Prior Level of Function SCALE: Activities may be completed with or without assistive devices. 8-Sfvadiliaj-lfvvpon completes the activity by him/herself with no assistance from a helper. 5-Set-up or Clean-up Assistance-helper sets up or cleans up; patient completes activity. [place] assists only prior to or following the activity. 4-Supervision or Touching Assistance-helper provides verbal cues and/or touching/steadying and/or contact guard assistance as patient completes activity. Assistance may be provided throughout the activity or intermittently. 3-Partial/Moderate Assistance-helper does LESS THAN HALF the effort. [place] lifts, holds or supports trunk or limbs, but provides less than half the effort. 2-Substantial/Maximal Assistance-helper does MORE THAN HALF the effort. [place] lifts or holds trunk or limbs and provides more than half the effort. 2-Tweuectcl-dhigny does ALL the effort. Patient does none of the effort to complete the activity. Or, the assistance of 2 or more helpers is required for the patient to complete the activity. If activity was not attempted, code reason: 7-Patient Refused. 9-Not Applicable-not attempted and the patient did not perform the activity before the current illness, exacerbation or injury. 10-Not Attempted due to Environmental Limitations-(lack of equipment, weather restraints, etc.). 88-Not Attempted due to Medical Conditions or Safety Concerns. ADL PLOF Comments Pt has a caregiver present 04/04. Pt unable to provide information about home much assistance is required with ADLs. Pt uses FWW for functional mobility. Pt unable to provide information about home set up. Self Care: Needed Some Help Functional Cognition: Unknown OT Current Status Subjective Pt agreeable to OT evaluation and OT/PT cotreat. Reports pain in R hip and low back, does not verbalize pain rating. Pt unable to verbalize date or last name Mental Status/Objective Patient Orientation: Confused Attachments: Gee Catheter Current Glasses/Contacts: Yes Hearing Aids: No Dentures/Partials: Yes Hand Dominance: Right Upper Extremity ROM WFL, BUE shoulder flexion to approx 120 degrees Upper Extremity Coordination WFL Upper Extremity Sensation WFL Upper Extremity Strength grossly 3+/5 BUEs ADL-Treatment Eating (QC): 4 (based on clincial judgment, supervision required.) Oral Hygiene (QC): 4 (SBA, minimal cues for sequencing of toothpaste.) Shower/Bathe Self (QC): 3 (Pt required assistance with washing/drying buttocks and bilateral lower legs/feet. Pt able to wash UEs, chest/abdomen, periarea and thighs.) Upper Body Dressing (QC): 3 (Min A donning/doffing button up shirt.) Lower Body Dressing (QC): 2 (Pt required max A with donning/doffing pants.) On/Off Footwear (QC): 1 (assist donning/doffing gripper socks.) Toileting Hygiene (QC): 2 (Max A, assist with clothing management and washing buttocks, pt able to manage pericare.) Other Treatments OT evaluation complete. OT/PT cotreat due to skill of 2 clinicians required that a animal rehabilitator could not perform in order to coordinate UE/LEs with tasks, decrease fall risk, and due to pt's limitations in sequencing, strength, pain, mobility/transfers, and confusion. OT focused on UE placement, cues for sequencing and safety and ADLs, PT focused on LE placement, gross overall movement, and transfers/mobility. Pt completed functional transfers and mobility around ARU common area (please refer to PT evaluation for QC scores). Pt then completed shower and ADLs as outlines above, requiring moderate verbal cues overall for sequencing. Pt transferred to recliner. Post tx, pt seated in recliner, call light in reach and all needs met. chair alarm activated. Bed mobility min A, supine to/from sit max A, sit to/from stand and transfers min A, min A car transfer. Pt required frequent cues for positioning and hand placement, and cues for safety. Education OT Patient Education: Correct positioning, Modified ADL techniques, Progress toward Goal/Update tx plan, Purpose of tx/functional activities, Rehab process, Safety issues, Transfer techniques Teaching Recipient: Patient Teaching Methods: Discussion Response to Teaching: Verbalize Understanding, Reinforcement Needed OT Short Term Goals Short Term Goals Time Frame: May 29, 2021 Lower body dressin Putting on/taking off footwear: 3 OT Dialysis Chief Equipment Technician Goals Dialysis Chief Equipment Technician Goals Time Frame: May 29, 2021 Eating (QC): 5 Oral Hygiene (QC): 5 Toileting Hygiene (QC): 4 Shower/Bathe Self (QC): 4 Upper Body Dressing (QC): 5 Lower Body Dressing (QC): 4 On/Off Footwear (QC): 4 Additional Goals: 1-Demonstrate ADL Tasks, 2-Verbalize Understanding, 3- ImproveStrength/Riley 1=Demonstrate adherence to instructed precautions during ADL tasks. 2=Patient will verbalize/demonstrate understanding of assistive devices/modifications for ADL. 3=Patient will improve strength/tolerance for activity to enable patient to perform ADL's. OT Education/Plan Problem List/Assessment Assessment: Decreased Activ Tolerance, Decreased Safety Aware, Decreased UE Strength, Impaired Cognition, Impaired Funct Balance, Impaired I ADL's, Impaired Self-Care Skills Discharge Recommendations Plan/Recommendations: Continue POC Treatment Plan/Plan of Care Patient would benefit from OT for education, treatment and training to promote independence in ADL's, mobility, safety and/or upper extremity function for ADL's. Plan of Care: ADL Retraining, Cognitive Retraining, Functional Mobility, Group Exercise/Act as Ind, UE Funct Exercise/Act Treatment Duration: May 29, 2021 Frequency: At least 5 of 7 days/Wk (IRF) Estimated Hrs Per Day: 1.5 hours per day Rehab Potential: Fair Time/GCodes Start Time: 14:00 Stop Time: 15:30 Total Time Billed (hr/min): 90 Billed Treatment Time [id number] OT eval, [id number] OT/PT cotreat 1, EVM (10'), FA 2 (30'), ADL 3 (50') ROB RICHTER OT May 04, 2021 15:24
[2021-05-04 19:23] VITALS: BP 168/77
[2021-05-04] MEDS: SIMvastatin 10 MG (ZOCOR) TAB PO SCH (20:43)
[2021-05-04] MEDS: SPIRONOLACTONE 25 MG (ALDACTONE) TAB PO SCH (20:43)
[2021-05-04] MEDS: DIVALPROX SPRINKLE 125 MG (DEPAKOTE) CAP PO SCH (20:44)
[2021-05-04] MEDS ORDERED: NON-FORMULARY MEDICATION 1 EA EA (Lovastatin 20 MG) PO SCH (21:00)
[2021-05-04] MEDS ORDERED: VALPROIC ACID 250 MG PO SCH (21:00)
[2021-05-04] MEDS ORDERED: NON-FORMULARY MEDICATION 1 EA EA (Spironolactone 50 MG) PO SCH (21:00)
--- NOTE | 2021-05-04 21:33 | PM&R Post Admission Assessment ---
PM&R HP Date of Visit: May 04, 2021 Time of Visit: 14:00 History of Present Illness Chief complaint: Severe debility with multiple falls HPI: This is an 85yoWF clinic pt of Dr. Ribera who presented to the ER after several Er visits due to multiple falls at home. She has become so frail the family cannot continue having her remain at the house and she does have a 24/7 care director but the falls have been very concerning for the pt and the family. We will bring her to rehab and try strengthen and work on cognition due to dementia and then move to [facility] to assisted living. Past Zadxsje-Lwzdjc-Vkubhq Hx Past Med/Social Hx: Reviewed Nursing Past Med/Soc Hx, Reviewed and Corrections made Patient Social History Marrital Status: single Employed/Student: retired Alcohol Use: Denies Use Smoking Status: Never a Smoker 2nd Hand Smoke Exposure: No Recent Hopitalizations: No Immunizations Up To Date Date of Influenza Vaccine: Jun 20, 2017 Seasonal Allergies Seasonal Allergies: No Past Medical History Surgeries: Gallbladder, Hysterectomy, Oophorectomy, Orthopedic Cardiac: High Cholesterol, Hypertension Neurological: Dementia Reproductive: No Gastrointestinal: Gastroesophageal Reflux HEENT: Cataract Hearing Impairment: Hard of Hearing History of Blood Disorders: No Prior Level of Function Bed Mobility: 3 Transfers: 3 Gait: 3 Stairs: 3 Indoor Mobility (Ambulation): Needed Some Help Stairs: Needed Some Help Prior Devices Use: Walker Self Care: Needed Some Help Functional Cognition: Unknown Current Level of Fuctioning Roll Left to Right: 3 Sit to Lyin Lying to Sitting/Side of Bed: 2 Sit to Stand: 3 Chair/Poe-oi-Mpgxl Xfer: 3 Car Transfer: 3 Does the Patient Walk: Yes Mode of Locomotion: Walk Anticipated Mode of Locomotion: Walk Walk 10 feet: 3 Walk 50 ft with 2 Turns: 3 Walk 150 ft: 3 Walking 10ft on uneven surface: 3 Gait Assistive Device: FWW Does the Pt Use a Wheelchair: No Wheel 50 ft with 2 turns: 9 Wheel 150 ft: 9 #of Steps: 1 1 Step (curb): 3 4 Steps: 88 Walking Assistive Device: Walker 12 Steps: 88 Picking up an Object: 88 Eatin (based on clincial judgment, supervision required.) Oral Hygiene: 4 (SBA, minimal cues for sequencing of toothpaste.) Shower/Bathe Self: 3 (Pt required assistance with washing/drying buttocks and bilateral lower legs/feet. Pt able to wash UEs, chest/abdomen, periarea and thighs.) Upper Body Dressin (Min A donning/doffing button up shirt.) Lower Body Dressin (Pt required max A with donning/doffing pants.) On/Off Footwear: 1 (assist donning/doffing gripper socks.) Toileting Hygiene: 2 (Max A, assist with clothing management and washing buttocks, pt able to manage pericare.) PM&R Allergy/Meds/Data Review Allergies Coded Allergies: Penicillins (Verified Allergy, Unknown, 08/07/17) Home Medications Scheduled Fluoxetine HCl (Fluoxetine HCl), 10 MG PO DAILY, (Reported) Lovastatin (Lovastatin), 20 MG PO HS, (Reported) Omeprazole (Omeprazole), 20 MG PO DAILY, (Reported) Spironolactone (Spironolactone), 50 MG PO HS, (Reported) Valproic Acid (Valproic Acid), 250 MG PO BID, (Reported) Scheduled PRN Acetaminophen (Tylenol Extra Strength), 500-1,000 MG PO Q8H PRN for PAIN-MILD (1-4), (Reported) Discontinued Medications Alendronate Sodium (Alendronate Sodium), 70 MG PO WEEK, (Reported) Discontinued Reason: No Longer Taking Atenolol (Atenolol), 50 MG PO DAILY, (Reported) Discontinued Reason: No Longer Taking Fluticasone Propionate (Fluticasone Propionate), 1 SPRAY NSEACH DAILY, (Reported) Discontinued Reason: No Longer Taking Hydrocodone/Acetaminophen (Hydrocodone-Acetamin 5-325 mg), 1 EACH PO Q4-6 HOURS PRN for PAIN Discontinued Reason: No Longer Taking Nitrofurantoin Macrocrystal (Nitrofurantoin), 100 MG PO BID Discontinued Reason: No Longer Taking Current Medications Current Medications Reviewed Review of Systems Constitutional: see HPI, dizziness, malaise, weakness EENTM: no symptoms reported Respiratory: no symptoms reported Cardiovascular: no symptoms reported Gastrointestinal: no symptoms reported Genitourinary: no symptoms reported Musculoskeletal: no symptoms reported Skin: no symptoms reported Psychiatric/Neurological: Weakness All Other Systems Reviewed Negative Unless Noted: Yes Physical Exam Physical Exam Vital Signs Vital Signs - First Documented 8/23/21 14:10 Temp 36.5 Pulse 85 Resp 20 B/P (MAP) 211/81 (124) Pulse Ox 96 O2 Delivery Room Air Capillary Refill : Height, Weight, BMI Height: 5'3.00" Weight: 145lbs. 0.0oz. [id number]; 26.56 BMI Method:Stated General Appearance: No Apparent Distress, WD/WN, Chronically ill, Thin, Other (Frail) Eyes: Bilateral Eye Normal Inspection, Bilateral Eye PERRL HEENT: PERRL/EOMI, Normal ENT Inspection, Pharynx Normal, Other (Very hard of hearing) Neck: Full Range of Motion, Normal Inspection, Non Tender, Supple, Carotid Bruit Respiratory: Chest Non Tender, Lungs Clear, Normal Breath Sounds, No Accessory Muscle Use, No Respiratory Distress Cardiovascular: Regular Rate, Rhythm, No Edema, No Gallop, No JVD, No Murmur, Normal Peripheral Pulses Gastrointestinal: Normal Bowel Sounds, No Organomegaly, No Pulsatile Mass, Non Tender, Soft Back: Normal Inspection, No CVA Tenderness, No Vertebral Tenderness Extremity: Normal Capillary Refill, Normal Inspection, Normal Range of Motion, Non Tender, No Calf Tenderness, No Pedal Edema Neurologic/Psychiatric: Alert, Oriented x3, precipitator II-XII Norm as Tested, Abnormal Gait, Depressed Affect, Motor Weakness (Generalized weakness), Other (Confusion noted poor recall) Skin: Normal Color, Warm/Dry Lymphatic: No Adenopathy PM&R Medical Assessment & Plan REHAB/MEDICAL ASSESSMENT AND PLAN: REHAB IMPAIRMENT GROUP: Debility ETIOLOGIC DIAGNOSIS: Debility The comorbidities that impact the patients function and/or functional outcome by: Dementia, severe hard of hearing, fall risk, frail status REHAB PLAN: The patient is being admitted to our comprehensive inpatient rehabilitation facility and can tolerate the intensity of service consisting of at least: 180 minutes of therapy a day, 5 out of 7 days a week Rehab treatment will consist of: PT and OT will focus on fall risk prevention and strengthening with the use of assistive devices in addition speech therapy will work on cognition The patient/family has a good understanding of our discharge process and will benefit from an interdisciplinary inpatient rehabilitation program. The patient has potential to make improvement and is in need of at least two of the following multidisciplinary therapies including but not limited to physical, occupational, speech, and prosthetics and orthotics. Additionally the patient will need services from respiratory, nutritional services, wound care, psychology, etc. (Customize this to each patient). Given the patients complex condition and risk of further medical complications, rehabilitation services cannot be safely or effectively provided at a lower level of care such as a [facility] facility. BARRIERS TO DISCHARGE: Advanced dementia ESTIMATED LOS: 7 days DISPOSITION: Assisted living RELEVANT CHANGES SINCE PREADMISSION SCREENING: I have compared the patients medical and functional status at the time of the preadmission screening and there are: No changes PROGNOSIS: Guarded REHABILITATION GOALS: 1. PT and OT will focus on fall risk prevention and strengthening with the use of assistive devices in addition speech therapy will work on cognition All the above goals were reviewed with the patient and he/she is in agreement. By signing this document, I acknowledge that I have personally performed a full physical examination on this patient within 24 hours of admission to this inpatient rehabilitation facility and have determined the patient to be able to tolerate the above course of treatment at an intensive level for a reasonable period of time. I will be completing a detailed individualized Plan of Care for this patient by day #4 of the patients stay based upon the Preadmission Screen, the Post-Admission Evaluation, and the therapy evaluations. Admission Dx/Comorbidities: (1) Falls frequently ICD Codes: R29.6 - Repeated falls (2) Dementia ICD Codes: F03.90 - Unspecified dementia without behavioral disturbance (3) Presbycusis ICD Codes: H91.10 - Presbycusis, unspecified ear (4) Frail elderly ICD Codes: R54 - Age-related physical debility (5) Hypertension ICD Codes: I10 - Essential (primary) hypertension (6) Hyperlipidemia ICD Codes: E78.5 - Hyperlipidemia, unspecified (7) GERD (gastroesophageal reflux disease) ICD Codes: K21.9 - Gastro-esophageal reflux disease without esophagitis (8) General weakness Status: Acute ICD Codes: R53.1 - Weakness Assessment/Plan Assessment and Plan Assess & Plan/Chief Complaint Assessment: Debility Falls Hypertension Hyperlipidemia GERD Dementia Frail status Severe presbycusis Plan: Inpatient rehab protocol Home meds Fall risk LIUDMILA BROWN DO May 04, 2021 21:33
[2021-05-04] MEDS ORDERED: WATER (STERILE) FOR INJ 10 ML BTL INJ SCH (21:45)
[2021-05-04] MEDS ORDERED: HALOPERIDOL 5 MG/ML (HALDOL) VIAL IM PRN (21:45)
[2021-05-04] MEDS ORDERED: OLANZapine 5 MG ODT (ZyPREXA ZYDIS) PO PRN (21:45)
[2021-05-04] MEDS ORDERED: cloNIDine 0.1 MG (CATAPRES) TAB PO PRN (21:45)
[2021-05-04] MEDS ORDERED: ZIPRASIDONE 20 MG INJ (GEODON) VIAL IM PRN (21:45)
[2021-05-05] MEDS: DIVALPROX SPRINKLE 125 MG (DEPAKOTE) CAP PO SCH ×2 (07:39→20:09)
[2021-05-05] MEDS: FLUoxetine HCL 10 MG (PROzac) CAPSULE/TABLET PO SCH (07:44)
[2021-05-05] MEDS: PANTOPRAZOLE 20 MG TABLET (PROTONIX) PO SCH (07:44)
[2021-05-05 08:00] VITALS: BP 158/75
--- NOTE | 2021-05-05 08:39 | PM&R Progress Note ---
Subjective HPI/CC On Admission Date Seen by Provider: May 05, 2021 Time Seen by Provider: 08:45 Subjective/Events-last exam 05/05/2021: Pt did really well last night Dementia is significant but she can follow commands Bowels moved 05/03/21 Pain is well controlled Review of Systems General: Fatigue, Malaise Neurological: Weakness, Confusion Objective Exam Vital Signs Vital Signs Date Time Temp Pulse Resp B/P (MAP) Pulse Ox O2 Delivery O2 Flow Rate FiO2 05/05/21 20:25 Room Air 05/05/21 20:24 36.9 83 20 119/70 (86) 93 Capillary Refill : General Appearance: No Apparent Distress, WD/WN, Chronically ill, Thin, Other (Frail) HEENT: PERRL/EOMI, Normal ENT Inspection, Pharynx Normal, Other (Very hard of hearing) Neck: Full Range of Motion, Normal Inspection, Non Tender, Supple, Carotid Bruit Respiratory: Chest Non Tender, Lungs Clear, Normal Breath Sounds, No Accessory Muscle Use, No Respiratory Distress Cardiovascular: Regular Rate, Rhythm, No Edema, No Gallop, No JVD, No Murmur, Normal Peripheral Pulses Gastrointestinal: Normal Bowel Sounds, No Organomegaly, No Pulsatile Mass, Non Tender, Soft Back: Normal Inspection, No CVA Tenderness, No Vertebral Tenderness Extremity: Normal Capillary Refill, Normal Inspection, Normal Range of Motion, Non Tender, No Calf Tenderness, No Pedal Edema Neurologic/Psychiatric: Alert, Oriented x3, metal mover II-XII Norm as Tested, Abnormal Gait, Depressed Affect, Motor Weakness (Generalized weakness), Other (Confusion noted poor recall) Skin: Normal Color, Warm/Dry Lymphatic: No Adenopathy Results/Procedures Lab Laboratory Tests 05/05/21 08:45 Patient resulted labs reviewed. FIM Transfers Therapy Code Descriptions/Definitions Functional [place] Measure: 0=Not Assessed/NA 4=Minimal Assistance 1=Total Assistance 5=Supervision or Setup 2=Maximal Assistance 6=Modified [place] 3=Moderate Assistance 7=Complete IndependenceSCALE: Activities may be completed with or without assistive devices. 0-Lpjyhbjglm-ucgvvfl completes the activity by him/herself with no assistance from a helper. 5-Set-up or Clean-up Assistance-helper sets up or cleans up; patient completes activity. [place] assists only prior to or following the activity. 4-Supervision or Touching Assistance-helper provides verbal cues and/or touching/steadying and/or contact guard assistance as patient completes activity. Assistance may be provided throughout the activity or intermittently. 3-Partial/Moderate Assistance-helper does LESS THAN HALF the effort. [place] lifts, holds or supports trunk or limbs, but provides less than half the effort. 2-Substantial/Maximal Assistance-helper does MORE THAN HALF the effort. [place] lifts or holds trunk or limbs and provides more than half the effort. 5-Rtcptvbcb-vtukiz does ALL the effort. Patient does none of the effort to complete the activity. Or, the assistance of 2 or more helpers is required for the patient to complete the activity. If activity was not attempted, code reason: 7-Patient Refused. 9-Not Applicable-not attempted and the patient did not perform the activity before the current illness, exacerbation or injury. 10-Not Attempted due to Environmental Limitations-(lack of equipment, weather restraints, etc.). 88-Not Attempted due to Medical Conditions or Safety Concerns. Roll Left to Right (QC): 3 Sit to Lying (QC): 2 Sit to Stand (QC): 3 Chair/Epz-hd-Kknok Xfer(QC): 3 Car Transfer (QC): 3 Gait Training Does the Patient Walk?: Yes Walk 10 feet (QC): 3 Walk 50 ft with 2 Turns(QC): 3 Walk 150 ft (QC): 3 Walking 10ft/uneven surface-QC: 3 Gait Assistive Device: FWW Wheelchair Training Does the Pt Use a Wheelchair?: No Wheel 50 ft with 2 turns (QC): 9 Wheel 150 ft (QC): 9 Stair Training #of Steps: 1 1 Step (curb) (QC): 3 4 Steps (QC): 88 12 Steps (QC): 88 Balance Picking up an Object (QC): 88 ADL-Treatment Eating (QC): 4 (based on clincial judgment, supervision required.) Oral Hygiene (QC): 4 (SBA, minimal cues for sequencing of toothpaste.) Shower/Bathe Self (QC): 3 (Pt required assistance with washing/drying buttocks and bilateral lower legs/feet. Pt able to wash UEs, chest/abdomen, periarea and thighs.) Upper Body Dressing (QC): 3 (Min A donning/doffing button up shirt.) Lower Body Dressing (QC): 2 (Pt required max A with donning/doffing pants.) On/Off Footwear (QC): 1 (assist donning/doffing gripper socks.) Toileting Hygiene (QC): 2 (Max A, assist with clothing management and washing buttocks, pt able to manage pericare.) Assessment/Plan Assessment and Plan Assess & Plan/Chief Complaint Assessment: Debility Falls Hypertension Hyperlipidemia GERD Dementia Frail status Severe presbycusis Plan: Inpatient rehab protocol [facility] Fall risk 05/05/2021: Supportive care Dementia is a limitation but seems to be settling in well (1) Falls frequently (2) Dementia (3) Presbycusis (4) Frail elderly (5) Hypertension (6) Hyperlipidemia (7) GERD (gastroesophageal reflux disease) (8) General weakness Status: Acute LIUDMILA BROWN DO May 05, 2021 08:39
[2021-05-05] MEDS ORDERED: ALPRAZolam 0.25 MG (XANAX) TAB PO PRN (08:45)
[2021-05-05] MEDS ORDERED: guaiFENesin/CODEINE (ROBITUSSIN AC) 10ML UDC PO PRN (08:45)
[2021-05-05] MEDS ORDERED: DOCUSATE SODIUM 100 MG (COLACE) CAP PO PRN (08:45)
[2021-05-05] MEDS ORDERED: LOPERAMIDE 2 MG (IMODIUM) TABLET PO PRN (08:45)
[2021-05-05] MEDS ORDERED: FLEET ENEMA ADULT 1 EA BTL PR PRN (08:45)
[2021-05-05] MEDS ORDERED: CALCIUM CARBONATE 500 MG (TUMS) TAB.CHEW PO PRN (08:45)
[2021-05-05] MEDS ORDERED: ONDANSETRON 4 MG (ZOFRAN) ORAL DISSOLVE TAB PO PRN (08:45)
[2021-05-05] MEDS ORDERED: BISACODYL 10 MG SUPP (DULCOLAX) PR PRN (08:45)
[2021-05-05] MEDS ORDERED: LACTULOSE SYRUP 10GM/15ML (ENULOSE) 30ML UDC PO PRN (08:45)
[2021-05-05] MEDS ORDERED: diphenhydrAMINE 25 MG TAB (BENADRYL) PO PRN (08:45)
[2021-05-05 08:51] LABS: BASOPHILS # (AUTO) 0.1 10^3/uL (0.0-0.1); BASOPHILS % (AUTO) 1 % (0-10); EOSINOPHILS # (AUTO) 0.3 10^3/uL (0.0-0.3); EOSINOPHILS % (AUTO) 4 % (0-10); HEMATOCRIT 38 % (35-52); HEMOGLOBIN 13.1 g/dL (11.5-16.0); LYMPHOCYTES # (AUTO) 1.6 10^3/uL (1.0-4.0); LYMPHOCYTES % (AUTO) 17 % (12-44); MEAN CORPUSCULAR HEMOGLOBIN 31 pg (25-34); MEAN CORPUSCULAR HGB CONC 35 g/dL (32-36); MEAN CORPUSCULAR VOLUME 89 fL (80-99); MEAN PLATELET VOLUME 9.1 fL (9.0-12.2); MONOCYTES # (AUTO) 0.8 10^3/uL (0.0-1.0); MONOCYTES % (AUTO) 9 % (0-12); NEUTROPHILS # (AUTO) 6.3 10^3/uL (1.8-7.8); NEUTROPHILS % (AUTO) 69 % (42-75); PLATELET COUNT 183 10^3/uL (130-400); WHITE BLOOD COUNT 9.1 10^3/uL (4.3-11.0)
[2021-05-05] MEDS ORDERED: OMEPRAZOLE 20 MG (PriLOSEC) CAP NON-FORMULARY PO SCH (09:00)
[2021-05-05 09:13] LABS: ALBUMIN 4.1 GM/DL (3.2-4.5)
[2021-05-05 09:14] LABS: CALCIUM 9.8 MG/DL (8.5-10.1)
[2021-05-05 09:15] LABS: TOTAL PROTEIN 7.3 GM/DL (6.4-8.2)
[2021-05-05 09:17] LABS: BILIRUBIN,TOTAL 0.7 MG/DL (0.1-1.0)
[2021-05-05 09:19] LABS: CREATININE SERUM 0.87 MG/DL (0.60-1.30)
--- NOTE | 2021-05-05 11:14 | Occupational Ther Daily Note ---
OT Current Status-Daily Note Subjective Pt reports pain in back, unable to give numerical value or pain description. Pain Location Body Site: Back Mental Status/Objective Patient Orientation: Person Attachments: IV ADL-Treatment Therapy Code Descriptions/Definitions Functional [place] Measure: 0=Not Assessed/NA 4=Minimal Assistance 1=Total Assistance 5=Supervision or Setup 2=Maximal Assistance 6=Modified [place] 3=Moderate Assistance 7=Complete IndependenceSCALE: Activities may be completed with or without assistive devices. 3-Hajdxxmxds-kqnrrps completes the activity by him/herself with no assistance from a helper. 5-Set-up or Clean-up Assistance-helper sets up or cleans up; patient completes activity. [place] assists only prior to or following the activity. 4-Supervision or Touching Assistance-helper provides verbal cues and/or touching/steadying and/or contact guard assistance as patient completes activity. Assistance may be provided throughout the activity or intermittently. 3-Partial/Moderate Assistance-helper does LESS THAN HALF the effort. [place] lifts, holds or supports trunk or limbs, but provides less than half the effort. 2-Substantial/Maximal Assistance-helper does MORE THAN HALF the effort. [place] lifts or holds trunk or limbs and provides more than half the effort. 9-Exswjdxec-lhkabp does ALL the effort. Patient does none of the effort to complete the activity. Or, the assistance of 2 or more helpers is required for the patient to complete the activity. If activity was not attempted, code reason: 7-Patient Refused. 9-Not Applicable-not attempted and the patient did not perform the activity before the current illness, exacerbation or injury. 10-Not Attempted due to Environmental Limitations-(lack of equipment, weather restraints, etc.). 88-Not Attempted due to Medical Conditions or Safety Concerns. Other Treatment [id number]: OT/PT cotreat due to skill of 2 clinicians required that a rehabilitation therapy technician could not perform in order to coordinate UE/LEs with tasks, decrease fall risk, and due to pt's limitations in sequencing, strength, pain, mobility/transfers, and confusion. OT focused on UE placement, cues for sequencing and safety and ADLs, PT focused on LE placement, gross overall movement, and transfers/mobility. Pt ambulated to/from gym with use of FWW and min A. Verbal cues for walker management and posture. Consistent cues for safety and preferred hand placement with sit<>stands. While in gym, pt participated in standing tasks with emphasis on improving standing tolerance, balance, overall endurance, functional reach and posture. Pt stood for ~2-3 minutes at a time before requiring a sitting rest break secondary to fatigue and back pain. Pt demonstrates narrow MÓNICA and requires Initial cues to widen for improved balance. Several cues for upright posture during tasks as pt unable to sustain throughout activity. Zero UE support encouraged during tasks to increase indep with ADL tasks such as clothing management. Min-mod a for standing balance required throughout. Diff iculty sequencing steps and requires simplification of commands. Repetition needed at times secondary to being [place]. Pt hesitant to take side step or step forward when challenged to reach out of MÓNICA. Poor safety and problem solving noted when reaching in different planes or tossing ring/ball. Cues for improved body mechanics when reaching for ring below hip level. No significant LOB. She ambulated back to room with Physical therapy, min a and use of FWW. Pt returned to bed, all needs within reach, family in room. bed alarm activated. [id number]: OT/PT cotreat due to skill of 2 clinicians required that a rehabilitation therapy technician could not perform in order to coordinate UE/LEs with tasks, decrease fall risk, and due to pt's limitations in sequencing, strength, pain, mobility/transfers, and confusion. OT focused on UE placement, cues for sequencing and safety and ADLs, PT focused on LE placement, gross overall movement, and transfers/mobility. Pt performed functional mobility to kitchen area, located rico bags throughout kitchen. She required max verbal cues in order to locate rico bags on counter top and throughout cabinets/drawers. Pt took 1 seated rest break, then returned to room. Post tx, pt laying in bed, call light in reach and all needs met. Bed alarm activated. Education OT Patient Education: Correct positioning, Energy conservation, Progress toward Goal/Update tx plan, Purpose of tx/functional activities, Safety issues, Transfer techniques Teaching Recipient: Patient Teaching Methods: Demonstration, Discussion Response to Teaching: Reinforcement Needed OT Short Term Goals Short Term Goals Time Frame: May 29, 2021 Lower body dressin Putting on/taking off footwear: 3 OT Finisher Polisher Goals Penitentiary Goals Time Frame: May 29, 2021 Eating (QC): 5 Oral Hygiene (QC): 5 Toileting Hygiene (QC): 4 Shower/Bathe Self (QC): 4 Upper Body Dressing (QC): 5 Lower Body Dressing (QC): 4 On/Off Footwear (QC): 4 Additional Goals: 1-Demonstrate ADL Tasks, 2-Verbalize Understanding, 3- ImproveStrength/Riley 1=Demonstrate adherence to instructed precautions during ADL tasks. 2=Patient will verbalize/demonstrate understanding of assistive ida barbara/modifications for ADL. 3=Patient will improve strength/tolerance for activity to enable patient to perform ADL's. OT Education/Plan Problem List/Assessment Assessment: Decreased Activ Tolerance, Decreased Safety Aware, Decreased UE Strength, Impaired Bed Mobility, Impaired Cognition, Impaired Coordination, Impaired Funct Balance, Impaired I ADL's, Impaired Self-Care Skills Discharge Recommendations Plan/Recommendations: Continue POC Therapy Discharge Recommendati: 24 Hour Supervision, Post Acute OT Treatment Plan/Plan of Care Treatment,Training & Education: Yes Patient would benefit from OT for education, treatment and training to promote independence in ADL's, mobility, safety and/or upper extremity function for ADL's. Plan of Care: ADL Retraining, Cognitive Retraining, Functional Mobility, Group Exercise/Act as Ind, UE Funct Exercise/Act Treatment Duration: May 29, 2021 Frequency: At least 5 of 7 days/Wk (IRF) Estimated Hrs Per Day: 1.5 hours per day Rehab Potential: Fair Time/GCodes Start Time: 10:00 ([id number]) Stop Time: 13:30 ([id number]) Total Time Billed (hr/min): 90 Billed Treatment Time [id number] Co treat x60 min, 1, FA 4 (60') [id number] cotreat x30 mins 1, FA 2 (30') ROB RICHTER OT May 05, 2021 11:14
--- NOTE | 2021-05-05 11:17 | Physical Therapy Daily Note ---
PT Daily Note-Current Subjective Pt in bed upon arrival and agrees to co-treat. Pt repeatedly stated she is tried and fatigued throughout tx. Pt became agitated towards end of tx d/t fatigue. Mental Status Patient Orientation: Person, Place Transfers SCALE: Activities may be completed with or without assistive devices. 1-Wonbqyztdp-odckbzv completes the activity by him/herself with no assistance from a helper. 5-Set-up or Clean-up Assistance-helper sets up or cleans up; patient completes activity. [place] assists only prior to or following the activity. 4-Supervision or Touching Assistance-helper provides verbal cues and/or touching/steadying and/or contact guard assistance as patient completes activity. Assistance may be provided throughout the activity or intermittently. 3-Partial/Moderate Assistance-helper does LESS THAN HALF the effort. [place] lifts, holds or supports trunk or limbs, but provides less than half the effort. 2-Substantial/Maximal Assistance-helper does MORE THAN HALF the effort. [place] lifts or holds trunk or limbs and provides more than half the effort. 7-Ezwzocytp-vomzet does ALL the effort. Patient does none of the effort to co mplete the activity. Or, the assistance of 2 or more helpers is required for the patient to complete the activity. If activity was not attempted, code reason: 7-Patient Refused. 9-Not Applicable-not attempted and the patient did not perform the activity before the current illness, exacerbation or injury. 10-Not Attempted due to Environmental Limitations-(lack of equipment, weather restraints, etc.). 88-Not Attempted due to Medical Conditions or Safety Concerns. Sit to Lying (QC): 3 Lying to Sitting/Side of Bed(Q: 4 Sit to Stand (QC): 3 During sit to stand/stand to sit, pt required VC to push off of bed/mat as well as TC for hand placement. Pt required TC and VC to reach back and grab bed/mat when sitting. Gait Training Does the Patient Walk?: Yes Distance: 150' Walk 10 feet (QC): 4 Walk 50 ft with 2 Turns(QC): 4 Walk 150 ft (QC): 4 Gait Persons Needed: 1 Gait Assistive Device: FWW Pt amb 150' from bedroom to Therapy gym with FWW. Pt tends to push FWW far in front and stand to side of FWW. Pt requiring VC and TC to stay close to FWW and stay centered in FWW. Pt tends to push FWW far in front and stand to side of FWW. Pt amb back to room from Therapy Gym with encouragement after pt stated she was very tired. Wheelchair Training Does the Pt Use a Wheelchair?: No Neuromuscular Pt performed dynamic standing balance activities while throwing/bouncing ball and ring toss, requiring stepping strategy for some catching. PT A pt with balance, requiring Min/ModA to keep from LOB. Pt required multiple VC and TC to keep wide MÓNICA during activity. Treatments OT/PT cotreat due to skill of 2 clinicians required that a director of cardiac rehabilitation could not perform in order to coordinate UE/LEs with tasks, decrease fall risk, and due to pt's limitations in sequencing, strength, pain, mobility/transfers, and confusion. OT focused on UE placement, cues for sequencing and safety and ADLs, PT focused on LE placement, gross overall movement, and transfers/mobility. PT focused on dynamic standing balance and sit to stand transfers. Assessment Current Status: Fair Progress Pt showed signs of confusion throughout tx, requiring multiple VC and TC throughout. Pt required multiple rest breaks d/t easily fatiguing. PT Short Term Goals Short Term Goals Time Frame: May 11, 2021 Roll Left & Right: 6 Sit to lyin Lying to sitting on side of be: 3 Sit to stand: 4 Chair/hio-rf-zwyed transfer: 4 Walk 10 feet: 4 Walk 50 feet with two turns: 4 Walk 150 feet: 4 PT Exploration Engineer Goals Half-Way Goals PT Exploration Engineer Goals Time Frame: May 25, 2021 Roll Left & Right (QC): 6 Sit to Lying (QC): 5 Lying-Sitting on Side/Bed(QC): 5 Sit to Stand (QC): 4 (SBA) Chair/Lmq-rx-Kftwi Xfer(QC): 4 (SBA) Toilet Transfer (QC): 4 (SBA) Car Transfer (QC): 4 (SBA) Does the Patient Walk: Yes Walk 10 feet (QC): 4 (SBA) Walk 50ft with 2 Turns (QC): 4 (SBA) Walk 150 ft (QC): 4 (SBA) Walking 10ft on Uneven Surface: 4 (SBA) 1 Step (curb) (QC): 4 (CGA) 4 Steps (QC): 4 (CGA) 12 Steps (QC): 88 Picking up an Object (QC): 88 Wheel 50 feet with 2 turns (QC: 9 Wheel 150 feet: 9 PT Plan Problem List Problem List: Activity Tolerance, Safety, Balance Treatment/Plan Treatment Plan: Continue Plan of Care Treatment Plan: Bed Mobility, Education, Functional Activity Riley, Functional Strength, Group Therapy, Gait, Safety, Therapeutic Exercise, Transfers Treatment Duration: May 25, 2021 Frequency: At least 5 of 7 days/Wk (IRF) Estimated Hrs Per Day: 1.5 hours per day Patient and/or Family Agrees t: Yes Safety Risks/Education Patient Education: Gait Training, Transfer Techniques, Safety Issues Teaching Recipient: Patient, Family Teaching Methods: Demonstration, Discussion Response to Teaching: Verbalize Understanding, Unable to Return Demonstration, Reinforcement Needed Time/GCodes Time In: 1000 Time Out: 1100 Total Billed Treatment Time: 60 Total Billed Treatment 1, NM x2, GT x2 LENNIE SOTO SANDER HAND May 05, 2021 11:17
[2021-05-05] MEDS: SENNA W/DOCUSATE (SENOKOT S) TABLET PO SCH ×2 (12:49→20:09)
[2021-05-05] MEDS: DOCUSATE SODIUM 100 MG (COLACE) CAP PO SCH ×2 (12:49→20:09)
[2021-05-05] MEDS: polyethylene glycoL POWDER 17 GM (MIRALAX) PACK PO SCH ×2 (12:49→20:04)
--- NOTE | 2021-05-05 13:43 | Physical Therapy Daily Note ---
NIXON BENITEZ TAILOR APPRENTICE 05/05/21 1343: PT Daily Note-Current Subjective Pt in bed finishing lunch upon arrival. Pt states pain in R hip w/o rating out of 10. Pain Location: Right Location Body Site: Hip Pain Description: Ache Mental Status Patient Orientation: Person Pt had 2 ice packs on R hip. Transfers SCALE: Activities may be completed with or without assistive devices. 1-Iwzhzkqtha-lykqyic completes the activity by him/herself with no assistance from a helper. 5-Set-up or Clean-up Assistance-helper sets up or cleans up; patient completes activity. [place] assists only prior to or following the activity. 4-Supervision or Touching Assistance-helper provides verbal cues and/or touching/steadying and/or contact guard assistance as patient completes activity. Assistance may be provided throughout the activity or intermittently. 3-Partial/Moderate Assistance-helper does LESS THAN HALF the effort. [place] lifts, holds or supports trunk or limbs, but provides less than half the effort. 2-Substantial/Maximal Assistance-helper does MORE THAN HALF the effort. [place] lifts or holds trunk or limbs and provides more than half the effort. 0-Twnaxjxlp-joosrt does ALL the effort. Patient does none of the effort to complete the activity. Or, the assistance of 2 or more helpers is required for the patient to complete the activity. If activity was not attempted, code reason: 7-Patient Refused. 9-Not Applicable-not attempted and the patient did not perform the activity before the current illness, exacerbation or injury. 10-Not Attempted due to Environmental Limitations-(lack of equipment, weather restraints, etc.). 88-Not Attempted due to Medical Conditions or Safety Concerns. Sit to Lying (QC): 3 Lying to Sitting/Side of Bed(Q: 4 Sit to Stand (QC): 4 Gait Training Does the Patient Walk?: Yes Distance: 75' Walk 10 feet (QC): 4 Walk 50 ft with 2 Turns(QC): 4 Gait Persons Needed: 1 Gait Assistive Device: FWW Pt amb from bed to kitchen area and back to bed using FWW. Pt required multiple VC and TC for hand placement on FWW and to stay close to FWW. Wheelchair Training Does the Pt Use a Wheelchair?: No Treatments OT/PT cotreat due to skill of 2 clinicians required that a crane service technician could not perform in order to coordinate UE/LEs with tasks, decrease fall risk, and due to pt's limitations in sequencing, strength, pain, mobility/transfers, and confusion. OT focused on UE placement, cues for sequencing and safety and ADLs, PT focused on LE placement, gross overall movement, balance, and transfers/mobility.Pt performed bed mobility to sit EOB, pt amb to kitchen on Therapy unit and attempted to find rico bags placed throughout kitchen. Pt required Mod A while attempting to reach rico bags d/t poor balance/stability. Pt repeatedly looked in same drawers/cabinets, was unable to find rico bags placed on counter top w TC and VC A. Pt required two seated rest breaks, during these pt received VC and TC for hand placement on arm of chair but pt removed hands from chair and didn't follow VC. OT attempted to use grabber to A pt with reaching lower rico bags d/t lower back pain. With VC, TC, and demonstration pt able to use grabber to grab one beanbag. Pt amb back to room and returned to bed. Nursing came into room and PT/OT A nursing in changing pt brief. Pt returned supine in bed with ice on hip and call light in hand. Assessment Current Status: Fair Progress Pt displayed confusion throughout tx, forgetting where she had already looked, not following VC or TC. Pt easily fatigued requiring multiple rest breaks. PT Short Term Goals Short Term Goals Time Frame: May 11, 2021 Roll Left & Right: 6 Sit to lyin Lying to sitting on side of be: 3 Sit to stand: 4 Chair/qgv-ud-pbgtk transfer: 4 Walk 10 feet: 4 Walk 50 feet with two turns: 4 Walk 150 feet: 4 PT Health Promoter Goals Skilled Nursing Goals PT Health Promoter Goals Time Frame: May 25, 2021 Roll Left & Right (QC): 6 Sit to Lying (QC): 5 Lying-Sitting on Side/Bed(QC): 5 Sit to Stand (QC): 4 (SBA) Chair/Bho-ji-Svdgn Xfer(QC): 4 (SBA) Toilet Transfer (QC): 4 (SBA) Car Transfer (QC): 4 (SBA) Does the Patient Walk: Yes Walk 10 feet (QC): 4 (SBA) Walk 50ft with 2 Turns (QC): 4 (SBA) Walk 150 ft (QC): 4 (SBA) Walking 10ft on Uneven Surface: 4 (SBA) 1 Step (curb) (QC): 4 (CGA) 4 Steps (QC): 4 (CGA) 12 Steps (QC): 88 Picking up an Object (QC): 88 Does the Pt use WC or Scooter?: No Wheel 50 feet with 2 turns (QC: 9 Type: N/A Wheel 150 feet: 9 Type: N/A PT Plan Problem List Problem List: Activity Tolerance, Safety, Balance Treatment/Plan Treatment Plan: Continue Plan of Care Treatment Plan: Bed Mobility, Education, Functional Activity Riley, Functional Strength, Group Therapy, Gait, Safety, Therapeutic Exercise, Transfers Treatment Duration: May 25, 2021 Frequency: At least 5 of 7 days/Wk (IRF) Estimated Hrs Per Day: 1.5 hours per day Patient and/or Family Agrees t: Yes Safety Risks/Education Patient Education: Gait Training, Reviewed Use of Ice, Safety Issues Teaching Recipient: Patient Teaching Methods: Demonstration, Discussion Response to Teaching: Unable to Return Demonstration, Unable to Comprehend, Reinforcement Needed Time/GCodes Time In: 1300 Time Out: 1330 Total Billed Treatment Time: 30 Total Billed Treatment 1, FA, NM BEAU RAMOS PT 05/05/21 1416: NIXON BENITEZ TAILOR APPRENTICE May 05, 2021 13:43 BEAU RAMOS PT May 05, 2021 14:16
[2021-05-05] MEDS: MELATONIN 3 MG TABLET PO PRN (20:09)
[2021-05-05] MEDS: SPIRONOLACTONE 25 MG (ALDACTONE) TAB PO SCH (20:09)
[2021-05-05] MEDS: SIMvastatin 10 MG (ZOCOR) TAB PO SCH (20:09)
[2021-05-05 20:24] VITALS: BP 119/70
--- NOTE | 2021-05-06 07:04 | Individualized Plan of Care ---
Individualized Plan of Care Rehab Nursing IPOC Order Admission Date May 04, 2021 at 13:40 Current Orders Orders General/Regular (05/04/21 Dinner) Patient Visit (05/04/21 ) Pt Eval Moderate Complexity (05/04/21 ) Functional Activities, Ea 15 (05/04/21 ) Admission Arrival Bed Request (05/04/21 17:40) Fluoxetine Capsule/Tablet (Prozac Capsul (05/05/21 09:00) Omeprazole (Non-Formulary) (Prilosec (No (05/05/21 09:00) (Nf) Lovastatin (05/04/21 21:00) (Nf) Spironolactone (05/04/21 21:00) (Nf) Valproic Acid (05/04/21 21:00) Simvastatin Tablet (Zocor Tablet) (05/04/21 21:00) Spironolactone Tablet (Aldactone Tablet) (05/04/21 21:00) Pantoprazole Tablet (Protonix Tablet) (05/05/21 09:00) Divalproex Sprinkle (Depakote Sprinkles) (05/04/21 21:00) Haloperidol Injection (Haldol Injectio (05/04/21 21:45) Olanzapine Orally Dissolve Tab (Zyprexa (05/04/21 21:45) Ziprasidone Injection (Geodon Injection) (05/04/21 21:45) Water (Sterile) For Injection (Sterile W (05/04/21 21:45) Clonidine Tablet (Catapres Tablet) (05/04/21 21:45) Catheter(Urinary) Discontinue (05/05/21 08:33) Admission Order(Inpt,Obs,Sdc) (05/05/21 08:33) Vital Signs: Per Unit Policy ( 08,16,00 (05/05/21 08:33) Johnathan Annae (05/05/21 08:33) Sequential Compression Device .admit (05/05/21 08:33) Naval Architect-Inpt Rehab Con (05/05/21 08:33) Rehab Nursing Orders-Ipoc (05/05/21 08:33) Physical Therapy Rehab Orders (05/05/21 08:33) Occupational Therapy Rehab Ord (05/05/21 08:33) Speech Therapy Rehab Orders (05/05/21 08:33) Cbc With Automated Diff (05/05/21 08:33) Comprehensive Metabolic Panel (05/05/21 08:33) Precautions (Aru) (05/05/21 08:33) Rehab-Intensity Of Therapy (05/05/21 08:33) Initiate Admission Nursing Pro .admission (05/05/21 08:33) Alprazolam Tablet (Xanax Tablet) (05/05/21 08:45) Calcium Carbonate Chew Tablet (Antacid C (05/05/21 08:45) Diphenhydramine Tablet (Benadryl Tablet) (05/05/21 08:45) Docusate Sodium Capsule (Colace Capsule) (05/05/21 09:00) Docusate Sodium Capsule (Colace Capsule) (05/05/21 08:45) Bisacodyl Suppository (Dulcolax Supposit (05/05/21 08:45) Lactulose Oral Solution (Enulose Oral So (05/05/21 08:45) Na Phos/Na Biphos Enema (Fleet Enema [place] (05/05/21 08:45) Guaifenesin/Codeine Syrup (Robitussin Ac (05/05/21 08:45) Loperamide Tablet (Imodium Tablet) (05/05/21 08:45) Melatonin Tablet (Melatonin Tablet) (05/05/21 08:45) Polyethylene Glycol Powder Pkt (Miralax (05/05/21 09:00) Ondansetron Oral Dissolve Tab (Zofran (05/05/21 08:45) Senna S Tablet (Senokot S Tablet) (05/05/21 09:00) Initiate Admission Nursing Pro .admission (05/05/21 08:33) Physician Orders (05/05/21 08:46) Acetaminophen Tablet/Caplet (Tylenol T (05/05/21 09:15) Patient Visit (05/05/21 ) Ex Neuromuscular, Ea 15 Min (05/05/21 ) Gait Training, Ea 15 Min (05/05/21 ) Functional Activities, Ea 15 (05/05/21 ) Patient Visit (05/06/21 ) Gait Training, Ea 15 Min (05/06/21 ) Exercise Therap, Ea 15 Min (05/06/21 ) Functional Activities, Ea 15 (05/06/21 ) Rehab Nursing Orders: Ongoing Assess. of Cognitive Status, Ongoing Assess. of Function Status, Bladder Management, Bladder Scan, Bladder Training, Bowel Management, Bowel Training, Disease Management & Educaiton, DVT Prophylaxis, Fall Prevention, Fluid/Electrolyte/Nutrition Mgmt, Infection Prevention, Medication Management & Education, Management of Risks & Complications, Nutrition Management, Pain Management, Patient/Family Support, Safety Management Intensity of Therapy to be met Patient to be seen: Min.3h per day/5 of 7d PT IPOC Problem List: Activity Tolerance, Safety, Balance Treatment Plan: Continue Plan of Care Bed Mobility, Education, Functional Activity Riley, Functional Strength, Group Therapy, Gait, Safety, Therapeutic Exercise, Transfers Treatment Duration: May 25, 2021 Frequency: At least 5 of 7 days/Wk (IRF) Estimated Hrs Per Day: 1.5 hours per day OT IPOC Problems: Decreased Activ Tolerance, Decreased Safety Aware, Decreased UE Strength, Impaired Bed Mobility, Impaired Cognition, Impaired Coordination, Impaired Funct Balance, Impaired I ADL's, Impaired Self-Care Skills OT Treatment, Training and Edu: Yes Plan of Care: ADL Retraining, Cognitive Retraining, Functional Mobility, Group Exercise/Act as Ind, UE Funct Exercise/Act Treatment Duration: May 29, 2021 Frequency: At least 5 of 7 days/Wk (IRF) Estimated Hrs Per Day: 1.[address] IPOC Speech Therapy Treatment Plan: Continue Plan of Care Treatment Duration: May 06, 2021 Frequency: Modified Program (IRF) Estimated Hrs Per Day: Other Naval Architect/Case Mgmt Naval Architect/Case Managemen: Discharge Planning Dietitian/Lace Inspector Dietitian/Lace Inspector to monitor nutritional status and make changes and/or recommendations as needed and work with speech pathology on dietary upgrades as the occur. Physician IPOC Medical Issues being managed closely and that require the 24 hour availability of a physician: Patient with recent multiple falls with cognition deficit will be at high risk for decompensation Medical Issues: Bowel/Bladder Function, DVT Prophylaxis, Falls Precautions, Fluid/Electrolyte/Nutrition Balance, Infection Protection, Pain Management, Swallowing Precautions Brief Synthesis of Preadmission Screen, Post-Admission Evaluation, and Therapy Evaluations: PT and OT will focus on fall risk prevention along with ambulation with walker and other assistive devices and speech therapy will work on cognition Medical Prognosis: Fair Anticipated Length of Stay: 7 days LIUDMILA BROWN DO May 06, 2021 07:04
[2021-05-06 08:50] VITALS: BP 142/61
[2021-05-06] MEDS: FLUoxetine HCL 10 MG (PROzac) CAPSULE/TABLET PO SCH (08:55)
[2021-05-06] MEDS: DIVALPROX SPRINKLE 125 MG (DEPAKOTE) CAP PO SCH ×2 (08:55→20:34)
[2021-05-06] MEDS: PANTOPRAZOLE 20 MG TABLET (PROTONIX) PO SCH (08:55)
[2021-05-06] MEDS: DOCUSATE SODIUM 100 MG (COLACE) CAP PO SCH ×2 (08:57→19:27)
[2021-05-06] MEDS: SENNA W/DOCUSATE (SENOKOT S) TABLET PO SCH ×2 (08:58→19:28)
[2021-05-06] MEDS: polyethylene glycoL POWDER 17 GM (MIRALAX) PACK PO SCH ×2 (09:02→19:28)
--- NOTE | 2021-05-06 11:56 | Physical Therapy Daily Note ---
PT Daily Note-Current Subjective Pt sitting in recliner upon arrival. Pt agrees to PT. Pain Location: Lower Location Body Site: Back Pain Description: Ache Comment: Pt doesn't rate but grimaces and holds low back when completing Seated Ex. Mental Status Patient Orientation: Person, Place Transfers SCALE: Activities may be completed with or without assistive devices. 0-Fjvwhlxrnw-wfjnqaz completes the activity by him/herself with no assistance from a helper. 5-Set-up or Clean-up Assistance-helper sets up or cleans up; patient completes activity. [place] assists only prior to or following the activity. 4-Supervision or Touching Assistance-helper provides verbal cues and/or touching/steadying and/or contact guard assistance as patient completes activity. Assistance may be provided throughout the activity or intermittently. 3-Partial/Moderate Assistance-helper does LESS THAN HALF the effort. [place] lifts, holds or supports trunk or limbs, but provides less than half the effort. 2-Substantial/Maximal Assistance-helper does MORE THAN HALF the effort. [place] lifts or holds trunk or limbs and provides more than half the effort. 6-Hekpwuuml-vqbxpo does ALL the effort. Patient does none of the effort to complete the activity. Or, the assistance of 2 or more helpers is required for the patient to complete the activity. If activity was not attempted, code reason: 7-Patient Refused. 9-Not Applicable-not attempted and the patient did not perform the activity before the current illness, exacerbation or injury. 10-Not Attempted due to Environmental Limitations-(lack of equipment, weather restraints, etc.). 88-Not Attempted due to Medical Conditions or Safety Concerns. Sit to Stand (QC): 4 Weight Bearing Full Weight Bearing Full Weight Bearing Gait Training Does the Patient Walk?: Yes Distance: 125' x2 Walk 10 feet (QC): 4 Walk 50 ft with 2 Turns(QC): 4 Walk 150 ft (QC): 4 Gait Persons Needed: 1 Gait Assistive Device: FWW Exercises Seated Therapy Exercises: Ankle pumps, Long arc quads, Hip flexion, Hip abd/add, Glut set Seated Reps: 15 Treatments TF to standing and declines need for BR. Pt amb. in hallway, taking a rest in chair after end of walk. Pt completes Seated Ex and amb. in hallway. Pt returns to room and uses BR before returning to recliner at end of tx. All needs met, call light in hand. Assessment Current Status: Fair Progress Pt still demonstrating cognition deficits and need for VC for sequencing, problem solving and safety. PT Short Term Goals Short Term Goals Time Frame: May 11, 2021 Roll Left & Right: 6 Sit to lyin Lying to sitting on side of be: 3 Sit to stand: 4 Chair/vgo-vn-fobaa transfer: 4 Walk 10 feet: 4 Walk 50 feet with two turns: 4 Walk 150 feet: 4 PT Usp Goals Python Programmer Goals PT Usp Goals Time Frame: May 25, 2021 Roll Left & Right (QC): 6 Sit to Lying (QC): 5 Lying-Sitting on Side/Bed(QC): 5 Sit to Stand (QC): 4 (SBA) Chair/Cut-jy-Zddcj Xfer(QC): 4 (SBA) Toilet Transfer (QC): 4 (SBA) Car Transfer (QC): 4 (SBA) Does the Patient Walk: Yes Walk 10 feet (QC): 4 (SBA) Walk 50ft with 2 Turns (QC): 4 (SBA) Walk 150 ft (QC): 4 (SBA) Walking 10ft on Uneven Surface: 4 (SBA) 1 Step (curb) (QC): 4 (CGA) 4 Steps (QC): 4 (CGA) 12 Steps (QC): 88 Picking up an Object (QC): 88 Does the Pt use WC or Scooter?: No Wheel 50 feet with 2 turns (QC: 9 Type: N/A Wheel 150 feet: 9 Type: N/A PT Plan Problem List Problem List: Activity Tolerance, Safety, Gait Treatment/Plan Treatment Plan: Continue Plan of Care Treatment Plan: Bed Mobility, Education, Functional Activity Riley, Functional Strength, Group Therapy, Gait, Safety, Therapeutic Exercise, Transfers Treatment Duration: May 25, 2021 Frequency: At least 5 of 7 days/Wk (IRF) Estimated Hrs Per Day: 1.5 hours per day Patient and/or Family Agrees t: Yes Safety Risks/Education Patient Education: Gait Training, Transfer Techniques, Correct Positioning, Safety Issues Teaching Recipient: Patient Teaching Methods: Demonstration, Discussion Response to Teaching: Unable to Return Demonstration, Reinforcement Needed Time/GCodes Time In: 930 Time Out: 1030 Total Billed Treatment Time: 60 Total Billed Treatment 1, GT x2 (25m), EX (15m) & FA (20m) LENNIE SOTO TETRYL DISSOLVER OPERATOR May 06, 2021 11:56
--- NOTE | 2021-05-06 12:26 | PM&R Progress Note ---
Subjective HPI/CC On Admission Date Seen by Provider: May 06, 2021 Time Seen by Provider: 10:00 Subjective/Events-last exam 05/06/2021: Pt doing a lot better Slept well last night Bowel treatment will be given due to constipation Confusion but does follow commands 05/05/2021: Pt did really well last night Dementia is significant but she can follow commands Bowels moved 05/03/21 Pain is well controlled Review of Systems General: Fatigue Neurological: Confusion Objective Exam Vital Signs Vital Signs Date Time Temp Pulse Resp B/P (MAP) Pulse Ox O2 Delivery O2 Flow Rate FiO2 05/06/21 20:10 Room Air 05/06/21 20:00 36.6 72 18 122/74 (90) 95 Capillary Refill : General Appearance: No Apparent Distress, WD/WN, Chronically ill, Thin, Other (Frail) HEENT: PERRL/EOMI, Normal ENT Inspection, Pharynx Normal, Other (Very hard of hearing) Neck: Full Range of Motion, Normal Inspection, Non Tender, Supple, Carotid Bruit Respiratory: Chest Non Tender, Lungs Clear, Normal Breath Sounds, No Accessory Muscle Use, No Respiratory Distress Cardiovascular: Regular Rate, Rhythm, No Edema, No Gallop, No JVD, No Murmur, Normal Peripheral Pulses Gastrointestinal: Normal Bowel Sounds, No Organomegaly, No Pulsatile Mass, Non Tender, Soft Back: Normal Inspection, No CVA Tenderness, No Vertebral Tenderness Extremity: Normal Capillary Refill, Normal Inspection, Normal Range of Motion, Non Tender, No Calf Tenderness, No Pedal Edema Neurologic/Psychiatric: Alert, Oriented x3, production generalist 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 FIM Transfers Therapy Code Descriptions/Definitions Functional [place] Measure: 0=Not Assessed/NA 4=Minimal Assistance 1=Total Assistance 5=Supervision or Setup 2=Maximal Assistance 6=Modified [place] 3=Moderate Assistance 7=Complete IndependenceSCALE: Activities may be completed with or without assistive devices. 3-Gsrijlvgrz-xagqxjn completes the activity by him/herself with no assistance from a helper. 5-Set-up or Clean-up Assistance-helper sets up or cleans up; patient completes activity. [place] assists only prior to or following the activity. 4-Supervision or Touching Assistance-helper provides verbal cues and/or touching/steadying and/or contact guard assistance as patient completes activity. Assistance may be provided throughout the activity or intermittently. 3-Partial/Moderate Assistance-helper does LESS THAN HALF the effort. [place] lifts, holds or supports trunk or limbs, but provides less than half the effort. 2-Substantial/Maximal Assistance-helper does MORE THAN HALF the effort. [place] lifts or holds trunk or limbs and provides more than half the effort. 5-Xsazpihsu-biitsm does ALL the effort. Patient does none of the effort to complete the activity. Or, the assistance of 2 or more helpers is required for the patient to complete the activity. If activity was not attempted, code reason: 7-Patient Refused. 9-Not Applicable-not attempted and the patient did not perform the activity before the current illness, exacerbation or injury. 10-Not Attempted due to Environmental Limitations-(lack of equipment, weather restraints, etc.). 88-Not Attempted due to Medical Conditions or Safety Concerns. Roll Left to Right (QC): 3 Sit to Lying (QC): 3 Sit to Stand (QC): 4 Chair/Jgn-oe-Djmsb Xfer(QC): 3 Car Transfer (QC): 3 Gait Training Does the Patient Walk?: Yes Distance: 125' x2 Walk 10 feet (QC): 4 Walk 50 ft with 2 Turns(QC): 4 Walk 150 ft (QC): 4 Walking 10ft/uneven surface-QC: 3 Gait Persons Needed: 1 Gait Assistive Device: FWW Wheelchair Training Does the Pt Use a Wheelchair?: No Wheel 50 ft with 2 turns (QC): 9 Wheel 150 ft (QC): 9 Stair Training #of Steps: 1 1 Step (curb) (QC): 3 4 Steps (QC): 88 12 Steps (QC): 88 Balance Picking up an Object (QC): 88 ADL-Treatment Eating (QC): 4 (based on clincial judgment, supervision required.) Oral Hygiene (QC): 4 (SBA, minimal cues for sequencing of toothpaste.) Shower/Bathe Self (QC): 3 (Pt required assistance with washing/drying buttocks and bilateral lower legs/feet. Pt able to wash UEs, chest/abdomen, periarea and thighs.) Upper Body Dressing (QC): 3 (Min A donning/doffing button up shirt.) Lower Body Dressing (QC): 2 (Pt required max A with donning/doffing pants.) On/Off Footwear (QC): 1 (assist donning/doffing gripper socks.) Toileting Hygiene (QC): 2 (Max A, assist with clothing management and washing buttocks, pt able to manage pericare.) Assessment/Plan Assessment and Plan Assess & Plan/Chief Complaint Assessment: Debility Falls Hypertension Hyperlipidemia GERD Dementia Frail status Severe presbycusis Plan: Inpatient rehab protocol Home meds Fall risk 05/05/2021: Supportive care Dementia is a limitation but seems to be settling in well 05/06/2021: Continue aggressive therapy Fall risk prevention Assisted living at discharge (1) Falls frequently (2) Dementia (3) Presbycusis (4) Frail elderly (5) Hypertension (6) Hyperlipidemia (7) GERD (gastroesophageal reflux disease) (8) General weakness Status: Acute LIUDMILA BROWN DO May 06, 2021 12:26
--- NOTE | 2021-05-06 13:53 | Occupational Ther Daily Note ---
OT Current Status-Daily Note Subjective Pt agreeable to OT tx. Has quite a bit of word finding difficulty today. Mental Status/Objective Patient Orientation: Person, Confused ADL-Treatment Therapy Code Descriptions/Definitions Functional [place] Measure: 0=Not Assessed/NA 4=Minimal Assistance 1=Total Assistance 5=Supervision or Setup 2=Maximal Assistance 6=Modified [place] 3=Moderate Assistance 7=Complete IndependenceSCALE: Activities may be completed with or without assistive devices. 9-Zztigzvsve-ojqxpcg completes the activity by him/herself with no assistance from a helper. 5-Set-up or Clean-up Assistance-helper sets up or cleans up; patient completes activity. [place] assists only prior to or following the activity. 4-Supervision or Touching Assistance-helper provides verbal cues and/or touching/steadying and/or contact guard assistance as patient completes activity. Assistance may be provided throughout the activity or intermittently. 3-Partial/Moderate Assistance-helper does LESS THAN HALF the effort. [place] lifts, holds or supports trunk or limbs, but provides less than half the effort. 2-Substantial/Maximal Assistance-helper does MORE THAN HALF the effort. [place] lifts or holds trunk or limbs and provides more than half the effort. 3-Wrgxtobdg-kywcxg does ALL the effort. Patient does none of the effort to complete the activity. Or, the assistance of 2 or more helpers is required for the patient to complete the activity. If activity was not attempted, code reason: 7-Patient Refused. 9-Not Applicable-not attempted and the patient did not perform the activity before the current illness, exacerbation or injury. 10-Not Attempted due to Environmental Limitations-(lack of equipment, weather restraints, etc.). 88-Not Attempted due to Medical Conditions or Safety Concerns. Eating (QC): 5 (set up assistance with lunch) Shower/Bathe Self (QC): 3 (assist with buttocks. Pt used LH sponge to wash L Es.) Upper Body Dressing (QC): 4 (SBA, pt able to don/doff shirt.) Lower Body Dressing (QC): 2 (Max A with doffing/donning LE clothing. Pt assisted some with pant hike.) On/Off Footwear: 1 (total assist to don/doff gripper socks.) Toileting Hygiene (QC): 3 (Pt performed clothing management, assist with hyigne) Toilet Transfer (QC): 3 (Mod A sit to stand from toilet, min A to sit.) Other Treatment 9629-3414 OT Tx. Pt seated in recliner, used FWW to perform functional mobility into bathroom and onto toilet. Pt completed toileting, OT educated pt on AE to doff LE clothing. Pt required hand over hand assistance, max verbal cues and max A to doff pants using AE. Pt then transferred to MO where she completed her shower. OT educated pt on using long handled sponge to wash BLEs lower legs/feet. Pt required min A with shower in order to wash buttocks. Pt transferred to w/c in order to get dressed, donned shirt with SBA, assist required to thread BLEs into underwear and pants. Total assist with footwear. AE not attempted while donning clothes due to pt's difficulty sequencing, problem solving, and difficulty following directions. OT assisted pt with combing hair. Pt used FWW to perform functional mobility back to the recliner. Post tx, pt seated upright in chair, call light in reach and all needs met, chair alarm on. [id number] OT/PT cotreat due to skill of 2 clinicians required that a rehabilitation program manager could not perform in order to coordinate UE/LEs with tasks, decrease fall risk, and due to pt's limitations in sequencing, strength, pain, mobility/transfers, and confusion. OT focused on UE placement, cues for sequencing and safety and ADLs, PT focused on LE placement, gross overall movement, and transfers/mobility. Pt used FWW to perform functional mobility into kitchen a sergio. Pt instructed to make hot chocolate. Various kitchen items/food placed in front of pt. Pt quickly located hot chocolate packet, but then required max verbal cues to problem solve and sequence the rest of the steps, and max cues to locate cup. Overall, CGA for standing balance during task. Pt returned to room using FWW, cues for body positioning within the walker and cues for UE placement. Pt transferred to recliner, all needs met, call light in reach and chair alarm activated. Education OT Patient Education: Correct positioning, Energy conservation, Exercise program, Modified ADL techniques, Progress toward Goal/Update tx plan, Purpose of tx/functional activities, Rehab process, Safety issues, Transfer techniques Teaching Recipient: Patient Teaching Methods: Demonstration, Discussion Response to Teaching: Reinforcement Needed OT Short Term Goals Short Term Goals Time Frame: May 29, 2021 Lower body dressin Putting on/taking off footwear: 3 OT Dye Stand Loader Goals Dye Stand Loader Goals Time Frame: May 29, 2021 Eating (QC): 5 Oral Hygiene (QC): 5 Toileting Hygiene (QC): 4 Shower/Bathe Self (QC): 4 Upper Body Dressing (QC): 5 Lower Body Dressing (QC): 4 On/Off Footwear (QC): 4 Additional Goals: 1-Demonstrate ADL Tasks, 2-Verbalize Understanding, 3- ImproveStrength/Riley 1=Demonstrate adherence to instructed precautions during ADL tasks. 2=Patient will verbalize/demonstrate understanding of assistive devices/modifications for ADL. 3=Patient will improve strength/tolerance for activity to enable patient to perform ADL's. OT Education/Plan Problem List/Assessment Assessment: Decreased Activ Tolerance, Decreased Safety Aware, Decreased UE Strength, Impaired Cognition, Impaired Funct Balance, Impaired I ADL's, Impaired Self-Care Skills Discharge Recommendations Plan/Recommendations: Continue POC Treatment Plan/Plan of Care Patient would benefit from OT for education, treatment and training to promote independence in ADL's, mobility, safety and/or upper extremity function for ADL's. Plan of Care: ADL Retraining, Cognitive Retraining, Functional Mobility, Group Exercise/Act as Ind, UE Funct Exercise/Act Treatment Duration: May 29, 2021 Frequency: At least 5 of 7 days/Wk (IRF) Estimated Hrs Per Day: 1.5 hours per day Rehab Potential: Fair Time/GCodes Start Time: 11:00 ([id number]) Stop Time: 13:30 ([id number]) Total Time Billed (hr/min): 90 Billed Treatment Time [id number] OT tx 1, ADL 4 [id number] OT/PT cotreat 1, FA 2 ROB RICHTER OT May 06, 2021 13:53
--- NOTE | 2021-05-06 14:10 | Physical Therapy Daily Note ---
PT Daily Note-Current Subjective Pt sitting in recliner upon arrival. Pt agrees to PT/OT co-treat. Pain Location: No Pain Reported Mental Status Patient Orientation: Person, Place Transfers SCALE: Activities may be completed with or without assistive devices. 6-Vgcuxpvsvk-lagpryy completes the activity by him/herself with no assistance from a helper. 5-Set-up or Clean-up Assistance-helper sets up or cleans up; patient completes activity. [place] assists only prior to or following the activity. 4-Supervision or Touching Assistance-helper provides verbal cues and/or touching/steadying and/or contact guard assistance as patient completes activity. Assistance may be provided throughout the activity or intermittently. 3-Partial/Moderate Assistance-helper does LESS THAN HALF the effort. [place] lifts, holds or supports trunk or limbs, but provides less than half the effort. 2-Substantial/Maximal Assistance-helper does MORE THAN HALF the effort. [place] lifts or holds trunk or limbs and provides more than half the effort. 7-Cwtxnuiwx-rfdrbf does ALL the effort. Patient does none of the effort to complete the activity. Or, the assistance of 2 or more helpers is required for the patient to complete the activity. If activity was not attempted, code reason: 7-Patient Refused. 9-Not Applicable-not attempted and the patient did not perform the activity before the current illness, exacerbation or injury. 10-Not Attempted due to Environmental Limitations-(lack of equipment, weather restraints, etc.). 88-Not Attempted due to Medical Conditions or Safety Concerns. Sit to Stand (QC): 4 Weight Bearing Full Weight Bearing Full Weight Bearing Gait Training Does the Patient Walk?: Yes Distance: 75' x2 Walk 10 feet (QC): 4 Walk 50 ft with 2 Turns(QC): 4 Gait Persons Needed: 1 Gait Assistive Device: FWW VC for turns and staying w/in the FWW. Treatments [id number] OT/PT cotreat due to skill of 2 clinicians required that a rehabilitation assistant could not perform in order to coordinate UE/LEs with tasks, decrease fall risk, and due to pt's limitations in sequencing, strength, pain, mobility/transfers, and confusion. OT focused on UE placement, cues for sequencing and safety and ADLs, PT focused on LE placement, gross overall movement, and transfers/mobility. Pt used FWW to perform functional mobility into kitchen area. Pt instructed to make hot chocolate. Various kitchen items/food placed in front of pt. Pt quickly located hot chocolate packet, but then required max verbal cues to problem solve and sequence the rest of the steps, and max cues to locate cup. Overall, CGA for standing balance during task. Pt returned to room using FWW, cues for body positioning within the walker and cues for UE placement. Pt transferred to recliner, all needs met, call light in reach and chair alarm activated. Assessment Current Status: Fair Progress Difficulty with problem solving, sequencing as well as fatigue during tx. PT Short Term Goals Short Term Goals Time Frame: May 11, 2021 Roll Left & Right: 6 Sit to lyin Lying to sitting on side of be: 3 Sit to stand: 4 Chair/gkq-tr-ggffu transfer: 4 Walk 10 feet: 4 Walk 50 feet with two turns: 4 Walk 150 feet: 4 PT [facility] Goals Records Tech Goals PT [facility] Goals Time Frame: May 25, 2021 Roll Left & Right (QC): 6 Sit to Lying (QC): 5 Lying-Sitting on Side/Bed(QC): 5 Sit to Stand (QC): 4 (SBA) Chair/Hil-jo-Ahwsk Xfer(QC): 4 (SBA) Toilet Transfer (QC): 4 (SBA) Car Transfer (QC): 4 (SBA) Does the Patient Walk: Yes Walk 10 feet (QC): 4 (SBA) Walk 50ft with 2 Turns (QC): 4 (SBA) Walk 150 ft (QC): 4 (SBA) Walking 10ft on Uneven Surface: 4 (SBA) 1 Step (curb) (QC): 4 (CGA) 4 Steps (QC): 4 (CGA) 12 Steps (QC): 88 Picking up an Object (QC): 88 Does the Pt use WC or Scooter?: No Wheel 50 feet with 2 turns (QC: 9 Type: N/A Wheel 150 feet: 9 Type: N/A PT Plan Problem List Problem List: Activity Tolerance, Safety Treatment/Plan Treatment Plan: Continue Plan of Care Treatment Plan: Bed Mobility, Education, Functional Activity Riley, Functional Strength, Group Therapy, Gait, Safety, Therapeutic Exercise, Transfers Treatment Duration: May 25, 2021 Frequency: At least 5 of 7 days/Wk (IRF) Estimated Hrs Per Day: 1.5 hours per day Patient and/or Family Agrees t: Yes Safety Risks/Education Patient Education: Safety Issues Teaching Recipient: Patient Teaching Methods: Discussion Response to Teaching: Reinforcement Needed Time/GCodes Time In: 1300 Time Out: 1330 Total Billed Treatment Time: 30 Total Billed Treatment Co-treat w/OT for 30 1, GT (15m) & FA (15m) LENNIE SOTO OXYACETYLENE WELDER May 06, 2021 14:10
[2021-05-06] MEDS: ACETAMINOPHEN 325 MG TABLET PO PRN (17:19)
[2021-05-06 20:00] VITALS: BP 122/74
[2021-05-06] MEDS: SPIRONOLACTONE 25 MG (ALDACTONE) TAB PO SCH (20:34)
[2021-05-06] MEDS: MELATONIN 3 MG TABLET PO PRN (20:34)
[2021-05-06] MEDS: SIMvastatin 10 MG (ZOCOR) TAB PO SCH (20:34)
[2021-05-07 07:58] VITALS: BP 141/63
[2021-05-07] MEDS: FLUoxetine HCL 10 MG (PROzac) CAPSULE/TABLET PO SCH (08:01)
[2021-05-07] MEDS: PANTOPRAZOLE 20 MG TABLET (PROTONIX) PO SCH (08:01)
[2021-05-07] MEDS: DIVALPROX SPRINKLE 125 MG (DEPAKOTE) CAP PO SCH ×2 (08:01→20:44)
[2021-05-07] MEDS: polyethylene glycoL POWDER 17 GM (MIRALAX) PACK PO SCH ×2 (08:02→19:27)
[2021-05-07] MEDS: SENNA W/DOCUSATE (SENOKOT S) TABLET PO SCH ×2 (08:02→19:27)
[2021-05-07] MEDS: DOCUSATE SODIUM 100 MG (COLACE) CAP PO SCH ×2 (08:02→19:27)
--- NOTE | 2021-05-07 09:20 | PM&R Progress Note ---
Subjective HPI/CC On Admission Date Seen by Provider: May 07, 2021 Time Seen by Provider: 10:00 Subjective/Events-last exam 05/07/2021: Pt doing really well Poor recall but she seems more lucid today Multiple BMs yesterday 05/06/2021: Pt doing a lot better Slept well last night Bowel treatment will be given due to constipation Confusion but does follow commands 05/05/2021: Pt did really well last night Dementia is significant but she can follow commands Bowels moved 05/03/21 Pain is well controlled Review of Systems General: Fatigue, Malaise Neurological: Confusion Objective Exam Vital Signs Vital Signs Date Time Temp Pulse Resp B/P (MAP) Pulse Ox O2 Delivery O2 Flow Rate FiO2 05/07/21 20:10 Room Air 05/07/21 20:00 37.4 86 16 141/82 (101) 98 Capillary Refill : General Appearance: No Apparent Distress, WD/WN, Chronically ill, Thin, Other (Frail) HEENT: PERRL/EOMI, Normal ENT Inspection, Pharynx Normal, Other (Very hard of hearing) Neck: Full Range of Motion, Normal Inspection, Non Tender, Supple, Carotid Bruit Respiratory: Chest Non Tender, Lungs Clear, Normal Breath Sounds, No Accessory Muscle Use, No Respiratory Distress Cardiovascular: Regular Rate, Rhythm, No Edema, No Gallop, No JVD, No Murmur, Normal Peripheral Pulses Gastrointestinal: Normal Bowel Sounds, No Organomegaly, No Pulsatile Mass, Non Tender, Soft Back: Normal Inspection, No CVA Tenderness, No Vertebral Tenderness Extremity: Normal Capillary Refill, Normal Inspection, Normal Range of Motion, Non Tender, No Calf Tenderness, No Pedal Edema Neurologic/Psychiatric: Alert, Oriented x3, principal statistical programmer 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 [facility] Transfers Therapy Code Descriptions/Definitions Functional [place] Measure: 0=Not Assessed/NA 4=Minimal Assistance 1=Total Assistance 5=Supervision or Setup 2=Maximal Assistance 6=Modified [place] 3=Moderate Assistance 7=Complete IndependenceSCALE: Activities may be completed with or without assistive devices. 1-Hhawqnantr-sfjkvwf completes the activity by him/herself with no assistance from a helper. 5-Set-up or Clean-up Assistance-helper sets up or cleans up; patient completes activity. [place] assists only prior to or following the activity. 4-Supervision or Touching Assistance-helper provides verbal cues and/or touching/steadying and/or contact guard assistance as patient completes activity. Assistance may be provided throughout the activity or intermittently. 3-Partial/Moderate Assistance-helper does LESS THAN HALF the effort. [place] lifts, holds or supports trunk or limbs, but provides less than half the effort. 2-Substantial/Maximal Assistance-helper does MORE THAN HALF the effort. [place] lifts or holds trunk or limbs and provides more than half the effort. 0-Uhtdykpvh-znuoxp does ALL the effort. Patient does none of the effort to complete the activity. Or, the assistance of 2 or more helpers is required for the patient to complete the activity. If activity was not attempted, code reason: 7-Patient Refused. 9-Not Applicable-not attempted and the patient did not perform the activity before the current illness, exacerbation or injury. 10-Not Attempted due to Environmental Limitations-(lack of equipment, weather restraints, etc.). 88-Not Attempted due to Medical Conditions or Safety Concerns. Roll Left to Right (QC): 3 Sit to Lying (QC): 3 Sit to Stand (QC): 4 Chair/Ctp-mi-Jxgfb Xfer(QC): 3 Car Transfer (QC): 3 Gait Training Does the Patient Walk?: Yes Distance: 75' x2 Walk 10 feet (QC): 4 Walk 50 ft with 2 Turns(QC): 4 Walk 150 ft (QC): 4 Walking 10ft/uneven surface-QC: 3 Gait Persons Needed: 1 Gait Assistive Device: FWW Wheelchair Training Does the Pt Use a Wheelchair?: No Wheel 50 ft with 2 turns (QC): 9 Wheel 150 ft (QC): 9 Stair Training #of Steps: 1 1 Step (curb) (QC): 3 4 Steps (QC): 88 12 Steps (QC): 88 Balance Picking up an Object (QC): 88 ADL-Treatment Eating (QC): 5 (set up assistance with lunch) Oral Hygiene (QC): 4 (SBA, minimal cues for sequencing of toothpaste.) Shower/Bathe Self (QC): 3 (assist with buttocks. Pt used LH sponge to wash LEs.) Upper Body Dressing (QC): 4 (SBA, pt able to don/doff shirt.) Lower Body Dressing (QC): 2 (Max A with doffing/donning LE clothing. Pt assisted some with pant hike.) On/Off Footwear (QC): 1 (total assist to don/doff gripper socks.) Toileting Hygiene (QC): 3 (Pt performed clothing management, assist with hyigne) Toilet Transfer (QC): 3 (Mod A sit to stand from toilet, min A to sit.) Assessment/Plan Assessment and Plan Assess & Plan/Chief Complaint Assessment: Debility Falls Hypertension Hyperlipidemia GERD Dementia Frail status Severe presbycusis Plan: Inpatient rehab protocol [facility] Fall risk 05/05/2021: Supportive care Dementia is a limitation but seems to be settling in well 05/06/2021: Continue aggressive therapy Fall risk prevention Assisted living at discharge 05/07/2021: Continue treatment Fall risk (1) Falls frequently (2) Dementia (3) Presbycusis (4) Frail elderly (5) Hypertension (6) Hyperlipidemia (7) GERD (gastroesophageal reflux disease) (8) General weakness Status: Acute LIUDMILA BROWN DO May 07, 2021 09:20
--- NOTE | 2021-05-07 11:01 | Occupational Ther Daily Note ---
OT Current Status-Daily Note Subjective Pt agreeable to OT tx. With instructions on tasks, pt would reply "yes mama" to this therapist. Noted difficulty with word finding on this date. Mental Status/Objective Patient Orientation: Confused ADL-Treatment Therapy Code Descriptions/Definitions Functional [place] Measure: 0=Not Assessed/NA 4=Minimal Assistance 1=Total Assistance 5=Supervision or Setup 2=Maximal Assistance 6=Modified [place] 3=Moderate Assistance 7=Complete IndependenceSCALE: Activities may be completed with or without assistive devices. 1-Gdtunxpssu-ekudodp completes the activity by him/herself with no assistance from a helper. 5-Set-up or Clean-up Assistance-helper sets up or cleans up; patient completes activity. [place] assists only prior to or following the activity. 4-Supervision or Touching Assistance-helper provides verbal cues and/or touching/steadying and/or contact guard assistance as patient completes activity. Assistance may be provided throughout the activity or intermittently. 3-Partial/Moderate Assistance-helper does LESS THAN HALF the effort. [place] lifts, holds or supports trunk or limbs, but provides less than half the effort. 2-Substantial/Maximal Assistance-helper does MORE THAN HALF the effort. [place] lifts or holds trunk or limbs and provides more than half the effort. 6-Ptfvgecik-yypwtn does ALL the effort. Patient does none of the effort to complete the activity. Or, the assistance of 2 or more helpers is required for the patient to complete the activity. If activity was not attempted, code reason: 7-Patient Refused. 9-Not Applicable-not attempted and the patient did not perform the activity before the current illness, exacerbation or injury. 10-Not Attempted due to Environmental Limitations-(lack of equipment, weather restraints, etc.). 88-Not Attempted due to Medical Conditions or Safety Concerns. Oral Hygiene (QC): 4 (SBA seated at sink. Pt required min verbal cues for sequencing of task) Other Treatment Pt seated in recliner, sit to stand from chair with mod A and cues for UE pl acement. Pt used FWW to perform functional mobility to bathroom, and sat at sink. Pt completed oral care, min verbal cues for sequencing. Pt then combed her hair, min A with back of head. Pt used FWW to perform functional mobility to therapy gym, CGA with cues to locate gym. OT tx focused on increasing BUE strength, activity tolerance, and cognitive function/problem solving. Pt placed 1" pegs into foam pegboard, placing x50 pegs using RUE. Pt instructed to alternate hands, unable to follow instruction with max verbal/tactile cues. Pt proceeded with task using just RUE, min verbal cues. Pegboard activity reset, OT placed 1 peg of each color on the L side of board instructing pt to match the same color for the entire row. Pt required moderate cues overall with task, especially at the beginning of new rows and changes of colors. At one point, pt began filling all rows with purple pegs, OT removed incorrect pegs then pt continued with task. Pt completed sit to stand, mod A with cues for UE placement. Pt performed functional mobility back to her room, cues for positioning within the walker, and cues to locate room, very slow ambulation. Pt transferred to recliner, CGA stand to sit with cues for UE placement. Post tx, pt seated in recliner, call light in reach and all needs met. Chair alarm activated. Education OT Patient Education: Correct positioning, Exercise program, Modified ADL techniques, Progress toward Goal/Update tx plan, Purpose of tx/functional activities, Rehab process, Safety issues, Transfer techniques Teaching Recipient: Patient Teaching Methods: Demonstration, Discussion Response to Teaching: Reinforcement Needed OT Short Term Goals Short Term Goals Time Frame: May 29, 2021 Lower body dressin Putting on/taking off footwear: 3 OT Prison Goals Prison Goals Time Frame: May 29, 2021 Eating (QC): 5 Oral Hygiene (QC): 5 Toileting Hygiene (QC): 4 Shower/Bathe Self (QC): 4 Upper Body Dressing (QC): 5 Lower Body Dressing (QC): 4 On/Off Footwear (QC): 4 Additional Goals: 1-Demonstrate ADL Tasks, 2-Verbalize Understanding, 3- ImproveStrength/Riley 1=Demonstrate adherence to instructed precautions during ADL tasks. 2=Patient will verbalize/demonstrate understanding of assistive devices/modifications for ADL. 3=Patient will improve strength/tolerance for activity to enable patient to perform ADL's. OT Education/Plan Problem List/Assessment Assessment: Decreased Activ Tolerance, Decreased Safety Aware, Decreased UE Strength, Impaired Cognition, Impaired I ADL's, Impaired Self-Care Skills Discharge Recommendations Plan/Recommendations: Continue POC Treatment Plan/Plan of Care Patient would benefit from OT for education, treatment and training to promote independence in ADL's, mobility, safety and/or upper extremity function for ADL's. Plan of Care: ADL Retraining, Cognitive Retraining, Functional Mobility, Group Exercise/Act as Ind, UE Funct Exercise/Act Treatment Duration: May 29, 2021 Frequency: At least 5 of 7 days/Wk (IRF) Estimated Hrs Per Day: 1.5 hours per day Rehab Potential: Fair Time/GCodes Start Time: 10:30 Stop Time: 12:00 Total Time Billed (hr/min): 90 Billed Treatment Time 1, ADL (15'), FA 5 (75') ROB RICHTER OT May 07, 2021 11:01
--- NOTE | 2021-05-07 11:08 | Physical Therapy Daily Note ---
PT Daily Note-Current Subjective Pt sitting in recliner upon arrival. Pt agrees to PT. Pain Location: Lower Location Body Site: Back Pain Description: Ache Comment: Pt reports pain in low back but doesn't rate. Mental Status Patient Orientation: Person, Place Transfers SCALE: Activities may be completed with or without assistive devices. 5-Lgzukynywm-amotklj completes the activity by him/herself with no assistance from a helper. 5-Set-up or Clean-up Assistance-helper sets up or cleans up; patient completes activity. [place] assists only prior to or following the activity. 4-Supervision or Touching Assistance-helper provides verbal cues and/or touching/steadying and/or contact guard assistance as patient completes activity. Assistance may be provided throughout the activity or intermittently. 3-Partial/Moderate Assistance-helper does LESS THAN HALF the effort. [place] lifts, holds or supports trunk or limbs, but provides less than half the effort. 2-Substantial/Maximal Assistance-helper does MORE THAN HALF the effort. [place] lifts or holds trunk or limbs and provides more than half the effort. 4-Hngjfcqkg-nridkb does ALL the effort. Patient does none of the effort to complete the activity. Or, the assistance of 2 or more helpers is required for the patient to complete the activity. If activity was not attempted, code reason: 7-Patient Refused. 9-Not Applicable-not attempted and the patient did not perform the activity before the current illness, exacerbation or injury. 10-Not Attempted due to Environmental Limitations-(lack of equipment, weather restraints, etc.). 88-Not Attempted due to Medical Conditions or Safety Concerns. Sit to Stand (QC): 3 Toilet Transfer (QC): 3 Weight Bearing Full Weight Bearing Full Weight Bearing Gait Training Does the Patient Walk?: Yes Distance: 125' x2 Walk 10 feet (QC): 4 Walk 50 ft with 2 Turns(QC): 4 Walk 150 ft (QC): 4 Gait Persons Needed: 1 Gait Assistive Device: FWW Exercises Seated Therapy Exercises: Ankle pumps, Long arc quads, Hip flexion, Glut set Seated Reps: 15 NuStep Minutes: 13 NuStep Workload: 2 Treatments 800-900: TF to standing, declines needing BR. Pt amb. in hallway then takes RB. Pt uses NuStep then Seated Ex before amb. back to room. Pt uses BR then Pt rests in recliner with all needs met, call light in hand. [id number]: ICT SALES ASSISTANT stopped in to check on pt and pt needs to use BR. Pt transfers to standing then amb. to BR. Pt gets confused as to why she is there and needs assistance with pericare and donning pants & brief. Pt needs VC on how to wash hands and returns to recliner to rest. All needs met, call light in hand. Assessment Current Status: Fair Progress Need for VC for sequencing and safety. Pt is often confused on what she is doing and needs reminders. PT Short Term Goals Short Term Goals Time Frame: May 11, 2021 Roll Left & Right: 6 Sit to lyin Lying to sitting on side of be: 3 Sit to stand: 4 Chair/asj-ek-tomdq transfer: 4 Walk 10 feet: 4 Walk 50 feet with two turns: 4 Walk 150 feet: 4 PT Snf Goals Snf Goals PT [employer] Supervisor Goals Time Frame: May 25, 2021 Roll Left & Right (QC): 6 Sit to Lying (QC): 5 Lying-Sitting on Side/Bed(QC): 5 Sit to Stand (QC): 4 (SBA) Chair/Ekh-ga-Dajrt Xfer(QC): 4 (SBA) Toilet Transfer (QC): 4 (SBA) Car Transfer (QC): 4 (SBA) Does the Patient Walk: Yes Walk 10 feet (QC): 4 (SBA) Walk 50ft with 2 Turns (QC): 4 (SBA) Walk 150 ft (QC): 4 (SBA) Walking 10ft on Uneven Surface: 4 (SBA) 1 Step (curb) (QC): 4 (CGA) 4 Steps (QC): 4 (CGA) 12 Steps (QC): 88 Picking up an Object (QC): 88 Does the Pt use WC or Scooter?: No Wheel 50 feet with 2 turns (QC: 9 Type: N/A Wheel 150 feet: 9 Type: N/A PT Plan Problem List Problem List: Activity Tolerance, Safety, Gait Treatment/Plan Treatment Plan: Continue Plan of Care Treatment Plan: Bed Mobility, Education, Functional Activity Riley, Functional Strength, Group Therapy, Gait, Safety, Therapeutic Exercise, Transfers Treatment Duration: May 25, 2021 Frequency: At least 5 of 7 days/Wk (IRF) Estimated Hrs Per Day: 1.5 hours per day Patient and/or Family Agrees t: Yes Safety Risks/Education Patient Education: Gait Training, Safety Issues Teaching Recipient: Patient Teaching Methods: Discussion Response to Teaching: Reinforcement Needed Time/GCodes Time In: 800 Time Out: 900 Total Billed Treatment Time: 60 Total Billed Treatment 800-900: 1, EX x2 (25m), GT (20m) & FA (15m) [id number]: 1, FA x2 (30m) LENNIE SOTO ICT SALES ASSISTANT May 07, 2021 11:08
--- NOTE | 2021-05-07 12:28 | ST Cognitive Linguistic Eval ---
Speech Evaluation-General Medical Diagnosis Debility, weakness, falls Onset Date: May 04, 2021 Referral Reason for Referral: Evaluation/Treatment Medical History Reviewed History: Yes Social History Current Living Status: Caregiver Speech PLF-Current Status Language Eval: Auditory Comprehends Simple Yes/No Ques: Mild Indent/Objects Multiple [place]: Severe Follows 1-Step Commands: Functional Follows Complex Directions: Severe Language Eval: Verbal Language Completes Spontaneous Greeting: Functional Produces Auto, Serial Info: Moderate Imitates Simple Words/Phrases: Severe Word Finding: Severe Requests Basic Needs: Moderate States Basic Personal Info: Moderate Expresses Complex Ideas: Severe Objective Formal/Standardized Tests [facility] Mental Status Examination (UMS) was completed. Pt score 2/30 indicating severe cognitive deficits/dementia. Pt unable to verbalize last name or date. Naming items around the room with 1/5 correct (pen- "plen", bed- "my bedder"). Pt presents with severe expressive language deficits and is unable to communicate wants/needs effectively. Pt has bilateral hearing aids. Impression Pt presents with severe cognitive and language deficits. Pt would benefit from skilled speech therapy to improved communication of wants/needs, safety awarenes s, and orientation. Speech Patient Assess Expression of Ideas/Wants: Rarely/Never (1) Understanding Verbal Content: Sometimes Understands(2) Brief Interview-Mental Status: Yes Repetition of Three Words: One (1) Temporal Orientation: Year: No answer (0) Temporal Orientation: Month: No answer (0) Temporal Orientation: Day: Incorrect or No Answer(0) Recall : Wear to say "Sock": No, could not recall (0) Recall : Color: No, could not recall (0) Recall : Bed: No, could not recall (0) Memory/Recall Ability: None of the above were recalled Speech Short Term Goals Short Term Goals Short Term Goals 1. Patient will complete orientation task with memory aid (i.e, calendar) with 80% accy. 2. Patient will complete safety awareness tasks related to her daily needs with 80% accy. 3. Patient will name functional items given min cues with 90% accy. Speech-Plan Treatment Plan Speech Therapy Treatment Plan: Continue Plan of Care Treatment Duration: May 06, 2021 Frequency: 5 times per week Estimated Hrs Per Day: .5 hour per day Rehab Potential: Fair Time Speech Therapy Time In: 10:00 Speech Therapy Time Out: 10:30 Billed Treatment Time 1, COGN TEST 30 MINS SHELBY DALEY May 07, 2021 12:28
[2021-05-07 20:00] VITALS: BP 141/82
[2021-05-07] MEDS: SPIRONOLACTONE 25 MG (ALDACTONE) TAB PO SCH (20:44)
[2021-05-07] MEDS: SIMvastatin 10 MG (ZOCOR) TAB PO SCH (20:44)
[2021-05-07] MEDS: MELATONIN 3 MG TABLET PO PRN (20:44)
[2021-05-08 07:44] VITALS: BP 130/62
[2021-05-08] MEDS: PANTOPRAZOLE 20 MG TABLET (PROTONIX) PO SCH (08:39)
[2021-05-08] MEDS: FLUoxetine HCL 10 MG (PROzac) CAPSULE/TABLET PO SCH (08:39)
[2021-05-08] MEDS: DIVALPROX SPRINKLE 125 MG (DEPAKOTE) CAP PO SCH ×2 (08:39→21:41)
[2021-05-08] MEDS: ACETAMINOPHEN 325 MG TABLET PO PRN ×2 (08:40→21:42)
[2021-05-08] MEDS: polyethylene glycoL POWDER 17 GM (MIRALAX) PACK PO SCH ×2 (09:00→21:49)
[2021-05-08] MEDS: DOCUSATE SODIUM 100 MG (COLACE) CAP PO SCH ×2 (09:00→21:49)
[2021-05-08] MEDS: SENNA W/DOCUSATE (SENOKOT S) TABLET PO SCH ×2 (09:00→21:49)
--- NOTE | 2021-05-08 09:19 | Physical Therapy Daily Note ---
PT Daily Note-Current Subjective Pt up in recliner, agreeable to PT. Pt winces and reports her (L) leg "hurts" from a fall but unable to rate the pain. Pt holds (L) knee when descending to sit in chair. Pt says "Might be good idea" when asked if she needs to use restroom. Mental Status Patient Orientation: Person, Confused Transfers SCALE: Activities may be completed with or without assistive devices. 6-Xwwfixizcn-ylamhda completes the activity by him/herself with no assistance from a helper. 5-Set-up or Clean-up Assistance-helper sets up or cleans up; patient completes activity. [place] assists only prior to or following the activity. 4-Supervision or Touching Assistance-helper provides verbal cues and/or touching/steadying and/or contact guard assistance as patient completes activity. Assistance may be provided throughout the activity or intermittently. 3-Partial/Moderate Assistance-helper does LESS THAN HALF the effort. [place] lifts, holds or supports trunk or limbs, but provides less than half the effort. 2-Substantial/Maximal Assistance-helper does MORE THAN HALF the effort. [place] lifts or holds trunk or limbs and provides more than half the effort. 0-Jfdfdojwi-oowpyi does ALL the effort. Patient does none of the effort to complete the activity. Or, the assistance of 2 or more helpers is required for the patient to complete the activity. If activity was not attempted, code reason: 7-Patient Refused. 9-Not Applicable-not attempted and the patient did not perform the activity before the current illness, exacerbation or injury. 10-Not Attempted due to Environmental Limitations-(lack of equipment, weather restraints, etc.). 88-Not Attempted due to Medical Conditions or Safety Concerns. Min A required and max vc's for placement of hands. Weight Bearing Full Weight Bearing Full Weight Bearing Gait Training Gait Assistive Device: FWW Pt amb with FWW and CGA 1 x 15', 1 x 10', 1 x 100', 1 x 75'. Pt takes short shuffling steps, slow mariza. Exercises Seated Therapy Exercises: Ankle pumps, Long arc quads, Hip flexion, Hip abd/add Seated Reps: 15 Treatments Pt used BR with max vc's for positioning, when to sit, when to wipe, when to stand. Pt required min A doffing and donning pants. Assessment Current Status: Fair Progress Pt limited by dementia. Pt requires min A level for all functional mobility. Pt back to recliner with call light, ambu alarm activated and all needs met. PT Short Term Goals Short Term Goals Time Frame: May 11, 2021 Roll Left & Right: 6 Sit to lyin Lying to sitting on side of be: 3 Sit to stand: 4 Chair/fdj-yo-drsgn transfer: 4 Walk 10 feet: 4 Walk 50 feet with two turns: 4 Walk 150 feet: 4 PT Mcc Goals Mcc Goals PT Stitch Burnisher Goals Time Frame: May 25, 2021 Roll Left & Right (QC): 6 Sit to Lying (QC): 5 Lying-Sitting on Side/Bed(QC): 5 Sit to Stand (QC): 4 (SBA) Chair/Mqu-sy-Snvuj Xfer(QC): 4 (SBA) Toilet Transfer (QC): 4 (SBA) Car Transfer (QC): 4 (SBA) Does the Patient Walk: Yes Walk 10 feet (QC): 4 (SBA) Walk 50ft with 2 Turns (QC): 4 (SBA) Walk 150 ft (QC): 4 (SBA) Walking 10ft on Uneven Surface: 4 (SBA) 1 Step (curb) (QC): 4 (CGA) 4 Steps (QC): 4 (CGA) 12 Steps (QC): 88 Picking up an Object (QC): 88 Does the Pt use WC or Scooter?: No Wheel 50 feet with 2 turns (QC: 9 Type: N/A Wheel 150 feet: 9 Type: N/A PT Plan Treatment/Plan Treatment Plan: Continue Plan of Care Treatment Plan: Bed Mobility, Education, Functional Activity Riley, Functional Strength, Group Therapy, Gait, Safety, Therapeutic Exercise, Transfers Treatment Duration: May 25, 2021 Frequency: At least 5 of 7 days/Wk (IRF) Estimated Hrs Per Day: 1.5 hours per day Patient and/or Family Agrees t: Yes Time/GCodes Time In: 815 Time Out: 900 Total Billed Treatment Time: 45 Total Billed Treatment 1, ther ex 15', FA 15', gait 15' CIERA LEIGH CPTA May 08, 2021 09:19
--- NOTE | 2021-05-08 09:24 | PM&R Progress Note ---
Subjective HPI/CC On Admission Date Seen by Provider: May 08, 2021 Time Seen by Provider: 12:30 Subjective/Events-last exam 05/08/2021: Pt doing pretty well Very confused Poor recall 05/07/2021: Pt doing really well Poor recall but she seems more lucid today Multiple BMs yesterday 05/06/2021: Pt doing a lot better Slept well last night Bowel treatment will be given due to constipation Confusion but does follow commands 05/05/2021: Pt did really well last night Dementia is significant but she can follow commands Bowels moved 05/03/21 Pain is well controlled Review of Systems General: Fatigue Neurological: Confusion Objective Exam Vital Signs Vital Signs Date Time Temp Pulse Resp B/P (MAP) Pulse Ox O2 Delivery O2 Flow Rate FiO2 05/08/21 21:42 98 Room Air 05/08/21 20:52 37.0 78 16 143/66 (91) Capillary Refill : General Appearance: No Apparent Distress, WD/WN, Chronically ill, Thin, Other (Frail) HEENT: PERRL/EOMI, Normal ENT Inspection, Pharynx Normal, Other (Very hard of hearing) Neck: Full Range of Motion, Normal Inspection, Non Tender, Supple, Carotid Bruit Respiratory: Chest Non Tender, Lungs Clear, Normal Breath Sounds, No Accessory Muscle Use, No Respiratory Distress Cardiovascular: Regular Rate, Rhythm, No Edema, No Gallop, No JVD, No Murmur, Normal Peripheral Pulses Gastrointestinal: Normal Bowel Sounds, No Organomegaly, No Pulsatile Mass, Non Tender, Soft Back: Normal Inspection, No CVA Tenderness, No Vertebral Tenderness Extremity: Normal Capillary Refill, Normal Inspection, Normal Range of Motion, Non Tender, No Calf Tenderness, No Pedal Edema Neurologic/Psychiatric: Alert, Oriented x3, 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 FIM Transfers Therapy Code Descriptions/Definitions Functional [place] Measure: 0=Not Assessed/NA 4=Minimal Assistance 1=Total Assistance 5=Supervision or Setup 2=Maximal Assistance 6=Modified [place] 3=Moderate Assistance 7=Complete IndependenceSCALE: Activities may be completed with or without assistive devices. 6-Urpknauhvv-kgzlmiu completes the activity by him/herself with no assistance from a helper. 5-Set-up or Clean-up Assistance-helper sets up or cleans up; patient completes activity. [place] assists only prior to or following the activity. 4-Supervision or Touching Assistance-helper provides verbal cues and/or touching/steadying and/or contact guard assistance as patient completes activity. Assistance may be provided throughout the activity or intermittently. 3-Partial/Moderate Assistance-helper does LESS THAN HALF the effort. [place] lifts, holds or supports trunk or limbs, but provides less than half the effort. 2-Substantial/Maximal Assistance-helper does MORE THAN HALF the effort. [place] lifts or holds trunk or limbs and provides more than half the effort. 3-Lifwsupoz-ksdddn does ALL the effort. Patient does none of the effort to complete the activity. Or, the assistance of 2 or more helpers is required for the patient to complete the activity. If activity was not attempted, code reason: 7-Patient Refused. 9-Not Applicable-not attempted and the patient did not perform the activity before the current illness, exacerbation or injury. 10-Not Attempted due to Environmental Limitations-(lack of equipment, weather restraints, etc.). 88-Not Attempted due to Medical Conditions or Safety Concerns. Roll Left to Right (QC): 3 Sit to Lying (QC): 3 Sit to Stand (QC): 3 Chair/Gec-re-Qxbji Xfer(QC): 3 Car Transfer (QC): 3 Gait Training Does the Patient Walk?: Yes Distance: 125' x2 Walk 10 feet (QC): 4 Walk 50 ft with 2 Turns(QC): 4 Walk 150 ft (QC): 4 Walking 10ft/uneven surface-QC: 3 Gait Persons Needed: 1 Gait Assistive Device: FWW Wheelchair Training Does the Pt Use a Wheelchair?: No Wheel 50 ft with 2 turns (QC): 9 Wheel 150 ft (QC): 9 Stair Training #of Steps: 1 1 Step (curb) (QC): 3 4 Steps (QC): 88 12 Steps (QC): 88 Balance Picking up an Object (QC): 88 ADL-Treatment Eating (QC): 5 (set up assistance with lunch) Oral Hygiene (QC): 4 (SBA seated at sink. Pt required min verbal cues for sequencing of task) Shower/Bathe Self (QC): 3 (assist with buttocks. Pt used LH sponge to wash LEs.) Upper Body Dressing (QC): 4 (SBA, pt able to don/doff shirt.) Lower Body Dressing (QC): 2 (Max A with doffing/donning LE clothing. Pt assisted some with pant hike.) On/Off Footwear (QC): 1 (total assist to don/doff gripper socks.) Toileting Hygiene (QC): 3 (Pt performed clothing management, assist with hyigne) Toilet Transfer (QC): 3 (Mod A sit to stand from toilet, min A to sit.) Assessment/Plan Assessment and Plan Assess & Plan/Chief Complaint Assessment: Debility Falls Hypertension Hyperlipidemia GERD Dementia Frail status Severe presbycusis Plan: Inpatient rehab protocol Home med Fall risk 05/05/2021: Supportive care Dementia is a limitation but seems to be settling in well 05/06/2021: Continue aggressive therapy Fall risk prevention Assisted living at discharge 05/07/2021: Continue treatment Fall risk 05/08/2021: Supportive care Dementia significant (1) Falls frequently (2) Dementia (3) Presbycusis (4) Frail elderly (5) Hypertension (6) Hyperlipidemia (7) GERD (gastroesophageal reflux disease) (8) General weakness Status: Acute LIUDMILA BROWN DO May 08, 2021 09:24
--- NOTE | 2021-05-08 10:27 | Occupational Ther Daily Note ---
OT Current Status-Daily Note Subjective Pt upright in recliner post PT tx, agreeable to OT Tx with focus on ADLs. ADL-Treatment Therapy Code Descriptions/Definitions Functional [place] Measure: 0=Not Assessed/NA 4=Minimal Assistance 1=Total Assistance 5=Supervision or Setup 2=Maximal Assistance 6=Modified [place] 3=Moderate Assistance 7=Complete IndependenceSCALE: Activities may be completed with or without assistive devices. 9-Meryvosetu-husjxex completes the activity by him/herself with no assistance from a helper. 5-Set-up or Clean-up Assistance-helper sets up or cleans up; patient completes activity. [place] assists only prior to or following the activity. 4-Supervision or Touching Assistance-helper provides verbal cues and/or touching/steadying and/or contact guard assistance as patient completes activity. Assistance may be provided throughout the activity or intermittently. 3-Partial/Moderate Assistance-helper does LESS THAN HALF the effort. [place] lifts, holds or supports trunk or limbs, but provides less than half the effort. 2-Substantial/Maximal Assistance-helper does MORE THAN HALF the effort. [place] lifts or holds trunk or limbs and provides more than half the effort. 2-Mxsevqsht-tajqtb does ALL the effort. Patient does none of the effort to complete the activity. Or, the assistance of 2 or more helpers is required for the patient to complete the activity. If activity was not attempted, code reason: 7-Patient Refused. 9-Not Applicable-not attempted and the patient did not perform the activity before the current illness, exacerbation or injury. 10-Not Attempted due to Environmental Limitations-(lack of equipment, weather restraints, etc.). 88-Not Attempted due to Medical Conditions or Safety Concerns. Oral Hygiene (QC): 4 (SBA, mod cues for sequencing of task.) Shower/Bathe Self (QC): 3 (Min A. Assist washing/drying buttocks and BLE lower legs/feet. Pt able to wash/dry other parts.) Upper Body Dressing (QC): 4 (SBA donning/doffing shirt.) Lower Body Dressing (QC): 2 (assist threading BLEs into pants, pt assisted with pant hike.) On/Off Footwear: 1 (total assist donning/doffing gripper socks.) Toileting Hygiene (QC): 3 (Assist with washing buttocks, pt assisted with pant hike.) Toilet Transfer (QC): 3 (Mod A sit to stand from toilet.) Other Treatment Pt seated in recliner, used FWW to perform functional mobility into bathroom and onto toilet. She completed ADLs as outlined above, transferring from toilet, to SC, to w/c. Pt required mod A sit to stands, and cues for UE placement with all transfers. AE not attempted due to pt's difficulty with sequencing, problem solving, and difficulty following instructions. Pt stood at sink to brush teeth, SBA with moderate verbal cues for sequencing of task. Pt used FWW to perform functional mobility to kitchen area. Pt made a glass of hot chocolate with OT handing pt each item. Pt required assistance opening packet, pt able to pour into cup, then OT filled cup with hot water. Pt returned to her room, cues to find room. Post tx, pt seated in recliner, call light in reach and all needs met. chair alarm activated. Education OT Patient Education: Correct positioning, Energy conservation, Exercise prog jay, Modified ADL techniques, Progress toward Goal/Update tx plan, Purpose of tx/functional activities, Rehab process, Safety issues, Transfer techniques Teaching Recipient: Patient Teaching Methods: Discussion Response to Teaching: Reinforcement Needed OT Short Term Goals Short Term Goals Time Frame: May 29, 2021 Lower body dressin Putting on/taking off footwear: 3 OT Gas Meter Mechanic Goals Mcfp Goals Time Frame: May 29, 2021 Eating (QC): 5 Oral Hygiene (QC): 5 Toileting Hygiene (QC): 4 Shower/Bathe Self (QC): 4 Upper Body Dressing (QC): 5 Lower Body Dressing (QC): 4 On/Off Footwear (QC): 4 Additional Goals: 1-Demonstrate ADL Tasks, 2-Verbalize Understanding, 3- ImproveStrength/Riley 1=Demonstrate adherence to instructed precautions during ADL tasks. 2=Patient will verbalize/demonstrate understanding of assistive devices/modifications for ADL. 3=Patient will improve strength/tolerance for activity to enable patient to perform ADL's. OT Education/Plan Problem List/Assessment Assessment: Decreased Activ Tolerance, Decreased Safety Aware, Decreased UE Strength, Impaired Cognition, Impaired Funct Balance, Impaired I ADL's, Impaired Self-Care Skills Discharge Recommendations Plan/Recommendations: Continue POC Treatment Plan/Plan of Care Patient would benefit from OT for education, treatment and training to promote independence in ADL's, mobility, safety and/or upper extremity function for ADL's. Plan of Care: ADL Retraining, Cognitive Retraining, Functional Mobility, Group Exercise/Act as Ind, UE Funct Exercise/Act Treatment Duration: May 29, 2021 Frequency: At least 5 of 7 days/Wk (IRF) Estimated Hrs Per Day: 1.5 hours per day Rehab Potential: Fair Time/GCodes Start Time: 09:00 Stop Time: 10:30 Total Time Billed (hr/min): 90 Billed Treatment Time 1, ADL 5 (75'), FA (15') ROB RICHTER OT May 08, 2021 10:27
--- NOTE | 2021-05-08 14:50 | Physical Therapy Daily Note ---
PT Daily Note-Current Subjective Pt up in recliner, agreeable to treatment. Pt denies pain when asked but winces at times jonh when transferring due to (appears to be) L knee. Mental Status Patient Orientation: Person, Confused Transfers SCALE: Activities may be completed with or without assistive devices. 2-Pjdgnpdgdd-byqilyn completes the activity by him/herself with no assistance from a helper. 5-Set-up or Clean-up Assistance-helper sets up or cleans up; patient completes activity. [place] assists only prior to or following the activity. 4-Supervision or Touching Assistance-helper provides verbal cues and/or touching/steadying and/or contact guard assistance as patient completes activity. Assistance may be provided throughout the activity or intermittently. 3-Partial/Moderate Assistance-helper does LESS THAN HALF the effort. [place] lifts, holds or supports trunk or limbs, but provides less than half the effort. 2-Substantial/Maximal Assistance-helper does MORE THAN HALF the effort. [place] lifts or holds trunk or limbs and provides more than half the effort. 6-Gwhuhiqlo-lsfwtm does ALL the effort. Patient does none of the effort to complete the activity. Or, the assistance of 2 or more helpers is required for the patient to complete the activity. If activity was not attempted, code reason: 7-Patient Refused. 9-Not Applicable-not attempted and the patient did not perform the activity before the current illness, exacerbation or injury. 10-Not Attempted due to Environmental Limitations-(lack of equipment, weather restraints, etc.). 88-Not Attempted due to Medical Conditions or Safety Concerns. Pt transfers with vc's and CGA sit to stand. Pt requires mod A sit-supine Weight Bearing Full Weight Bearing Full Weight Bearing Gait Training Gait Assistive Device: FWW Pt amb with FWW and CGA 1 x 15', 2 x 75'. Pt amb with short and shuffling gait. Slow mariza Exercises Supine Ex: Ankle pumps, Heel Slides, Short Arc Quads, Straight leg raise, Hip abd/add Supine Reps: 20 Treatments Pt toileted with only min A to don pants Assessment Current Status: Good Progress Pt slow but steady balance. Pt confused but carrying on conversation this afternoon. Pt back to bed with call light and all needs met. All 4 rails up. Nurse aid notified. (B) LE floating in pillows PT Short Term Goals Short Term Goals Time Frame: May 11, 2021 Roll Left & Right: 6 Sit to lyin Lying to sitting on side of be: 3 Sit to stand: 4 Chair/ops-al-pecdz transfer: 4 Walk 10 feet: 4 Walk 50 feet with two turns: 4 Walk 150 feet: 4 PT Feed Weigher Goals Custodial Goals PT Feed Weigher Goals Time Frame: May 25, 2021 Roll Left & Right (QC): 6 Sit to Lying (QC): 5 Lying-Sitting on Side/Bed(QC): 5 Sit to Stand (QC): 4 (SBA) Chair/Ljb-yw-Ohadu Xfer(QC): 4 (SBA) Toilet Transfer (QC): 4 (SBA) Car Transfer (QC): 4 (SBA) Does the Patient Walk: Yes Walk 10 feet (QC): 4 (SBA) Walk 50ft with 2 Turns (QC): 4 (SBA) Walk 150 ft (QC): 4 (SBA) Walking 10ft on Uneven Surface: 4 (SBA) 1 Step (curb) (QC): 4 (CGA) 4 Steps (QC): 4 (CGA) 12 Steps (QC): 88 Picking up an Object (QC): 88 Does the Pt use WC or Scooter?: No Wheel 50 feet with 2 turns (QC: 9 Type: N/A Wheel 150 feet: 9 Type: N/A PT Plan Treatment/Plan Treatment Plan: Continue Plan of Care Treatment Plan: Bed Mobility, Education, Functional Activity Riley, Functional Strength, Group Therapy, Gait, Safety, Therapeutic Exercise, Transfers Treatment Duration: May 25, 2021 Frequency: At least 5 of 7 days/Wk (IRF) Estimated Hrs Per Day: 1.5 hours per day Patient and/or Family Agrees t: Yes Time/GCodes Time In: 1330 Time Out: 1415 Total Billed Treatment Time: 45 Total Billed Treatment 1, gait 15', FA 15', Ex 15' CIERA LEIGH CPTA May 08, 2021 14:50
[2021-05-08 20:52] VITALS: BP 143/66
[2021-05-08] MEDS: SIMvastatin 10 MG (ZOCOR) TAB PO SCH (21:41)
[2021-05-08] MEDS: MELATONIN 3 MG TABLET PO PRN (21:41)
[2021-05-08] MEDS: SPIRONOLACTONE 25 MG (ALDACTONE) TAB PO SCH (21:41)
--- NOTE | 2021-05-09 06:46 | PM&R Progress Note ---
Subjective HPI/CC On Admission Date Seen by Provider: May 09, 2021 Time Seen by Provider: 12:30 Subjective/Events-last exam 05/09/2021: Patient doing very well Bowels moved a small amount today No concerns 05/08/2021: Pt doing pretty well Very confused Poor recall 05/07/2021: Pt doing really well Poor recall but she seems more lucid today Multiple BMs yesterday 05/06/2021: Pt doing a lot better Slept well last night Bowel treatment will be given due to constipation Confusion but does follow commands 05/05/2021: Pt did really well last night Dementia is significant but she can follow commands Bowels moved 05/03/21 Pain is well controlled Review of Systems General: Fatigue Neurological: Weakness, Confusion Objective Exam Vital Signs Vital Signs Date Time Temp Pulse Resp B/P (MAP) Pulse Ox O2 Delivery O2 Flow Rate FiO2 05/09/21 21:20 96 Room Air 05/09/21 19:54 36.6 82 16 130/76 (94) Capillary Refill : General Appearance: No Apparent Distress, WD/WN, Chronically ill, Thin, Other (Frail) HEENT: PERRL/EOMI, Normal ENT Inspection, Pharynx Normal, Other (Very hard of hearing) Neck: Full Range of Motion, Normal Inspection, Non Tender, Supple, Carotid Bruit Respiratory: Chest Non Tender, Lungs Clear, Normal Breath Sounds, No Accessory Muscle Use, No Respiratory Distress Cardiovascular: Regular Rate, Rhythm, No Edema, No Gallop, No JVD, No Murmur, Normal Peripheral Pulses Gastrointestinal: Normal Bowel Sounds, No Organomegaly, No Pulsatile Mass, Non Tender, Soft Back: Normal Inspection, No CVA Tenderness, No Vertebral Tenderness Extremity: Normal Capillary Refill, Normal Inspection, Normal Range of Motion, Non Tender, No Calf Tenderness, No Pedal Edema Neurologic/Psychiatric: Alert, Oriented x3, transplant coordinator 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 FIM Transfers Therapy Code Descriptions/Definitions Functional [place] Measure: 0=Not Assessed/NA 4=Minimal Assistance 1=Total Assistance 5=Supervision or Setup 2=Maximal Assistance 6=Modified [place] 3=Moderate Assistance 7=Complete IndependenceSCALE: Activities may be completed with or without assistive devices. 7-Nijoblghuk-qroiver completes the activity by him/herself with no assistance from a helper. 5-Set-up or Clean-up Assistance-helper sets up or cleans up; patient completes activity. [place] assists only prior to or following the activity. 4-Supervision or Touching Assistance-helper provides verbal cues and/or touching/steadying and/or contact guard assistance as patient completes activity. Assistance may be provided throughout the activity or intermittently. 3-Partial/Moderate Assistance-helper does LESS THAN HALF the effort. [place] lifts, holds or supports trunk or limbs, but provides less than half the effort. 2-Substantial/Maximal Assistance-helper does MORE THAN HALF the effort. [place] lifts or holds trunk or limbs and provides more than half the effort. 4-Nbzsrjxjo-eujppl does ALL the effort. Patient does none of the effort to complete the activity. Or, the assistance of 2 or more helpers is required for the patient to complete the activity. If activity was not attempted, code reason: 7-Patient Refused. 9-Not Applicable-not attempted and the patient did not perform the activity before the current illness, exacerbation or injury. 10-Not Attempted due to Environmental Limitations-(lack of equipment, weather restraints, etc.). 88-Not Attempted due to Medical Conditions or Safety Concerns. Roll Left to Right (QC): 3 Sit to Lying (QC): 3 Sit to Stand (QC): 3 Chair/Mfq-rx-Dxbmp Xfer(QC): 3 Car Transfer (QC): 3 Gait Training Does the Patient Walk?: Yes Distance: 125' x2 Walk 10 feet (QC): 4 Walk 50 ft with 2 Turns(QC): 4 Walk 150 ft (QC): 4 Walking 10ft/uneven surface-QC: 3 Gait Persons Needed: 1 Gait Assistive Device: FWW Wheelchair Training Does the Pt Use a Wheelchair?: No Wheel 50 ft with 2 turns (QC): 9 Wheel 150 ft (QC): 9 Stair Training #of Steps: 1 1 Step (curb) (QC): 3 4 Steps (QC): 88 12 Steps (QC): 88 Balance Picking up an Object (QC): 88 ADL-Treatment Eating (QC): 5 (set up assistance with lunch) Oral Hygiene (QC): 4 (SBA, mod cues for sequencing of task.) Shower/Bathe Self (QC): 3 (Min A. Assist washing/drying buttocks and BLE lower legs/feet. Pt able to wash/dry other parts.) Upper Body Dressing (QC): 4 (SBA donning/doffing shirt.) Lower Body Dressing (QC): 2 (assist threading BLEs into pants, pt assisted with pant hike.) On/Off Footwear (QC): 1 (total assist donning/doffing gripper socks.) Toileting Hygiene (QC): 3 (Assist with washing buttocks, pt assisted with pant hike.) Toilet Transfer (QC): 3 (Mod A sit to stand from toilet.) Assessment/Plan Assessment and Plan Assess & Plan/Chief Complaint Assessment: Debility Falls Hypertension Hyperlipidemia GERD Dementia Frail status Severe presbycusis Plan: Inpatient rehab protocol Home med Fall risk 05/05/2021: Supportive care Dementia is a limitation but seems to be settling in well 05/06/2021: Continue aggressive therapy Fall risk prevention Assisted living at discharge 05/07/2021: Continue treatment Fall risk 05/08/2021: Supportive care Dementia significant 05/09/2021: Supportive care Fall risk (1) Falls frequently (2) Dementia (3) Presbycusis (4) Frail elderly (5) Hypertension (6) Hyperlipidemia (7) GERD (gastroesophageal reflux disease) (8) General weakness Status: Acute LIUDMILA BROWN DO May 09, 2021 06:46
[2021-05-09 08:39] VITALS: BP 115/57
[2021-05-09] MEDS: FLUoxetine HCL 10 MG (PROzac) CAPSULE/TABLET PO SCH (08:49)
[2021-05-09] MEDS: DIVALPROX SPRINKLE 125 MG (DEPAKOTE) CAP PO SCH ×2 (08:49→21:16)
[2021-05-09] MEDS: SENNA W/DOCUSATE (SENOKOT S) TABLET PO SCH ×2 (08:49→21:23)
[2021-05-09] MEDS: PANTOPRAZOLE 20 MG TABLET (PROTONIX) PO SCH (08:49)
[2021-05-09] MEDS: DOCUSATE SODIUM 100 MG (COLACE) CAP PO SCH ×2 (08:49→21:17)
[2021-05-09] MEDS: polyethylene glycoL POWDER 17 GM (MIRALAX) PACK PO SCH ×2 (08:58→21:22)
[2021-05-09] MEDS: ACETAMINOPHEN 325 MG TABLET PO PRN ×2 (10:45→21:18)
--- NOTE | 2021-05-09 12:01 | Physical Therapy Daily Note ---
PT Daily Note-Current Subjective Pt is in the chair on arrival, with the alarm armed. She agreed to participate with PT. Mental Status Patient Orientation: Confused Transfers SCALE: Activities may be completed with or without assistive devices. 5-Disigruqca-ykbprqz completes the activity by him/herself with no assistance from a helper. 5-Set-up or Clean-up Assistance-helper sets up or cleans up; patient completes activity. [place] assists only prior to or following the activity. 4-Supervision or Touching Assistance-helper provides verbal cues and/or touching/steadying and/or contact guard assistance as patient completes activity. Assistance may be provided throughout the activity or intermittently. 3-Partial/Moderate Assistance-helper does LESS THAN HALF the effort. [place] lifts, holds or supports trunk or limbs, but provides less than half the effort. 2-Substantial/Maximal Assistance-helper does MORE THAN HALF the effort. [place] lifts or holds trunk or limbs and provides more than half the effort. 2-Lzhmkjoke-jtahcy does ALL the effort. Patient does none of the effort to complete the activity. Or, the assistance of 2 or more helpers is required for the patient to complete the activity. If activity was not attempted, code reason: 7-Patient Refused. 9-Not Applicable-not attempted and the patient did not perform the activity before the current illness, exacerbation or injury. 10-Not Attempted due to Environmental Limitations-(lack of equipment, weather restraints, etc.). 88-Not Attempted due to Medical Conditions or Safety Concerns. Sit to Stand (QC): 4 Chair/Zrd-gq-Jqptx Xfer(QC): 4 Weight Bearing Full Weight Bearing Full Weight Bearing Gait Training Does the Patient Walk?: Yes Distance: 130ft Walk 10 feet (QC): 3 Walk 50 ft with 2 Turns(QC): 3 Gait Assistive Device: FWW Pt needed physical and verbal cues to continue ambulating. Exercises Seated Therapy Exercises: LE Protocol Seated Reps: 15 Assessment Current Status: Fair Progress Pt was able to safely ambulate with cueing to maintain direction and gait. PT Short Term Goals Short Term Goals Time Frame: May 11, 2021 Roll Left & Right: 6 Sit to lyin Lying to sitting on side of be: 3 Sit to stand: 4 Chair/sdw-dk-odjsz transfer: 4 Walk 10 feet: 4 Walk 50 feet with two turns: 4 Walk 150 feet: 4 PT Correction Goals Correction Goals PT Se[employer]vester Goals Time Frame: May 25, 2021 Roll Left & Right (QC): 6 Sit to Lying (QC): 5 Lying-Sitting on Side/Bed(QC): 5 Sit to Stand (QC): 4 (SBA) Chair/Dsa-ds-Rzfwi Xfer(QC): 4 (SBA) Toilet Transfer (QC): 4 (SBA) Car Transfer (QC): 4 (SBA) Does the Patient Walk: Yes Walk 10 feet (QC): 4 (SBA) Walk 50ft with 2 Turns (QC): 4 (SBA) Walk 150 ft (QC): 4 (SBA) Walking 10ft on Uneven Surface: 4 (SBA) 1 Step (curb) (QC): 4 (CGA) 4 Steps (QC): 4 (CGA) 12 Steps (QC): 88 Picking up an Object (QC): 88 Does the Pt use WC or Scooter?: No Wheel 50 feet with 2 turns (QC: 9 Type: N/A Wheel 150 feet: 9 Type: N/A PT Plan Treatment/Plan Treatment Plan: Continue Plan of Care Treatment Plan: Bed Mobility, Education, Functional Activity [place], Functional Strength, Group Therapy, Gait, Safety, Therapeutic Exercise, Transfers Treatment Duration: May 25, 2021 Frequency: At least 5 of 7 days/Wk (IRF) Estimated Hrs Per Day: 1.5 hours per day Patient and/or Family Agrees t: Yes Time/GCodes Time In: 919 Time Out: 934 Total Billed Treatment Time: 15 Total Billed Treatment 1, gt 15 JOHANNE ALLEN PT May 09, 2021 12:01
[2021-05-09 19:54] VITALS: BP 130/76
[2021-05-09] MEDS: MELATONIN 3 MG TABLET PO PRN (21:16)
[2021-05-09] MEDS: SIMvastatin 10 MG (ZOCOR) TAB PO SCH (21:17)
[2021-05-09] MEDS: SPIRONOLACTONE 25 MG (ALDACTONE) TAB PO SCH (21:17)
[2021-05-10 07:30] VITALS: BP 120/60
[2021-05-10] MEDS: FLUoxetine HCL 10 MG (PROzac) CAPSULE/TABLET PO SCH (09:44)
[2021-05-10] MEDS: PANTOPRAZOLE 20 MG TABLET (PROTONIX) PO SCH (09:44)
[2021-05-10] MEDS: polyethylene glycoL POWDER 17 GM (MIRALAX) PACK PO SCH ×2 (09:45→21:38)
[2021-05-10] MEDS: DIVALPROX SPRINKLE 125 MG (DEPAKOTE) CAP PO SCH ×2 (09:45→21:33)
[2021-05-10] MEDS: DOCUSATE SODIUM 100 MG (COLACE) CAP PO SCH ×2 (09:45→21:38)
[2021-05-10] MEDS: SENNA W/DOCUSATE (SENOKOT S) TABLET PO SCH ×2 (09:46→21:38)
--- NOTE | 2021-05-10 11:25 | PM&R Progress Note ---
Subjective HPI/CC On Admission Date Seen by Provider: May 10, 2021 Time Seen by Provider: 11:15 Subjective/Events-last exam 05/10/2021: Patient doing well Bowels moved No falls 05/09/2021: Patient doing very well Bowels moved a small amount today No concerns 05/08/2021: Pt doing pretty well Very confused Poor recall 05/07/2021: Pt doing really well Poor recall but she seems more lucid today Multiple BMs yesterday 05/06/2021: Pt doing a lot better Slept well last night Bowel treatment will be given due to constipation Confusion but does follow commands 05/05/2021: Pt did really well last night Dementia is significant but she can follow commands Bowels moved 05/03/21 Pain is well controlled Review of Systems General: Fatigue Objective Exam Vital Signs Vital Signs Date Time Temp Pulse Resp B/P (MAP) Pulse Ox O2 Delivery O2 Flow Rate FiO2 05/10/21 09:50 Room Air 05/10/21 07:30 36.3 70 20 120/60 (80) 94 Capillary Refill : General Appearance: No Apparent Distress, WD/WN, Chronically ill, Thin, Other (Frail) HEENT: PERRL/EOMI, Normal ENT Inspection, Pharynx Normal, Other (Very hard of hearing) Neck: Full Range of Motion, Normal Inspection, Non Tender, Supple, Carotid Bruit Respiratory: Chest Non Tender, Lungs Clear, Normal Breath Sounds, No Accessory Muscle Use, No Respiratory Distress Cardiovascular: Regular Rate, Rhythm, No Edema, No Gallop, No JVD, No Murmur, Normal Peripheral Pulses Gastrointestinal: Normal Bowel Sounds, No Organomegaly, No Pulsatile Mass, Non Tender, Soft Back: Normal Inspection, No CVA Tenderness, No Vertebral Tenderness Extremity: Normal Capillary Refill, Normal Inspection, Normal Range of Motion, Non Tender, No Calf Tenderness, No Pedal Edema Neurologic/Psychiatric: Alert, Oriented x3, a p mechanic 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 FIM Transfers Therapy Code Descriptions/Definitions Functional [place] Measure: 0=Not Assessed/NA 4=Minimal Assistance 1=Total Assistance 5=Supervision or Setup 2=Maximal Assistance 6=Modified [place] 3=Moderate Assistance 7=Complete IndependenceSCALE: Activities may be completed with or without assistive devices. 2-Kbitolxoqx-wqdzfxs completes the activity by him/herself with no assistance from a helper. 5-Set-up or Clean-up Assistance-helper sets up or cleans up; patient completes activity. [place] assists only prior to or following the activity. 4-Supervision or Touching Assistance-helper provides verbal cues and/or touching/steadying and/or contact guard assistance as patient completes activity. Assistance may be provided throughout the activity or intermittently. 3-Partial/Moderate Assistance-helper does LESS THAN HALF the effort. [place] lifts, holds or supports trunk or limbs, but provides less than half the effort. 2-Substantial/Maximal Assistance-helper does MORE THAN HALF the effort. [place] lifts or holds trunk or limbs and provides more than half the effort. 4-Ffgimhhnb-ygxglf does ALL the effort. Patient does none of the effort to complete the activity. Or, the assistance of 2 or more helpers is required for the patient to complete the activity. If activity was not attempted, code reason: 7-Patient Refused. 9-Not Applicable-not attempted and the patient did not perform the activity before the current illness, exacerbation or injury. 10-Not Attempted due to Environmental Limitations-(lack of equipment, weather restraints, etc.). 88-Not Attempted due to Medical Conditions or Safety Concerns. Roll Left to Right (QC): 3 Sit to Lying (QC): 3 Sit to Stand (QC): 4 Chair/Cyf-gu-Blvwy Xfer(QC): 4 Car Transfer (QC): 3 Gait Training Does the Patient Walk?: Yes Distance: 130ft Walk 10 feet (QC): 3 Walk 50 ft with 2 Turns(QC): 3 Walk 150 ft (QC): 4 Walking 10ft/uneven surface-QC: 3 Gait Persons Needed: 1 Gait Assistive Device: FWW Wheelchair Training Does the Pt Use a Wheelchair?: No Wheel 50 ft with 2 turns (QC): 9 Wheel 150 ft (QC): 9 Stair Training #of Steps: 1 1 Step (curb) (QC): 3 4 Steps (QC): 88 12 Steps (QC): 88 Balance Picking up an Object (QC): 88 ADL-Treatment Eating (QC): 5 (set up assistance with lunch) Oral Hygiene (QC): 4 (SBA, mod cues for sequencing of task.) Shower/Bathe Self (QC): 3 (Min A. Assist washing/drying buttocks and BLE lower legs/feet. Pt able to wash/dry other parts.) Upper Body Dressing (QC): 4 (SBA donning/doffing shirt.) Lower Body Dressing (QC): 2 (assist threading BLEs into pants, pt assisted with pant hike.) On/Off Footwear (QC): 1 (total assist donning/doffing gripper socks.) Toileting Hygiene (QC): 3 (Assist with washing buttocks, pt assisted with pant hike.) Toilet Transfer (QC): 3 (Mod A sit to stand from toilet.) Assessment/Plan Assessment and Plan Assess & Plan/Chief Complaint Assessment: Debility Falls Hypertension Hyperlipidemia GERD Dementia Frail status Severe presbycusis Plan: Inpatient rehab protocol Home meds Fall risk 05/05/2021: Supportive care Dementia is a limitation but seems to be settling in well 05/06/2021: Continue aggressive therapy Fall risk prevention Assisted living at discharge 05/07/2021: Continue treatment Fall risk 05/08/2021: Supportive care Dementia significant 05/09/2021: Supportive care Fall risk 05/10/2021: Supportive care Fall risk (1) Falls frequently (2) Dementia (3) Presbycusis (4) Frail elderly (5) Hypertension (6) Hyperlipidemia (7) GERD (gastroesophageal reflux disease) (8) General weakness Status: Acute LIUDMILA BROWN DO May 10, 2021 11:25
[2021-05-10 20:00] VITALS: BP 133/75
[2021-05-10] MEDS: MELATONIN 3 MG TABLET PO PRN (21:33)
[2021-05-10] MEDS: SPIRONOLACTONE 25 MG (ALDACTONE) TAB PO SCH (21:33)
[2021-05-10] MEDS: SIMvastatin 10 MG (ZOCOR) TAB PO SCH (21:33)
[2021-05-11 05:53] LABS: BASOPHILS # (AUTO) 0.1 10^3/uL (0.0-0.1); BASOPHILS % (AUTO) 1 % (0-10); EOSINOPHILS # (AUTO) 0.2 10^3/uL (0.0-0.3); EOSINOPHILS % (AUTO) 3 % (0-10); HEMATOCRIT 33 % (35-52); HEMOGLOBIN 11.1 g/dL (11.5-16.0); LYMPHOCYTES # (AUTO) 1.9 10^3/uL (1.0-4.0); LYMPHOCYTES % (AUTO) 27 % (12-44); MEAN CORPUSCULAR HEMOGLOBIN 31 pg (25-34); MEAN CORPUSCULAR HGB CONC 34 g/dL (32-36); MEAN CORPUSCULAR VOLUME 91 fL (80-99); MEAN PLATELET VOLUME 9.4 fL (9.0-12.2); MONOCYTES # (AUTO) 0.7 10^3/uL (0.0-1.0); MONOCYTES % (AUTO) 10 % (0-12); NEUTROPHILS # (AUTO) 4.2 10^3/uL (1.8-7.8); NEUTROPHILS % (AUTO) 58 % (42-75); PLATELET COUNT 210 10^3/uL (130-400); WHITE BLOOD COUNT 7.1 10^3/uL (4.3-11.0)
[2021-05-11 06:10] LABS: ALBUMIN 3.6 GM/DL (3.2-4.5); POTASSIUM 4.3 MMOL/L (3.6-5.0)
--- NOTE | 2021-05-11 06:10 | PM&R Progress Note ---
Subjective HPI/CC On Admission Date Seen by Provider: May 11, 2021 Time Seen by Provider: 09:00 Subjective/Events-last exam 05/11/2021: Pt ready for discharge on Tuesday Denies any other new issues Checked meds and labs 05/10/2021: Patient doing well Bowels moved No falls 05/09/2021: Patient doing very well Bowels moved a small amount today No concerns 05/08/2021: Pt doing pretty well Very confused Poor recall 05/07/2021: Pt doing really well Poor recall but she seems more lucid today Multiple BMs yesterday 05/06/2021: Pt doing a lot better Slept well last night Bowel treatment will be given due to constipation Confusion but does follow commands 05/05/2021: Pt did really well last night Dementia is significant but she can follow commands Bowels moved 05/03/21 Pain is well controlled Review of Systems General: Fatigue, Malaise Neurological: Weakness, Incoordination, Confusion Objective Exam Vital Signs Vital Signs Date Time Temp Pulse Resp B/P (MAP) Pulse Ox O2 Delivery O2 Flow Rate FiO2 05/11/21 21:00 Room Air 05/11/21 20:00 37.1 85 16 114/69 (84) 97 Capillary Refill : General Appearance: No Apparent Distress, WD/WN, Chronically ill, Thin, Other (Frail) HEENT: PERRL/EOMI, Normal ENT Inspection, Pharynx Normal, Other (Very hard of hearing) Neck: Full Range of Motion, Normal Inspection, Non Tender, Supple, Carotid Bruit Respiratory: Chest Non Tender, Lungs Clear, Normal Breath Sounds, No Accessory Muscle Use, No Respiratory Distress Cardiovascular: Regular Rate, Rhythm, No Edema, No Gallop, No JVD, No Murmur, Normal Peripheral Pulses Gastrointestinal: Normal Bowel Sounds, No Organomegaly, No Pulsatile Mass, Non Tender, Soft Back: Normal Inspection, No CVA Tenderness, No Vertebral Tenderness Extremity: Normal Capillary Refill, Normal Inspection, Normal Range of Motion, Non Tender, No Calf Tenderness, No Pedal Edema Neurologic/Psychiatric: Alert, Oriented x3, planograph operator II-XII Norm as Tested, Abnormal Gait, Depressed Affect, Motor Weakness (Generalized weakness), Other (Confusion noted poor recall) Skin: Normal Color, Warm/Dry Lymphatic: No Adenopathy Results/Procedures Lab Laboratory Tests 05/11/21 05:34 Patient resulted labs reviewed. FIM Transfers Therapy Code Descriptions/Definitions Functional [place] Measure: 0=Not Assessed/NA 4=Minimal Assistance 1=Total Assistance 5=Supervision or Setup 2=Maximal Assistance 6=Modified [place] 3=Moderate Assistance 7=Complete IndependenceSCALE: Activities may be completed with or without assistive devices. 2-Uzuiltudqe-zlbhhbu completes the activity by him/herself with no assistance from a helper. 5-Set-up or Clean-up Assistance-helper sets up or cleans up; patient completes activity. [place] assists only prior to or following the activity. 4-Supervision or Touching Assistance-helper provides verbal cues and/or touching/steadying and/or contact guard assistance as patient completes activity. Assistance may be provided throughout the activity or intermittently. 3-Partial/Moderate Assistance-helper does LESS THAN HALF the effort. [place] lifts, holds or supports trunk or limbs, but provides less than half the effort. 2-Substantial/Maximal Assistance-helper does MORE THAN HALF the effort. [place] lifts or holds trunk or limbs and provides more than half the effort. 6-Pnlxmmxxx-cxezot does ALL the effort. Patient does none of the effort to complete the activity. Or, the assistance of 2 or more helpers is required for the patient to complete the activity. If activity was not attempted, code reason: 7-Patient Refused. 9-Not Applicable-not attempted and the patient did not perform the activity before the current illness, exacerbation or injury. 10-Not Attempted due to Environmental Limitations-(lack of equipment, weather restraints, etc.). 88-Not Attempted due to Medical Conditions or Safety Concerns. Roll Left to Right (QC): 3 Sit to Lying (QC): 3 Sit to Stand (QC): 4 Chair/Pjq-xy-Liblb Xfer(QC): 4 Car Transfer (QC): 3 Gait Training Does the Patient Walk?: Yes Distance: 130ft Walk 10 feet (QC): 3 Walk 50 ft with 2 Turns(QC): 3 Walk 150 ft (QC): 4 Walking 10ft/uneven surface-QC: 3 Gait Persons Needed: 1 Gait Assistive Device: FWW Wheelchair Training Does the Pt Use a Wheelchair?: No Wheel 50 ft with 2 turns (QC): 9 Wheel 150 ft (QC): 9 Stair Training #of Steps: 1 1 Step (curb) (QC): 3 4 Steps (QC): 88 12 Steps (QC): 88 Balance Picking up an Object (QC): 88 ADL-Treatment Eating (QC): 5 (set up assistance with lunch) Oral Hygiene (QC): 4 (SBA, mod cues for sequencing of task.) Shower/Bathe Self (QC): 3 (Min A. Assist washing/drying buttocks and BLE lower legs/feet. Pt able to wash/dry other parts.) Upper Body Dressing (QC): 4 (SBA donning/doffing shirt.) Lower Body Dressing (QC): 2 (assist threading BLEs into pants, pt assisted with pant hike.) On/Off Footwear (QC): 1 (total assist donning/doffing gripper socks.) Toileting Hygiene (QC): 3 (Assist with washing buttocks, pt assisted with pant hike.) Toilet Transfer (QC): 3 (Mod A sit to stand from toilet.) Assessment/Plan Assessment and Plan Assess & Plan/Chief Complaint Assessment: Debility Falls Hypertension Hyperlipidemia GERD Dementia Frail status Severe presbycusis Plan: Inpatient rehab protocol Home meds Fall risk 05/05/2021: Supportive care Dementia is a limitation but seems to be settling in well 05/06/2021: Continue aggressive therapy Fall risk prevention Assisted living at discharge 05/07/2021: Continue treatment Fall risk 05/08/2021: Supportive care Dementia significant 05/09/2021: Supportive care Fall risk 05/10/2021: Supportive care Fall risk 05/11/2021: Discharge planned Improved status (1) Falls frequently (2) Dementia (3) Presbycusis (4) Frail elderly (5) Hypertension (6) Hyperlipidemia (7) GERD (gastroesophageal reflux disease) (8) General weakness Status: Acute LIUDMILA BROWN DO May 11, 2021 06:10
[2021-05-11 06:11] LABS: CALCIUM 9.5 MG/DL (8.5-10.1)
[2021-05-11 06:13] LABS: TOTAL PROTEIN 6.5 GM/DL (6.4-8.2)
[2021-05-11 06:14] LABS: BILIRUBIN,TOTAL 0.3 MG/DL (0.1-1.0)
[2021-05-11 06:16] LABS: CREATININE SERUM 0.83 MG/DL (0.60-1.30)
[2021-05-11 07:54] VITALS: BP 131/61
[2021-05-11] MEDS: PANTOPRAZOLE 20 MG TABLET (PROTONIX) PO SCH (08:31)
[2021-05-11] MEDS: DIVALPROX SPRINKLE 125 MG (DEPAKOTE) CAP PO SCH ×2 (08:31→20:26)
[2021-05-11] MEDS: FLUoxetine HCL 10 MG (PROzac) CAPSULE/TABLET PO SCH (08:31)
[2021-05-11] MEDS: DOCUSATE SODIUM 100 MG (COLACE) CAP PO SCH ×2 (08:32→19:34)
[2021-05-11] MEDS: polyethylene glycoL POWDER 17 GM (MIRALAX) PACK PO SCH ×2 (08:32→19:34)
[2021-05-11] MEDS: SENNA W/DOCUSATE (SENOKOT S) TABLET PO SCH ×2 (08:32→19:34)
--- NOTE | 2021-05-11 09:33 | Occupational Ther Daily Note ---
OT Current Status-Daily Note Subjective Pt seated in recliner, agreeable to OT tx. Mental Status/Objective Patient Orientation: Person, Confused ADL-Treatment Therapy Code Descriptions/Definitions Functional [place] Measure: 0=Not Assessed/NA 4=Minimal Assistance 1=Total Assistance 5=Supervision or Setup 2=Maximal Assistance 6=Modified [place] 3=Moderate Assistance 7=Complete IndependenceSCALE: Activities may be completed with or without assistive devices. 3-Urfxypvmab-ycfxaht completes the activity by him/herself with no assistance from a helper. 5-Set-up or Clean-up Assistance-helper sets up or cleans up; patient completes activity. [place] assists only prior to or following the activity. 4-Supervision or Touching Assistance-helper provides verbal cues and/or touching/steadying and/or contact guard assistance as patient completes activity. Assistance may be provided throughout the activity or intermittently. 3-Partial/Moderate Assistance-helper does LESS THAN HALF the effort. [place] lifts, holds or supports trunk or limbs, but provides less than half the effort. 2-Substantial/Maximal Assistance-helper does MORE THAN HALF the effort. [place] lifts or holds trunk or limbs and provides more than half the effort. 4-Xoteblpft-hnxkvn does ALL the effort. Patient does none of the effort to complete the activity. Or, the assistance of 2 or more helpers is required for the patient to complete the activity. If activity was not attempted, code reason: 7-Patient Refused. 9-Not Applicable-not attempted and the patient did not perform the activity before the current illness, exacerbation or injury. 10-Not Attempted due to Environmental Limitations-(lack of equipment, weather restraints, etc.). 88-Not Attempted due to Medical Conditions or Safety Concerns. Eating (QC): 5 (set up assist, assist cutting food and opening containers) Oral Hygiene (QC): 4 (CGA standing at sink.) Shower/Bathe Self (QC): 3 (assist washing buttocks. Pt able to wash/dry all other parts, using AE as needed.) Upper Body Dressing (QC): 3 (Min A overall with bra and overhead shirt. Pt required assistance with bra fasteners.) Lower Body Dressing (QC): 2 (Pt able to perform pant hike, assist threading BLEs into pants.) On/Off Footwear: 1 (total assist donning/doffing gripper socks.) Toileting Hygiene (QC): 3 (Pt able to manage clothing and pericare, assist to wash buttocks.) Toilet Transfer (QC): 3 (CGA onto toilet, Mod A stand from toilet.) Other Treatment Pt seated in recliner, used FWW to perform functional mobility into bathroom and onto toilet. Pt completed toileting, then transferred to AK. Pt doffed clothes, able to reach her ankles today bending forward, but unable to doff pants/shoes. Pt completed shower, assistance with washing her buttocks. Pt used LH sponge to wash lower legs/feet. Pt dried off, transferring to w/c to don clothes. Pt attempted to thread BLEs into underwear and pants, required assistance with threading BLEs. Pt able to complete more threading compared to previous session, but still required max A with threading legs. AE not attempted, due to pt's difficulty with sequencing and problem solving, poor recall between txs. Pt stood at sink to brush teeth, CGA, then returned to recliner. In order to increase problem solving, sequencing and fine motor skills, pt completed peg jose task, matching colored pegs. Pt required max verbal cues with each peg, completing x5 pegs total. Pt then completed perfection task, matching shapes into the correct hole. Pt given 1 shape at a time, placing x11 shapes correctly with moderate verbal cues overall. Post tx, pt seated in recliner, call light in reach and all needs met. Chair alarm activated. Pt required skilled cues for UE placement with transfers, cues for positioning of body within walker. Min-mod A sit to stand transfers, CGA stand to sit. Education OT Patient Education: Correct positioning, Modified ADL techniques, Progress toward Goal/Update tx plan, Purpose of tx/functional activities, Rehab process Teaching Recipient: Patient Teaching Methods: Discussion Response to Teaching: Verbalize Understanding OT Short Term Goals Short Term Goals Time Frame: May 29, 2021 Lower body dressin Putting on/taking off footwear: 3 OT Custodial Goals Custodial Goals Time Frame: May 29, 2021 Eating (QC): 5 (met) Oral Hygiene (QC): 5 (not met) Toileting Hygiene (QC): 4 (not met) Shower/Bathe Self (QC): 4 (not met) Upper Body Dressing (QC): 5 (not met) Lower Body Dressing (QC): 4 (not met) On/Off Footwear (QC): 4 (not met) Additional Goals: 1-Demonstrate ADL Tasks, 2-Verbalize Understanding, 3- ImproveStrength/[place] 1=Demonstrate adherence to instructed precautions during ADL tasks. 2=Patient will verbalize/demonstrate understanding of assistive devices/modifications for ADL. 3=Patient will improve strength/tolerance for activity to enable patient to perform ADL's. OT Education/Plan Problem List/Assessment Assessment: Decreased Activ Tolerance, Decreased UE Strength, Impaired Funct Balance, Impaired I ADL's, Impaired Self-Care Skills, Restricted Funct UE ROM Discharge Recommendations Plan/Recommendations: Continue POC Treatment Plan/Plan of Care Patient would benefit from OT for education, treatment and training to promote independence in ADL's, mobility, safety and/or upper extremity function for ADL's. Plan of Care: ADL Retraining, Cognitive Retraining, Functional Mobility, Group Exercise/Act as Ind, UE Funct Exercise/Act Treatment Duration: May 29, 2021 Frequency: At least 5 of 7 days/Wk (IRF) Estimated Hrs Per Day: 1.5 hours per day Rehab Potential: Fair Time/GCodes Start Time: 08:00 Stop Time: 09:30 Total Time Billed (hr/min): 90 Billed Treatment Time 1, ADL 4 (60'), FA 2 (30') ROB RICHTER OT May 11, 2021 09:33
--- NOTE | 2021-05-11 10:40 | Physical Therapy Daily Note ---
PT Daily Note-Current Subjective Pt sitting in recliner upon arrival. Pt agrees to PT but reports fatigue. Pain Location: Lower Location Body Site: Back Pain Description: Ache Comment: Pt reports back ache but doesn't rate. Mental Status Patient Orientation: Person, Place Attachments: Other-See Comments (Hearing aids) Transfers SCALE: Activities may be completed with or without assistive devices. 4-Etfguadwpi-sbhdpkw completes the activity by him/herself with no assistance from a helper. 5-Set-up or Clean-up Assistance-helper sets up or cleans up; patient completes activity. [place] assists only prior to or following the activity. 4-Supervision or Touching Assistance-helper provides verbal cues and/or touching/steadying and/or contact guard assistance as patient completes activity. Assistance may be provided throughout the activity or intermittently. 3-Partial/Moderate Assistance-helper does LESS THAN HALF the effort. [place] lifts, holds or supports trunk or limbs, but provides less than half the effort. 2-Substantial/Maximal Assistance-helper does MORE THAN HALF the effort. [place] lifts or holds trunk or limbs and provides more than half the effort. 7-Jnvulnhkm-qcowbb does ALL the effort. Patient does none of the effort to complete the activity. Or, the assistance of 2 or more helpers is required for the patient to complete the activity. If activity was not attempted, code reason: 7-Patient Refused. 9-Not Applicable-not attempted and the patient did not perform the activity before the current illness, exacerbation or injury. 10-Not Attempted due to Environmental Limitations-(lack of equipment, weather restraints, etc.). 88-Not Attempted due to Medical Conditions or Safety Concerns. Sit to Stand (QC): 4 Toilet Transfer (QC): 4 Weight Bearing Full Weight Bearing Full Weight Bearing Gait Training Does the Patient Walk?: Yes Distance: 15', 150' Walk 10 feet (QC): 4 Walk 50 ft with 2 Turns(QC): 4 Walk 150 ft (QC): 4 Gait Persons Needed: 1 Gait Assistive Device: FWW Exercises Seated Therapy Exercises: Ankle pumps, Long arc quads, Hip flexion, Glut set Seated Reps: 15 Treatments TF to standing and amb. to BR. Pt changes underwear per request and dons underwear & pants. Pt amb. in hallway, taking RB. Pt completes Seated Ex then amb. again. Pt returns to room to rest in recliner with all needs met, call light in hand. Assessment Current Status: Good Progress Pt requires hearing aids to understand instructions given. Pt fatigues, needing RB. VC for safety and transfers. PT Short Term Goals Short Term Goals Time Frame: May 11, 2021 Roll Left & Right: 6 Sit to lyin Lying to sitting on side of be: 3 Sit to stand: 4 Chair/kou-pc-bvygt transfer: 4 Walk 10 feet: 4 Walk 50 feet with two turns: 4 Walk 150 feet: 4 PT [employer] Goals [employer] Goals PT Justice [employer] Peace Goals Time Frame: May 25, 2021 Roll Left & Right (QC): 6 Sit to Lying (QC): 5 Lying-Sitting on Side/Bed(QC): 5 Sit to Stand (QC): 4 (SBA) Chair/Jeg-ua-Tahkc Xfer(QC): 4 (SBA) Toilet Transfer (QC): 4 (SBA) Car Transfer (QC): 4 (SBA) Does the Patient Walk: Yes Walk 10 feet (QC): 4 (SBA) Walk 50ft with 2 Turns (QC): 4 (SBA) Walk 150 ft (QC): 4 (SBA) Walking 10ft on Uneven Surface: 4 (SBA) 1 Step (curb) (QC): 4 (CGA) 4 Steps (QC): 4 (CGA) 12 Steps (QC): 88 Picking up an Object (QC): 88 Does the Pt use WC or Scooter?: No Wheel 50 feet with 2 turns (QC: 9 Type: N/A Wheel 150 feet: 9 Type: N/A PT Plan Problem List Problem List: Activity Tolerance, Functional Strength, Safety Treatment/Plan Treatment Plan: Continue Plan of Care Treatment Plan: Bed Mobility, Education, Functional Activity Riley, Functional Strength, Group Therapy, Gait, Safety, Therapeutic Exercise, Transfers Treatment Duration: May 25, 2021 Frequency: At least 5 of 7 days/Wk (IRF) Estimated Hrs Per Day: 1.5 hours per day Patient and/or Family Agrees t: Yes Safety Risks/Education Patient Education: Gait Training, Transfer Techniques, Correct Positioning, Safety Issues Teaching Recipient: Patient Teaching Methods: Discussion Response to Teaching: Reinforcement Needed Time/GCodes Time In: 930 Time Out: 1030 Total Billed Treatment Time: 60 Total Billed Treatment 1, FA x2 (30m), EX (15m) & GT (15m) LENNIE SOTO LAST SCOURER May 11, 2021 10:40
--- NOTE | 2021-05-11 13:59 | Physical Therapy Daily Note ---
PT Daily Note-Current Subjective Pt sitting in recliner upon arrival. Pt agrees to PT. Assisted pt with ordering afternoon snack as pt didn't eat much of her lunch. Pain Location: No Pain Reported Mental Status Patient Orientation: Person, Confused, Place Transfers SCALE: Activities may be completed with or without assistive devices. 2-Knftdavocn-fnkdqmj completes the activity by him/herself with no assistance from a helper. 5-Set-up or Clean-up Assistance-helper sets up or cleans up; patient completes activity. [place] assists only prior to or following the activity. 4-Supervision or Touching Assistance-helper provides verbal cues and/or touching/steadying and/or contact guard assistance as patient completes activity. Assistance may be provided throughout the activity or intermittently. 3-Partial/Moderate Assistance-helper does LESS THAN HALF the effort. [place] lifts, holds or supports trunk or limbs, but provides less than half the effort. 2-Substantial/Maximal Assistance-helper does MORE THAN HALF the effort. [place] lifts or holds trunk or limbs and provides more than half the effort. 2-Hyukfnrlx-pjxrqq does ALL the effort. Patient does none of the effort to complete the activity. Or, the assistance of 2 or more helpers is required for the patient to complete the activity. If activity was not attempted, code reason: 7-Patient Refused. 9-Not Applicable-not attempted and the patient did not perform the activity before the current illness, exacerbation or injury. 10-Not Attempted due to Environmental Limitations-(lack of equipment, weather restraints, etc.). 88-Not Attempted due to Medical Conditions or Safety Concerns. Roll Left & Right (QC): 4 Sit to Lying (QC): 4 Lying to Sitting/Side of Bed(Q: 4 Sit to Stand (QC): 4 Chair/Fth-if-Wchvy Xfer(QC): 4 Toilet Transfer (QC): 4 Car Transfer (QC): 4 VC and slight assist TC for transfers. Weight Bearing Full Weight Bearing Full Weight Bearing Gait Training Does the Patient Walk?: Yes Distance: 100' Walk 10 feet (QC): 4 Walk 50 ft with 2 Turns(QC): 4 Gait Persons Needed: 1 Wheelchair Training Does the Pt Use a Wheelchair?: No Stair Training Stair Training: Handrails/: uses walker #of Steps: 1 1 Step (curb) (QC): 4 4 Steps (QC): 7 12 Steps (QC): 7 Stairs: Pattern: Step to Balance Picking up an Object (QC): 88 Special Test Comments Pt not cognitive enough to perform safely. Treatments Pt transfers to standing and amb. to BR. Pt had wet undergarments and pants so these are changed. Pt amb. in hallway. Pt completes QC scoring items listed above. Pt returns to room to rest in recliner. All needs met, call light in hand. Assessment Current Status: Fair Progress Pt remains confused and needs VC & TC to complete tasks. PT Short Term Goals Short Term Goals Time Frame: May 11, 2021 Roll Left & Right: 6 Sit to lyin Lying to sitting on side of be: 3 Sit to stand: 4 Chair/wpz-zd-kuxhd transfer: 4 Walk 10 feet: 4 Walk 50 feet with two turns: 4 Walk 150 feet: 4 PT Heater Helper Goals Nursing Home Goals PT Nursing Home Goals Time Frame: May 25, 2021 Roll Left & Right (QC): 6 Sit to Lying (QC): 5 Lying-Sitting on Side/Bed(QC): 5 Sit to Stand (QC): 4 (SBA) Chair/Jtn-bx-Pcbkv Xfer(QC): 4 (SBA) Toilet Transfer (QC): 4 (SBA) Car Transfer (QC): 4 (SBA) Does the Patient Walk: Yes Walk 10 feet (QC): 4 (SBA) Walk 50ft with 2 Turns (QC): 4 (SBA) Walk 150 ft (QC): 4 (SBA) Walking 10ft on Uneven Surface: 4 (SBA) 1 Step (curb) (QC): 4 (CGA) 4 Steps (QC): 4 (CGA) 12 Steps (QC): 88 Picking up an Object (QC): 88 Does the Pt use WC or Scooter?: No Wheel 50 feet with 2 turns (QC: 9 Type: N/A Wheel 150 feet: 9 Type: N/A PT Plan Problem List Problem List: Activity Tolerance, Functional Strength, Safety, Transfer Treatment/Plan Treatment Plan: Continue Plan of Care Treatment Plan: Bed Mobility, Education, Functional Activity Riley, Functional Strength, Group Therapy, Gait, Safety, Therapeutic Exercise, Transfers Treatment Duration: May 25, 2021 Frequency: At least 5 of 7 days/Wk (IRF) Estimated Hrs Per Day: 1.5 hours per day Patient and/or Family Agrees t: Yes Safety Risks/Education Patient Education: Gait Training, Transfer Techniques, Correct Positioning, Safety Issues Teaching Recipient: Patient Teaching Methods: Discussion Response to Teaching: Reinforcement Needed Time/GCodes Time In: 1300 Time Out: 1345 Total Billed Treatment Time: 45 Total Billed Treatment 1, GT (10m) & FA x2 (35m) LENNIE SOTO COPY CLERK May 11, 2021 13:58
[2021-05-11] MEDS: ACETAMINOPHEN 325 MG TABLET PO PRN (17:38)
[2021-05-11 20:00] VITALS: BP 114/69
[2021-05-11] MEDS: SPIRONOLACTONE 25 MG (ALDACTONE) TAB PO SCH (20:26)
[2021-05-11] MEDS: SIMvastatin 10 MG (ZOCOR) TAB PO SCH (20:26)
--- NOTE | 2021-05-12 06:17 | Discharge Summary ---
Diagnosis/Chief Complaint Date of Admission May 04, 2021 at 13:40 Date of Discharge Discharge Date: May 12, 2021 Discharge Diagnosis Assessment: Debility Falls Hypertension Hyperlipidemia GERD Dementia Frail status Severe presbycusis Plan: Inpatient rehab protocol Home meds Fall risk 05/05/2021: Supportive care Dementia is a limitation but seems to be settling in well 05/06/2021: Continue aggressive therapy Fall risk prevention Assisted living at discharge 05/07/2021: Continue treatment Fall risk 05/08/2021: Supportive care Dementia significant 05/09/2021: Supportive care Fall risk 05/10/2021: Supportive care Fall risk 05/11/2021: Discharge planned Improved status (1) Falls frequently (2) Dementia (3) Presbycusis (4) Frail elderly (5) Hypertension (6) Hyperlipidemia (7) GERD (gastroesophageal reflux disease) (8) General weakness Status: Acute Discharge Summary Discharge Physical Examination Allergies: Coded Allergies: Penicillins (Verified Allergy, Unknown, 08/07/17) Vitals & I&Os Vital Signs Date Time Temp Pulse Resp B/P (MAP) Pulse Ox O2 Delivery O2 Flow Rate FiO2 05/12/21 13:16 36.4 79 18 130/58 96 Room Air General Appearance: Alert, Cooperative, Other (confused) Respiratory: Clear to Auscultation Cardiovascular: Regular Rate Neuro: Normal Gait, Normal Speech, Strength at 5/5 X4 Ext Hospital Course Was the Problem List Reviewed?: Yes Hospital Course: Pt had a lengthy hospital course for 9 days after she was admitted directly from the ER due to falls and debility. Dementia precluded her from going to assisted living but she did participate in all therapy. Fall risk prevention was initiated aggressively and she was deemed stable for DC. Labs (last 24 hrs) Laboratory Tests 05/05/21 08:45: White Blood Count 9.1, Red Blood Count 4.26, Hemoglobin 13.1, Hematocrit 38, Mean Corpuscular Volume 89, Mean Corpuscular Hemoglobin 31, Mean Corpuscular Hemoglobin Concent 35, Red Cell Distribution Width 12.2, Platelet Count 183, Mean Platelet Volume 9.1, Immature Granulocyte % (Auto) 0, Neutrophils (%) (Auto) 69, Lymphocytes (%) (Auto) 17, Monocytes (%) (Auto) 9, Eosinophils (%) (Auto) 4, Basophils (%) (Auto) 1, Neutrophils # (Auto) 6.3, Lymphocytes # (Auto) 1.6, Monocytes # (Auto) 0.8, Eosinophils # (Auto) 0.3, Basophils # (Auto) 0.1, Immature Granulocyte # (Auto) 0.0, Sodium Level 133L, Potassium Level 4.0, Chloride Level 98, Carbon Dioxide Level 27, Anion Gap 8, Blood Urea Nitrogen 18, Creatinine 0.87, Estimat Glomerular Filtration Rate 62, BUN/Creatinine Ratio 21, Glucose Level 117H, Calcium Level 9.8, Corrected Calcium 9.7, Total Bilirubin 0.7, Aspartate Amino Transf (AST/SGOT) 14, Alanine Aminotransferase (ALT/SGPT) 15, Alkaline Phosphatase 76, Total Protein 7.3, Albumin 4.1 05/11/21 05:34: White Blood Count 7.1, Red Blood Count 3.62L, Hemoglobin 11.1L, Hematocrit 33L, Mean Corpuscular Volume 91, Mean Corpuscular Hemoglobin 31, Mean Corpuscular Hemoglobin Concent 34, Red Cell Distribution Width 12.3, Platelet Count 210, Mean Platelet Volume 9.4, Immature Granulocyte % (Auto) 1, Neutrophils (%) (Auto) 58, Lymphocytes (%) (Auto) 27, Monocytes (%) (Auto) 10, Eosinophils (%) (Auto) 3, Basophils (%) (Auto) 1, Neutrophils # (Auto) 4.2, Lymphocytes # (Auto) 1.9, Monocytes # (Auto) 0.7, Eosinophils # (Auto) 0.2, Basophils # (Auto) 0.1, Immature Granulocyte # (Auto) 0.0, Sodium Level 133L, Potassium Level 4.3, Chloride Level 98, Carbon Dioxide Level 26, Anion Gap 9, Blood Urea Nitrogen 23H , Creatinine 0.83, Estimat Glomerular Filtration Rate 65, BUN/Creatinine Ratio 28, Glucose Level 96, Calcium Level 9.5, Corrected Calcium 9.8, Total Bilirubin 0.3, Aspartate Amino Transf (AST/SGOT) 10, Alanine Aminotransferase (ALT/SGPT) 8, Alkaline Phosphatase 72, Total Protein 6.5, Albumin 3.6 Pending Labs Laboratory Tests 05/05/21 08:45: White Blood Count 9.1, Red Blood Count 4.26, Hemoglobin 13.1, Hematocrit 38, Mean Corpuscular Volume 89, Mean Corpuscular Hemoglobin 31, Mean Corpuscular Hemoglobin Concent 35, Red Cell Distribution Width 12.2, Platelet Count 183, Mean Platelet Volume 9.1, Immature Granulocyte % (Auto) 0, Neutrophils (%) (Auto) 69, Lymphocytes (%) (Auto) 17, Monocytes (%) (Auto) 9, Eosinophils (%) (Auto) 4, Basophils (%) (Auto) 1, Neutrophils # (Auto) 6.3, Lymphocytes # (Auto) 1.6, Monocytes # (Auto) 0.8, Eosinophils # (Auto) 0.3, Basophils # (Auto) 0.1, Immature Granulocyte # (Auto) 0.0, Sodium Level 133, Potassium Level 4.0, Ch loride Level 98, Carbon Dioxide Level 27, Anion Gap 8, Blood Urea Nitrogen 18, Creatinine 0.87, Estimat Glomerular Filtration Rate 62, BUN/Creatinine Ratio 21, Glucose Level 117, Calcium Level 9.8, Corrected Calcium 9.7, Total Bilirubin 0.7, Aspartate Amino Transf (AST/SGOT) 14, Alanine Aminotransferase (ALT/SGPT) 15, Alkaline Phosphatase 76, Total Protein 7.3, Albumin 4.1 05/11/21 05:34: White Blood Count 7.1, Red Blood Count 3.62, Hemoglobin 11.1, Hematocrit 33, Mean Corpuscular Volume 91, Mean Corpuscular Hemoglobin 31, Mean Corpuscular Hemoglobin Concent 34, Red Cell Distribution Width 12.3, Platelet Count 210, Mean Platelet Volume 9.4, Immature Granulocyte % (Auto) 1, Neutrophils (%) (Auto) 58, Lymphocytes (%) (Auto) 27, Monocytes (%) (Auto) 10, Eosinophils (%) (Auto) 3, Basophils (%) (Auto) 1, Neutrophils # (Auto) 4.2, Lymphocytes # (Auto) 1.9, Monocytes # (Auto) 0.7, Eosinophils # (Auto) 0.2, Basophils # (Auto) 0.1, Immature Granulocyte # (Auto) 0.0, Sodium Level 133, Potassium Level 4.3, Chloride Level 98, Carbon Dioxide Level 26, Anion Gap 9, Blood Urea Nitrogen 23, Creatinine 0.83, Estimat Glomerular Filtration Rate 65, BUN/Creatinine Ratio 28, Glucose Level 96, Calcium Level 9.5, Corrected Calcium 9.8, Total Bilirubin 0.3, Aspartate Amino Transf (AST/SGOT) 10, Alanine Aminotransferase (ALT/SGPT) 8, Alkaline Phosphatase 72, Total Protein 6.5, Albumin 3.6 Discharge Home Medications: Active Scripts Active Reported Tylenol Extra Strength (Acetaminophen) 500 Mg Tablet 500-1,000 Mg PO Q8H PRN Valproic Acid 250 Mg Capsule 250 Mg PO BID Spironolactone 50 Mg Tablet 50 Mg PO HS Lovastatin 20 Mg Tablet 20 Mg PO HS Omeprazole 20 Mg Capsule.dr 20 Mg PO DAILY Fluoxetine HCl 10 Mg Capsule 10 Mg PO DAILY Instructions to patient/family Please see electronic discharge instructions given to patient. Diagnosis/Problems Diagnosis/Problems (1) Falls frequently (2) Dementia (3) Presbycusis (4) Frail elderly (5) Hypertension (6) Hyperlipidemia (7) GERD (gastroesophageal reflux disease) (8) General weakness Status: Acute LIUDMILA BROWN DO May 12, 2021 06:17
--- NOTE | 2021-05-12 06:17 | Discharge Inst-Skilled Nursing ---
Discharge Inst-Skilled NF Reconcile Patient Problems Problems Reviewed?: Yes Patient Instructions Patient Problems: Dementia Falls Debility Consult/Follow Up/Orders Follow Up Appt.: PCP 2 weeks Skilled NF Admit to: [facility] Certification ([facility]) I certify that SNF services are required to be given on an inpatient basis because of the above named patient's need for long term care on a continuing basis for the conditions(s) for which he/she was receiving inpatient hospital services prior to his/her transfer to the SNF. [facility] Facility Order: Nursing Services, Shellfish Dredge Operator-Evaluate & Treat, Physical Therapy-Evaluate & Treat, Speech Language-Evaluate & Treat Oxygen Delivery Method: Room Air Discharge Diet: No Restrictions New & Resume Previous Orders Continued Medications: Acetaminophen (Tylenol Extra Strength) 500 Mg Tablet 500-1000 MG PO Q8H PRN for PAIN-MILD (1-4), TAB Fluoxetine HCl (Fluoxetine HCl) 10 Mg Capsule 10 MG PO DAILY Lovastatin (Lovastatin) 20 Mg Tablet 20 MG PO HS Omeprazole (Omeprazole) 20 Mg Capsule.dr 20 MG PO DAILY Spironolactone (Spironolactone) 50 Mg Tablet 50 MG PO HS, TAB Valproic Acid (Valproic Acid) 250 Mg Capsule 250 MG PO BID, CAP Irene Nj May 12, 2021 06:16 IRENE NJ DO May 12, 2021 06:17
[2021-05-12 07:39] VITALS: BP 130/58
[2021-05-12] MEDS: DOCUSATE SODIUM 100 MG (COLACE) CAP PO SCH (09:30)
[2021-05-12] MEDS: FLUoxetine HCL 10 MG (PROzac) CAPSULE/TABLET PO SCH (09:30)
[2021-05-12] MEDS: DIVALPROX SPRINKLE 125 MG (DEPAKOTE) CAP PO SCH (09:30)
[2021-05-12] MEDS: SENNA W/DOCUSATE (SENOKOT S) TABLET PO SCH (09:30)
[2021-05-12] MEDS: PANTOPRAZOLE 20 MG TABLET (PROTONIX) PO SCH (09:30)
[2021-05-12] MEDS: polyethylene glycoL POWDER 17 GM (MIRALAX) PACK PO SCH (09:31)
--- NOTE | 2021-05-12 10:21 | Therapy Team Discharge Summary ---
Therapy Discharge Summary Discharge Recommendations Date of Discharge Physical Therapy Patient came to rehab with debility, falls. Upon evaluation patient performed bed mobility with min assist, supine <-> sit with max assist, sit <-> stand and transfers with min assist, car transfer min assist, ambulated 150' with a rolling walker with min assist (including 50' with at least 2 turns of 90 degrees and 10' over an uneven surface), and went up and down 1 step using a rolling walker with min assist for balance. Patient has been performing bed mobility and transfer training, balance and endurance training, functional strengthening, stair training, gait training, and education. Patient has made some progress but has not met any of her long line teamster goals. Now, patient performs bed mobility and transfers with CGA, car transfer CGA, ambulates 150' with a rolling walker with CGA (including 50' with at least 2 turns of 90 degrees), and can go up and down 1 step using a rolling walker with CGA. Patient is being discharged from this facility today and will be discharged from PT at this time. Occupational Therapy Decreased Activ Tolerance, Decreased UE Strength, Impaired Funct Balance, Impaired I ADL's, Impaired Self-Care Skills, Restricted Funct UE ROM PT Night Nurse Goals Night Nurse Goals PT Night Nurse Goals Time Frame: May 25, 2021 Roll Left to Right (QC): 6 Sit to Lying (QC): 5 Lying-Sitting on Side/Bed(QC): 5 Sit to Stand (QC): 4 (SBA) Chair/Gzt-sg-Brqhp Xfer(QC): 4 (SBA) Car Transfer (QC): 4 (SBA) Does the Patient Walk: Yes Walk 10 feet (QC): 4 (SBA) Walk 10ft-Uneven Surface(QC): 4 (SBA) Walk 50ft with 2 Turns (QC): 4 (SBA) Walk 150 ft (QC): 4 (SBA) Does the Pt use WC or Scooter?: No Wheel 50 feet with 2 turns (QC: 9 1 Step (curb) (QC): 4 (CGA) 4 Steps (QC): 4 (CGA) 12 Steps (QC): 88 Picking up an Object (QC): 88 OT Night Nurse Goals Night Nurse Goals Time Frame: May 29, 2021 Eating (QC): 5 (met) Oral Hygiene (QC): 5 (not met) Shower/Bathe Self (QC): 4 (not met) Upper Body Dressing (QC): 5 (not met) Lower Body Dressing (QC): 4 (not met) On/Off Footwear (QC): 4 (not met) Toileting Hygiene (QC): 4 (not met) Toilet/Commode Transfer (QC): 4 (SBA) Additional Goals: 1-Demonstrate ADL Tasks, 2-Verbalize Understanding, 3- ImproveStrength/Riley 1=Demonstrate adherence to instructed precautions during ADL tasks. 2=Patient will verbalize/demonstrate understanding of assistive devices/modifications for ADL. 3=Patient will improve strength/tolerance for activity to enable patient to perform ADL's. BARTOLO CRUZ PT May 12, 2021 10:21
[2021-05-12 13:16] VITALS: BP 130/58
--- NOTE | 2021-05-13 15:02 | Therapy Team Discharge Summary ---
Therapy Discharge Summary Discharge Recommendations Date of Discharge May 12, 2021 at 13:00 Therapy D/C Recommendations: Detention (TCU/NH) Occupational Therapy Pt admitted to ARU with debility, weakness, and falls. At [facility], pt was able to complete toileting, bathing and dressing, but she required 24/ caregiver assistance/supervision. Upon initial evaluation, pt required supervision with eating, SBA oral care, mod A showering, min A upper body dressing, max A lower body dressing, total assist footwear and max A toileting. OT tx focused on increasing BUE strength and activity tolerance, increasing independence with ADLs and functional mobility, and increasing problem solving skills and sequencing. At discharge, pt required set up assistance with eating, CGA oral care, min A showering and upper body dressing, max A lower body dressing, total assist footwear and min A toileting. Pt made functional progress towards goals, but only attained LTG of eating. OT recommends continued services at SNF. Pt discharged from facility, d/c from OT. Decreased Activ Tolerance, Decreased UE Strength, Impaired Funct Balance, Impaired I ADL's, Impaired Self-Care Skills, Restricted Funct UE ROM PT Long-Term Goals Genetic Counsellor Goals PT Genetic Counsellor Goals Time Frame: May 25, 2021 Roll Left to Right (QC): 6 Sit to Lying (QC): 5 Lying-Sitting on Side/Bed(QC): 5 Sit to Stand (QC): 4 (SBA) Chair/Cnq-vw-Xetzq Xfer(QC): 4 (SBA) Car Transfer (QC): 4 (SBA) Does the Patient Walk: Yes Walk 10 feet (QC): 4 (SBA) Walk 10ft-Uneven Surface(QC): 4 (SBA) Walk 50ft with 2 Turns (QC): 4 (SBA) Walk 150 ft (QC): 4 (SBA) Does the Pt use WC or Scooter?: No Wheel 50 feet with 2 turns (QC: 9 1 Step (curb) (QC): 4 (CGA) 4 Steps (QC): 4 (CGA) 12 Steps (QC): 88 Picking up an Object (QC): 88 OT Genetic Counsellor Goals Genetic Counsellor Goals Time Frame: May 29, 2021 Eating (QC): 5 (met) Oral Hygiene (QC): 5 (not met) Shower/Bathe Self (QC): 4 (not met) Upper Body Dressing (QC): 5 (not met) Lower Body Dressing (QC): 4 (not met) On/Off Footwear (QC): 4 (not met) Toileting Hygiene (QC): 4 (not met) Toilet/Commode Transfer (QC): 4 (SBA) Additional Goals: 1-Demonstrate ADL Tasks, 2-Verbalize Understanding, 3-ImproveStrength/Riley 1=Demonstrate adherence to instructed precautions during ADL tasks. 2=Patient will verbalize/demonstrate understanding of assistive devices/modifications for ADL. 3=Patient will improve strength/tolerance for activity to enable patient to perform ADL's. ROB RICHTER OT May 13, 2021 15:02
== END 2021-05-12 13:00 | DRG 948 ==
PROVIDERS: ADMIT Internal Medicine; ATTEND Internal Medicine
DX: R53.1 Weakness (principal); F05 Delirium due to known physiological condition; Z91.81 History of falling; F03.90 Unspecified dementia, unspecified severity, without behavioral disturbance, psychotic disturbance, mood disturbance, and anxiety; E78.00 Pure hypercholesterolemia, unspecified; E78.5 Hyperlipidemia, unspecified; I10 Essential (primary) hypertension; K21.9 Gastro-esophageal reflux disease without esophagitis; H91.10 Presbycusis, unspecified ear; K59.00 Constipation, unspecified; Z88.0 Allergy status to penicillin
CPT/HCPCS: 36415; 80053; 85025

== ENCOUNTER 2021-06-10 13:48 | Inpatient (IN) | payer MEDICARE ==
[~2021-06-10] VITALS: Ht 172 cm; Wt 69.5 kg
[~2021-06-10 13:48] MED LIST changes: +ACET-2267 PO; +VALP250C3 PO
[2021-06-10] MEDS ORDERED: morphine INJ 10 MG/ML 1ML (SYR OR VIAL) IVP STA (14:28)
[2021-06-10 14:30] LABS: BILIRUBIN,URINE NEGATIVE (NEGATIVE); CLARITY,URINE CLOUDY; COLOR,URINE YELLOW; GLUCOSE, URINE (UA) NEGATIVE (NEGATIVE); KETONES,URINE 1+ (NEGATIVE); LEUKOCYTE ESTERASE ,URINE 1+ (NEGATIVE); NITRITE,URINE POSITIVE (NEGATIVE); PROTEIN,URINE 1+ (NEGATIVE)
[2021-06-10] MEDS ORDERED: NS IV 1000 ML 1,000 ML IV SCH (14:30)
[2021-06-10 14:36] LABS: BASOPHILS % (AUTO) 0 % (0-10); EOSINOPHILS # (AUTO) 0.1 10^3/uL (0.0-0.3); EOSINOPHILS % (AUTO) 1 % (0-10); HEMATOCRIT 37 % (35-52); HEMOGLOBIN 12.7 g/dL (11.5-16.0); LYMPHOCYTES # (AUTO) 1.2 10^3/uL (1.0-4.0); LYMPHOCYTES % (AUTO) 10 % (12-44); MEAN CORPUSCULAR HEMOGLOBIN 30 pg (25-34); MEAN CORPUSCULAR HGB CONC 35 g/dL (32-36); MEAN CORPUSCULAR VOLUME 87 fL (80-99); MEAN PLATELET VOLUME 9.4 fL (9.0-12.2); MONOCYTES # (AUTO) 0.8 10^3/uL (0.0-1.0); MONOCYTES % (AUTO) 7 % (0-12); NEUTROPHILS # (AUTO) 9.4 10^3/uL (1.8-7.8); NEUTROPHILS % (AUTO) 81 % (42-75); PLATELET COUNT 186 10^3/uL (130-400); WHITE BLOOD COUNT 11.7 10^3/uL (4.3-11.0)
[2021-06-10 14:48] LABS: BACTERIA,URINE LARGE /HPF; WBC,URINE 50-100 /HPF
[2021-06-10 14:49] LABS: ALBUMIN 3.7 GM/DL (3.2-4.5); INR 1.2 (0.8-1.4); PROTHROMBIN TIME PATIENT 15.4 SEC (12.2-14.7)
[2021-06-10 14:50] LABS: POTASSIUM 3.7 MMOL/L (3.6-5.0)
[2021-06-10 14:51] LABS: CALCIUM 9.6 MG/DL (8.5-10.1)
[2021-06-10 14:52] LABS: TOTAL PROTEIN 6.8 GM/DL (6.4-8.2)
--- NOTE | 2021-06-10 14:53 | Diagnostic Imaging Report ---
PROCEDURE: CT head without contrast. TECHNIQUE: Multiple contiguous axial images were obtained through the brain without the use of intravenous contrast. Auto Exposure Controls were utilized during the CT exam to meet ALARA standards for radiation dose reduction. INDICATION: Recent fall. COMPARISON: 05/04/2021. FINDINGS: The ventricles and sulci are appropriate for the patient's age. No sulcal effacement or midline shift is identified. No acute intra-axial or extra-axial hemorrhage is detected. The cisterns are patent. The visualized paranasal sinuses are clear. IMPRESSION: No acute intracranial process is detected. Dictated by: Dictated on workstation # [id number]
[2021-06-10 14:54] LABS: BILIRUBIN,TOTAL 0.8 MG/DL (0.1-1.0)
[2021-06-10 14:55] LABS: CREATININE SERUM 0.81 MG/DL (0.60-1.30)
--- NOTE | 2021-06-10 15:07 | Diagnostic Imaging Report ---
INDICATION: Altered mental status after a fall. EXAMINATION: Portable chest at 02:56 p.m. FINDINGS: Heart size and pulmonary vascularity are normal. Lungs are clear. There are no effusions or pneumothoraces. IMPRESSION: Negative chest. Dictated by: Dictated on workstation # [id number]
--- NOTE | 2021-06-10 15:13 | Diagnostic Imaging Report ---
INDICATION: Right hip pain. FINDINGS: An AP view of the pelvis and two views of the right hip show a nondisplaced intertrochanteric fracture of the right hip. The pelvic ring is intact. IMPRESSION: Intertrochanteric fracture of the right hip. The report was called to the ER by onelia@3:13 PM. CRITICAL FINDING Dictated by: Dictated on workstation # [id number]
--- NOTE | 2021-06-10 15:15 | ED Fall/Injury ---
General Chief Complaint: Trauma-Non Activation Stated Complaint: ALT LOC Nursing Triage Note: skilled nursing reports patient fell last night, states she is complaining of alyssa hip pain. snf states patient is lethargic today, not "herself" Upon arrival via EMS patient rt leg bent, complaint of pain when this nurse attempts to straighten leg. patient oriented to person (RACHAEL THAKUR) History of Present Illness Date Seen by Provider: Jun 10, 2021 Time Seen by Provider: 13:50 Initial Comments 86-year-old female presents after a fall at 1730 yesterday at her snf. Since the fall, the staff has reported altered mental status. She was at home, with 24 hour care, until 3 weeks ago. She ambulated with assistance and a walker, had a steady gate. She has a known history of dementia. The patient is complaining when any range of motion is attempted with her right hip. They are unsure if she hit her head at the time of the fall. She is a DNR. Occurred: yesterday Severity: moderate Injuries/Pain Location: head, lower extremity (Right hip) Loss of Consciousness: no loss of consciousness Associated Symptoms (Fall): No Abdominal Pain, No Chest Pain; Confusion; No Neck Pain; Trouble Walking (RACHAEL THAKUR) Allergies and Home Medications Allergies Coded Allergies: Penicillins (Verified Allergy, Unknown, 08/07/17) Patient Home Medication List Home Medication List Reviewed: Yes (RACHAEL THAKUR) Acetaminophen (Tylenol Extra Strength) 500 Mg Tablet, 500-1,000 MG PO Q8H PRN for PAIN-MILD (1-4), (Reported) Entered as Reported by: SARAH VENCES on 05/04/21 1455 Fluoxetine HCl (Fluoxetine HCl) 10 Mg Capsule, 10 MG PO DAILY, (Reported) Entered as Reported by: JONI CESPEDES on 08/07/17 1351 Lovastatin (Lovastatin) 20 Mg Tablet, 20 MG PO HS, (Reported) Entered as Reported by: JONI CESPEDES on 08/07/17 1351 Omeprazole (Omeprazole) 20 Mg Capsule.dr, 20 MG PO DAILY, (Reported) Entered as Reported by: JONI CESPEDES on 08/07/17 1351 Spironolactone (Spironolactone) 50 Mg Tablet, 50 MG PO HS, (Reported) Entered as Reported by: STACY KAMINSKI on 10/21/17 1510 Valproic Acid (Valproic Acid) 250 Mg Capsule, 250 MG PO BID, (Reported) Entered as Reported by: SARAH VENCES on 05/04/21 1455 Review of Systems Review of Systems Constitutional: no symptoms reported, see HPI Musculoskeletal: see HPI, joint pain (right hip) (RACHAEL THAKUR) All Other Systems Reviewed Negative Unless Noted: Yes (RACHAEL THAKUR) Past Tihirlt-Mmkxqd-Sagyqs Hx Patient Social History Tobacco Use?: No Use of E-Cig and/or Vaping dev: No Substance use?: No Alcohol Use?: No Pt feels they are or have been: No (RACHAEL THAKUR) Immunizations Up To Date First/Initial COVID19 Vaccinat: JUN 2020 Second COVID19 Vaccination Doug: JUL 2020 (RACHAEL THAKUR) Seasonal Allergies Seasonal Allergies: No (RACHAEL THAKUR) Past Medical History Surgery/Hospitalization HX: Dementia, Fall HX, Hypertension, Hyperlipidemia, GERD, Depression Surgeries: Yes (CARDIAC CATH-NO INTERVENTION; RIGHT KNEE SCOPE; HYST/BSO; LEFT FOOT SURGERY) Gallbladder, Hysterectomy, Oophorectomy, Orthopedic Respiratory: No Cardiac: Yes (CARDIAC CATH-NO INTERVENTION) High Cholesterol, Hypertension Neurological: No Dementia Reproductive Disorders: No Genitourinary: No Gastrointestinal: No Gastroesophageal Reflux Musculoskeletal: Yes (LEFT FOOT AND RIGHT KNEE SURGERY) Endocrine: No HEENT: Yes Cataract Hearing Impairment: Hard of Hearing Cancer: No Psychosocial: No Integumentary: No Blood Disorders: No (RACHAEL THAKUR) Family Medical History Reviewed Nursing Family Hx (RACHAEL THAKUR) Physical Exam Vital Signs Vital Signs - First Documented 06/10/21 13:50 Temp 37.6 Pulse 115 Resp 20 B/P (MAP) 184/112 (136) Pulse Ox 100 O2 Delivery Nasal Cannula O2 Flow Rate 2.00 (ELMIRA LIRA MD) Vital Signs Capillary Refill : Less Than 3 Seconds (RACHAEL THAKUR) Height, Weight, BMI Height: 5'3.00" Weight: 145lbs. 0.0oz. 65.103552kd; 60.00 BMI Method:Stated General Appearance: WD/WN, no apparent distress HEENT: PERRL/EOMI, normal ENT inspection, other (No areas of tenderness, swelling or ecchymosis.) Neck: non-tender, full range of motion, supple, normal inspection Cardiovascular: normal peripheral pulses, regular rate, rhythm, tachycardia Respiratory: chest non-tender, lungs clear, normal breath sounds Gastrointestinal: normal bowel sounds, non tender, soft, distended; No tende rness Extremities: no calf tenderness, normal capillary refill, other (Full passive ROM to UEs and left LE. Pain with ROM to right hip. Right leg flexed and internally rotated. No ecchymosis or swelling to right hip) Neurologic/Psychiatric: no motor/sensory deficits, alert; No oriented x 3 Skin: normal color, warm/dry (BLAZE,RACHAEL V/[employer]ANDING SIGNAL OFFICER) Progress/Results/Core Measures Results/Orders Lab Results Laboratory Tests Test 06/10/21 14:00 06/10/21 14:28 Range/Units Urine Color YELLOW Urine Clarity CLOUDY Urine pH 6.0 5-9 Urine Specific [place] 1.025 H 1.016-1.022 Urine Protein 1+ H NEGATIVE Urine Glucose (UA) NEGATIVE NEGATIVE Urine Ketones 1+ H NEGATIVE Urine Nitrite POSITIVE H NEGATIVE Urine Bilirubin NEGATIVE NEGATIVE Urine Urobilinogen 2.0 < = 1.0 MG/DL Urine Leukocyte Esterase 1+ H NEGATIVE Urine RBC (Auto) 1+ H NEGATIVE Urine RBC 5-10 H /HPF Urine WBC 50-100 H /HPF Urine Squamous Epithelial Cells 2-5 /HPF Urine Crystals NONE /LPF Urine Bacteria LARGE H /HPF Urine Casts NONE /LPF Urine Mucus NEGATIVE /LPF Urine Culture Indicated CULTURE PENDING White Blood Count 11.7 H 4.3-11.0 10^3/uL Red Blood Count 4.20 3.80-5.11 10^6/uL Hemoglobin 12.7 11.5-16.0 g/dL Hematocrit 37 35-52 % Mean Corpuscular Volume 87 80-99 fL Mean Corpuscular Hemoglobin 30 25-34 pg Mean Corpuscular Hemoglobin Concent 35 32-36 g/dL Red Cell Distribution Width 12.3 10.0-14.5 % Platelet Count 186 130-400 10^3/uL Mean Platelet Volume 9.4 9.0-12.2 fL Immature Granulocyte % (Auto) 0 % Neutrophils (%) (Auto) 81 H 42-75 % Lymphocytes (%) (Auto) 10 L 12-44 % Monocytes (%) (Auto) 7 0-12 % Eosinophils (%) (Auto) 1 0-10 % Basophils (%) (Auto) 0 0-10 % Neutrophils # (Auto) 9.4 H 1.8-7.8 10^3/uL Lymphocytes # (Auto) 1.2 1.0-4.0 10^3/uL Monocytes # (Auto) 0.8 0.0-1.0 10^3/uL Eosinophils # (Auto) 0.1 0.0-0.3 10^3/uL Basophils # (Auto) 0.0 0.0-0.1 10^3/uL Immature Granulocyte # (Auto) 0.1 0.0-0.1 10^3/uL Prothrombin Time 15.4 H 12.2-14.7 SEC INR Comment 1.2 0.8-1.4 Activated Partial Thromboplast Time 32 24-35 SEC Sodium Level 139 135-145 MMOL/L Potassium Level 3.7 3.6-5.0 MMOL/L Chloride Level 103 98-107 MMOL/L Carbon Dioxide Level 23 21-32 MMOL/L Anion Gap 13 5-14 MMOL/L Blood Urea Nitrogen 24 H 7-18 MG/DL Creatinine 0.81 0.60-1.30 MG/DL Estimat Glomerular Filtration Rate 67 BUN/Creatinine Ratio 30 Glucose Level 116 H 70-105 MG/DL Lactic Acid Level 1.20 0.50-2.00 MMOL/L Calcium Level 9.6 8.5-10.1 MG/DL Corrected Calcium 9.8 8.5-10.1 MG/DL Total Bilirubin 0.8 0.1-1.0 MG/DL Aspartate Amino Transf (AST/SGOT) 21 5-34 U/L Alanine Aminotransferase (ALT/SGPT) 12 0-55 U/L Alkaline Phosphatase 77 40-136 U/L Total Protein 6.8 6.4-8.2 GM/DL Albumin 3.7 3.2-4.5 GM/DL (ELMIRA LIRA MD) Micro Results Microbiology 06/10/21 Urine Culture - Preliminary, Resulted Probable E.coli (ELMIRA LIRA MD) Vital Signs/I&O 06/10/21 06/10/21 13:50 13:50 Temp 37.6 Pulse 115 Resp 20 B/P (MAP) 184/112 (136) Pulse Ox 100 91 O2 Delivery Nasal Cannula Nasal Cannula O2 Flow Rate 2.00 (ELMIRA LIRA MD) Blood Pressure Mean: 136 Progress Progress Note : Time: 13:50 Progress Note Patient seen and evaluated, will obtain labs, EKG, chest x-ray, pelvis and right hip. Along with a CT of the head. With Tachycardia and hypotension, will check for UTI or other source of infection. No fever but AMS could be from fall or UTI. 1430 CT head clear. Will give Morphine 2 mg IV for pain. 1500 intertrochanteric hip fracture on the right noted on x-ray. 1600 daughter here, spoke to her about the x-ray. Discussed option of surgery, agreeable, will contact fire protection inspector ortho. Cipro 400 mg IV for UTI. Spoke to Dr. Ribera, felt surgery would be appropriate, as she is ambulatory and stable medically with dementia. [address] Garcia, agreeable with plan for surgery tomorrow if medically cleared. [address] Salcido, agreeable with plan for admission. Spoke to daughter, updated on plan. Will obtain consent. (RACHAEL THAKUR) Initial ECG Impression Date: Jun 10, 2021 Initial ECG Impression Time: 16:56 Initial ECG Rate: 120 Initial ECG Rhythm: S.Tach Initial ECG Intervals: Normal Initial ECG Intervals VA 134, QRS D 81, QT 351, QTc 496. [place] P 58, QRS 43, T 60 Initial ECG Impression: Normal (RACHAEL THAKUR) Diagnostic Imaging Diagonstic Imaging: CT Plain Films/CT/US/NM/MRI: head Comments NAME: YANICK ENCISO [facility] REC#: [id number] PT STATUS: REG ER : 1935 PHYSICIAN: RACHAEL THAKUR ADMIT DATE: 06/10/21/ER Draft Date of Exam:06/10/21 CT HEAD WO PROCEDURE: CT head without contrast. TECHNIQUE: Multiple contiguous axial images were obtained through the brain without the use of intravenous contrast. Auto Exposure Controls were utilized during the CT exam to meet ALARA standards for radiation dose reduction. INDICATION: Recent fall. COMPARISON: 05/04/2021. FINDINGS: The ventricles and sulci are appropriate for the patient's age. No sulcal effacement or midline shift is identified. No acute intra-axial or extra-axial hemorrhage is detected. The cisterns are patent. The visualized paranasal sinuses are clear. IMPRESSION: No acute intracranial process is detected. Dictated on workstation # [id number] Dict: 06/10/21 1450 Trans: 06/10/21 1453 [id number] Interpreted by: CALIXTO GOMEZ MD Electronically signed by: Reviewed: Reviewed by [place] Diagonstic Imaging: Xray Plain Films/CT/US/NM/MRI: pelvis, hip Comments [email or web address] REC#: [id number] PT STATUS: REG ER : 1935 PHYSICIAN: RACHAEL THAKUR ADMIT DATE: 06/10/21/ER Draft Date of Exam:06/10/21 PELVIS WITH RIGHT HIP 2-3VIEWS INDICATION: Right hip pain. FINDINGS: An AP view of the pelvis and two views of the right hip show a nondisplaced intertrochanteric fracture of the right hip. The pelvic ring is intact. IMPRESSION: Intertrochanteric fracture of the right hip. The report was called to the ER by jlm@3:13 PM. CRITICAL FINDING Dictated on workstation # [id number] Dict: 06/10/21 1507 Trans: 06/10/21 1513 [id number] Interpreted by: RIGO JACOB MD Electronically signed by: Reviewed: Reviewed by Wa Diagonstic Imaging: Xray Plain Films/CT/US/NM/MRI: chest Comments [facility] REC#: [id number] PT STATUS: REG ER : 1935 PHYSICIAN: RACHAEL THAKUR ADMIT DATE: 06/10/21/ER Draft Date of Exam:06/10/21 CHEST 1 VIEW, AP/PA ONLY INDICATION: Altered mental status after a fall. EXAMINATION: Portable chest at 02:56 p.m. FINDINGS: Heart size and pulmonary vascularity are normal. Lungs are clear. There are no effusions or pneumothoraces. IMPRESSION: Negative chest. Dictated on workstation # [id number] Dict: 06/10/21 1501 Trans: 06/10/21 1507 [id number] Interpreted by: RIGO JACOB MD Electronically signed by: Reviewed: Reviewed by Me (RACHAEL THAKUR) Focused Exam Lactate Level 06/10/21 14:28: Lactic Acid Level 1.20 (ELMIRA LIRA MD) Lactic Acid Level Laboratory Tests Test 06/10/21 14:28 Lactic Acid Level 1.20 MMOL/L (0.50-2.00) (ELMIRA LIRA MD) Departure Impression Primary Impression: Falls frequently Additional Impressions: UTI (urinary tract infection) Qualified Codes: N30.01 - Acute cystitis with hematuria Intertrochanteric fracture of right hip Qualified Codes: S72.144A - Nondisplaced intertrochanteric fracture of right femur, initial encounter for closed fracture Disposition: ADMITTED INPATIENT Condition: Stable Admissions Decision to Admit Reason: Admit from ER (General) Decision to Admit/Date: Jun 10, 2021 Time/Decision to Admit Time: 16:00 (RACHAEL THAKUR) Departure-Patient Inst. Referrals: NO,LOCAL PHYSICIAN (PCP/Family) Primary Care Physician ATTENDING PHYSICIAN NOTE: I was physically present as attending physician in the emergency department during the care of this patient, but I was not directly involved in the decision making or delivery of care for this patient. (ELMIRA LIRA MD) Copy Copies To 1: VISH RIBERA MD, AMY ARNP Jun 10, 2021 15:15 ELMIRA LIRA MD Jun 11, 2021 12:06
[2021-06-10] MEDS ORDERED: CIPROFLOXACIN IV 400MG/200ML 200 ML IV ONE (15:45)
[2021-06-10 18:17] VITALS: BP 180/101
[2021-06-10] MEDS: NS IV 1000 ML 1,000 ML IV SCH (18:27)
[2021-06-10] MEDS ORDERED: ONDANSETRON 4 MG/2 ML (SDV) Z0FRAN IV PRN (18:30)
[2021-06-10] MEDS ORDERED: CATHETER FLUSH 10 ML SYR IV PRN (18:30)
[2021-06-10] MEDS ORDERED: polyethylene glycoL POWDER 17 GM (MIRALAX) PACK PO PRN (18:30)
[2021-06-10 18:45] VITALS: BP 172/92
[2021-06-10 19:43] VITALS: BP 172/92
[2021-06-10] MEDS: DOCUSATE SODIUM 100 MG (COLACE) CAP PO SCH (19:53)
[2021-06-10] MEDS: SENNA W/DOCUSATE (SENOKOT S) TABLET PO SCH (19:54)
[2021-06-10 23:30] VITALS: BP 135/82
[2021-06-11] VITALS (18 sets, daily range): BP systolic 130–181; BP diastolic 66–96
[2021-06-11] MEDS: NS IV 1000 ML 1,000 ML IV SCH ×2 (04:19→14:17)
[2021-06-11] MEDS: CIPROFLOXACIN 400 MG/D5W 200 ML (PRE-MIX) IV SCH ×2 (04:31→17:09)
[2021-06-11] MEDS: morphine INJ 4 MG/ML 1 ML (VIAL/SYRINGE) IV PRN ×2 (05:16→15:26)
[2021-06-11 05:38] LABS: BASOPHILS # (AUTO) 0.1 10^3/uL (0.0-0.1); BASOPHILS % (AUTO) 1 % (0-10); EOSINOPHILS # (AUTO) 0.3 10^3/uL (0.0-0.3); EOSINOPHILS % (AUTO) 3 % (0-10); HEMATOCRIT 35 % (35-52); HEMOGLOBIN 11.8 g/dL (11.5-16.0); LYMPHOCYTES % (AUTO) 9 % (12-44); MEAN CORPUSCULAR HEMOGLOBIN 30 pg (25-34); MEAN CORPUSCULAR HGB CONC 34 g/dL (32-36); MEAN CORPUSCULAR VOLUME 90 fL (80-99); MEAN PLATELET VOLUME 9.2 fL (9.0-12.2); MONOCYTES % (AUTO) 10 % (0-12); NEUTROPHILS % (AUTO) 77 % (42-75); PLATELET COUNT 132 10^3/uL (130-400); WHITE BLOOD COUNT 10.4 10^3/uL (4.3-11.0)
[2021-06-11 05:54] LABS: POTASSIUM 3.4 MMOL/L (3.6-5.0)
[2021-06-11 05:55] LABS: CALCIUM 8.8 MG/DL (8.5-10.1)
[2021-06-11 05:59] LABS: CREATININE SERUM 0.7 MG/DL (0.60-1.30)
--- NOTE | 2021-06-11 07:32 | Physical Therapy Progress Note ---
Therapy Progress Note Patient to have surgery on this date. PT will await orders from Orthopedic surgeon for POC. LESLY FREGOSO PT Jun 11, 2021 07:32
--- NOTE | 2021-06-11 07:47 | History & Physical-Hospitalist ---
History of Present Illness HPI/Chief Complaint Arline Dan is an 86 year old female with PMH dementia, HTN, HLD, GERD, debility, who presented after a fall. She was recently admitted to a [facility] due to recurrent falls. She also had a recent inpatient rehab stay due to debility and recurrent falls. She reportedly had altered mentation according to [facility] staff. Upon my examination she is unable to provide any history. Her workup revealed a right hip fracture. She was also found to have a urinary tract infection. Source: patient, RN/MD Exam Limitations: clinical condition Date Seen 06/10/21 Time Seen by a Provider: 18:00 Attending Physician Juana Samayoa MD PCP No,Local Physician Referring Physician Date of Admission Jun 10, 2021 at 17:00 Home Medications & Allergies Home Medications Reviewed patient Home Medication Reconciliation performed by pharmacy medication reconciliations guitar repair technician and/or nursing. Patients Allergies have been reviewed. Allergies Allergies Coded Allergies Penicillins (Verified Allergy, Unknown, 08/07/17) Past Akqpslv-Pcqhqe-Emhmhz Hx Patient Social History Tobacco Use?: No Use of E-Cig and/or Vaping dev: No Substance use?: No Alcohol Use?: No Pt feels they are or have been: No Immunizations Up To Date Date of Influenza Vaccine: Jun 20, 2017 First/Initial COVID19 Vaccinat: MODERNA 10/30/20 Second COVID19 Vaccination Doug: JUL 2020 Tetanus Booster (TDap): Unknown Seasonal Allergies Seasonal Allergies: No Current Status Advance Directives: Yes Advance Directive Location: Copy placed in chart Communicates: Verbally Primary Language: [place] Preferred Spoken Language: [place] Is interpretation needed?: No Sensory deficits: Hearing impairment Past Medical History Surgeries: Gallbladder, Hysterectomy, Oophorectomy, Orthopedic High Cholesterol, Hypertension Dementia Gastroesophageal Reflux Cataract Hearing Impairment: Hard of Hearing Blood Disorders: No Family Medical History Reviewed Nursing Family Hx No Pertinent Family Hx Review of Systems ROS-Unable to Obtain: altered mental status Constitutional: see HPI Physical Exam Physical Exam Vital Signs Vital Signs - First Documented 06/10/21 13:50 Temp 37.6 Pulse 115 Resp 20 B/P (MAP) 184/112 (136) Pulse Ox 100 O2 Delivery Nasal Cannula O2 Flow Rate 2.00 Capillary Refill : Less Than 3 Seconds Height, Weight, BMI Height: 5'3.00" Weight: 145lbs. 0.0oz. 65.471260gj; 23.49 BMI Method:Stated General Appearance: Anxious, Mild Distress (uncomfortable) HEENT: PERRL/EOMI, Pharynx Normal Neck: Normal Inspection, Supple Respiratory: Lungs Clear, Normal Breath Sounds, No Respiratory Distress Cardiovascular: No Edema, No Murmur, Tachycardia Gastrointestinal: Normal Bowel Sounds, Non Tender, Soft Extremity: Normal Inspection, Non Tender, No Pedal Edema Neurologic/Psychiatric: Alert, Disoriented, Motor Weakness Skin: Normal Color, Warm/Dry Results Results/Procedures Labs Laboratory Tests 06/10/21 14:28 06/11/21 05:25 Patient resulted labs reviewed. Imaging: Reviewed Imaging Report Assessment/Plan Admission Diagnosis Closed right hip fracture Admission Status: Observation Assessment and Plan Closed right hip fracture Recurrent falls XR showed right hip fracture Orthopedic surgery consulted NPO after midnight Consent obtained from family in ER DNR Pain regimen Bowel regimen Incentive sprirometry PT/OT after surgery UTI Not septic UA consistent with UTI Urine culture pending Started on Cipro due to penicillin allergy Dementia High risk for delirium Avoid delirium triggers as able HTN HLD GERD Resume home meds as able DVT prophylaxis: Lovenox after surgery Diagnosis/Problems Diagnosis/Problems (1) Intertrochanteric fracture of right hip Status: Acute Qualifiers: Encounter type: initial encounter Fracture type: closed Fracture alignment: nondisplaced Qualified Codes: S72.144A - Nondisplaced intertrochanteric fracture of right femur, initial encounter for closed fracture (2) Falls frequently Status: Acute (3) UTI (urinary tract infection) Status: Acute Qualifiers: Urinary tract infection type: acute cystitis Hematuria presence: with hematuria Qualified Codes: N30.01 - Acute cystitis with hematuria (4) Debility Status: Acute (5) Frail elderly Status: Acute (6) Hypertension Status: Chronic (7) Hyperlipidemia Status: Chronic (8) GERD (gastroesophageal reflux disease) Status: Chronic (9) Dementia Status: Chronic JUANA SAMAYOA MD Jun 11, 2021 07:47
[2021-06-11] MEDS: DOCUSATE SODIUM 100 MG (COLACE) CAP PO SCH ×2 (09:00→21:15)
[2021-06-11] MEDS: SENNA W/DOCUSATE (SENOKOT S) TABLET PO SCH ×2 (09:00→21:15)
[2021-06-11] MEDS ORDERED: KETAMINE SYRINGE 50 MG/5 ML SYRINGE ONE (09:18)
[2021-06-11] MEDS ORDERED: fentaNYL INJ 100 MCG/2 ML AMP ONE (09:18)
[2021-06-11] MEDS ORDERED: MIDAZOLAM 2 MG/2 ML (VERSED) VIAL ONE (09:19)
--- NOTE | 2021-06-11 09:21 | Consultation - Ortho ---
Consult - Ortho Subjective Date of Exam 06/11/21 Chief Complaint Intertrochanteric fracture right hip HPI/Events since last exam Mrs Dan is an 86-year-old white female who [facility]. Due to hip pain she was seen in the emergency room yesterday afternoon where x-rays showed a nondisplaced intertrochanteric fracture of the right hip. She was admitted for surgical treatment. In the emergency room she was accompanied by her daughter. Her daughter signed a consent for Open reduction internal fixation of her right hip fracture. She does ambulate with a walker. No previous right hip problems. Patient has dementia and and is unable to provide a history but I did get history from her family. Medical, Surgical History Reviewed and no additions or change Social History Reviewed and no additions or change Family History Reviewed and no additions or change Review of Systems Reviewed and no additions or changes Allergies: Coded Allergies: Penicillins (Verified Allergy, Unknown, 08/07/17) Home Meds Reported Medications Acetaminophen (Tylenol Extra Strength) 500 Mg Tablet, 500-1000 MG PO Q8H PRN for PAIN-MILD (1-4), TAB 05/04/21 Valproic Acid (Valproic Acid) 250 Mg Capsule, 250 MG PO BID, CAP 05/04/21 Spironolactone (Spironolactone) 50 Mg Tablet, 50 MG PO HS, TAB 10/21/17 Lovastatin (Lovastatin) 20 Mg Tablet, 20 MG PO HS 08/07/17 Omeprazole (Omeprazole) 20 Mg Capsule.dr, 20 MG PO DAILY 08/07/17 Fluoxetine HCl (Fluoxetine HCl) 10 Mg Capsule, 10 MG PO DAILY 08/07/17 Objective Exam Constitutional: [] HEENT: [] Neck: [No apparent pain on palpation or range of motion] Cardiovascular: [] Respiratory: [] Gastrointestinal: [] Genitourinary: [] Skin: [] Back/Spine: No apparent pain on palpation or range of motion[] Extremities: [[email or web address]&studyUID=[id number]&qqxfjhYKX=[id number]&VWfjeGheatx=[id number]&DDsrcPatient=[id number]&DDsrcPatientMRN=[id number]&WCWuc=[id number]&&DDSeriesType=0&dataSource=VCPX&DDDataSource =VCPX&Source=SNA&DDVolumetric=true&DDSopClassUid =[id number]&DDFrameOfRef=[id number]&DDModality=CT&DDSeriesIUID= [id number]&DDFirstSOPInstanceUID= [id number]] Neurologic: [] Psychiatric: [] Hematologic/lymphatic/immunologic: [] Vital Signs Vital Signs Date Time Temp Pulse Resp B/P (MAP) Pulse Ox O2 Delivery O2 Flow Rate FiO2 06/11/21 08:00 35.9 102 20 137/85 (102) 97 Nasal Cannula 4.00 06/11/21 03:26 36.4 104 22 159/79 (105) 95 Nasal Cannula 4.00 06/10/21 23:30 36.4 105 22 135/82 (99) 95 Nasal Cannula 4.00 06/10/21 19:43 36.0 112 22 172/92 (118) 96 Nasal Cannula 4.00 06/10/21 19:30 95 Nasal Cannula 4.00 06/10/21 18:45 112 20 172/92 (118) 96 Nasal Cannula 4.00 06/10/21 18:31 Nasal Cannula 4.00 06/10/21 18:17 36.2 117 22 180/101 (127) 91 Nasal Cannula 4.00 06/10/21 18:02 115 18 165/91 94 Nasal Cannula 2.00 06/10/21 13:50 37.6 115 20 184/112 (136) 91 Nasal Cannula 06/10/21 13:50 100 Nasal Cannula 2.00 I & O 06/11/21 07:00 Intake Total 0 ml Output Total 400 ml Balance -400 ml Lab Results Laboratory Tests 06/10/21 14:00: Urine Color YELLOW, Urine Clarity CLOUDY, Urine pH 6.0, Urine Specific [place] 1.025H, Urine Protein 1+H, Urine Glucose (UA) NEGATIVE, Urine Ketones 1+H, Urine Nitrite POSITIVEH, Urine Bilirubin NEGATIVE, Urine Urobilinogen 2.0, Urine Leukocyte Esterase 1+H, Urine RBC (Auto) 1+H, Urine RBC 5-10H, Urine WBC 50-100H , Urine Squamous Epithelial Cells 2-5, Urine Crystals NONE, Urine Bacteria LARGEH, Urine Casts NONE, Urine Mucus NEGATIVE, Urine Culture Indicated CULTURE PENDING 06/10/21 14:28: White Blood Count 11.7H, Red Blood Count 4.20, Hemoglobin 12.7, Hematocrit 37, Mean Corpuscular Volume 87, Mean Corpuscular Hemoglobin 30, Mean Corpuscular Hemoglobin Concent 35, Red Cell Distribution Width 12.3, Platelet Count 186, Mean Platelet Volume 9.4, Immature Granulocyte % (Auto) 0, Neutrophils (%) (A uto) 81H, Lymphocytes (%) (Auto) 10L, Monocytes (%) (Auto) 7, Eosinophils (%) (Auto) 1, Basophils (%) (Auto) 0, Neutrophils # (Auto) 9.4H, Lymphocytes # (Auto) 1.2, Monocytes # (Auto) 0.8, Eosinophils # (Auto) 0.1, Basophils # (Auto) 0.0, Immature Granulocyte # (Auto) 0.1, Prothrombin Time 15.4H, INR Comment 1 .2, Activated Partial Thromboplast Time 32, Sodium Level 139, Potassium Level 3.7, Chloride Level 103, Carbon Dioxide Level 23, Anion Gap 13, Blood Urea Nitrogen 24H, Creatinine 0.81, Estimat Glomerular Filtration Rate 67, BUN/Creatinine Ratio 30, Glucose Level 116H, Lactic Acid Level 1.20, Calcium Level 9.6, Corrected Calcium 9.8, Total Bilirubin 0.8, Aspartate Amino Transf (AST/SGOT) 21, Alanine Aminotransferase (ALT/SGPT) 12, Alkaline Phosphatase 77, Total Protein 6.8, Albumin 3.7 06/10/21 23:40: SARS-CoV-2 RNA (RT-PCR) Not Detected 06/11/21 05:25: White Blood Count 10.4, Red Blood Count 3.88, Hemoglobin 11.8, Hematocrit 35, Mean Corpuscular Volume 90, Mean Corpuscular Hemoglobin 30, Mean Corpuscular Hemoglobin Concent 34, Red Cell Distribution Width 12.4, Platelet Count 132, Mean Platelet Volume 9.2, Immature Granulocyte % (Auto) 0, Neutrophils (%) (Auto) 77H, Lymphocytes (%) (Auto) 9L, Monocytes (%) (Auto) 10, Eosinophils (%) (Auto) 3, Basophils (%) (Auto) 1, Neutrophils # (Auto) 8.0H, Lymphocytes # (Auto) 1.0, Monocytes # (Auto) 1.0, Eosinophils # (Auto) 0.3, Basophils # (Auto) 0.1, Immature Granulocyte # (Auto) 0.0, Sodium Level 137, Potassium Level 3.4L, Chloride Level 105, Carbon Dioxide Level 21, Anion Gap 11, Blood Urea Nitrogen 21H, Creatinine 0.70, Estimat Glomerular Filtration Rate 80, BUN/Creatinine Ratio 30, Glucose Level 139H, Calcium Level 8.8 Imaging X-rays of the right hip show a nondisplaced 2 part intertrochanteric fracture Assessment and Plan Assessment 2 part intertrochanteric fracture right hip, nondisplaced, closed Problem List Unchanged Plan Treatment options were discussed with the family. Her son has power of attorney recruiter. I talked to them about nonoperative as well as operative treatment. They want to proceed with operative treatment. I discussed surgical treatment which I would recommend a short TFN. I described the procedure risk complications and they would like to proceed. They understand she could possibly need blood transfusion. There is also possibility that she might not make it through the surgery/anesthesia or the recovery..Her plan is to get her back to level she was before her fall. I talked about her penicillin allergy which they do not know what reaction it was and it was several years ago. It is probably a minor reaction and she may not have any problems if taking penicillin now. I talked him about using Ancef which is a 10% chance of a similar type reaction and they will are fine with Ancef. We will use Lovenox po stop for DVT prophylaxis. Plan on return to the [facility] in 3 to 5 days postop. Walker ambulation full weightbearing on the right as tolerated. Final Diagonsis Nondisplaced closed 2 part intertrochanteric fracture right hip Level of the visit: Level 3 YA HOOKS MD Jun 11, 2021 09:20
[2021-06-11] MEDS ORDERED: ceFAZolin INJECTION 2,000 MG ONE (10:02)
[2021-06-11] MEDS ORDERED: BUPIVACAINE 0.5% 30 ML (SENSORCAINE) VIAL ONE (10:22)
[2021-06-11] MEDS ORDERED: PHENYLEPHRINE 100 MCG/ML 10 ML (ANESTHESIA) SYR ONE (10:22)
[2021-06-11] MEDS ORDERED: ROPIVACAINE 5MG/ML 30ML VIAL ONE (10:33)
[2021-06-11] MEDS ORDERED: NEO/POLY/BAC (NEOSPORIN) OINT 15 GM TUBE ONE (10:42)
--- NOTE | 2021-06-11 10:51 | Diagnostic Imaging Report ---
Indication: Intraoperative fluoroscopy. Findings: 3 views were obtained. 46.4 seconds of fluoroscopy was utilized. There is open reduction and internal fixation right femoral neck fracture with compression screw and intramedullary margareth. IMPRESSION: Intraoperative fluoroscopy during ORIF of right hip fracture as described. Dictated by: Dictated on workstation # [id number]
--- NOTE | 2021-06-11 11:10 | Operative Report - Ortho ---
Operative Report Surgeon (s)/Auto Body Builder Apprentice (s) Surgeon YA HOOKS MD Auto Body Builder Apprentice n/a Pre-Operative Diagnosis Nondisplaced 2 part intertrochanteric fracture right hip Post-Operative Diagnosis same Operative Report Date of Procedure: Jun 11, 2021 Name of Procedure Performed: Short TFN intertrochanteric fracture right hip using a 10 mm x 170 mm x 130 degree margareth with a 90 mm helical blade and a 38 mm distal locking screw Description & Findings The patient was seen in the preoperative area and then taken to the OR. Spinal anesthesia was placed in hospital bed and the patient was transferred to the fracture table. Left leg was placed in the well-leg nice which was well- padded. The right foot and ankle were placed in the traction boot and the right leg was placed in adduction with no traction the leg was also internally rotated about 30 to 40 degrees. Images used to visualize the fracture which remained nondisplaced. This point the right hip and thigh were prepped and draped in usual sterile manner. A skin incision was made just proximal to the tip of the greater trochanter. This was taken down through subtenons tissue then through the gluteal fascia and the greater trochanter was palpated. A guidewire was placed into the tip of the greater trochanter central aspect down into the proximal femur. It was midline on the lateral view. This was then overreamed. The guidewire was then removed and a 10 mm x 170 mm 130 degree margareth was inserted. Next using the lateral guide through an incision to the lateral cortex a guidewire was placed into the central aspect of the neck and head on both AP and lateral views. This was measured and a 90 mm helical blade was selected. Lateral cortex was opened and the helical blade was inserted then locked. Excellent position was noted of the helical blade as well as a TFN. Next the lateral guide was removed and the distal locking screw guide was inserted. This was drilled and a 38 mm distal locking screw was inserted. Good position of all were noted on both AP and lateral views. Permanent x-rays were obtained. Maximum internal extra rotation on both AP and lateral view shows good position of the tip of the helical blade in the subchondral bone. At this point the wounds were irrigated. Fascia and subcutaneous tissue were closed with 0 and 2- 0 Vicryl. The skin was closed with skin clips. And dressed with antibiotic ointment, Adaptic and 4 x 4's and ABDs which were taped in position. In a iliac goal fascial block was then inserted by anesthesia. The patient was then transferred to recovery room in good condition she tolerated seizure well. Estimated blood loss50 mL Replacementnone Drainsnone Complicationsnone n/a Anesthesia Type Spinal with block Estimated Blood Loss 50 mL Packing none. Specimen(s) collected/removed None YA HOOKS MD Jun 11, 2021 11:10
[2021-06-11] MEDS ORDERED: ceFAZolin 2 GM IV Premixed 50 ML IV ONE (11:15)
[2021-06-11] MEDS ORDERED: LACTATED RINGERS 1,000 ML IV PRN (11:15)
[2021-06-11] MEDS ORDERED: ONDANSETRON 4 MG/2 ML (SDV) Z0FRAN IVP PRN (11:15)
--- NOTE | 2021-06-11 11:24 | Occ Therapy Progress Note ---
Therapy Progress Note Patient to have surgery on this date. OT will await orders from Orthopedic surgeon for POC. Nakia Charles OT Jun 11, 2021 11:24
[2021-06-11] MEDS ORDERED: MULT-166 PO (13:29)
[2021-06-11] MEDS ORDERED: NYST1POW4 TOP (13:29)
--- NOTE | 2021-06-11 14:31 | Physical Therapy Progress Note ---
Therapy Progress Note Patient too sedated and unsafe to perform initial PT evaluation. PT will begin in LESLY Munoz PT Jun 11, 2021 14:31
[2021-06-11] MEDS ORDERED: NS IV 1000 ML 1,000 ML IV SCH (17:30)
--- NOTE | 2021-06-11 17:36 | Diagnostic Imaging Report ---
Indication: Hypoxia Comparison: 06/10/2021 Findings: Single view of the chest demonstrates cardiac enlargement with increasing and/or new interstitial infiltrates. There is no pneumothorax or effusion. Osseous structures are stable. Impression: Increasing interstitial infiltrates. Dictated by: Dictated on workstation # [id number]
[2021-06-11 18:05] LABS: BASOPHILS # (AUTO) 0.1 10^3/uL (0.0-0.1); BASOPHILS % (AUTO) 1 % (0-10); EOSINOPHILS # (AUTO) 0.3 10^3/uL (0.0-0.3); EOSINOPHILS % (AUTO) 2 % (0-10); HEMATOCRIT 33 % (35-52); HEMOGLOBIN 11.3 g/dL (11.5-16.0); LYMPHOCYTES % (AUTO) 8 % (12-44); MEAN CORPUSCULAR HEMOGLOBIN 31 pg (25-34); MEAN CORPUSCULAR HGB CONC 34 g/dL (32-36); MEAN CORPUSCULAR VOLUME 89 fL (80-99); MEAN PLATELET VOLUME 9.3 fL (9.0-12.2); MONOCYTES # (AUTO) 1.2 10^3/uL (0.0-1.0); MONOCYTES % (AUTO) 10 % (0-12); NEUTROPHILS # (AUTO) 9.8 10^3/uL (1.8-7.8); NEUTROPHILS % (AUTO) 80 % (42-75); PLATELET COUNT 132 10^3/uL (130-400); WHITE BLOOD COUNT 12.3 10^3/uL (4.3-11.0)
[2021-06-11 18:14] LABS: POTASSIUM 3.5 MMOL/L (3.6-5.0)
[2021-06-11 18:15] LABS: CALCIUM 8.7 MG/DL (8.5-10.1)
[2021-06-11 18:19] LABS: CREATININE SERUM 0.67 MG/DL (0.60-1.30)
[2021-06-11] MEDS ORDERED: ACETAMINOPHEN 650 MG SUPP (TYLENOL) PR PRN (18:45)
[2021-06-11 18:54] LABS: ABG BASE EXCESS -0.8 MMOL/L (-2.5-2.5); ABG OXYGEN SATURATION 93 % (94-100); ABG PCO2 37 MMHG (35-45); ABG PH 7.42 (7.37-7.43); ABG PO2 72 MMHG (79-93)
[2021-06-11 18:55] LABS: ALLENS TEST POSITIVE; INSPIRED O2 15 L; PATIENT TEMP 37.8; VENTILATOR NO
[2021-06-11] MEDS ORDERED: ACETAMINOPHEN 325 MG SUPP (TYLENOL) ONE (18:59)
[2021-06-11] MEDS: ceFAZolin 2 GM IV Premixed 50 ML IV SCH (19:03)
--- NOTE | 2021-06-11 19:30 | Progress Note - Hospitalist ---
Subjective HPI/CC On Admission Date Seen by Provider: Jun 11, 2021 Time Seen by Provider: 13:00 Arline Dan is an 86 year old female with PMH dementia, HTN, HLD, GERD, debility, who presented after a fall. She was recently admitted to a correction due to recurrent falls. She also had a recent inpatient rehab stay due to debility and recurrent falls. She reportedly had altered mentation according to correction staff. Upon my examination she is unable to provide any history. Her workup revealed a right hip fracture. She was also found to have a urinary tract infection. Subjective/Events-last exam She was seen after her surgery. She was more communicative than yesterday, but still unable to provide any history. Her speech was incomprehensible for the most part. She was able to say no to things like pain and trouble breathing. Focused Exam Lactate Level 06/10/21 14:28: Lactic Acid Level 1.20 06/11/21 17:35: Lactic Acid Level 1.41 Lactic Acid Level Laboratory Tests Test 06/11/21 17:35 Lactic Acid Level 1.41 MMOL/L (0.50-2.00) Objective Exam Vital Signs Vital Signs Date Time Temp Pulse Resp B/P (MAP) Pulse Ox O2 Delivery O2 Flow Rate FiO2 06/11/21 18:49 38.1 06/11/21 18:35 138 28 181/81 (114) 91 OxyMask 15.00 Capillary Refill : Less Than 3 Seconds General Appearance: No Apparent Distress, Chronically ill Respiratory: No Respiratory Distress, Decreased Breath Sounds Cardiovascular: No Edema, No Murmur, Tachycardia Gastrointestinal: Normal Bowel Sounds, Non Tender, Soft Extremity: Normal Inspection, Non Tender, No Pedal Edema Neurologic/Psychiatric: Alert, Aphasia, Disoriented Skin: Normal Color, Warm/Dry Results/Procedures Lab Laboratory Tests 06/11/21 05:25 06/11/21 17:35 Patient resulted labs reviewed. Imaging: Reviewed Imaging Report Assessment/Plan Assessment and Plan Assess & Plan/Chief Complaint Closed right hip fracture Recurrent falls XR showed right hip fracture Orthopedic surgery consulted s/p surgical repair 06/11 Pain regimen Bowel regimen Incentive sprirometry PT/OT UTI Not septic UA consistent with UTI Urine culture with E coli, final ID and susceptibilities pending Started on Cipro due to penicillin allergy Dementia High risk for delirium Avoid delirium triggers as able HTN HLD GERD Resume home meds as able DVT prophylaxis: Lovenox Diagnosis/Problems Diagnosis/Problems (1) Intertrochanteric fracture of right hip Status: Acute Qualifiers: Encounter type: initial encounter Fracture type: closed Fracture alignment: nondisplaced Qualified Codes: S72.144A - Nondisplaced intertrochanteric fracture of right femur, initial encounter for closed fracture (2) Falls frequently Status: Acute (3) UTI (urinary tract infection) Status: Acute Qualifiers: Urinary tract infection type: acute cystitis Hematuria presence: with hematuria Qualified Codes: N30.01 - Acute cystitis with hematuria (4) Debility Status: Acute (5) Frail elderly Status: Acute (6) Hypertension Status: Chronic (7) Hyperlipidemia Status: Chronic (8) GERD (gastroesophageal reflux disease) Status: Chronic (9) Dementia Status: Chronic FE SAMAYOA MD Jun 11, 2021 19:30
--- NOTE | 2021-06-11 20:10 | Tele-ICU Consult ---
History of Present Illness History of Present Illness Date Seen by Provider: Jun 11, 2021 Time Seen by Provider: 20:06 History of Present Illness 83 F lives in [place], Hx frequent falls, fell broke right hip, has repair today, later became more confused and hypoxic, transferred to MICU, now on vapotherm 25 lpm, FiO2 90% ABG 7.42/37/72, PMH GERD, dementia, HTN, HLD CXR looks like mild congestion, BNP elevated at 563 Also 25-50 WBC in urine, growing E Coli, on CIpro and IV Cefazolin which should cover Allergies and Home Medications Allergies Coded Allergies: Penicillins (Verified Allergy, Unknown, 08/07/17) Home Medications Acetaminophen 500 Mg Tablet, 500-1,000 MG PO Q8H PRN for PAIN-MILD (1-4), (Reported) Fluoxetine HCl 10 Mg Capsule, 10 MG PO DAILY, (Reported) Lovastatin 20 Mg Tablet, 20 MG PO HS, (Reported) Multivitamin with Minerals 1 Each Tablet, 1 EACH PO DAILY, (Reported) Nystatin 1 Each Powder.ea., 1 EACH TOP BID PRN for REDNESS/GAULDING, (Reported) APPLY TO GROIN Omeprazole 20 Mg Capsule.dr, 20 MG PO DAILY, (Reported) Spironolactone 50 Mg Tablet, 50 MG PO HS, (Reported) Valproic Acid 250 Mg Capsule, 250 MG PO BID, (Reported) Past Medical/Social/Family Hx Patient Social History Tobacco Use?: No Use of E-Cig and/or Vaping dev: No Substance use?: No Alcohol Use?: No Pt stated abuse/neglect: No Immunizations Up To Date Influenza Vaccine Up-to-Date: No; Not Current First/Initial COVID19 Vaccinat: MODERNA 10/30/20 Second COVID19 Vaccination Doug: JUL 2020 Tetanus Booster (TDap): Unknown Current Status Advance Directives: Yes Advance Directive Location: Copy placed in chart Communicates: Verbally Primary Language: Bangladeshi Preferred Spoken Language: Bangladeshi Is interpretation needed?: No Sensory deficits: Hearing impairment Review of Systems Constitutional: see HPI EENTM: see HPI Respiratory: see HPI Cardiovascular: see HPI Gastrointestinal: see HPI Genitourinary: see HPI Musculoskeletal: see HPI Skin: see HPI Psychiatric/Neurological: See HPI Sepsis Event Evaluation Height, Weight, BMI Height: 5'3.00" Weight: 145lbs. 0.0oz. 65.625715vm; 23.49 BMI Method:Stated Exam Exam Patient acknowledged, consented, and participated in this virtual visit which was conducted using real time audio/video Vital Signs Date Time Temp Pulse Resp B/P (MAP) Pulse Ox O2 Delivery O2 Flow Rate FiO2 06/11/21 18:49 38.1 06/11/21 18:35 37.8 138 28 181/81 (114) 91 OxyMask 15.00 06/11/21 17:08 36.9 134 28 136/66 (89) 92 OxyMask 10.00 06/11/21 15:25 36.9 109 24 141/85 (103) 93 OxyMask 4.00 06/11/21 12:10 36.0 107 18 138/70 (92) 91 OxyMask 4.00 06/11/21 11:55 OxyMask 4.00 06/11/21 11:50 36.6 24 132/75 (94) 92 OxyMask 4 06/11/21 11:40 24 137/73 (94) 92 OxyMask 4 06/11/21 11:30 20 137/80 (99) 92 OxyMask 4 06/11/21 11:30 OxyMask 4.00 06/11/21 11:20 20 130/68 (88) 93 OxyMask 4 06/11/21 11:20 OxyMask 4.00 06/11/21 11:10 18 130/69 (89) 93 OxyMask 4 06/11/21 11:00 20 130/69 (89) 92 OxyMask 4 06/11/21 10:56 36.6 16 134/71 (92) 95 OxyMask 4 06/11/21 10:56 OxyMask 4.00 06/11/21 08:00 35.9 102 20 137/85 (102) 97 Nasal Cannula 4.00 06/11/21 03:26 36.4 104 22 159/79 (105) 95 Nasal Cannula 4.00 06/10/21 23:30 36.4 105 22 135/82 (99) 95 Nasal Cannula 4.00 I & O 06/11/21 07:00 Intake Total 0 ml Output Total 400 ml Balance -400 ml Height & Weight Height: 5'3.00" Weight: 145lbs. 0.0oz. 65.578166ft; 23.49 BMI Method:Stated General Appearance: No Apparent Distress, Chronically ill, Cachetic, Mild Distress HEENT: PERRL/EOMI, Pharynx Normal Neck: Normal Inspection, Supple Respiratory: No Respiratory Distress, Decreased Breath Sounds, Wheezing Cardiovascular: No Edema, No Murmur, Tachycardia Capillary Refill: Less Than 3 Seconds Gastrointestinal: normal bowel sounds, non tender, soft, distended; No tenderness Extremity: Normal Inspection, Non Tender, No Pedal Edema Neurologic/Psychiatric: Alert, Aphasia, Disoriented Skin: Normal Color, Warm/Dry Results Lab Laboratory Tests 06/10/21 14:28 06/11/21 05:25 06/11/21 17:35 Assessment/Plan Assessment/Plan Wheezing, CXR looks like CHF, would continue abx and give one small dose of IV lasix Critical Care: Critically Ill Patient Time spent with patient (mins): 25 PRINCE DALEY MD Jun 11, 2021 20:10
[2021-06-11] MEDS ORDERED: NS 100 ML (IVPB) BAG IV ONE (20:15)
[2021-06-11] MEDS ORDERED: HOLD METFORMIN - RECEIVED CONTRAST 20 ML VIAL IV SCH (20:15)
[2021-06-11] MEDS ORDERED: IOHEXOL 350 MG/ML 100 ML (OMNIPAQUE 350) VIAL IV ONE (20:15)
--- NOTE | 2021-06-11 20:40 | Diagnostic Imaging Report ---
EXAMINATION: CT angiography of the chest. TECHNIQUE: Contrast enhanced thin section helical images were obtained through the chest with intravenous contrast timed for the optimal opacification of the arterial structures per CTA protocol. Post-processing, reconstructions and interpretation of angiographic images of the vessels was performed. 3D MIP reconstructions were performed and reviewed. All CT scans use one or more of the following dose optimizing techniques: automated exposure control, MA and/or KvP adjustment based on a patient size and exam type, or iterative reconstruction. HISTORY: Hypoxia COMPARISON: None available. FINDINGS: Vascular: No filling defects within the pulmonary arteries. Thoracic aorta is normal in caliber. Calcification of the aorta and coronary vessels. Thyroid: Heterogeneous left thyroid nodule measuring up to 3.0 cm. Mediastinum: Heart size is normal without significant pericardial effusion. There are multiple prominent mediastinal lymph nodes which may be reactive. Lungs and airways: There are small bilateral pleural effusions with adjacent atelectasis or consolidation. Patchy groundglass opacities are seen within the lungs. No pneumothorax. The airways are normal. Upper abdomen: Gallbladder surgically absent. Musculoskeletal: Degenerative changes of the spine without suspicious osseous lesion or compression fracture. IMPRESSION: 1. No findings of pulmonary embolus. 2. Small bilateral pleural effusions with bibasilar atelectasis or consolidation. 3. Patchy groundglass opacities and consolidation seen throughout the lungs which is concerning for a multifocal pneumonia. Dictated by: Dictated on workstation # [id number]
[2021-06-11] MEDS: fentaNYL INJ 100 MCG/2 ML AMP IVP PRN (20:48)
[2021-06-11] MEDS ORDERED: FUROSEMIDE 40 MG/4 ML INJ (LASIX) IVP ONE (21:45)
[2021-06-11] MEDS: ENOXAPARIN 40 MG/0.4 ML (LOVENOX) SYR SC SCH (22:01)
[2021-06-12] VITALS (25 sets, daily range): BP systolic 118–171; BP diastolic 58–99
[2021-06-12] MEDS: NS IV 1000 ML 1,000 ML IV SCH ×3 (00:59→16:58)
[2021-06-12] MEDS: ceFAZolin 2 GM IV Premixed 50 ML IV SCH ×2 (03:31→11:33)
[2021-06-12] MEDS: morphine INJ 4 MG/ML 1 ML (VIAL/SYRINGE) IV PRN ×2 (04:27→09:30)
[2021-06-12 05:15] LABS: HEMOGLOBIN 10.9 g/dL (11.5-16.0)
[2021-06-12 05:44] LABS: POTASSIUM 3.1 MMOL/L (3.6-5.0)
[2021-06-12 05:45] LABS: CALCIUM 8.9 MG/DL (8.5-10.1)
[2021-06-12 05:49] LABS: CREATININE SERUM 0.73 MG/DL (0.60-1.30)
[2021-06-12 05:52] LABS: MAGNESIUM 1.5 MG/DL (1.6-2.4)
[2021-06-12 05:54] LABS: BASOPHILS # (AUTO) 0.1 10^3/uL (0.0-0.1); BASOPHILS % (AUTO) 0 % (0-10); EOSINOPHILS # (AUTO) 0.2 10^3/uL (0.0-0.3); EOSINOPHILS % (AUTO) 2 % (0-10); HEMATOCRIT 31 % (35-52); HEMOGLOBIN 10.9 g/dL (11.5-16.0); LYMPHOCYTES % (AUTO) 8 % (12-44); MEAN CORPUSCULAR HEMOGLOBIN 31 pg (25-34); MEAN CORPUSCULAR HGB CONC 35 g/dL (32-36); MEAN CORPUSCULAR VOLUME 89 fL (80-99); MEAN PLATELET VOLUME 9.8 fL (9.0-12.2); MONOCYTES # (AUTO) 1.2 10^3/uL (0.0-1.0); MONOCYTES % (AUTO) 10 % (0-12); NEUTROPHILS # (AUTO) 9.2 10^3/uL (1.8-7.8); NEUTROPHILS % (AUTO) 79 % (42-75); PLATELET COUNT 141 10^3/uL (130-400); WHITE BLOOD COUNT 11.7 10^3/uL (4.3-11.0)
[2021-06-12] MEDS: CIPROFLOXACIN 400 MG/D5W 200 ML (PRE-MIX) IV SCH ×2 (06:04→16:58)
[2021-06-12] MEDS: KCL 20 MEQ TAB (K-DUR) PO SCH (06:06)
[2021-06-12] MEDS: POTASSIUM CL 10MEQ/50ML IVPB 50 ML IV SCH ×5 (06:06→10:16)
[2021-06-12] MEDS: MAGNESIUM 1 GM/100 ML IVPB 100 ML IV SCH ×3 (06:06→08:15)
--- NOTE | 2021-06-12 07:03 | Occ Therapy Progress Note ---
Therapy Progress Note Pt has been transferred to ICU from 4th floor. Due to change of medical status, pt will need new OT orders. SHYAM REED Jun 12, 2021 07:03
--- NOTE | 2021-06-12 07:28 | Physical Therapy Progress Note ---
Therapy Progress Note Patient transferred to ICU secondary to increase in O2 demand and elevated HR. PT will require new orders to initiate therapy. LESLY FREGOSO PT Jun 12, 2021 07:28
[2021-06-12] MEDS: DOCUSATE SODIUM 100 MG (COLACE) CAP PO SCH ×2 (08:20→20:34)
[2021-06-12] MEDS: SENNA W/DOCUSATE (SENOKOT S) TABLET PO SCH ×2 (08:21→20:34)
--- NOTE | 2021-06-12 09:15 | Progress Note - Ortho ---
Progress Note Subjective Date of Exam 06/12/21 Chief Complaint POD#1 Short TFN right hip for a nondisplaced 2 part intertrochanteric fracture HPI/Events since last exam Mrs Dan is 1 day postop short TFN right hip for a nondisplaced 2 part intertrochanteric fracture. She was transferred to ICU last evening for hypoxia. Her daughter and son feel that she is doing better this morning. Review of Systems Reviewed and no additions or change Allergies: Coded Allergies: Penicillins (Verified Allergy, Unknown, 08/07/17) Home Meds Reported Medications Nystatin (Nystatin) 1 Each Powder.ea., 1 EACH TOP BID PRN for REDNESS/GAULDING, UNIT APPLY TO GROIN 06/11/21 Multivitamin with Minerals (Multivitamins with Minerals) 1 Each Tablet, 1 EACH PO DAILY, TAB 06/11/21 Acetaminophen (Tylenol Extra Strength) 500 Mg Tablet, 500-1000 MG PO Q8H PRN for PAIN-MILD (1-4), TAB 05/04/21 Valproic Acid (Valproic Acid) 250 Mg Capsule, 250 MG PO BID, CAP 05/04/21 Spironolactone (Spironolactone) 50 Mg Tablet, 50 MG PO HS, TAB 10/21/17 Lovastatin (Lovastatin) 20 Mg Tablet, 20 MG PO HS 08/07/17 Omeprazole (Omeprazole) 20 Mg Capsule.dr, 20 MG PO DAILY 08/07/17 Fluoxetine HCl (Fluoxetine HCl) 10 Mg Capsule, 10 MG PO DAILY 08/07/17 Objective Exam Constitutional: [] HEENT: [] Neck: [] Cardiovascular: [] Respiratory: [] Gastrointestinal: [] Genitourinary: [] Skin: [] Back/Spine: [] Extremities: [Dressing is intact. Pain with range of motion right hip. No calf swelling. Appears to have no pain with palpation or Homans. Patient is unable to respond to questions about sensation but pulses are equal] Neurologic: [] Psychiatric: [] Hematologic/lymphatic/immunologic: [] Vital Signs Vital Signs Date Time Temp Pulse Resp B/P (MAP) Pulse Ox O2 Delivery O2 Flow Rate FiO2 06/12/21 09:00 108 24 154/74 (100) 95 Vapotherm 30.00 60.00 06/12/21 08:22 Vapotherm 30.00 60.00 06/12/21 08:21 35.6 06/12/21 08:19 90 Vapotherm 20.00 50 06/12/21 08:00 108 29 137/81 (113) 92 Vapotherm 20.00 50.00 06/12/21 07:00 104 24 131/75 (97) 94 Vapotherm 20.00 50.00 06/12/21 07:00 103 06/12/21 06:24 95 Vapotherm 20.00 50 06/12/21 06:00 106 19 149/82 (104) 95 Vapotherm 20.00 50.00 06/12/21 05:00 106 22 150/72 (98) 95 Vapotherm 20.00 50.00 06/12/21 04:28 36.6 06/12/21 04:00 109 25 154/76 (102) 96 Vapotherm 20.00 50.00 06/12/21 04:00 95 Vapotherm 20.00 50 06/12/21 03:41 Vapotherm 20.00 50.00 06/12/21 03:00 107 23 162/89 (113) 92 Vapotherm 20.00 40.00 06/12/21 02:51 93 Vapotherm 20.00 40 06/12/21 02:00 Vapotherm 20.00 40.00 06/12/21 02:00 108 28 151/95 (113) 94 Vapotherm 20.00 40.00 06/12/21 01:00 110 27 160/79 (106) 94 Vapotherm 25.00 50.00 06/12/21 01:00 112 06/12/21 00:06 36.8 115 29 163/95 (117) 95 Vapotherm 25.00 50.00 06/12/21 00:00 112 27 171/99 (123) 96 Vapotherm 25.00 70.00 06/12/21 00:00 95 Vapotherm 25.00 50 06/11/21 23:00 114 29 146/96 (113) 96 Vapotherm 25.00 70.00 06/11/21 22:48 96 Vapotherm 25.00 60 06/11/21 22:03 96 Vapotherm 25.00 70.00 06/11/21 22:00 120 28 144/84 (104) 97 Vapotherm 25.00 90.00 9/30/21 21:00 131 24 167/95 (119) 91 Vapotherm 25.00 90.00 06/11/21 20:06 95 Vapotherm 25.00 90.00 06/11/21 20:04 36.6 06/11/21 20:00 129 24 180/92 (121) 94 Vapotherm 25.00 100.00 06/11/21 20:00 Vapotherm 25.00 90 06/11/21 19:45 93 Vapotherm 25.00 100 06/11/21 19:00 140 06/11/21 19:00 140 21 173/96 (121) 90 Vapotherm 25.00 100.00 06/11/21 19:00 Vapotherm 25.00 100.00 06/11/21 18:49 38.1 06/11/21 18:35 37.8 138 28 181/81 (114) 91 OxyMask 15.00 06/11/21 17:08 36.9 134 28 136/66 (89) 92 OxyMask 10.00 06/11/21 15:25 36.9 109 24 141/85 (103) 93 OxyMask 4.00 06/11/21 12:10 36.0 107 18 138/70 (92) 91 OxyMask 4.00 06/11/21 11:55 OxyMask 4.00 06/11/21 11:50 36.6 24 132/75 (94) 92 OxyMask 4 06/11/21 11:40 24 137/73 (94) 92 OxyMask 4 06/11/21 11:30 20 137/80 (99) 92 OxyMask 4 06/11/21 11:30 OxyMask 4.00 06/11/21 11:20 20 130/68 (88) 93 OxyMask 4 06/11/21 11:20 OxyMask 4.00 06/11/21 11:10 18 130/69 (89) 93 OxyMask 4 06/11/21 11:00 20 130/69 (89) 92 OxyMask 4 06/11/21 10:56 36.6 16 134/71 (92) 95 OxyMask 4 06/11/21 10:56 OxyMask 4.00 I & O 06/12/21 07:00 Intake Total 2925 ml Output Total 2675 ml Balance 250 ml Lab Results Laboratory Tests 06/11/21 17:35: White Blood Count 12.3H, Red Blood Count 3.69L, Hemoglobin 11.3L, Hematocrit 33L , Mean Corpuscular Volume 89, Mean Corpuscular Hemoglobin 31, Mean Corpuscular Hemoglobin Concent 34, Red Cell Distribution Width 12.3, Platelet Count 132, Mean Platelet Volume 9.3, Immature Granulocyte % (Auto) 0, Neutrophils (%) (Auto) 80H, Lymphocytes (%) (Auto) 8L, Monocytes (%) (Auto) 10, Eosinophils (%) (Auto) 2, Basophils (%) (Auto) 1, Neutrophils # (Auto) 9.8H, Lymphocytes # (Auto) 1.0, Monocytes # (Auto) 1.2H, Eosinophils # (Auto) 0.3, Basophils # (Auto) 0.1, Immature Granulocyte # (Auto) 0.1, Sodium Level 137, Potassium Level 3.5L, Chloride Level 105, Carbon Dioxide Level 22, Anion Gap 10, Blood Urea Nitrogen 18, Creatinine 0.67, Estimat Glomerular Filtration Rate 84, BUN/Creatinine Ratio 27, Glucose Level 126H, Lactic Acid Level 1.41, Calcium Level 8.7, B-Type Natriuretic Peptide 563.7H 06/11/21 18:47: Blood Gas Puncture Site LEFT RADIAL, Blood Gas Patient Temperature 37.8, Arterial Blood pH 7.42, Arterial Blood Partial Pressure CO2 37, Arterial Blood Partial Pressure O2 72L, Arterial Blood HCO3 23, Arterial Blood Total CO2 24.0, Arterial Blood Oxygen Saturation 93L, Arterial Blood Base Excess -0.8, Rishabh Test POSITIVE, Blood Gas Ventilator Setting NO, Blood Gas Inspired Oxygen 15 L 06/12/21 04:24: Hemoglobin 10.9L, Hematocrit 32L 06/12/21 04:29: White Blood Count 11.7H, Red Blood Count 3.54L, Hemoglobin 10.9L, Hematocrit 31L , Mean Corpuscular Volume 89, Mean Corpuscular Hemoglobin 31, Mean Corpuscular Hemoglobin Concent 35, Red Cell Distribution Width 12.2, Platelet Count 141, Mean Platelet Volume 9.8, Immature Granulocyte % (Auto) 1, Neutrophils (%) (Auto) 79H, Lymphocytes (%) (Auto) 8L, Monocytes (%) (Auto) 10, Eosinophils (%) (Auto) 2, Basophils (%) (Auto) 0, Neutrophils # (Auto) 9.2H, Lymphocytes # (Auto) 1.0, Monocytes # (Auto) 1.2H, Eosinophils # (Auto) 0.2, Basophils # (Auto) 0.1, Immature Granulocyte # (Auto) 0.1, Sodium Level 136, Potassium Level 3.1L, Chloride Level 102, Carbon Dioxide Level 22, Anion Gap 12, Blood Urea Nitrogen 15, Creatinine 0.73, Estimat Glomerular Filtration Rate 76, BUN/Creatinine Ratio 21, Glucose Level 116H, Calcium Level 8.9, Phosphorus Level 2.8, Magnesium Level 1.5L Microbiology 06/10/21 MRSA Screen - Final, Complete MRSA not isolated 06/10/21 Blood Culture - Preliminary, Resulted No growth 06/10/21 Urine Culture - Preliminary, Resulted Escherichia coli Aerococcus urinae Assessment and Plan Assessment First day postop Short TFN right hip Problem List Unchanged Plan Continue out of bed to chair as tolerated and walker ambulation weightbearing as tolerated on the right Final Diagonsis Nondisplaced 2 part intertrochanteric fracture right hip status post short TFN Level of the visit: Level 3 Focused Exam Lactate Level 06/10/21 14:28: Lactic Acid Level 1.20 06/11/21 17:35: Lactic Acid Level 1.41 YA HOOKS MD Jun 12, 2021 09:15
--- NOTE | 2021-06-12 09:29 | Tele-ICU Progress Note ---
Subjective Date Seen by a Provider: Jun 12, 2021 Time Seen by a Provider: 09:23 Subjective/Events-last exam This patient admitted with a right hip fracture following a fall for which he underwent surgery. Postop she had some tachycardia which is now improving and bilateral heart rate is around 105/min. Blood pressure is stable earlier she was given Lasix with which she had that is for the valve. Oxygen saturation is 95% at this time. Video visit made. Patient currently resting comfortably. She does have a history of for dementia. Review of Systems ROS PER ATTENDING Sepsis Event Evaluation Height, Weight, BMI Height: 5'3.00" Weight: 145lbs. 0.0oz. 65.934009vl; 23.49 BMI Method:Stated Focused Exam Lactate Level 06/10/21 14:28: Lactic Acid Level 1.20 06/11/21 17:35: Lactic Acid Level 1.41 Exam Exam Patient acknowledged, consented, and participated in this virtual visit which was conducted using real time audio/video Vital Signs Date Time Temp Pulse Resp B/P (MAP) Pulse Ox O2 Delivery O2 Flow Rate FiO2 06/12/21 09:00 108 24 154/74 (100) 95 Vapotherm 30.00 60.00 06/12/21 08:22 Vapotherm 30.00 60.00 06/12/21 08:21 35.6 06/12/21 08:19 90 Vapotherm 20.00 50 06/12/21 08:00 108 29 137/81 (113) 92 Vapotherm 20.00 50.00 06/12/21 07:00 104 24 131/75 (97) 94 Vapotherm 20.00 50.00 06/12/21 07:00 103 06/12/21 06:24 95 Vapotherm 20.00 50 06/12/21 06:00 106 19 149/82 (104) 95 Vapotherm 20.00 50.00 06/12/21 05:00 106 22 150/72 (98) 95 Vapotherm 20.00 50.00 06/12/21 04:28 36.6 06/12/21 04:00 109 25 154/76 (102) 96 Vapotherm 20.00 50.00 06/12/21 04:00 95 Vapotherm 20.00 50 06/12/21 03:41 Vapotherm 20.00 50.00 06/12/21 03:00 107 23 162/89 (113) 92 Vapotherm 20.00 40.00 06/12/21 02:51 93 Vapotherm 20.00 40 06/12/21 02:00 Vapotherm 20.00 40.00 06/12/21 02:00 108 28 151/95 (113) 94 Vapotherm 20.00 40.00 06/12/21 01:00 110 27 160/79 (106) 94 Vapotherm 25.00 50.00 06/12/21 01:00 112 06/12/21 00:06 36.8 115 29 163/95 (117) 95 Vapotherm 25.00 50.00 06/12/21 00:00 112 27 171/99 (123) 96 Vapotherm 25.00 70.00 06/12/21 00:00 95 Vapotherm 25.00 50 06/11/21 23:00 114 29 146/96 (113) 96 Vapotherm 25.00 70.00 06/11/21 22:48 96 Vapotherm 25.00 60 06/11/21 22:03 96 Vapotherm 25.00 70.00 06/11/21 22:00 120 28 144/84 (104) 97 Vapotherm 25.00 90.00 06/11/21 21:00 131 24 167/95 (119) 91 Vapotherm 25.00 90.00 06/11/21 20:06 95 Vapotherm 25.00 90.00 06/11/21 20:04 36.6 06/11/21 20:00 129 24 180/92 (121) 94 Vapotherm 25.00 100.00 06/11/21 20:00 Vapotherm 25.00 90 06/11/21 19:45 93 Vapotherm 25.00 100 06/11/21 19:00 140 06/11/21 19:00 140 21 173/96 (121) 90 Vapotherm 25.00 100.00 06/11/21 19:00 Vapotherm 25.00 100.00 06/11/21 18:49 38.1 06/11/21 18:35 37.8 138 28 181/81 (114) 91 OxyMask 15.00 06/11/21 17:08 36.9 134 28 136/66 (89) 92 OxyMask 10.00 06/11/21 15:25 36.9 109 24 141/85 (103) 93 OxyMask 4.00 06/11/21 12:10 36.0 107 18 138/70 (92) 91 OxyMask 4.00 06/11/21 11:55 OxyMask 4.00 06/11/21 11:50 36.6 24 132/75 (94) 92 OxyMask 4 06/11/21 11:40 24 137/73 (94) 92 OxyMask 4 06/11/21 11:30 20 137/80 (99) 92 OxyMask 4 06/11/21 11:30 OxyMask 4.00 06/11/21 11:20 20 130/68 (88) 93 OxyMask 4 06/11/21 11:20 OxyMask 4.00 06/11/21 11:10 18 130/69 (89) 93 OxyMask 4 06/11/21 11:00 20 130/69 (89) 92 OxyMask 4 06/11/21 10:56 36.6 16 134/71 (92) 95 OxyMask 4 06/11/21 10:56 OxyMask 4.00 I & O 06/12/21 06:59 Intake Total 2925 ml Output Total 2675 ml Balance 250 ml Height & Weight Height: 5'3.00" Weight: 145lbs. 0.0oz. 65.682766dn; 23.49 BMI Method:Stated General Appearance: No Apparent Distress, Chronically ill, Cachetic, Mild Distress HEENT: PERRL/EOMI, Pharynx Normal Neck: Normal Inspection, Supple Respiratory: No Respiratory Distress, Decreased Breath Sounds, Wheezing Cardiovascular: No Edema, No Murmur, Tachycardia Capillary Refill: Less Than 3 Seconds Gastrointestinal: normal bowel sounds, non tender, soft, distended; No tenderness Extremity: Normal Inspection, Non Tender, No Pedal Edema Neurologic/Psychiatric: Alert, Aphasia, Disoriented Skin: Normal Color, Warm/Dry Other comments PE PER ATTENDING Results Lab Laboratory Tests 06/10/21 14:28 06/11/21 05:25 06/11/21 17:35 06/12/21 04:24 06/12/21 04:29 Meds REVIEWED Radiology NAME: YANICK ENCISO MED REC#: [id number] PT STATUS: ADM IN : 1935 PHYSICIAN: FE SAMAYOA MD ADMIT DATE: 06/11/21/ICU Signed Date of Exam:06/11/21 CT ANGIO CHEST W EXAMINATION: CT angiography of the chest. TECHNIQUE: Contrast enhanced thin section helical images were obtained through the chest with intravenous contrast timed for the optimal opacification of the arterial structures per CTA protocol. Post-processing, reconstructions and interpretation of angiographic images of the vessels was performed. 3D MIP reconstructions were performed and reviewed. All CT scans use one or more of the following dose optimizing techniques: automated exposure control, MA and/or KvP adjustment based on a patient size and exam type, or iterative reconstruction. HISTORY: Hypoxia COMPARISON: None available. FINDINGS: Vascular: No filling defects within the pulmonary arteries. Thoracic aorta is normal in caliber. Calcification of the aorta and coronary vessels. Thyroid: Heterogeneous left thyroid nodule measuring up to 3.0 cm. Mediastinum: Heart size is normal without significant pericardial effusion. There are multiple prominent mediastinal lymph nodes which may be reactive. Lungs and airways: There are small bilateral pleural effusions with adjacent atelectasis or consolidation. Patchy groundglass opacities are seen within the lungs. No pneumothorax. The airways are normal. Upper abdomen: Gallbladder surgically absent. Musculoskeletal: Degenerative changes of the spine without suspicious osseous lesion or compression fracture. IMPRESSION: 1. No findings of pulmonary embolus. 2. Small bilateral pleural effusions with bibasilar atelectasis or consolidation. 3. Patchy groundglass opacities and consolidation seen throughout the lungs which is concerning for a multifocal pneumonia. Dictated by: Dictated on workstation # [id number] Dict: 06/11/212034 Trans: 06/11/212111 [facility] [id number] Interpreted by: BRAYDEN JACOB DO Electronically signed by: BRAYDEN JACOB DO 06/11/212111 Assessment/Plan Assessment/Plan 1. Right hip fracture status post ORIF 2. Mild hypoxic respiratory failure requiring supplemental oxygen 3. Bilateral small pleural effusion with pulmonary congestion due to fluid overload status post diuresis. 4. Mildly tachycardia probably due to mild pulmonary congestion and pain. Recommendations 1. Continue supplemental oxygen via nasal cannula. 2. We will give additional dose of Lasix after correction of electrolytes. 3. Pain management 4. Monitor for blood pressure, urine output and any arrhythmias. 5. Correct electrolyte and repeat electrolytes. Critical Care: Critically Ill Patient Time spent with patient (mins): 25 ALLEN ONTIVEROS MD Jun 12, 2021 09:29
--- NOTE | 2021-06-12 10:10 | Anesthesia-Regional Post-Op ---
Regional Patient Condition Mental Status: Alert, Oriented x3 Circulation: Same as Pre-Op Headache: Absent Sensation: Full Recovery Motor Block: Absent Post Op Complications Complications None Follow Up Care/Instructions Patient Instructions None needed. Anesthesia/Patient Condition Patient is doing well, no complaints, stable vital signs, no apparent adverse anesthesia problems. No complications reported per nursing. D/C home per [facility] [place] Criteria: ELLIS Wells CRNA Jun 12, 2021 10:10
[2021-06-12] MEDS: fentaNYL INJ 100 MCG/2 ML AMP IVP PRN ×2 (11:40→15:49)
[2021-06-12] MEDS ORDERED: FUROSEMIDE 40 MG/4 ML INJ (LASIX) IVP ONE (14:30)
--- NOTE | 2021-06-12 14:42 | Progress Note - Hospitalist ---
Subjective HPI/CC On Admission Date Seen by Provider: Jun 12, 2021 Time Seen by Provider: 10:00 Arline Dan is an 86 year old female with PMH dementia, HTN, HLD, GERD, debility, who presented after a fall. She was recently admitted to a skilled nursing due to recurrent falls. She also had a recent inpatient rehab stay due to debility and recurrent falls. She reportedly had altered mentation according to skilled nursing staff. Upon my examination she is unable to provide any history. Her workup revealed a right hip fracture. She was also found to have a urinary tract infection. Subjective/Events-last exam She is more awake and communicative today. She is still confused. She denies any pain. She denies any trouble breathing. She has no complaints or concerns. Focused Exam Lactate Level 06/10/21 14:28: Lactic Acid Level 1.20 06/11/21 17:35: Lactic Acid Level 1.41 Objective Exam Vital Signs Vital Signs Date Time Temp Pulse Resp B/P (MAP) Pulse Ox O2 Delivery O2 Flow Rate FiO2 06/12/21 14:24 95 Vapotherm 20.00 60 06/12/21 14:00 110 22 119/65 (83) 06/12/21 12:00 36.7 Capillary Refill : Less Than 3 Seconds General Appearance: No Apparent Distress, Chronically ill Respiratory: Lungs Clear, Normal Breath Sounds, No Respiratory Distress Cardiovascular: Regular Rate, Rhythm, No Edema, No Murmur Gastrointestinal: Normal Bowel Sounds, Non Tender, Soft Extremity: Normal Inspection, Non Tender, No Pedal Edema Neurologic/Psychiatric: Alert, No Motor/Sensory Deficits, Normal Mood/Affect Skin: Normal Color, Warm/Dry Results/Procedures Lab Laboratory Tests 06/11/21 17:35 06/12/21 04:24 06/12/21 04:29 Patient resulted labs reviewed. Imaging: Reviewed Imaging Report Assessment/Plan Assessment and Plan Assess & Plan/Chief Complaint Acute respiratory failure with hypoxia CT consistent with multifocal pneumonia Continue antibiotics BNP elevated Received Lasix today TeleICU consulted Closed right hip fracture Recurrent falls XR showed right hip fracture Orthopedic surgery following s/p surgical repair 06/11 Pain regimen Bowel regimen Incentive sprirometry PT/OT UTI UA consistent with UTI Urine culture with E coli and Aerococcus, final ID and susceptibilities pending Continue antibiotics Dementia High risk for delirium Avoid delirium triggers as able HTN HLD GERD Resume home meds as able DVT prophylaxis: Lovenox Critical Care Critically Ill Patient Diagnosis/Problems Diagnosis/Problems (1) Acute respiratory failure with hypoxia Status: Acute (2) Intertrochanteric fracture of right hip Status: Acute Qualifiers: Encounter type: initial encounter Fracture type: closed Fracture alignment: nondisplaced Qualified Codes: S72.144A - Nondisplaced intertrochan teric fracture of right femur, initial encounter for closed fracture (3) Falls frequently Status: Acute (4) UTI (urinary tract infection) Status: Acute Qualifiers: Urinary tract infection type: acute cystitis Hematuria presence: with hematuria Qualified Codes: N30.01 - Acute cystitis with hematuria (5) Debility Status: Acute (6) Frail elderly Status: Acute (7) Hypertension Status: Chronic (8) Hyperlipidemia Status: Chronic (9) GERD (gastroesophageal reflux disease) Status: Chronic (10) Dementia Status: Chronic FE SAMAYOA MD Jun 12, 2021 14:42
[2021-06-12 18:28] LABS: POTASSIUM 3.3 MMOL/L (3.6-5.0)
[2021-06-12 18:29] LABS: CALCIUM 8.6 MG/DL (8.5-10.1)
[2021-06-12 18:33] LABS: CREATININE SERUM 0.71 MG/DL (0.60-1.30); PHOSPHORUS 2.5 MG/DL (2.3-4.7)
[2021-06-12 18:35] LABS: MAGNESIUM 1.8 MG/DL (1.6-2.4)
[2021-06-13] VITALS (24 sets, daily range): BP systolic 120–189; BP diastolic 53–98
[2021-06-13] MEDS: ENOXAPARIN 40 MG/0.4 ML (LOVENOX) SYR SC SCH ×2 (00:42→23:58)
[2021-06-13 05:20] LABS: BASOPHILS % (AUTO) 1 % (0-10); EOSINOPHILS # (AUTO) 0.4 10^3/uL (0.0-0.3); EOSINOPHILS % (AUTO) 5 % (0-10); HEMATOCRIT 26 % (35-52); HEMOGLOBIN 8.9 g/dL (11.5-16.0); LYMPHOCYTES # (AUTO) 1.1 10^3/uL (1.0-4.0); LYMPHOCYTES % (AUTO) 12 % (12-44); MEAN CORPUSCULAR HEMOGLOBIN 31 pg (25-34); MEAN CORPUSCULAR HGB CONC 34 g/dL (32-36); MEAN CORPUSCULAR VOLUME 90 fL (80-99); MEAN PLATELET VOLUME 10.2 fL (9.0-12.2); MONOCYTES % (AUTO) 11 % (0-12); NEUTROPHILS # (AUTO) 6.3 10^3/uL (1.8-7.8); NEUTROPHILS % (AUTO) 71 % (42-75); PLATELET COUNT 139 10^3/uL (130-400); WHITE BLOOD COUNT 8.9 10^3/uL (4.3-11.0)
[2021-06-13 05:41] LABS: ALBUMIN 2.7 GM/DL (3.2-4.5); POTASSIUM 3.3 MMOL/L (3.6-5.0)
[2021-06-13 05:43] LABS: CALCIUM 8.6 MG/DL (8.5-10.1)
[2021-06-13 05:44] LABS: TOTAL PROTEIN 5.1 GM/DL (6.4-8.2)
[2021-06-13 05:46] LABS: BILIRUBIN,TOTAL 0.6 MG/DL (0.1-1.0)
[2021-06-13 05:48] LABS: CREATININE SERUM 0.66 MG/DL (0.60-1.30)
[2021-06-13] MEDS: MAGNESIUM 1 GM/100 ML IVPB 100 ML IV SCH (06:12)
[2021-06-13] MEDS: KCL 20 MEQ TAB (K-DUR) PO SCH (06:12)
[2021-06-13] MEDS: POTASSIUM CL 10MEQ/50ML IVPB 50 ML IV SCH ×7 (06:12→15:02)
[2021-06-13] MEDS: CIPROFLOXACIN 400 MG/D5W 200 ML (PRE-MIX) IV SCH (06:24)
[2021-06-13] MEDS: NS IV 1000 ML 1,000 ML IV SCH (06:27)
--- NOTE | 2021-06-13 07:22 | Physical Therapy Progress Note ---
Therapy Progress Note Patient transferred to ICU secondary to increase in O2 demand and elevated HR. PT will require new orders to initiate therapy. LESLY FREGOSO PT Jun 13, 2021 07:22
--- NOTE | 2021-06-13 08:15 | Progress Note - Ortho ---
Progress Note Subjective Date of Exam 06/13/21 Chief Complaint POD#2 Short TFN right hip for a nondisplaced 2 part intertrochanteric fracture HPI/Events since last exam Mr Dan Is 2 days postop short TFN right hip for a 2 part intertrochanteric fracture. Review of Systems Reviewed and no additions or changes Allergies: Coded Allergies: Penicillins (Verified Allergy, Unknown, 08/07/17) Home Meds Reported Medications Nystatin (Nystatin) 1 Each Powder.ea., 1 EACH TOP BID PRN for REDNESS/GAULDING, UNIT APPLY TO GROIN 06/11/21 Multivitamin with Minerals (Multivitamins with Minerals) 1 Each Tablet, 1 EACH PO DAILY, TAB 06/11/21 Acetaminophen (Tylenol Extra Strength) 500 Mg Tablet, 500-1000 MG PO Q8H PRN for PAIN-MILD (1-4), TAB 05/04/21 Valproic Acid (Valproic Acid) 250 Mg Capsule, 250 MG PO BID, CAP 05/04/21 Spironolactone (Spironolactone) 50 Mg Tablet, 50 MG PO HS, TAB 10/21/17 Lovastatin (Lovastatin) 20 Mg Tablet, 20 MG PO HS 08/07/17 Omeprazole (Omeprazole) 20 Mg Capsule.dr, 20 MG PO DAILY 08/07/17 Fluoxetine HCl (Fluoxetine HCl) 10 Mg Capsule, 10 MG PO DAILY 08/07/17 Objective Exam Constitutional: [] HEENT: [] Neck: [] Cardiovascular: [] Respiratory: [] Gastrointestinal: [] Genitourinary: [] Skin: [] Back/Spine: [] Extremities: [Peelback her dressing and both incisions look good without redness or drainage. No apparent calf swelling or pain although the patient really does not answer question] Neurologic: [] Psychiatric: [] Hematologic/lymphatic/immunologic: [] Vital Signs Vital Signs Date Time Temp Pulse Resp B/P (MAP) Pulse Ox O2 Delivery O2 Flow Rate FiO2 06/13/21 07:52 96 Vapotherm 20.00 40 06/13/21 07:30 36.7 06/13/21 07:00 103 06/13/21 06:58 96 Vapotherm 20.00 45 06/13/21 06:11 Vapotherm 20.00 45.00 06/13/21 06:00 100 21 157/71 (99) 95 Vapotherm 20.00 50.00 06/13/21 05:00 97 26 132/72 (92) 95 Vapotherm 20.00 50.00 06/13/21 04:00 36.1 06/13/21 04:00 99 21 131/53 (79) 95 Vapotherm 20.00 50.00 06/13/21 04:00 94 Vapotherm 20.00 45 06/13/21 03:00 99 21 125/63 (83) 96 Vapotherm 20.00 50.00 06/13/21 02:35 92 Vapotherm 30.00 60 06/13/21 02:00 97 20 134/63 (86) 96 Vapotherm 20.00 50.00 06/13/21 01:00 106 22 120/84 (96) 97 Vapotherm 20.00 50.00 06/13/21 01:00 101 06/13/21 00:00 96 Vapotherm 20.00 50 06/13/21 00:00 36.7 06/13/21 00:00 102 21 137/65 (89) 97 Vapotherm 20.00 50.00 06/12/21 23:00 104 21 130/58 (82) 97 Vapotherm 20.00 50.00 06/12/21 23:00 97 Vapotherm 20.00 50.00 06/12/21 22:15 99 Vapotherm 30.00 55.00 06/12/21 22:00 113 20 138/64 (88) 99 Vapotherm 30.00 60.00 06/12/21 21:00 116 22 136/67 (90) 95 Vapotherm 30.00 60.00 06/12/21 20:00 94 Vapotherm 30.00 60 06/12/21 20:00 120 19 139/70 (93) 99 Vapotherm 30.00 60.00 06/12/21 19:59 37.0 06/12/21 19:00 130 06/12/21 19:00 121 21 150/70 (96) 100 Vapotherm 30.00 60.00 06/12/21 18:58 92 Vapotherm 30.00 60 06/12/21 18:00 111 21 136/67 (90) 96 Vapotherm 30.00 60.00 06/12/21 17:00 117 22 146/91 (109) 96 Vapotherm 30.00 60.00 06/12/21 16:00 116 24 147/71 (98) 90 Vapotherm 30.00 60.00 06/12/21 15:52 92 Vapotherm 30.00 60 06/12/21 15:31 36.5 06/12/21 15:00 106 22 132/78 (104) 95 Vapotherm 30.00 60.00 06/12/21 14:24 95 Vapotherm 20.00 60 06/12/21 14:00 110 22 119/65 (83) 95 Vapotherm 30.00 60.00 06/12/21 13:00 113 22 127/61 (83) 93 Vapotherm 30.00 60.00 06/12/21 13:00 113 06/12/21 12:00 125 21 123/74 (90) 91 Vapotherm 30.00 60.00 06/12/21 12:00 94 Vapotherm 30.00 60 06/12/21 12:00 36.7 06/12/21 11:00 107 26 120/66 (84) 95 Vapotherm 30.00 60.00 06/12/21 10:00 112 24 118/66 (83) 93 Vapotherm 30.00 60.00 06/12/21 09:00 108 24 154/74 (100) 95 Vapotherm 30.00 60.00 06/12/21 08:22 Vapotherm 30.00 60.00 06/12/21 08:21 35.6 06/12/21 08:19 90 Vapotherm 20.00 50 I & O 06/13/21 07:00 Intake Total 1650 ml Output Total 1325 ml Balance 325 ml Lab Results Laboratory Tests 06/12/21 18:00: Sodium Level 135, Potassium Level 3.3L, Chloride Level 100, Carbon Dioxide Level 25, Anion Gap 10, Blood Urea Nitrogen 16, Creatinine 0.71, Estimat Glomerular Filtration Rate 78, BUN/Creatinine Ratio 23, Glucose Level 117H, Calcium Level 8.6, Phosphorus Level 2.5, Magnesium Level 1.8 06/13/21 03:27: Sodium Level 135, Potassium Level 3.3L, Chloride Level 101, Carbon Dioxide Level 24, Anion Gap 10, Blood Urea Nitrogen 19H, Creatinine 0.66, Estimat Glomerular Filtration Rate 85, BUN/Creatinine Ratio 29, Glucose Level 91, Calcium Level 8.6, Phosphorus Level 3.0, White Blood Count 8.9, Red Blood Count 2.88L, Hemoglobin 8.9L, Hematocrit 26L, Mean Corpuscular Volume 90, Mean Corpuscular Hemoglobin 31, Mean Corpuscular Hemoglobin Concent 34, Red Cell Distribution Width 12.3, Platelet Count 139, Mean Platelet Volume 10.2, Immature Granulocyte % (Auto) 0, Neutrophils (%) (Auto) 71, Lymphocytes (%) (Auto) 12, Monocytes (%) (Auto) 11, Eosinophils (%) (Auto) 5, Basophils (%) (Auto) 1, Neutrophils # (Auto) 6.3, Lymphocytes # (Auto) 1.1, Monocytes # (Auto) 1.0, Eosinophils # (Auto) 0.4H, Basophils # (Auto) 0.0, Immature Granulocyte # (Auto) 0.0, Corrected Calcium 9.6, Total Bilirubin 0.6, Aspartate Amino Transf (AST/SGOT) 18, Alanine Aminotransferase (ALT/SGPT) 10, Alkaline Phosphatase 53, Total Protein 5.1L, Albumin 2.7L Microbiology 06/10/21 MRSA Screen - Final, Complete MRSA not isolated 06/10/21 Blood Culture - Preliminary, Resulted No growth 06/10/21 Urine Culture - Final, Complete Escherichia coli Aerococcus urinae Assessment and Plan Assessment 2 days postop Problem List Unchanged Plan Continue to try to get out of bed and walker ambulation weightbearing as tolerated on the right. Dressing change today. Final Diagonsis 2 part intertrochanteric fracture right hip status post short TFN Level of the visit: Level 3 Focused Exam Lactate Level 06/10/21 14:28: Lactic Acid Level 1.20 06/11/21 17:35: Lactic Acid Level 1.41 YA HOOKS MD Jun 13, 2021 08:15
--- NOTE | 2021-06-13 08:33 | Diagnostic Imaging Report ---
Indication: Dyspnea. Comparison: 06/11/2021. Discussion: Single portable upright view of the chest was obtained. Stable normal heart size. Small left pleural effusion is stable. No definite effusion on the right. Infiltrates within the right upper lobe and left lung base are stable to slightly decreased. No pneumothorax or osseous abnormality. Impression: 1. Bilateral infiltrates as described, stable to slightly decreased. Small left effusion is stable. Dictated by: Dictated on workstation # [id number]
--- NOTE | 2021-06-13 08:42 | Tele-ICU Progress Note ---
Subjective Date Seen by a Provider: Jun 13, 2021 Time Seen by a Provider: 08:37 Subjective/Events-last exam Patient today in no respiratory distress however chest x-ray showing mild congestive changes. Patient apparently complaining of operative site pain but incision is clean. Her potassium is low which is being supplemented. Video visit made and discussed with the PAINTER [employer]INTENANCE. Review of Systems ROS PER ATTENDING Sepsis Event Evaluation Height, Weight, BMI Height: 5'3.00" Weight: 145lbs. 0.0oz. 65.673442mp; 23.49 BMI Method:Stated Focused Exam Lactate Level 06/10/21 14:28: Lactic Acid Level 1.20 06/11/21 17:35: Lactic Acid Level 1.41 Exam Exam Patient acknowledged, consented, and participated in this virtual visit which was conducted using real time audio/video Vital Signs Date Time Temp Pulse Resp B/P (MAP) Pulse Ox O2 Delivery O2 Flow Rate FiO2 06/13/21 08:00 102 22 157/77 (97) 96 Vapotherm 20.00 45.00 06/13/21 07:52 96 Vapotherm 20.00 40 06/13/21 07:30 36.7 06/13/21 07:00 103 06/13/21 07:00 98 22 129/59 (83) 96 Vapotherm 20.00 45.00 06/13/21 06:58 96 Vapotherm 20.00 45 06/13/21 06:11 Vapotherm 20.00 45.00 06/13/21 06:00 100 21 157/71 (99) 95 Vapotherm 20.00 50.00 06/13/21 05:00 97 26 132/72 (92) 95 Vapotherm 20.00 50.00 06/13/21 04:00 36.1 06/13/21 04:00 99 21 131/53 (79) 95 Vapotherm 20.00 50.00 06/13/21 04:00 94 Vapotherm 20.00 45 06/13/21 03:00 99 21 125/63 (83) 96 Vapotherm 20.00 50.00 06/13/21 02:35 92 Vapotherm 30.00 60 06/13/21 02:00 97 20 134/63 (86) 96 Vapotherm 20.00 50.00 06/13/21 01:00 106 22 120/84 (96) 97 Vapotherm 20.00 50.00 06/13/21 01:00 101 06/13/21 00:00 96 Vapotherm 20.00 50 06/13/21 00:00 36.7 06/13/21 00:00 102 21 137/65 (89) 97 Vapotherm 20.00 50.00 06/12/21 23:00 104 21 130/58 (82) 97 Vapotherm 20.00 50.00 06/12/21 23:00 97 Vapotherm 20.00 50.00 06/12/21 22:15 99 Vapotherm 30.00 55.00 06/12/21 22:00 113 20 138/64 (88) 99 Vapotherm 30.00 60.00 06/12/21 21:00 116 22 136/67 (90) 95 Vapotherm 30.00 60.00 06/12/21 20:00 94 Vapotherm 30.00 60 06/12/21 20:00 120 19 139/70 (93) 99 Vapotherm 30.00 60.00 06/12/21 19:59 37.0 06/12/21 19:00 130 06/12/21 19:00 121 21 150/70 (96) 100 Vapotherm 30.00 60.00 06/12/21 18:58 92 Vapotherm 30.00 60 06/12/21 18:00 111 21 136/67 (90) 96 Vapotherm 30.00 60.00 06/12/21 17:00 117 22 146/91 (109) 96 Vapotherm 30.00 60.00 06/12/21 16:00 116 24 147/71 (98) 90 Vapotherm 30.00 60.00 06/12/21 15:52 92 Vapotherm 30.00 60 06/12/21 15:31 36.5 06/12/21 15:00 106 22 132/78 (104) 95 Vapotherm 30.00 60.00 06/12/21 14:24 95 Vapotherm 20.00 60 06/12/21 14:00 110 22 119/65 (83) 95 Vapotherm 30.00 60.00 06/12/21 13:00 113 22 127/61 (83) 93 Vapotherm 30.00 60.00 06/12/21 13:00 113 06/12/21 12:00 125 21 123/74 (90) 91 Vapotherm 30.00 60.00 06/12/21 12:00 94 Vapotherm 30.00 60 06/12/21 12:00 36.7 06/12/21 11:00 107 26 120/66 (84) 95 Vapotherm 30.00 60.00 06/12/21 10:00 112 24 118/66 (83) 93 Vapotherm 30.00 60.00 06/12/21 09:00 108 24 154/74 (100) 95 Vapotherm 30.00 60.00 I & O 06/13/21 07:00 Intake Total 1650 ml Output Total 1325 ml Balance 325 ml Height & Weight Height: 5'3.00" Weight: 145lbs. 0.0oz. 65.348930xm; 23.49 BMI Method:Stated General Appearance: No Apparent Distress, Chronically ill HEENT: PERRL/EOMI, Pharynx Normal Neck: Normal Inspection, Supple Respiratory: Lungs Clear, Normal Breath Sounds, No Respiratory Distress Cardiovascular: Regular Rate, Rhythm, No Edema, No Murmur Capillary Refill: Less Than 3 Seconds Gastrointestinal: normal bowel sounds, non tender, soft, distended; No tenderness Extremity: Normal Inspection, Non Tender, No Pedal Edema Neurologic/Psychiatric: Alert, No Motor/Sensory Deficits, Normal Mood/Affect Skin: Normal Color, Warm/Dry Other comments PE PER ATTENDING PHYSICIAN Results Lab Laboratory Tests 06/11/21 17:35 06/12/21 04:24 06/12/21 04:29 06/12/21 18:00 06/13/21 03:27 Meds REVIEWED Radiology CXR REVIEWED Assessment/Plan Assessment/Plan 1. Right hip fracture status post TNF 2. Mild hypoxic respiratory failure requiring supplemental oxygen 3. Bilateral small pleural effusion with pulmonary congestion due to fluid overload status post diuresis. 4. Mildly tachycardia probably due to mild pulmonary congestion and pain. Recommendations 1. Continue supplemental oxygen via nasal cannula. 2. We will give additional dose of Lasix after correction of electrolytes. 3. Pain management with small dose of toradol to avoid narcotic 4. Monitor for blood pressure, urine output and any arrhythmias. 5. Correct electrolyte and repeat electrolytes. Critical Care: Critically Ill Patient Time spent with patient (mins): 25 ALLEN ONTIVEROS MD Jun 13, 2021 08:42
[2021-06-13] MEDS ORDERED: KETOROLAC 15 MG/ML VIAL ONE (09:20)
[2021-06-13] MEDS: KETOROLAC 15 MG/ML VIAL IVP PRN ×3 (09:22→20:27)
[2021-06-13] MEDS: DOCUSATE SODIUM 100 MG (COLACE) CAP PO SCH ×2 (10:38→20:26)
[2021-06-13] MEDS: SENNA W/DOCUSATE (SENOKOT S) TABLET PO SCH ×2 (10:38→20:26)
[2021-06-13] MEDS ORDERED: FUROSEMIDE 40 MG/4 ML INJ (LASIX) IVP ONE (12:00)
--- NOTE | 2021-06-13 12:56 | Progress Note - Hospitalist ---
Subjective HPI/CC On Admission Date Seen by Provider: Jun 13, 2021 Time Seen by Provider: 09:15 Arline Dan is an 86 year old female with PMH dementia, HTN, HLD, GERD, debility, who presented after a fall. She was recently admitted to a senior living due to recurrent falls. She also had a recent inpatient rehab stay due to debility and recurrent falls. She reportedly had altered mentation according to senior living staff. Upon my examination she is unable to provide any history. Her workup revealed a right hip fracture. She was also found to have a urinary tract infection. Subjective/Events-last exam She is awake and alert. She is mumbling. She is difficult to understand. This is reportedly her baseline. She denies any pain. She denies any trouble breathing. Focused Exam Lactate Level 06/10/21 14:28: Lactic Acid Level 1.20 06/11/21 17:35: Lactic Acid Level 1.41 Objective Exam Vital Signs Vital Signs Date Time Temp Pulse Resp B/P (MAP) Pulse Ox O2 Delivery O2 Flow Rate FiO2 06/13/21 12:19 92 Vapotherm 20.00 40 06/13/21 12:00 123 19 128/71 (90) 06/13/21 11:40 36.9 Capillary Refill : Less Than 3 Seconds General Appearance: No Apparent Distress, Chronically ill Respiratory: No Respiratory Distress, Decreased Breath Sounds Cardiovascular: No Edema, No Murmur, Tachycardia Gastrointestinal: Normal Bowel Sounds, Non Tender, Soft Extremity: Normal Inspection, Non Tender, No Pedal Edema Neurologic/Psychiatric: Alert, No Motor/Sensory Deficits, Normal Mood/Affect, Disoriented Skin: Normal Color, Warm/Dry Results/Procedures Lab Laboratory Tests 06/12/21 18:00 06/13/21 03:27 Patient resulted labs reviewed. Imaging: Reviewed Imaging Report Assessment/Plan Assessment and Plan Assess & Plan/Chief Complaint Acute respiratory failure with hypoxia Possible pneumonia Pulmonary edema Continue Vapotherm, wean as able Continue antibiotics BNP elevated Continuing Lasix TeleICU following Closed right hip fracture Recurrent falls XR showed right hip fracture Orthopedic surgery following s/p surgical repair 06/11 Pain regimen Bowel regimen Incentive sprirometry PT/OT UTI UA consistent with UTI Urine culture with E coli and Aerococcus, pansusceptible Transition to Rocephin Dementia High risk for delirium Avoid delirium triggers as able HTN HLD GERD Resume home meds as able DVT prophylaxis: Lovenox Diagnosis/Problems Diagnosis/Problems (1) Acute respiratory failure with hypoxia Status: Acute (2) Intertrochanteric fracture of right hip Status: Acute Qualifiers: Encounter type: initial encounter Fracture type: closed Fracture alignment: nondisplaced Qualified Codes: S72.144A - Nondisplaced intertrochanteric fracture of right femur, initial encounter for closed fracture (3) Falls frequently Status: Acute (4) UTI (urinary tract infection) Status: Acute Qualifiers: Urinary tract infection type: acute cystitis Hematuria presence: with hematuria Qualified Codes: N30.01 - Acute cystitis with hematuria (5) Debility Status: Acute (6) Frail elderly Status: Acute (7) Hypertension Status: Chronic (8) Hyperlipidemia Status: Chronic (9) GERD (gastroesophageal reflux disease) Status: Chronic (10) Dementia Status: Chronic FE SAMAYOA MD Jun 13, 2021 12:56
[2021-06-13] MEDS: cefTRIAXone 2,000 MG in WATER (STERILE) FOR INJECTION 20 ML IV SCH (13:43)
[2021-06-13] MEDS: LABETALOL HCL 20 MG/4 ML VIAL IV PRN (15:19)
[2021-06-13] MEDS ORDERED: LABETALOL HCL 20 MG/4 ML VIAL IV PRN (15:30)
[2021-06-13] MEDS: fentaNYL INJ 100 MCG/2 ML AMP IVP PRN (18:03)
[2021-06-14] VITALS (24 sets, daily range): BP systolic 118–177; BP diastolic 58–97
[2021-06-14] MEDS: KETOROLAC 15 MG/ML VIAL IVP PRN (04:40)
[2021-06-14 05:14] LABS: BASOPHILS # (AUTO) 0.1 10^3/uL (0.0-0.1); BASOPHILS % (AUTO) 1 % (0-10); EOSINOPHILS # (AUTO) 0.5 10^3/uL (0.0-0.3); EOSINOPHILS % (AUTO) 7 % (0-10); HEMATOCRIT 26 % (35-52); HEMOGLOBIN 8.8 g/dL (11.5-16.0); LYMPHOCYTES # (AUTO) 1.2 10^3/uL (1.0-4.0); LYMPHOCYTES % (AUTO) 17 % (12-44); MEAN CORPUSCULAR HEMOGLOBIN 30 pg (25-34); MEAN CORPUSCULAR HGB CONC 34 g/dL (32-36); MEAN CORPUSCULAR VOLUME 89 fL (80-99); MONOCYTES # (AUTO) 0.8 10^3/uL (0.0-1.0); MONOCYTES % (AUTO) 11 % (0-12); NEUTROPHILS # (AUTO) 4.5 10^3/uL (1.8-7.8); NEUTROPHILS % (AUTO) 64 % (42-75); PLATELET COUNT 153 10^3/uL (130-400)
[2021-06-14 05:32] LABS: ALBUMIN 2.8 GM/DL (3.2-4.5); POTASSIUM 3.9 MMOL/L (3.6-5.0)
[2021-06-14 05:33] LABS: CALCIUM 9.1 MG/DL (8.5-10.1)
[2021-06-14 05:35] LABS: TOTAL PROTEIN 5.3 GM/DL (6.4-8.2)
[2021-06-14 05:36] LABS: BILIRUBIN,TOTAL 0.5 MG/DL (0.1-1.0)
[2021-06-14 05:38] LABS: CREATININE SERUM 0.72 MG/DL (0.60-1.30); PHOSPHORUS 4.1 MG/DL (2.3-4.7)
[2021-06-14 05:41] LABS: MAGNESIUM 1.9 MG/DL (1.6-2.4)
[2021-06-14] MEDS: MAGNESIUM 1 GM/100 ML IVPB 100 ML IV SCH (05:49)
[2021-06-14] MEDS: POTASSIUM CL 10MEQ/50ML IVPB 50 ML IV SCH (05:49)
[2021-06-14] MEDS: KCL 20 MEQ TAB (K-DUR) PO SCH (05:50)
[2021-06-14] MEDS: LABETALOL HCL 20 MG/4 ML VIAL IV PRN ×2 (06:00→20:09)
[2021-06-14] MEDS ORDERED: FUROSEMIDE 40 MG/4 ML INJ (LASIX) IVP ONE (09:00)
[2021-06-14] MEDS: DOCUSATE SODIUM 100 MG (COLACE) CAP PO SCH ×2 (09:07→20:08)
[2021-06-14] MEDS: SENNA W/DOCUSATE (SENOKOT S) TABLET PO SCH ×2 (09:07→20:08)
--- NOTE | 2021-06-14 11:15 | Tele-ICU Progress Note ---
Subjective Date Seen by a Provider: Jun 14, 2021 Time Seen by a Provider: 11:15 Sepsis Event Evaluation Height, Weight, BMI Height: 5'3.00" Weight: 145lbs. 0.0oz. 65.859576wq; 23.49 BMI Method:Stated Focused Exam Lactate Level 06/11/21 17:35: Lactic Acid Level 1.41 Exam Exam Patient acknowledged, consented, and participated in this virtual visit which was conducted using real time audio/video Vital Signs Date Time Temp Pulse Resp B/P (MAP) Pulse Ox O2 Delivery O2 Flow Rate FiO2 06/14/21 11:00 94 18 137/65 (89) 90 High Flow N/C 8.00 06/14/21 10:00 93 20 155/76 (102) 92 High Flow N/C 8.00 06/14/21 09:00 79 18 143/79 (100) 95 High Flow N/C 8.00 06/14/21 08:12 92 High Flow N/C 8.00 06/14/21 08:00 81 16 118/60 (79) 94 High Flow N/C 8.00 06/14/21 07:45 36.0 06/14/21 07:13 94 High Flow N/C 8.00 06/14/21 07:00 89 17 125/73 (90) 94 High Flow N/C 8.00 06/14/21 07:00 89 06/14/21 06:00 89 13 143/70 (94) 94 High Flow N/C 8.00 06/14/21 05:00 93 26 162/88 (112) 90 High Flow N/C 8.00 06/14/21 04:31 91 High Flow N/C 8.00 06/14/21 04:00 88 19 169/75 (106) 95 High Flow N/C 8.00 06/14/21 03:00 89 23 158/83 (108) 95 High Flow N/C 8.00 06/14/21 02:23 36.5 High Flow N/C 8.00 06/14/21 02:00 87 18 169/73 (105) 94 High Flow N/C 8.00 06/14/21 01:00 87 27 153/83 (106) 95 High Flow N/C 8.00 06/14/21 01:00 90 06/14/21 00:06 94 High Flow N/C 8.00 06/14/21 00:00 92 23 163/68 (99) 94 High Flow N/C 8.00 06/13/21 23:00 36.6 06/13/21 23:00 92 21 141/96 (111) 95 High Flow N/C 8.00 06/13/21 22:00 95 17 154/65 (94) 97 High Flow N/C 8.00 06/13/21 21:00 98 27 164/79 (107) 95 High Flow N/C 8.00 06/13/21 20:14 96 High Flow N/C 8.00 06/13/21 20:00 99 17 150/74 (99) 96 High Flow N/C 8.00 06/13/21 19:47 99 Vapotherm 25.00 50 06/13/21 19:46 High Flow N/C 8.00 06/13/21 19:32 36.5 06/13/21 19:00 110 06/13/21 19:00 96 20 139/80 (99) 98 Vapotherm 20.00 40.00 06/13/21 18:00 100 12 155/97 (116) 95 Vapotherm 20.00 40.00 06/13/21 17:00 106 12 137/89 (105) 95 Vapotherm 20.00 40.00 06/13/21 16:00 96 21 136/89 (105) 98 Vapotherm 20.00 40.00 06/13/21 15:42 36.4 06/13/21 15:27 36.4 06/13/21 15:26 97 Vapotherm 25.00 45 06/13/21 15:24 97 Vapotherm 25.00 50 06/13/21 15:00 135 18 189/98 (128) 96 Vapotherm 20.00 40.00 06/13/21 14:00 111 19 155/72 (87) 95 Vapotherm 20.00 40.00 06/13/21 13:00 117 20 168/92 (97) 94 Vapotherm 20.00 40.00 06/13/21 13:00 115 06/13/21 12:19 92 Vapotherm 20.00 40 06/13/21 12:00 123 19 128/71 (90) 95 Vapotherm 20.00 40.00 06/13/21 11:40 36.9 I & O 06/14/21 07:00 Intake Total 1795 ml Output Total 1220 ml Balance 575 ml Height & Weight Height: 5'3.00" Weight: 145lbs. 0.0oz. 65.891461aa; 23.49 BMI Method:Stated General Appearance: No Apparent Distress, Chronically ill HEENT: PERRL/EOMI, Pharynx Normal Neck: Normal Inspection, Supple Respiratory: No Respiratory Distress, Decreased Breath Sounds Cardiovascular: No Edema, No Murmur, Tachycardia Capillary Refill: Less Than 3 Seconds Gastrointestinal: normal bowel sounds, non tender, soft, distended; No tenderness Extremity: Normal Inspection, Non Tender, No Pedal Edema Neurologic/Psychiatric: Alert, No Motor/Sensory Deficits, Normal Mood/Affect, Disoriented Skin: Normal Color, Warm/Dry Results Lab Laboratory Tests 06/12/21 18:00 06/13/21 03:27 06/14/21 04:28 Assessment/Plan Assessment/Plan (Tele-ICU Physician , Progress Note ) Available chart/ vitals / labs / Images reviewed Video assessment done using teleICU camera, rest of exam as per RN Discussed with RN , EXAM PER RN Events overnight : decreased o2 Afebrile I/O = even Drips: Pressors: , hemodynamically stable Consultants: Hospital course: 06/10 86 yr female DX: Fall with hip fx 06/11 s/p R hip nailing and pt developed hypoxia with CXR changes post op, likely heart failure. ( no PE by CT 06/11 A/P Acute respiratory failure with hypoxia - due to CHF post op ( no PE by CT 06/11 - improved needs for o2 - on 8 L nc today , lasix 40 today given Possible pneumonia -empiric antibiotics Closed right hip fracture -s/p surgical repair 06/11 UTI in admission -culture with E coli and Aerococcus, pansusceptible -on Rocephin Dementia -High risk for delirium Lines : (Central Line Necessity Reviewed) Gee: OG: Nutrition: PO Analgesia: Anxiety/ delirium VTE Prophylaxis: lovenoc 40 Stress Ulcer Prophylaxis: na Glycemic Control: Plans in collaboration with bedside consultants and IM MDs. Discussed with RN to reach out if any questions or concerns A total of 31 minutes of critical care time was devoted to this patient today, required to treat and/or prevent further deterioration of critical care condition ( as above) . LIBIA STONE MD Jun 14, 2021 11:15
--- NOTE | 2021-06-14 13:07 | Progress Note - Hospitalist ---
Subjective HPI/CC On Admission Date Seen by Provider: Jun 14, 2021 Time Seen by Provider: 09:55 Arline Dan is an 86 year old female with PMH dementia, HTN, HLD, GERD, debility, who presented after a fall. She was recently admitted to a group home due to recurrent falls. She also had a recent inpatient rehab stay due to debility and recurrent falls. She reportedly had altered mentation according to group home staff. Upon my examination she is unable to provide any history. Her workup revealed a right hip fracture. She was also found to have a urinary tract infection. Subjective/Events-last exam She is awake and alert. She has no complaints or concerns. She is not short of breath. She is not having any pain. Focused Exam Lactate Level 06/11/21 17:35: Lactic Acid Level 1.41 Objective Exam Vital Signs Vital Signs Date Time Temp Pulse Resp B/P (MAP) Pulse Ox O2 Delivery O2 Flow Rate FiO2 06/14/21 12:39 92 High Flow N/C 8.00 06/14/21 12:00 36.4 06/14/21 12:00 92 17 152/58 (89) 06/13/21 19:47 50 Capillary Refill : Less Than 3 Seconds General Appearance: No Apparent Distress, Chronically ill Respiratory: Lungs Clear, Normal Breath Sounds, No Respiratory Distress Cardiovascular: Regular Rate, Rhythm, No Murmur Gastrointestinal: Normal Bowel Sounds, Non Tender, Soft Extremity: Normal Inspection, Non Tender, No Pedal Edema Neurologic/Psychiatric: Alert, Disoriented, Other (Speaks softly, mumbling) Skin: Normal Color, Warm/Dry Results/Procedures Lab Laboratory Tests 06/14/21 04:28 Patient resulted labs reviewed. Imaging: Reviewed Imaging Report Assessment/Plan Assessment and Plan Assess & Plan/Chief Complaint Acute respiratory failure with hypoxia Possible pneumonia Pulmonary edema Transitioned off Vapotherm, now on nasal cannula 8 L Continue antibiotics Continue Lasix TeleICU following Closed right hip fracture Recurrent falls XR showed right hip fracture Orthopedic surgery following s/p surgical repair 06/11 Pain regimen Bowel regimen Incentive sprirometry PT/OT UTI UA consistent with UTI Urine culture with E coli and Aerococcus, pansusceptible Continue Rocephin Dementia High risk for delirium Avoid delirium triggers as able HTN HLD GERD Resume home meds as able DVT prophylaxis: Lovenox Diagnosis/Problems Diagnosis/Problems (1) Acute respiratory failure with hypoxia Status: Acute (2) Intertrochanteric fracture of right hip Status: Acute Qualifiers: Encounter type: initial encounter Fracture type: closed Fracture alignment: nondisplaced Qualified Codes: S72.144A - Nondisplaced intertrochanteric fracture of right femur, initial encounter for closed fracture (3) Falls frequently Status: Acute (4) UTI (urinary tract infection) Status: Acute Qualifiers: Urinary tract infection type: acute cystitis Hematuria presence: with hematuria Qualified Codes: N30.01 - Acute cystitis with hematuria (5) Debility Status: Acute (6) Frail elderly Status: Acute (7) Hypertension Status: Chronic (8) Hyperlipidemia Status: Chronic (9) GERD (gastroesophageal reflux disease) Status: Chronic (10) Dementia Status: Chronic FE SAMAYOA MD Jun 14, 2021 13:07
[2021-06-14] MEDS: cefTRIAXone 2,000 MG in WATER (STERILE) FOR INJECTION 20 ML IV SCH (13:31)
[2021-06-14] MEDS: HYDROcodone/APAP 5 MG/325 MG (LORTAB) TAB PO PRN (13:31)
[2021-06-14] MEDS ORDERED: hydrALAZINE (APESOLINE) 20 MG/ML VIAL IV ONE (21:45)
[2021-06-14] MEDS: ENOXAPARIN 40 MG/0.4 ML (LOVENOX) SYR SC SCH (21:50)
[2021-06-15] VITALS (18 sets, daily range): BP systolic 118–185; BP diastolic 54–97
[2021-06-15 05:04] LABS: BASOPHILS # (AUTO) 0.1 10^3/uL (0.0-0.1); BASOPHILS % (AUTO) 1 % (0-10); EOSINOPHILS # (AUTO) 0.5 10^3/uL (0.0-0.3); EOSINOPHILS % (AUTO) 7 % (0-10); HEMATOCRIT 27 % (35-52); HEMOGLOBIN 9.3 g/dL (11.5-16.0); LYMPHOCYTES # (AUTO) 1.1 10^3/uL (1.0-4.0); LYMPHOCYTES % (AUTO) 16 % (12-44); MEAN CORPUSCULAR HEMOGLOBIN 30 pg (25-34); MEAN CORPUSCULAR HGB CONC 35 g/dL (32-36); MEAN CORPUSCULAR VOLUME 88 fL (80-99); MEAN PLATELET VOLUME 9.7 fL (9.0-12.2); MONOCYTES # (AUTO) 0.7 10^3/uL (0.0-1.0); MONOCYTES % (AUTO) 9 % (0-12); NEUTROPHILS # (AUTO) 4.6 10^3/uL (1.8-7.8); NEUTROPHILS % (AUTO) 67 % (42-75); PLATELET COUNT 185 10^3/uL (130-400)
[2021-06-15 05:10] LABS: ALBUMIN 2.9 GM/DL (3.2-4.5); POTASSIUM 3.3 MMOL/L (3.6-5.0)
[2021-06-15 05:11] LABS: CALCIUM 9.1 MG/DL (8.5-10.1)
[2021-06-15 05:12] LABS: TOTAL PROTEIN 5.6 GM/DL (6.4-8.2)
[2021-06-15 05:14] LABS: BILIRUBIN,TOTAL 0.6 MG/DL (0.1-1.0)
[2021-06-15 05:15] LABS: PHOSPHORUS 3.7 MG/DL (2.3-4.7)
[2021-06-15 05:16] LABS: CREATININE SERUM 0.67 MG/DL (0.60-1.30)
[2021-06-15] MEDS: POTASSIUM CL 10MEQ/50ML IVPB 50 ML IV SCH (05:33)
[2021-06-15] MEDS: KCL 20 MEQ TAB (K-DUR) PO SCH (05:34)
[2021-06-15] MEDS: MAGNESIUM 1 GM/100 ML IVPB 100 ML IV SCH ×3 (05:34→07:20)
[2021-06-15] MEDS: HYDROcodone/APAP 5 MG/325 MG (LORTAB) TAB PO PRN ×2 (06:23→12:22)
[2021-06-15] MEDS: LABETALOL HCL 20 MG/4 ML VIAL IV PRN (06:23)
--- NOTE | 2021-06-15 07:28 | Physical Therapy Progress Note ---
Therapy Progress Note Patient transferred to ICU secondary to increase in O2 demand and elevated HR. PT will require new orders to initiate therapy. LESLY FREGOSO PT Jun 15, 2021 07:28
[2021-06-15] MEDS ORDERED: KCL 20 MEQ TAB (K-DUR) PO ONE ×2 (08:00→10:00)
[2021-06-15] MEDS: SENNA W/DOCUSATE (SENOKOT S) TABLET PO SCH ×2 (08:20→21:06)
[2021-06-15] MEDS: DOCUSATE SODIUM 100 MG (COLACE) CAP PO SCH ×2 (08:20→21:05)
--- NOTE | 2021-06-15 09:06 | Progress Note - Hospitalist ---
Subjective HPI/CC On Admission Date Seen by Provider: Jun 15, 2021 Time Seen by Provider: 08:56 Arline Dan is an 86 year old female with PMH dementia, HTN, HLD, GERD, debility, who presented after a fall. She was recently admitted to a retirement due to recurrent falls. She also had a recent inpatient rehab stay due to debility and recurrent falls. She reportedly had altered mentation according to retirement staff. Upon my examination she is unable to provide any history. Her workup revealed a right hip fracture. She was also found to have a urinary tract infection. Subjective/Events-last exam Patient sleeping when I entered the room. No complaints to be. Demented at baseline though and mostly mumbles. I called and spoke with daughter and updated her on plan. Spoke with RN whose only concerns where resuming home meds and PT. Objective Exam Vital Signs Vital Signs Date Time Temp Pulse Resp B/P (MAP) Pulse Ox O2 Delivery O2 Flow Rate FiO2 06/15/21 08:47 92 Vapotherm 20.00 40 06/15/21 08:00 81 18 129/62 (84) 06/15/21 07:59 36.4 Capillary Refill : Less Than 3 Seconds General Appearance: WD/WN, Thin HEENT: PERRL/EOMI, Moist Mucous Membranes; No Scleral Icterus (L), No Scleral Icterus (R) Neck: Normal Inspection, Supple Respiratory: Lungs Clear, No Accessory Muscle Use, Other (on Vapotherm) Cardiovascular: Regular Rate, Rhythm, No Murmur Gastrointestinal: Normal Bowel Sounds, Non Tender, Soft Extremity: No Calf Tenderness, No Pedal Edema Neurologic/Psychiatric: Alert, Disoriented Results/Procedures Lab Laboratory Tests 06/15/21 04:30 Patient resulted labs reviewed. Imaging: Reviewed Imaging Report Assessment/Plan Assessment and Plan Assess & Plan/Chief Complaint Acute respiratory failure with hypoxia Possible pneumonia Pulmonary edema Back on Vapotherm overnight, I titrated downt o 35% and likely can go back to [facility] today Continue antibiotics Continue Lasix, -1L yesterday TeleICU following Closed right hip fracture Recurrent falls XR showed right hip fracture Orthopedic surgery following s/p surgical repair 06/11 Pain regimen Bowel regimen Incentive sprirometry PT/OT UTI UA consistent with UTI Urine culture with E coli and Aerococcus, pansusceptible Continue Rocephin Dementia High risk for delirium Avoid delirium triggers as able HTN HLD GERD Resume home meds as able DVT prophylaxis: BON Wagoner MD Jun 15, 2021 09:06
[2021-06-15] MEDS ORDERED: FUROSEMIDE 40 MG/4 ML INJ (LASIX) IVP ONE (09:30)
[2021-06-15] MEDS: FLUoxetine HCL 10 MG (PROzac) CAPSULE/TABLET PO SCH (09:55)
[2021-06-15] MEDS: PANTOPRAZOLE 20 MG TABLET (PROTONIX) PO SCH (09:55)
[2021-06-15] MEDS: VALPROIC ACID SYRUP 250 MG/5 ML UDC PO SCH ×2 (09:55→21:05)
[2021-06-15] MEDS ORDERED: KCL 20 MEQ TAB (K-DUR) PO SCH (10:00)
--- NOTE | 2021-06-15 10:19 | Progress Note - Ortho ---
Progress Note Subjective Date of Exam 06/15/21 Chief Complaint POD#4 Short TFN for a nondisplaced 2 part intertrochanteric fracture of the right hip HPI/Events since last exam Mrs Dan Is 4 days postop short TFN right hip for a 2 part nondisplaced intertrochanteric fracture. She was up sitting in the chair when I saw her and looked comfortable. She does not answer questions appropriately or I do not understand her answers. Review of Systems Reviewed and no additions or changes Allergies: Coded Allergies: Penicillins (Verified Allergy, Unknown, 08/07/17) Home Meds Reported Medications Nystatin (Nystatin) 1 Each Powder.ea., 1 EACH TOP BID PRN for REDNESS/GAULDING, UNIT APPLY TO GROIN 06/11/21 Multivitamin with Minerals (Multivitamins with Minerals) 1 Each Tablet, 1 EACH PO DAILY, TAB 06/11/21 Acetaminophen (Tylenol Extra Strength) 500 Mg Tablet, 500-1000 MG PO Q8H PRN for PAIN-MILD (1-4), TAB 05/04/21 Valproic Acid (Valproic Acid) 250 Mg Capsule, 250 MG PO BID, CAP 05/04/21 Spironolactone (Spironolactone) 50 Mg Tablet, 50 MG PO HS, TAB 10/21/17 Lovastatin (Lovastatin) 20 Mg Tablet, 20 MG PO HS 08/07/17 Omeprazole (Omeprazole) 20 Mg Capsule.dr, 20 MG PO DAILY 08/07/17 Fluoxetine HCl (Fluoxetine HCl) 10 Mg Capsule, 10 MG PO DAILY 08/07/17 Objective Exam Constitutional: [] HEENT: [] Neck: [] Cardiovascular: [] Respiratory: [] Gastrointestinal: [] Genitourinary: [] Skin: [] Back/Spine: [] Extremities: [Dressing is intact. No calf tenderness and negative Homans. Mild pain with gentle range of motion of the hip. She is able to dorsiflex and plantar flexion of the foot but I cannot tell about her sensory status. Equal pulses] Neurologic: [] Psychiatric: [] Hematologic/lymphatic/immunologic: [] Vital Signs Vital Signs Date Time Temp Pulse Resp B/P (MAP) Pulse Ox O2 Delivery O2 Flow Rate FiO2 06/15/21 10:07 95 High Flow N/C 5.00 06/15/21 10:06 94 Vapotherm 20.00 35 06/15/21 10:04 95 24 123/58 (79) 94 High Flow N/C 5.00 06/15/21 09:00 89 21 152/77 (102) 94 Vapotherm 20.00 35.00 06/15/21 08:47 92 Vapotherm 20.00 40 06/15/21 08:40 Vapotherm 20.00 35.00 06/15/21 08:00 81 18 129/62 (84) 97 Vapotherm 20.00 40.00 06/15/21 07:59 36.4 06/15/21 07:00 86 14 159/70 (99) 95 Vapotherm 20.00 40.00 06/15/21 06:57 95 Vapotherm 20.00 40 06/15/21 06:34 89 06/15/21 06:00 96 19 175/79 (111) 96 Vapotherm 20.00 40.00 06/15/21 05:00 92 27 152/79 (103) 94 Vapotherm 20.00 40.00 06/15/21 04:00 91 Vapotherm 20.00 40 06/15/21 04:00 92 25 135/71 (92) 91 Vapotherm 20.00 40.00 06/15/21 03:01 98 Vapotherm 25.00 50 06/15/21 03:00 91 19 145/78 (100) 93 Vapotherm 20.00 40.00 06/15/21 03:00 36.7 Vapotherm 20.00 40.00 06/15/21 02:00 93 26 147/76 (99) 97 Vapotherm 20.00 50.00 06/15/21 01:00 95 06/15/21 01:00 95 25 145/64 (91) 97 Vapotherm 20.00 50.00 06/15/21 00:00 93 27 141/59 (86) 96 Vapotherm 20.00 50.00 06/14/21 23:59 93 Vapotherm 20.00 50 06/14/21 23:00 36.6 Vapotherm 20.00 50.00 06/14/21 23:00 96 25 154/66 (95) 95 Vapotherm 20.00 50.00 06/14/21 22:00 103 21 149/70 (96) 95 Vapotherm 20.00 50.00 06/14/21 21:00 93 20 162/73 (102) 96 Vapotherm 20.00 50.00 06/14/21 20:30 94 Vapotherm 20.00 50 06/14/21 20:15 84 High Flow N/C 15.00 06/14/21 20:05 Vapotherm 20.00 50.00 06/14/21 20:00 98 18 177/79 (111) 97 High Flow N/C 12.00 06/14/21 20:00 36.8 06/14/21 19:00 111 06/14/21 19:00 111 17 154/97 (116) 90 High Flow N/C 12.00 06/14/21 19:00 High Flow N/C 12.00 06/14/21 18:00 90 21 167/76 (106) 96 High Flow N/C 10.00 06/14/21 17:00 87 16 148/66 (93) 97 High Flow N/C 10.00 06/14/21 16:00 36.1 06/14/21 16:00 86 26 157/83 (107) 96 High Flow N/C 10.00 06/14/21 15:54 91 High Flow N/C 8.00 06/14/21 15:00 81 16 166/76 (106) 96 High Flow N/C 8.00 06/14/21 14:00 85 13 143/61 (88) 93 High Flow N/C 8.00 06/14/21 13:00 93 06/14/21 13:00 86 19 134/67 (89) 95 High Flow N/C 8.00 06/14/21 12:39 92 High Flow N/C 8.00 06/14/21 12:00 36.4 06/14/21 12:00 92 17 152/58 (89) 97 High Flow N/C 8.00 06/14/21 11:00 94 18 137/65 (89) 90 High Flow N/C 8.00 I & O 06/15/21 07:00 Intake Total 1110 ml Output Total 2300 ml Balance -1190 ml Lab Results Laboratory Tests 06/15/21 04:30: White Blood Count 7.0, Red Blood Count 3.07L, Hemoglobin 9.3L, Hematocrit 27L, Mean Corpuscular Volume 88, Mean Corpuscular Hemoglobin 30, Mean Corpuscular Hemoglobin Concent 35, Red Cell Distribution Width 12.4, Platelet Count 185, Mean Platelet Volume 9.7, Immature Granulocyte % (Auto) 0, Neutrophils (%) (Auto) 67, Lymphocytes (%) (Auto) 16, Monocytes (%) (Auto) 9, Eosinophils (%) (Auto) 7, Basophils (%) (Auto) 1, Neutrophils # (Auto) 4.6, Lymphocytes # (Auto) 1.1, Monocytes # (Auto) 0.7, Eosinophils # (Auto) 0.5H, Basophils # (Auto) 0.1, Immature Granulocyte # (Auto) 0.0, Sodium Level 134L, Potassium Level 3.3L, Chloride Level 97L, Carbon Dioxide Level 25, Anion Gap 12, Blood Urea Nitrogen 21H, Creatinine 0.67, Estimat Glomerular Filtration Rate 84, BUN/Creatinine Ratio 31, Glucose Level 89, Calcium Level 9.1, Corrected Calcium 10.0, Phosphorus Level 3.7, Magnesium Level 1.6, Total Bilirubin 0.6, Aspartate Amino Transf (AST/SGOT) 22, Alanine Aminotransferase (ALT/SGPT) 14, Alkaline Phosphatase 68, Total Protein 5.6L, Albumin 2.9L Microbiology 06/10/21 MRSA Screen - Final, Complete MRSA not isolated 06/10/21 Blood Culture - Preliminary, Resulted No growth 06/10/21 Urine Culture - Final, Complete Escherichia coli Aerococcus urinae Assessment and Plan Assessment Doing well 4 days postop Problem List Unchanged Plan Continue out of bed to chair and walker ambulation full weightbearing on the right lower extremity Final Diagonsis Nondisplaced 2 part intertrochanteric fracture right hip status post short TFN Level of the visit: Level 3 YA HOOKS MD Jun 15, 2021 10:19
--- NOTE | 2021-06-15 10:30 | Physical Therapy Evaluation ---
PT Evaluation-General Medical Diagnosis Admission Date Jun 11, 2021 at 14:25 Medical Diagnosis: right hip fracture Onset Date: Jun 11, 2021 Therapy Diagnosis Therapy Diagnosis: generalized weakness/debility Height/Weight Height (Feet): 5 Height (Inches): 3.00 Weight (Pounds): 145 Weight (Ounces): 0.0 Precautions Precautions/Isolations: Fall Prevention, Standard Precautions, Pressure Ulcer Weight Bear Status Right Lower Extremity: Right Weight Bearing/Tolerated Left Lower Extremity: Left Full Weight Bearing Referral Physician: Frederick Reason for Referral: Evaluation/Treatment Medical History Pertinent Medical History: Dementia, HTN Current History EMS from [place] secondary to fall Reviewed History: Yes Social History Home: Custodial Prior Prior Level of Function SCALE: Activities may be completed with or without assistive devices. 4-Wechiwmzcc-qynfbob completes the activity by him/herself with no assistance from a helper. 5-Set-up or Clean-up Assistance-helper sets up or cleans up; patient completes a ctivity. [place] assists only prior to or following the activity. 4-Supervision or Touching Assistance-helper provides verbal cues and/or touching/steadying and/or contact guard assistance as patient completes activity. Assistance may be provided throughout the activity or intermittently. 3-Partial/Moderate Assistance-helper does LESS THAN HALF the effort. [place] lifts, holds or supports trunk or limbs, but provides less than half the effort. 2-Substantial/Maximal Assistance-helper does MORE THAN HALF the effort. [place] lifts or holds trunk or limbs and provides more than half the effort. 8-Zdmuzkwrb-tmzudk does ALL the effort. Patient does none of the effort to complete the activity. Or, the assistance of 2 or more helpers is required for the patient to complete the activity. If activity was not attempted, code reason: 7-Patient Refused. 9-Not Applicable-not attempted and the patient did not perform the activity before the current illness, exacerbation or injury. 10-Not Attempted due to Environmental Limitations-(lack of equipment, weather restraints, etc.). 88-Not Attempted due to Medical Conditions or Safety Concerns. Bed Mobility: 4 Transfers (B,C,W/C): 4 Gait: 4 Indoor Mobility (Ambulation): Needed Some Help Stairs: Not Applicalbe Prior Devices Use: Walker PT Evaluation-Current Objective Patient Orientation: Confused ROM/Strength ROM Lower Extremities right hip precautions/left LE WFL Strength Lower Extremities right LE 3-/5 grossly/left LE 3/5 grossly Integumentary/Posture Integumentary refer to nursing notes Neuromuscular (Tone, Coordination, Reflexes) diminished coordination due to dementia Sensory Vision: Functional Hearing: Functional Transfers Lying to Sitting/Side of Bed(Q: 1 Sit to Stand (QC): 1 Chair/Pfi-mz-Hmkms Xfer(QC): 1 SPT bed to recliner dependent assist Gait Does the Patient Walk?: No and Walking Goal IS indicated Balance Sitting Static: Fair Sitting Dynamic: Fair Standing Static: Poor Standing Dynamic: Poor Assessment/Needs 86 y.o. female, will benefit from skilled PT to address functional strength and mobility to improve current LOF. Rehab Potential: Poor PT Chcf Goals Chcf Goals PT Ch[facility] Goals Time Frame: Jun 27, 2021 Roll Left & Right (QC): 2 Sit to Lying (QC): 2 Lying-Sitting on Side/Bed(QC): 2 Sit to Stand (QC): 2 Chair/Hyj-yh-Iewfs Xfer(QC): 2 Toilet Transfer (QC): 2 Walk 10 feet (QC): 2 PT Plan Problem List Problem List: Activity Tolerance, Functional Strength, Safety, Balance, Gait, Transfer, Bed Mobility, ROM Treatment/Plan Treatment Plan: Continue Plan of Care Treatment Plan: Bed Mobility, Education, Functional Activity Riley, Functional Strength, Gait, Safety, Therapeutic Exercise, Transfers Treatment Duration: Jun 27, 2021 Frequency: 6 times per week Estimated Hrs Per Day: .25 hour per day Time/GCodes Time In: 830 Time Out: 840 Total Billed Treatment Time: 10 Total Billed Treatment 1 visit EVMod 10 min LESLY FREGOSO PT Jun 15, 2021 10:30
--- NOTE | 2021-06-15 10:32 | Diagnostic Imaging Report ---
INDICATION: Hypoxia. Frontal chest obtained at 0937 a.m. compared to 06/13/2021. There are mild bibasilar infiltrates versus atelectasis. There is poor inspiration. There is no pneumothorax. There is a trace of pleural fluid on the left side. Heart is borderline in size. IMPRESSION: Trace left pleural effusion. Mild bibasilar infiltrate versus atelectasis. No pneumothorax. Dictated by: Dictated on workstation # [id number]
--- NOTE | 2021-06-15 11:07 | Tele-ICU Progress Note ---
Subjective Date Seen by a Provider: Jun 15, 2021 Time Seen by a Provider: 10:02 Sepsis Event Evaluation Height, Weight, BMI Height: 5'3.00" Weight: 145lbs. 0.0oz. [id number]; 23.49 BMI Method:Stated Exam Exam Patient acknowledged, consented, and participated in this virtual visit which was conducted using real time audio/video Vital Signs Date Time Temp Pulse Resp B/P (MAP) Pulse Ox O2 Delivery O2 Flow Rate FiO2 06/15/21 10:07 95 High Flow N/C 5.00 06/15/21 10:06 94 Vapotherm 20.00 35 06/15/21 10:04 95 24 123/58 (79) 94 High Flow N/C 5.00 06/15/21 10:00 90 23 123/58 (79) 95 Vapotherm 20.00 35.00 06/15/21 09:00 89 21 152/77 (102) 94 Vapotherm 20.00 35.00 06/15/21 08:47 92 Vapotherm 20.00 40 06/15/21 08:40 Vapotherm 20.00 35.00 06/15/21 08:00 81 18 129/62 (84) 97 Vapotherm 20.00 40.00 06/15/21 07:59 36.4 06/15/21 07:00 86 14 159/70 (99) 95 Vapotherm 20.00 40.00 06/15/21 06:57 95 Vapotherm 20.00 40 06/15/21 06:34 89 06/15/21 06:00 96 19 175/79 (111) 96 Vapotherm 20.00 40.00 06/15/21 05:00 92 27 152/79 (103) 94 Vapotherm 20.00 40.00 06/15/21 04:00 91 Vapotherm 20.00 40 06/15/21 04:00 92 25 135/71 (92) 91 Vapotherm 20.00 40.00 06/15/21 03:01 98 Vapotherm 25.00 50 06/15/21 03:00 91 19 145/78 (100) 93 Vapotherm 20.00 40.00 06/15/21 03:00 36.7 Vapotherm 20.00 40.00 06/15/21 02:00 93 26 147/76 (99) 97 Vapotherm 20.00 50.00 06/15/21 01:00 95 06/15/21 01:00 95 25 145/64 (91) 97 Vapotherm 20.00 50.00 06/15/21 00:00 93 27 141/59 (86) 96 Vapotherm 20.00 50.00 06/14/21 23:59 93 Vapotherm 20.00 50 06/14/21 23:00 36.6 Vapotherm 20.00 50.00 06/14/21 23:00 96 25 154/66 (95) 95 Vapotherm 20.00 50.00 06/14/21 22:00 103 21 149/70 (96) 95 Vapotherm 20.00 50.00 06/14/21 21:00 93 20 162/73 (102) 96 Vapotherm 20.00 50.00 06/14/21 20:30 94 Vapotherm 20.00 50 06/14/21 20:15 84 High Flow N/C 15.00 06/14/21 20:05 Vapotherm 20.00 50.00 06/14/21 20:00 98 18 177/79 (111) 97 High Flow N/C 12.00 06/14/21 20:00 36.8 06/14/21 19:00 111 06/14/21 19:00 111 17 154/97 (116) 90 High Flow N/C 12.00 06/14/21 19:00 High Flow N/C 12.00 06/14/21 18:00 90 21 167/76 (106) 96 High Flow N/C 10.00 06/14/21 17:00 87 16 148/66 (93) 97 High Flow N/C 10.00 06/14/21 16:00 36.1 06/14/21 16:00 86 26 157/83 (107) 96 High Flow N/C 10.00 06/14/21 15:54 91 High Flow N/C 8.00 06/14/21 15:00 81 16 166/76 (106) 96 High Flow N/C 8.00 06/14/21 14:00 85 13 143/61 (88) 93 High Flow N/C 8.00 06/14/21 13:00 93 06/14/21 13:00 86 19 134/67 (89) 95 High Flow N/C 8.00 06/14/21 12:39 92 High Flow N/C 8.00 06/14/21 12:00 36.4 06/14/21 12:00 92 17 152/58 (89) 97 High Flow N/C 8.00 I & O 06/15/21 07:00 Intake Total 1110 ml Output Total 2300 ml Balance -1190 ml Height & Weight Height: 5'3.00" Weight: 145lbs. 0.0oz. [id number]; 23.49 BMI Method:Stated General Appearance: WD/WN, Thin HEENT: PERRL/EOMI, Moist Mucous Membranes; No Scleral Icterus (L), No Scleral Icterus (R) Neck: Normal Inspection, Supple Respiratory: Lungs Clear, No Accessory Muscle Use, Other (on Vapotherm) Cardiovascular: Regular Rate, Rhythm, No Murmur Capillary Refill: Less Than 3 Seconds Gastrointestinal: normal bowel sounds, non tender, soft, distended; No tenderness Extremity: No Calf Tenderness, No Pedal Edema Neurologic/Psychiatric: Alert, Disoriented Skin: Normal Color, Warm/Dry Results Lab Laboratory Tests 06/14/21 04:28 06/15/21 04:30 Assessment/Plan Assessment/Plan (Tele-ICU Physician , Progress Note ) Available chart/ vitals / labs / Images reviewed Video assessment done using teleICU camera, rest of exam as per RN Discussed with RN , EXAM PER RN Events overnight : decreased o2 Afebrile I/O =neg Drips: Pressors: , hemodynamically stable Consultants: Hospital course: 06/10 86 yr female DX: Fall with hip fx 06/11 s/p R hip nailing and pt developed hypoxia with CXR changes post op, likely heart failure. ( no PE by CT 06/11 06/14 - vapotherm ---> 8L 10.4 - back to vapotherm 40 L - lasix x1 A/P Acute respiratory failure with hypoxia - due to CHF post op ( no PE by CT 06/11 - improved needs for o2 - on 8 L - back to vapotherm 40 L 10/4 - additional lasix given - follow Possible pneumonia -empiric antibiotics to cont Closed right hip fracture -s/p surgical repair 06/11 UTI in admission -culture with E coli and Aerococcus, pansusceptible -on Rocephin Dementia -High risk for delirium Lines : (Central Line Necessity Reviewed) Gee: OG: Nutrition: PO Analgesia: Anxiety/ delirium VTE Prophylaxis: lovenoc 40 Stress Ulcer Prophylaxis: na Glycemic Control: Plans in collaboration with bedside consultants and IM MDs. Discussed with RN to reach out if any questions or concerns A total of 32 minutes of critical care time was devoted to this patient today, required to treat and/or prevent further deterioration of critical care condition ( as above) . LIBIA STONE MD Jun 15, 2021 11:07
[2021-06-15] MEDS: cefTRIAXone 2,000 MG in WATER (STERILE) FOR INJECTION 20 ML IV SCH (12:15)
[2021-06-15] MEDS ORDERED: hydrALAZINE (APESOLINE) 20 MG/ML VIAL IV PRN (18:15)
[2021-06-15] MEDS: SPIRONOLACTONE 25 MG (ALDACTONE) TAB PO SCH (21:05)
[2021-06-15] MEDS: SIMvastatin 10 MG (ZOCOR) TAB PO SCH (21:06)
[2021-06-15] MEDS: ENOXAPARIN 40 MG/0.4 ML (LOVENOX) SYR SC SCH (22:21)
[2021-06-16 04:45] VITALS: BP 184/70
[2021-06-16 05:46] LABS: BASOPHILS # (AUTO) 0.1 10^3/uL (0.0-0.1); BASOPHILS % (AUTO) 1 % (0-10); EOSINOPHILS # (AUTO) 0.4 10^3/uL (0.0-0.3); EOSINOPHILS % (AUTO) 5 % (0-10); HEMATOCRIT 27 % (35-52); HEMOGLOBIN 9.6 g/dL (11.5-16.0); LYMPHOCYTES # (AUTO) 1.3 10^3/uL (1.0-4.0); LYMPHOCYTES % (AUTO) 17 % (12-44); MEAN CORPUSCULAR HEMOGLOBIN 31 pg (25-34); MEAN CORPUSCULAR HGB CONC 35 g/dL (32-36); MEAN CORPUSCULAR VOLUME 88 fL (80-99); MEAN PLATELET VOLUME 9.5 fL (9.0-12.2); MONOCYTES % (AUTO) 12 % (0-12); NEUTROPHILS # (AUTO) 5.1 10^3/uL (1.8-7.8); NEUTROPHILS % (AUTO) 65 % (42-75); PLATELET COUNT 235 10^3/uL (130-400); WHITE BLOOD COUNT 7.9 10^3/uL (4.3-11.0)
[2021-06-16 05:56] LABS: ALBUMIN 3.2 GM/DL (3.2-4.5); POTASSIUM 3.6 MMOL/L (3.6-5.0)
[2021-06-16 05:57] LABS: CALCIUM 9.2 MG/DL (8.5-10.1)
[2021-06-16 05:59] LABS: TOTAL PROTEIN 6.1 GM/DL (6.4-8.2)
[2021-06-16 06:01] LABS: BILIRUBIN,TOTAL 0.6 MG/DL (0.1-1.0)
[2021-06-16 06:02] LABS: CREATININE SERUM 0.74 MG/DL (0.60-1.30); PHOSPHORUS 3.4 MG/DL (2.3-4.7)
[2021-06-16] MEDS: POTASSIUM CL 10MEQ/50ML IVPB 50 ML IV SCH (06:03)
[2021-06-16] MEDS: KCL 20 MEQ TAB (K-DUR) PO SCH (06:03)
[2021-06-16 06:13] LABS: MAGNESIUM 1.8 MG/DL (1.6-2.4)
[2021-06-16] MEDS: MAGNESIUM 1 GM/100 ML IVPB 100 ML IV SCH (06:25)
[2021-06-16] MEDS ORDERED: KCL 20 MEQ TAB (K-DUR) PO ONE (08:00)
[2021-06-16] MEDS: SENNA W/DOCUSATE (SENOKOT S) TABLET PO SCH ×2 (08:30→21:57)
[2021-06-16] MEDS: PANTOPRAZOLE 20 MG TABLET (PROTONIX) PO SCH (08:30)
[2021-06-16] MEDS: FLUoxetine HCL 10 MG (PROzac) CAPSULE/TABLET PO SCH (08:30)
[2021-06-16] MEDS: DOCUSATE SODIUM 100 MG (COLACE) CAP PO SCH ×2 (08:30→21:57)
[2021-06-16] MEDS: VALPROIC ACID SYRUP 250 MG/5 ML UDC PO SCH ×2 (08:30→21:59)
[2021-06-16 08:34] VITALS: BP 147/72
--- NOTE | 2021-06-16 10:02 | Physical Therapy Daily Note ---
PT Daily Note-Current Subjective Patient is in bed. Pain Numeric Pain Scale: 10-Worst Possible Pain Location: Right Location Body Site: Hip Pain Description: Acute Comment: FLACC/yelling Mental Status Patient Orientation: Confused Attachments: Gee Catheter Transfers SCALE: Activities may be completed with or without assistive devices. 7-Hlvuqdmzgm-ixiyedq completes the activity by him/herself with no assistance from a helper. 5-Set-up or Clean-up Assistance-helper sets up or cleans up; patient completes activity. [place] assists only prior to or following the activity. 4-Supervision or Touching Assistance-helper provides verbal cues and/or touching/steadying and/or contact guard assistance as patient completes activity. Assistance may be provided throughout the activity or intermittently. 3-Partial/Moderate Assistance-helper does LESS THAN HALF the effort. [place] lifts, holds or supports trunk or limbs, but provides less than half the effort. 2-Substantial/Maximal Assistance-helper does MORE THAN HALF the effort. [place] lifts or holds trunk or limbs and provides more than half the effort. 4-Osedyhfyx-fzkrir does ALL the effort. Patient does none of the effort to complete the activity. Or, the assistance of 2 or more helpers is required for the patient to complete the activity. If activity was not attempted, code reason: 7-Patient Refused. 9-Not Applicable-not attempted and the patient did not perform the activity before the current illness, exacerbation or injury. 10-Not Attempted due to Environmental Limitations-(lack of equipment, weather restraints, etc.). 88-Not Attempted due to Medical Conditions or Safety Concerns. Roll Left & Right (QC): 1 (x 2) Lying to Sitting/Side of Bed(Q: 1 (x 2) Sit to Stand (QC): 1 Patient very resistive to SPT due to right hip pain and confusion/PT blocked bilateral knees to perform safely. Weight Bearing Right Lower Extremity: Right Weight Bearing/Tolerated Left Lower Extremity: Left Full Weight Bearing Exercises Supine Ex: Ankle pumps, Heel Slides Supine Reps: 12 (AAROM with patient resisting due to pain) Seated Therapy Exercises: Ankle pumps, Long arc quads Seated Reps: 12 (AAROM with patient resisting) Assessment Patient in recliner with chair alarm activated. Patient tolerates minimal activity due to pain and confusion limiting ability to follow direction. PT Correction Goals Correction Goals PT Deputy Clerk Of Court Goals Time Frame: Jun 27, 2021 Roll Left & Right (QC): 2 Sit to Lying (QC): 2 Lying-Sitting on Side/Bed(QC): 2 Sit to Stand (QC): 2 Chair/Wza-nu-Cmqyg Xfer(QC): 2 Toilet Transfer (QC): 2 Walk 10 feet (QC): 2 PT Plan Treatment/Plan Treatment Plan: Continue Plan of Care Treatment Plan: Bed Mobility, Education, Functional Activity Riley, Functional Strength, Gait, Safety, Therapeutic Exercise, Transfers Treatment Duration: Jun 27, 2021 Frequency: 6 times per week Estimated Hrs Per Day: .25 hour per day Time/GCodes Time In: 755 Time Out: 806 Total Billed Treatment Time: 11 Total Billed Treatment 1 visit EX 11 min LESLY FREGOSO PT Jun 16, 2021 10:02
--- NOTE | 2021-06-16 11:27 | Progress Note - Hospitalist ---
Subjective HPI/CC On Admission Date Seen by Provider: Jun 16, 2021 Time Seen by Provider: 11:26 Arline Dan is an 86 year old female with PMH dementia, HTN, HLD, GERD, debility, who presented after a fall. She was recently admitted to a long-term due to recurrent falls. She also had a recent inpatient rehab stay due to debility and recurrent falls. She reportedly had altered mentation according to long-term staff. Upon my examination she is unable to provide any history. Her workup revealed a right hip fracture. She was also found to have a urinary tract infection. Subjective/Events-last exam Pt sitting up in chair. No complaints. Objective Exam Vital Signs Vital Signs Date Time Temp Pulse Resp B/P (MAP) Pulse Ox O2 Delivery O2 Flow Rate FiO2 06/16/21 11:42 36.7 112 18 142/74 (96) 96 Room Air 06/16/21 08:30 3.00 06/15/21 10:06 35 Capillary Refill : Less Than 3 Seconds General Appearance: No Apparent Distress, Chronically ill, Thin Respiratory: Lungs Clear, No Respiratory Distress Cardiovascular: Regular Rate, Rhythm, No Murmur Neurologic/Psychiatric: Alert, Disoriented Results/Procedures Lab Laboratory Tests 06/16/21 05:18 Patient resulted labs reviewed. Imaging: Reviewed Imaging Report Assessment/Plan Assessment and Plan Assess & Plan/Chief Complaint Acute respiratory failure with hypoxia Possible pneumonia Pulmonary edema Stable on 3lpm overnight and currently on room air Continue antibiotics Continue Lasix, negative 500mL yesterday TeleICU following Closed right hip fracture Recurrent falls XR showed right hip fracture Orthopedic surgery following s/p surgical repair 06/11 Pain regimen Bowel regimen Incentive sprirometry PT/OT UTI UA consistent with UTI Urine culture with E coli and Aerococcus, pansusceptible Continue Rocephin Dementia High risk for delirium Avoid delirium triggers as able HTN HLD GERD Continue home meds DVT prophylaxis: BON Wagoner MD Jun 16, 2021 11:27
[2021-06-16 11:42] VITALS: BP 142/74
[2021-06-16] MEDS: cefTRIAXone 2,000 MG in WATER (STERILE) FOR INJECTION 20 ML IV SCH (12:36)
[2021-06-16] MEDS: HYDROcodone/APAP 5 MG/325 MG (LORTAB) TAB PO PRN (13:16)
[2021-06-16 16:00] VITALS: BP 165/75
[2021-06-16 19:53] VITALS: BP 136/72
[2021-06-16] MEDS: SIMvastatin 10 MG (ZOCOR) TAB PO SCH (21:57)
[2021-06-16] MEDS: SPIRONOLACTONE 25 MG (ALDACTONE) TAB PO SCH (21:57)
[2021-06-16] MEDS: ENOXAPARIN 40 MG/0.4 ML (LOVENOX) SYR SC SCH (23:50)
[2021-06-17 00:55] VITALS: BP 160/71
[2021-06-17 04:59] VITALS: BP 151/84
[2021-06-17 06:20] LABS: BASOPHILS # (AUTO) 0.1 10^3/uL (0.0-0.1); BASOPHILS % (AUTO) 1 % (0-10); EOSINOPHILS # (AUTO) 0.3 10^3/uL (0.0-0.3); EOSINOPHILS % (AUTO) 3 % (0-10); HEMATOCRIT 26 % (35-52); HEMOGLOBIN 8.8 g/dL (11.5-16.0); LYMPHOCYTES # (AUTO) 1.7 10^3/uL (1.0-4.0); LYMPHOCYTES % (AUTO) 18 % (12-44); MEAN CORPUSCULAR HEMOGLOBIN 31 pg (25-34); MEAN CORPUSCULAR HGB CONC 34 g/dL (32-36); MEAN CORPUSCULAR VOLUME 92 fL (80-99); MEAN PLATELET VOLUME 9.5 fL (9.0-12.2); MONOCYTES # (AUTO) 1.1 10^3/uL (0.0-1.0); MONOCYTES % (AUTO) 12 % (0-12); NEUTROPHILS # (AUTO) 6.1 10^3/uL (1.8-7.8); NEUTROPHILS % (AUTO) 65 % (42-75); PLATELET COUNT 247 10^3/uL (130-400); WHITE BLOOD COUNT 9.3 10^3/uL (4.3-11.0)
[2021-06-17 06:48] LABS: POTASSIUM 3.8 MMOL/L (3.6-5.0)
[2021-06-17 06:50] LABS: TOTAL PROTEIN 5.7 GM/DL (6.4-8.2)
[2021-06-17 06:52] LABS: BILIRUBIN,TOTAL 0.5 MG/DL (0.1-1.0)
[2021-06-17 06:53] LABS: PHOSPHORUS 3.6 MG/DL (2.3-4.7)
[2021-06-17] MEDS: POTASSIUM CL 10MEQ/50ML IVPB 50 ML IV SCH (06:53)
[2021-06-17] MEDS: KCL 20 MEQ TAB (K-DUR) PO SCH (06:53)
[2021-06-17 06:54] LABS: CREATININE SERUM 0.71 MG/DL (0.60-1.30)
[2021-06-17] MEDS: MAGNESIUM 1 GM/100 ML IVPB 100 ML IV SCH (06:58)
[2021-06-17 07:30] VITALS: BP 156/79
[2021-06-17] MEDS: VALPROIC ACID SYRUP 250 MG/5 ML UDC PO SCH (08:58)
[2021-06-17] MEDS: DOCUSATE SODIUM 100 MG (COLACE) CAP PO SCH (08:58)
[2021-06-17] MEDS: SENNA W/DOCUSATE (SENOKOT S) TABLET PO SCH (08:58)
[2021-06-17] MEDS: FLUoxetine HCL 10 MG (PROzac) CAPSULE/TABLET PO SCH (08:58)
[2021-06-17] MEDS: PANTOPRAZOLE 20 MG TABLET (PROTONIX) PO SCH (08:58)
--- NOTE | 2021-06-17 09:39 | Physical Therapy Daily Note ---
PT Daily Note-Current Subjective Pt in bed upon arrival having breakfast w/ nursing in room and agrees to tx. Pt has pain in R hip, but doesn't rate out of 10. Pain Location: Right Location Body Site: Hip Mental Status Patient Orientation: Person, Confused Transfers SCALE: Activities may be completed with or without assistive devices. 2-Ygwgdjsxwe-hwbzdng completes the activity by him/herself with no assistance from a helper. 5-Set-up or Clean-up Assistance-helper sets up or cleans up; patient completes activity. [place] assists only prior to or following the activity. 4-Supervision or Touching Assistance-helper provides verbal cues and/or touching/steadying and/or contact guard assistance as patient completes activity. Assistance may be provided throughout the activity or intermittently. 3-Partial/Moderate Assistance-helper does LESS THAN HALF the effort. [place] lifts, holds or supports trunk or limbs, but provides less than half the effort. 2-Substantial/Maximal Assistance-helper does MORE THAN HALF the effort. [place] lifts or holds trunk or limbs and provides more than half the effort. 3-Uxjoxkssd-gfzdyy does ALL the effort. Patient does none of the effort to complete the activity. Or, the assistance of 2 or more helpers is required for the patient to complete the activity. If activity was not attempted, code reason: 7-Patient Refused. 9-Not Applicable-not attempted and the patient did not perform the activity before the current illness, exacerbation or injury. 10-Not Attempted due to Environmental Limitations-(lack of equipment, weather restraints, etc.). 88-Not Attempted due to Medical Conditions or Safety Concerns. Lying to Sitting/Side of Bed(Q: 2 Sit to Stand (QC): 2 Chair/Xtj-kz-Rjzjr Xfer(QC): 2 Weight Bearing Right Lower Extremity: Right Weight Bearing/Tolerated Left Lower Extremity: Left Full Weight Bearing Exercises Seated Therapy Exercises: Biceps Treatments Pt in bed attempts self feeding, needing A to put food on fork and VC for sequencing. Pt then completes attempts to sit EOB, but unable to complete. MaxA to advance BLE to EOB and bring pt upright. Pt attempts sit to stand, VC for LE/UE placement and sequencing. Pt attempts sit to stand x2 but unable to complete w/ Evangelist. Pt SPT MaxA to recliner. Pt remains in recliner w/ all needs met, call light in hand. Assessment Current Status: Poor Progress Pt tolerated tx poorly, unable to complete much activity d/t pain and confusion, unable to follow directions. PT Jail Goals Fine Arts Teacher Goals PT Jail Goals Time Frame: Jun 27, 2021 Roll Left & Right (QC): 2 Sit to Lying (QC): 2 Lying-Sitting on Side/Bed(QC): 2 Sit to Stand (QC): 2 Chair/Ljm-oj-Lvjxg Xfer(QC): 2 Toilet Transfer (QC): 2 Walk 10 feet (QC): 2 PT Plan Treatment/Plan Treatment Plan: Continue Plan of Care Treatment Plan: Bed Mobility, Education, Functional Activity Riley, Functional Strength, Gait, Safety, Therapeutic Exercise, Transfers Treatment Duration: Jun 27, 2021 Frequency: 6 times per week Estimated Hrs Per Day: .25 hour per day Time/GCodes Time In: 830 Time Out: 855 Total Billed Treatment Time: 25 Total Billed Treatment 1, FA x2 NIXON BENITEZ PHONE SCREENER Jun 17, 2021 09:39
--- NOTE | 2021-06-17 09:56 | Discharge Summary ---
Diagnosis/Chief Complaint Date of Admission Jun 11, 2021 at 14:25 Date of Discharge Admission Diagnosis Closed right hip fracture Primary Care No,Local Physician Discharge Diagnosis (1) Acute respiratory failure with hypoxia Status: Acute (2) Intertrochanteric fracture of right hip Status: Acute (3) Falls frequently Status: Acute (4) UTI (urinary tract infection) Status: Acute (5) Debility Status: Acute (6) Frail elderly Status: Acute (7) Hypertension Status: Chronic (8) Hyperlipidemia Status: Chronic (9) GERD (gastroesophageal reflux disease) Status: Chronic (10) Dementia Status: Chronic Discharge Summary Discharge Physical Exam Allergies: Coded Allergies: Penicillins (Verified Allergy, Unknown, 08/07/17) Vitals & I&Os Vital Signs Date Time Temp Pulse Resp B/P (MAP) Pulse Ox O2 Delivery O2 Flow Rate FiO2 06/17/21 14:50 37.4 89 20 147/74 93 Room Air 06/17/21 09:00 2.00 06/15/21 10:06 35 General Appearance: No Apparent Distress, Chronically ill, Thin Respiratory: Lungs Clear, No Respiratory Distress Cardiovascular: Regular Rate, Rhythm, No Murmur Gastrointestinal: Normal Bowel Sounds, Non Tender, Soft Neurologic/Psychiatric: Alert, Disoriented Hospital Course Patient was admitted to the hospital due to hip fracture and underwent operative repair. Following surgery she developed postoperative hypoxic respiratory failure and was transferred to the ICU on Vapotherm. Findings were consistent with fluid overload and she was diuresed. She did well with this and was able to be titrated down to room air. She was discharged back to her longterm to continue with skilled therapies. Labs (last 24 hrs) Microbiology 06/10/21 MRSA Screen - Final, Complete MRSA not isolated 06/10/21 Blood Culture - Final, Complete No growth 06/10/21 Urine Culture - Final, Complete Escherichia coli Aerococcus urinae Patient resulted labs reviewed. Pending Labs Imaging: Reviewed Imaging Report Discussion & Recommendations Discharge Planning: >30 minutes discharge planning Discharge Home Medications: Active Scripts Active HYDROcodone/APAP 5 MG/325 MG TAB (Acetaminophen/Hydrocodone Bitart) 1 Tab Tab 1 Ea PO Q6H PRN Metoprolol Succinate 25 Mg Tab.er.24h 25 Mg PO DAILY Reported Nystatin 1 Each Powder.ea. 1 Each TOP BID PRN APPLY TO GROIN Multivitamins with Minerals (Multivitamin with Minerals) 1 Each Tablet 1 Each PO DAILY Tylenol Extra Strength (Acetaminophen) 500 Mg Tablet 500-1,000 Mg PO Q8H PRN Valproic Acid 250 Mg Capsule 250 Mg PO BID Spironolactone 50 Mg Tablet 50 Mg PO HS Lovastatin 20 Mg Tablet 20 Mg PO HS Omeprazole 20 Mg Capsule.dr 20 Mg PO DAILY Fluoxetine HCl 10 Mg Capsule 10 Mg PO DAILY Instructions to patient/family Please see electronic discharge instructions given to patient. Copy Copies To 1: VISH PEREZ MD Problem Qualifiers (1) Intertrochanteric fracture of right hip: Encounter type: initial encounter Fracture type: closed Fracture alignment: nondisplaced Qualified Codes: S72.144A - Nondisplaced intertrochanteric fracture of right femur, initial encounter for closed fracture (2) UTI (urinary tract infection): Urinary tract infection type: acute cystitis Hematuria presence: with hematuria Qualified Codes: N30.01 - Acute cystitis with hematuria BON LAWTON MD Jun 17, 2021 09:56
[2021-06-17] MEDS ORDERED: ACHD5005 PO (10:11)
[2021-06-17] MEDS ORDERED: MTP25TSR PO (10:11)
--- NOTE | 2021-06-17 10:12 | Discharge Inst-Skilled Nursing ---
Discharge Inst-Skilled NF Chief Complaint Arline Dan is an 86 year old female with PMH dementia, HTN, HLD, GERD, debility, who presented after a fall. She was recently admitted to a [facility] due to recurrent falls. She also had a recent inpatient rehab stay due to debility and recurrent falls. She reportedly had altered mentation according to [facility] staff. Upon my examination she is unable to provide any history. Her workup revealed a right hip fracture. She was also found to have a urinary tract infection. Consult/Follow Up/Orders Skilled NF Admit to: Via [facility], [place] Certification ([facility]) I certify that [facility] services are required to be given on an inpatient basis because of the above named patient's need for jail care on a continuing basis for the conditions(s) for which he/she was receiving inpatient hospital services prior to his/her transfer to the SNF. [facility] Facility Order: Nursing Services, Merchant Patroller-Evaluate & Treat, Physical Therapy-Evaluate & Treat, Speech Language-Evaluate & Treat Oxygen Delivery Method: Nasal Cannula Discharge Diet: No Restrictions Daily Activity as Tolerated: Yes Resuscitation Status: Do Not Resuscitate New & Resume Previous Orders Bon Mack Jun 17, 2021 10:11 BON MACK MD Jun 17, 2021 10:12
--- NOTE | 2021-06-17 12:20 | Progress Note - Ortho ---
Progress Note Subjective Date of Exam 06/17/21 Chief Complaint POD#6 Short TFN right hip for nondisplaced 2 part intertrochanteric fracture HPI/Events since last exam Mr Dan is 6 days postop short TFN right hip for nondisplaced 2 part intertrochanteric fracture. When I saw her she was up sitting in the chair. She is being discharged back to [facility] today. Review of Systems Reviewed and no additions or changes Allergies: Coded Allergies: Penicillins (Verified Allergy, Unknown, 08/07/17) Home Meds Active Scripts Hydrocodone Bit/Acetaminophen (HYDROcodone/APAP 5 MG/325 MG TAB) 1 Tab Tab, 1 EA PO Q6H PRN for PAIN-MODERATE (5-7), #15 TAB Prov:BON LAWTON MD 06/17/21 Metoprolol Succinate (Metoprolol Succinate) 25 Mg Tab.er.24h, 25 MG PO DAILY, #30 TAB Prov:BON LAWTON MD 06/17/21 Reported Medications Nystatin (Nystatin) 1 Each Powder.ea., 1 EACH TOP BID PRN for REDNESS/GAULDING, UNIT APPLY TO GROIN 06/11/21 Multivitamin with Minerals (Multivitamins with Minerals) 1 Each Tablet, 1 EACH PO DAILY, TAB 06/11/21 Acetaminophen (Tylenol Extra Strength) 500 Mg Tablet, 500-1000 MG PO Q8H PRN for PAIN-MILD (1-4), TAB 05/04/21 Valproic Acid (Valproic Acid) 250 Mg Capsule, 250 MG PO BID, CAP 05/04/21 Spironolactone (Spironolactone) 50 Mg Tablet, 50 MG PO HS, TAB 10/21/17 Lovastatin (Lovastatin) 20 Mg Tablet, 20 MG PO HS 08/07/17 Omeprazole (Omeprazole) 20 Mg Capsule.dr, 20 MG PO DAILY 08/07/17 Fluoxetine HCl (Fluoxetine HCl) 10 Mg Capsule, 10 MG PO DAILY 08/07/17 Objective Exam Constitutional: [] HEENT: [] Neck: [] Cardiovascular: [] Respiratory: [] Gastrointestinal: [] Genitourinary: [] Skin: [] Back/Spine: [] Extremities: [Dressing is intact. Mild swelling in the right thigh. No calf tenderness and negative Homans. No calf swelling. She appears to have normal sensation of the foot and toes with good capillary refill. Equal rotation of the lower extremities. Mild pain with gentle range of motion right hip] Neurologic: [] Psychiatric: [] Hematologic/lymphatic/immunologic: [] Vital Signs Vital Signs Date Time Temp Pulse Resp B/P (MAP) Pulse Ox O2 Delivery O2 Flow Rate FiO2 06/17/21 10:45 95 Room Air 06/17/21 09:00 Nasal Cannula 2.00 06/17/21 07:30 37.0 91 18 156/79 (104) 97 High Flow N/C 2.00 06/17/21 04:59 36.9 91 20 151/84 (106) 96 High Flow N/C 2.00 06/17/21 00:55 36.4 94 20 160/71 (100) 97 High Flow N/C 2.50 06/16/21 23:00 High Flow N/C 5.00 06/16/21 21:45 Nasal Cannula 3.00 06/16/21 19:53 36.3 111 20 136/72 (93) 97 High Flow N/C 2.50 06/16/21 16:00 36.4 111 20 165/75 (105) 97 I & O 06/17/21 07:00 Intake Total 420 ml Output Total 625 ml Balance -205 ml Lab Results Laboratory Tests 06/17/21 05:17: White Blood Count 9.3, Red Blood Count 2.86L, Hemoglobin 8.8L, Hematocrit 26L, Mean Corpuscular Volume 92, Mean Corpuscular Hemoglobin 31, Mean Corpuscular Hemoglobin Concent 34, Red Cell Distribution Width 12.9, Platelet Count 247, Mean Platelet Volume 9.5, Immature Granulocyte % (Auto) 1, Neutrophils (%) (Auto) 65, Lymphocytes (%) (Auto) 18, Monocytes (%) (Auto) 12, Eosinophils (%) (Auto) 3, Basophils (%) (Auto) 1, Neutrophils # (Auto) 6.1, Lymphocytes # (Auto) 1.7, Monocytes # (Auto) 1.1H, Eosinophils # (Auto) 0.3, Basophils # (Auto) 0.1, Immature Granulocyte # (Auto) 0.1, Sodium Level 138, Potassium Level 3.8, Chloride Level 101, Carbon Dioxide Level 26, Anion Gap 11, Blood Urea Nitrogen 24H, Creatinine 0.71, Estimat Glomerular Filtration Rate 78, BUN/Creatinine Ratio 34, Glucose Level 100, Calcium Level 9.0, Corrected Calcium 9.8, Phosphorus Level 3.6, Magnesium Level 2.0, Total Bilirubin 0.5, Aspartate Amino Transf (AST/SGOT) 22, Alanine Aminotransferase (ALT/SGPT) 16, Alkaline Phosphatase 61, Total Protein 5.7L, Albumin 3.0L Microbiology 06/10/21 MRSA Screen - Final, Complete MRSA not isolated 06/10/21 Blood Culture - Final, Complete No growth 06/10/21 Urine Culture - Final, Complete Escherichia coli Aerococcus urinae Assessment and Plan Assessment Doing well 6 days postop Problem List Unchanged Plan Discharge at [facility]. Either follow-up at 2 weeks postop for staple removal and x-rays or portable x-ray and staple removal by the nurses at [facility].Continue with walker ambulation weightbearing as tolerated on the right Final Diagonsis Nondisplaced 2 part intertrochanteric fracture right hip status post short TFN Level of the visit: Level 3 YA HOOKS MD Jun 17, 2021 12:20
[2021-06-17 12:47] VITALS: BP 147/74
[2021-06-17] MEDS: cefTRIAXone 2,000 MG in WATER (STERILE) FOR INJECTION 20 ML IV SCH (13:38)
[2021-06-17 14:50] VITALS: BP 147/74
--- NOTE | 2021-06-22 16:25 | Physician Query Clarification ---
PQ-Intro New Diagnosis Admission/Discharge Admission Date: Jun 11, 2021 at 14:25 Discharge Date: Jun 17, 2021 at 15:00 The medical record reflects the following clinical scenario: History/Risk Factors: [list no more than 2] Clinical Findings: Pulmonary edema on 06/15 Dr Mack PN, likely heart failure on 06/15 Gregg PN, summary shows fluid overload Treatment: Vapotherm, Lasix Question: What condition best reflects the above clinical scenario? Please document a response in the Progress Noter or Discharge Summary. 1. Acute pulmonary edema, no CHF 2. Acute pulmonary edema with CHF (if with CHF, please specify if systolic, diastolic or both systolic/diastolic) 3. Fluid overload only 4. Other, with explanation of the clinical findings. PHYSICIAN RESPONSE What condition reflects above: 2 Please remember a lack of response to the above will prompt a phone page by CDI/Coding staff. In responding to this query, please exercise your independent professional judgment. The purpose of this communication is to more accurately reflect the complexity of your patients condition. The fact that a question is asked does not imply that any particular answer is desired or expected. Thank you for your timely response to this clarification. Requestors name: Lynn THIS PHYSICIAN QUERY FORM IS A PERMANENT PART OF THE MEDICAL RECORD LYNN BETH Jun 22, 2021 16:25 BON MACK MD Jun 24, 2021 14:29
--- NOTE | 2021-06-22 16:30 | Physician Query Clarification ---
PQ-Intro New Diagnosis Admission/Discharge Admission Date: Jun 11, 2021 at 14:25 Discharge Date: Jun 17, 2021 at 15:00 The medical record reflects the following clinical scenario: History/Risk Factors: Hip surgery Clinical Findings: pumonary edema, wheezing, CHF, post op Treatment: Vapotherm, Lasix Question: What condition best reflects the above clinical scenario? Please document a response in the Progress Noter or Discharge Summary. 1. Post op CHF, not a surgical complication, please clarify acuity and type 2. Post op CHF, surgery complication 3. Other, with explanation of the clinical findings. 4. Clinically undetermined, no explanation for the clinical findings. PHYSICIAN RESPONSE What condition reflects above: 1 Please remember a lack of response to the above will prompt a phone page by CDI/Coding staff. In responding to this query, please exercise your independent professional judgment. The purpose of this communication is to more accurately reflect the complexity of your patients condition. The fact that a question is asked does not imply that any particular answer is desired or expected. Thank you for your timely response to this clarification. Requestors name: [ ] Phone # [ ] THIS PHYSICIAN QUERY FORM IS A PERMANENT PART OF THE MEDICAL RECORD KP BETH Jun 22, 2021 16:30 BON LAWTON MD Jun 24, 2021 14:25
--- NOTE | 2021-06-23 15:49 | Physician Query Clarification ---
PQ-Further Specificity Admission/Discharge Admission Date: Jun 11, 2021 at 14:25 Discharge Date: Jun 17, 2021 at 15:00 The medical record reflects the following clinical scenario: History/Risk Factors: post op, pulmonary edema Clinical Findings: respiratory failure Treatment: Vapotherm>nasal cannula 8L Question: Can you further specify Acute Respiratory Failure with hypoxia per the clinical indicators above? Please document a response in the Progress Notes or Discharge Summary. 1. Acute Respiratory Failure with hypoxia, as documented 2. Acute Respiratory Failure with hypoxia, Postoperative complication 3. Other, with explanation of the clinical findings. 4. Clinically undetermined, no explanation for the clinical findings. PHYSICIAN RESPONSE Can you specify per above: 1 Please remember a lack of response to the above will prompt a phone page by CDI/Coding staff. In responding to this query, please exercise your independent professional judgment. The purpose of this communication is to more accurately reflect the complexity of your patients condition. The fact that a question is asked does not imply that any particular answer is desired or expected. Thank you for your timely response to this clarification. Requestors name: Lynn THIS PHYSICIAN QUERY FORM IS A PERMANENT PART OF THE MEDICAL RECORD LYNN BETH Jun 23, 2021 15:49 BON LAWTON MD Jun 24, 2021 14:35
--- NOTE | 2021-06-23 15:57 | Physician Query Clarification ---
PQ-Intro New Diagnosis Admission/Discharge Admission Date: Jun 11, 2021 at 14:25 Discharge Date: Jun 17, 2021 at 15:00 The medical record reflects the following clinical scenario: History/Risk Factors: post op, respiratory failure Clinical Findings: 06/11 chest xray, increasing infiltrates, possible pneumonia listed on progress notes following surgery Treatment: Vapotherm, IV Lasix, antibiotics Question: What condition best reflects the above clinical scenario? Please document a response in the Progress Noter or Discharge Summary. 1. Pneumonia, ruled out 2. Pneumonia, unspecified 3. .Pneumonia, post procedural complication 4. Other, with explanation of the clinical findings. PHYSICIAN RESPONSE What condition reflects above: 1 Please remember a lack of response to the above will prompt a phone page by CDI/Coding staff. In responding to this query, please exercise your independent professional judgment. The purpose of this communication is to more accurately reflect the complexity of your patients condition. The fact that a question is asked does not imply that any particular answer is desired or expected. Thank you for your timely response to this clarification. Requestors name: Lynn THIS PHYSICIAN QUERY FORM IS A PERMANENT PART OF THE MEDICAL RECORD LYNN BETH Jun 23, 2021 15:56 BON LAWTON MD Jun 24, 2021 14:42
== END 2021-06-17 15:00 | DRG 480 ==
LOC: EDUNIT# 13:48 → ER 13:49 → 4TH 17:00 → OBSVTOIN 06-11 14:25 → ICU 06-11 19:15 → 4TH 06-15 14:36
PROVIDERS: ADMIT Internal Medicine; ATTEND Internal Medicine
PROC: 5A0955A Assistance with Respiratory Ventilation, Greater than 96 Consecutive Hours, High Flow/Velocity Cannula (ICD-10-PCS; 2021-06-11)
PROC: 0QS606Z Reposition Right Upper Femur with Intramedullary Internal Fixation Device, Open Approach (ICD-10-PCS; principal; 2021-06-11 09:44)
DX: S72.144A Nondisplaced intertrochanteric fracture of right femur, initial encounter for closed fracture (principal); J96.01 Acute respiratory failure with hypoxia; N30.01 Acute cystitis with hematuria; I50.9 Heart failure, unspecified; J90 Pleural effusion, not elsewhere classified; Z66 Do not resuscitate; F03.90 Unspecified dementia, unspecified severity, without behavioral disturbance, psychotic disturbance, mood disturbance, and anxiety; I10 Essential (primary) hypertension; E87.6 Hypokalemia; E78.5 Hyperlipidemia, unspecified; K21.9 Gastro-esophageal reflux disease without esophagitis; H91.90 Unspecified hearing loss, unspecified ear; E78.00 Pure hypercholesterolemia, unspecified; B96.20 Unspecified Escherichia coli [E. coli] as the cause of diseases classified elsewhere; W19.XXXA Unspecified fall, initial encounter; Z91.81 History of falling; Z88.0 Allergy status to penicillin; Z79.899 Other long term (current) drug therapy; Y93.9 Activity, unspecified; Y92.129 Unspecified place in nursing home as the place of occurrence of the external cause
CPT/HCPCS: 36415; 51702; 70450; 71045; 71275; 76000; 80048; 80053; 81000; 82607; 82728; 82746; 82805; 83540; 83550; 83605; 83735; 83880; 84100; 84145; 85014; 85018; 85025; 85610; 85730; 87040; 87077; 87081; 87088; 87186; 87636; 93005; 94664; 94760; 94761; 96374; 96375; G0378

== ENCOUNTER → 2021-06-24 | Outpatient (CLI) | payer MEDICARE ==
[~2021-06-24] MED LIST changes: +MTP25TSR PO; +MULT-166 PO; +NYST1POW4 TOP
--- NOTE | 2021-06-24 10:36 | Diagnostic Imaging Report ---
Indication: Follow-up right hip fracture. TIME OF EXAM: 8:54 AM 2 views right hip demonstrate intramedullary margareth and compression screws transfixing the right hip. Femoral acetabular alignment is normal. No fracture seen. Right-sided rami are intact. IMPRESSION: Satisfactory postop appearance to the right hip. Dictated by: Dictated on workstation # [id number]
== END ==
LOC: ORTHO 08:31
PROVIDERS: ATTEND Orthopaedic Surgery
DX: S72.144D Nondisplaced intertrochanteric fracture of right femur, subsequent encounter for closed fracture with routine healing (principal); Z98.890 Other specified postprocedural states; X58.XXXD Exposure to other specified factors, subsequent encounter
CPT/HCPCS: 73502

== ENCOUNTER → 2021-07-22 | Outpatient (CLI) | payer MEDICARE ==
--- NOTE | 2021-07-22 11:11 | Diagnostic Imaging Report ---
INDICATION: ORIF of right femur fracture, followup. FINDINGS: Two views of the right hip show changes of prior ORIF. There is normal alignment. There is no abnormal erosion around the fixation hardware. There is no change from 06/24/2021. IMPRESSION: Stable right hip. Dictated by: Dictated on workstation # [id number]
== END ==
LOC: ORTHO 09:33
PROVIDERS: ATTEND Orthopaedic Surgery
DX: S72.144D Nondisplaced intertrochanteric fracture of right femur, subsequent encounter for closed fracture with routine healing (principal); X58.XXXD Exposure to other specified factors, subsequent encounter
CPT/HCPCS: 73502

== ENCOUNTER 2021-10-13 19:26 | Emergency (ER) | payer MEDICARE ==
[~2021-10-13] VITALS: Ht 165 cm; Wt 69.5 kg
[~2021-10-13 19:26] MED LIST changes: -FLUO10CA31 PO; +FLUO10CA33 PO
[2021-10-13] MEDS ORDERED: fentaNYL INJ 100 MCG/2 ML AMP IVP PRN (19:45)
[2021-10-13 19:53] LABS: BASOPHILS # (AUTO) 0.1 10^3/uL (0.0-0.1); BASOPHILS % (AUTO) 0 % (0-10); EOSINOPHILS # (AUTO) 0.4 10^3/uL (0.0-0.3); EOSINOPHILS % (AUTO) 3 % (0-10); HEMATOCRIT 35 % (35-52); HEMOGLOBIN 11.7 g/dL (11.5-16.0); LYMPHOCYTES # (AUTO) 2.2 10^3/uL (1.0-4.0); LYMPHOCYTES % (AUTO) 18 % (12-44); MEAN CORPUSCULAR HEMOGLOBIN 31 pg (25-34); MEAN CORPUSCULAR HGB CONC 34 g/dL (32-36); MEAN CORPUSCULAR VOLUME 91 fL (80-99); MEAN PLATELET VOLUME 9.7 fL (9.0-12.2); MONOCYTES % (AUTO) 8 % (0-12); NEUTROPHILS # (AUTO) 8.5 10^3/uL (1.8-7.8); NEUTROPHILS % (AUTO) 69 % (42-75); PLATELET COUNT 238 10^3/uL (130-400); WHITE BLOOD COUNT 12.3 10^3/uL (4.3-11.0)
--- NOTE | 2021-10-13 19:58 | ED Fall/Injury ---
General Chief Complaint: Trauma-Non Activation Stated Complaint: FALL/LEFT SHOULDER PAIN Nursing Triage Note: PT TO [facility] WITH CC OF A UNWITNESSED FALL WITH LT SHOULDER PAIN. 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 Occurred: just prior to arrival Severity: moderate Injuries/Pain Location: no injury Context: unknown Loss of Consciousness: no loss of consciousness Associated Symptoms (Fall): Denies Symptoms (MICHAEL SILVA APRN) Allergies and Home Medications Allergies Coded Allergies: Penicillins (Verified Allergy, Unknown, 08/07/17) Patient Home Medication List Home Medication List Reviewed: Yes (MICHAEL SILVA APRN) Acetaminophen (Tylenol Extra Strength) 500 Mg Tablet, 500-1,000 MG PO Q8H PRN for PAIN-MILD (1-4), (Reported) Entered as Reported by: SARAH VENCES on 05/04/21 1455 Fluoxetine HCl (Fluoxetine HCl) 10 Mg Capsule, 10 MG PO DAILY, (Reported) Entered as Reported by: JONI CESPEDES on 08/07/17 1351 Hydrocodone Bit/Acetaminophen (HYDROcodone/APAP 5 MG/325 MG TAB) 1 Tab Tab, 1 EA PO Q6H PRN for PAIN-MODERATE (5-7) Prescribed by: BON LAWTON on 06/17/21 1011 Hydrocodone/Acetaminophen (Hydrocodone-Acetamin 5-325 mg) 1 Each Tablet, 0.5-1 TAB PO Q6H PRN for PAIN-MODERATE (5-7) Prescribed by: MICHAEL SILVA on 10/13/212055 Lovastatin (Lovastatin) 20 Mg Tablet, 20 MG PO HS, (Reported) Entered as Reported by: JONI CESPEDES on 08/07/17 1351 Metoprolol Succinate (Metoprolol Succinate) 25 Mg Tab.er.24h, 25 MG PO DAILY Prescribed by: BON LAWTON on 06/17/21 1011 Multivitamin with Minerals (Multivitamins with Minerals) 1 Each Tablet, 1 EACH PO DAILY, (Reported) Entered as Reported by: SARHA VENCES on 06/11/21 1329 Nystatin (Nystatin) 1 Each Powder.ea., 1 EACH TOP BID PRN for REDNESS/GAULDING, (Reported) Entered as Reported by: SARAH VENCES on 06/11/21 1329 Omeprazole (Omeprazole) 20 Mg Capsule.dr, 20 MG PO DAILY, (Reported) Entered as Reported by: JONI CESPEDES on 08/07/17 1351 Spironolactone (Spironolactone) 50 Mg Tablet, 50 MG PO HS, (Reported) Entered as Reported by: STACY KAMINSKI on 10/21/17 1510 Valproic Acid (Valproic Acid) 250 Mg Capsule, 250 MG PO BID, (Reported) Entered as Reported by: SARAH VENCES on 05/04/21 1455 Review of Systems Review of Systems Constitutional: see HPI Eyes: No Symptoms Reported Ears, Nose, Mouth, Throat: no symptoms reported Respiratory: no symptoms reported Cardiovascular: no symptoms reported Genitourinary: no symptoms reported Musculoskeletal: see HPI Skin: no symptoms reported Psychiatric/Neurological: No Symptoms Reported (MICHAEL SILVA APRN) Past Cilsvmt-Bfidqb-Kqknde Hx Patient Social History Tobacco Use?: No Substance use?: No Alcohol Use?: No (MICHAEL SILVA APRN) Immunizations Up To Date First/Initial COVID19 Vaccinat: MODERNA 10/30/20 Second COVID19 Vaccination Doug: JUL 2020 Third COVID19 Vaccination Date: JUN 2020 (MICHAEL SILVA APRN) Seasonal Allergies Seasonal Allergies: No (MICHAEL SILVA APRN) Past Medical History Surgery/Hospitalization HX: Dementia, Fall HX, Hypertension, Hyperlipidemia, GERD, Depression Surgeries: Yes (CARDIAC CATH-NO INTERVENTION; RIGHT KNEE SCOPE; HYST/BSO; LEFT FOOT SURGERY) Gallbladder, Hysterectomy, Oophorectomy, Orthopedic Respiratory: No Currently Using CPAP: No Currently Using BIPAP: No Cardiac: Yes (CARDIAC CATH-NO INTERVENTION) High Cholesterol, Hypertension Neurological: No Dementia Reproductive Disorders: No Genitourinary: No Gastrointestinal: No Gastroesophageal Reflux Musculoskeletal: Yes (LEFT FOOT AND RIGHT KNEE SURGERY) Endocrine: No HEENT: Yes Cataract Hearing Impairment: Hard of Hearing Cancer: No Psychosocial: No Integumentary: No Blood Disorders: No (MICHAEL SILVA APRN) Family Medical History No Pertinent Family Hx (MICHAEL SILVA APRN) Physical Exam Vital Signs Vital Signs - First Documented 10/13/21 19:30 Temp 36.2 Pulse 97 Resp 16 B/P (MAP) 155/81 (105) O2 Delivery Nasal Cannula O2 Flow Rate 2.00 (FARZAD MORRIS DO) Vital Signs Capillary Refill : Less Than 3 Seconds (MICHAEL SILVA APRN) Height, Weight, BMI Height: 5'3.00" Weight: 145lbs. 0.0oz. 65.526957ix; 25.00 BMI Method:Stated General Appearance: WD/WN, no apparent distress HEENT: PERRL/EOMI, normal ENT inspection Neck: non-tender, full range of motion Cardiovascular: regular rate, rhythm Respiratory: no respiratory distress, no accessory muscle use Gastrointestinal: normal bowel sounds, non tender Extremities: other (left shoulder pain, ecchymosis, limited ROM. ) Neurologic/Psychiatric: alert, normal mood/affect, other (smiling but disoriented. ) Skin: normal color, warm/dry (MICHAEL SILVA APRN) [place] Coma Score Best Eye Response: (4) Open Spontaneously Best Verbal Response: (4) Confused Conversation Best Motor Response: (6) Obeys Commands Sin Total: 14 (MICHAEL SILVA APRN) Progress/Results/Core Measures Results/Orders Lab Results Laboratory Tests Test 10/13/21 19:32 10/13/21 20:33 Range/Units White Blood Count 12.3 H 4.3-11.0 10^3/uL Red Blood Count 3.84 3.80-5.11 10^6/uL Hemoglobin 11.7 11.5-16.0 g/dL Hematocrit 35 35-52 % Mean Corpuscular Volume 91 80-99 fL Mean Corpuscular Hemoglobin 31 25-34 pg Mean Corpuscular Hemoglobin Concent 34 32-36 g/dL Red Cell Distribution Width 13.3 10.0-14.5 % Platelet Count 238 130-400 10^3/uL Mean Platelet Volume 9.7 9.0-12.2 fL Immature Granulocyte % (Auto) 1 % Neutrophils (%) (Auto) 69 42-75 % Lymphocytes (%) (Auto) 18 12-44 % Monocytes (%) (Auto) 8 0-12 % Eosinophils (%) (Auto) 3 0-10 % Basophils (%) (Auto) 0 0-10 % Neutrophils # (Auto) 8.5 H 1.8-7.8 10^3/uL Lymphocytes # (Auto) 2.2 1.0-4.0 10^3/uL Monocytes # (Auto) 1.0 0.0-1.0 10^3/uL Eosinophils # (Auto) 0.4 H 0.0-0.3 10^3/uL Basophils # (Auto) 0.1 0.0-0.1 10^3/uL Immature Granulocyte # (Auto) 0.2 H 0.0-0.1 10^3/uL Sodium Level 135 135-145 MMOL/L Potassium Level 4.0 3.6-5.0 MMOL/L Chloride Level 98 98-107 MMOL/L Carbon Dioxide Level 22 21-32 MMOL/L Anion Gap 15 H 5-14 MMOL/L Blood Urea Nitrogen 23 H 7-18 MG/DL Creatinine 0.97 0.60-1.30 MG/DL Estimat Glomerular Filtration Rate 57 BUN/Creatinine Ratio 24 Glucose Level 117 H 70-105 MG/DL Calcium Level 9.6 8.5-10.1 MG/DL Corrected Calcium 9.5 8.5-10.1 MG/DL Total Bilirubin 0.4 0.1-1.0 MG/DL Aspartate Amino Transf (AST/SGOT) 19 5-34 U/L Alanine Aminotransferase (ALT/SGPT) 15 0-55 U/L Alkaline Phosphatase 81 40-136 U/L B-Type Natriuretic Peptide 81.2 <100.0 PG/ML Total Protein 7.7 6.4-8.2 GM/DL Albumin 4.1 3.2-4.5 GM/DL Prothrombin Time 14.1 12.2-14.7 SEC INR Comment 1.1 0.8-1.4 Activated Partial Thromboplast Time 31 24-35 SEC (ARTUROTITAA Rosa DO) Medications Given in ED Current Medications Medications Dose Ordered Sig/Ricki Route Start Time Stop Time Status Last Admin Dose Admin Fentanyl Citrate 25 mcg ONCE PRN IVP 10/13/21 19:45 10/13/21 21:52 DC 10/13/21 19:43 25 MCG (ARTUROTITAA K DO) Vital Signs/I&O 10/13/21 10/13/21 10/13/21 19:30 19:43 21:54 Temp 36.2 36.2 Pulse 97 99 Resp 16 16 B/P (MAP) 155/81 (105) 147/80 O2 Delivery Nasal Cannula Nasal Cannula O2 Flow Rate 2.00 2.00 2.00 (FARZAD MORRIS DO) Blood Pressure Mean: 105 Departure Communication (Admissions) NAME: YANICK ENCISO [facility] REC#: [id number] PT STATUS: REG ER : 1935 PHYSICIAN: MICHAEL SILVA [employer] ADMIT DATE: 10/13/21/ER Draft Date of Exam:10/13/21 CT HEAD/CERVICAL SPINE WO PROCEDURE: CT head and CT cervical spine without contrast. TECHNIQUE: Multiple contiguous axial images were obtained through the brain and cervical spine without the use of intravenous contrast. Sagittal and coronal reformations through the cervical spine were then performed. Auto Exposure Controls were utilized during the CT exam to meet ALARA standards for radiation dose reduction. INDICATION: 86-year-old female, unwitnessed fall, left shoulder pain. CORRELATION STUDY: 06/10/2021, 05/04/21 FINDINGS: CT HEAD: Generalized atrophic changes with prominence of the ventricles and sulci. Scattered areas of decreased attenuation likely owing to chronic small vessel ischemic disease. Findings are positive for a thin acute subdural hemorrhage, left temporal region, maximum thickness 2-3 mm. No midline shift or mass effect. The bony calvarium is intact with visualized paranasal sinuses and mastoid air cells relatively clear. Examination is compromised with a fair amount of streak artifact. CT CERVICAL SPINE: Mild anterolisthesis C3 on C4, C4 on C5 with mild retrolisthesis of C5 on C6. Vertebral body heights overall relatively stable. Odontoid intact. Lateral masses of C1-C2 aligned with the occipital condyles maintained. Various degrees of disc space narrowing is present. Hypertrophic facet arthropathy is present. Atherosclerotic calcification of the carotid bifurcations. Left thyroid mass, 3 cm in size. Lung apices clear. IMPRESSION: CT HEAD: 1. Positive for acute, thin left-sided subdural hematoma. CT CERVICAL SPINE: 1. Negative for acute fracture or traumatic subluxation. Rather advanced multilevel cervical spondylosis present. 2. Left thyroid mass. Nonemergent follow-up thyroid ultrasound imaging recommended. Critical findings. Emergency department is aware. Dictated on workstation # [id number] Dict: 10/13/212013 Trans: 10/13/212030 RODRIGUEZ [id number] Interpreted by: INDIO HARTMAN DO Electronically signed by: NAME: YANICK ENCISO [facility] REC#: [id number] PT STATUS: REG ER : 1935 PHYSICIAN: MICHAEL SILVA APRN ADMIT DATE: 10/13/21/ER Draft Date of Exam:10/13/21 PELVIS INDICATION: Pelvic pain post fall TECHNIQUE: AP pelvis 8:15 PM CORRELATION STUDY: None FINDINGS: Partial visualization of the internal fixation hardware of the proximal right femur fixing prior intertrochanteric fracture. There is irregularity of the right inferior pubic ramus, changed from prior. Left hemipelvis maintained. SI joints and pubic symphysis preserved. Left hip joint with mild to moderate degenerative change. Prominent overlying bowel gas and stool. IMPRESSION: New irregularity right inferior pubic rami. Suspect for acute fracture. Correlation with symptoms. Dictated on workstation # [id number] Dict: 10/13/212030 Trans: 10/13/212036 RODRIGUEZ [id number] Interpreted by: INDIO HARTMAN DO Electronically signed by: Family Dillard NAME: YANICK ENCISO [facility] REC#: [id number] PT STATUS: REG ER : 1935 PHYSICIAN: MICHAEL SILVA APRN ADMIT DATE: 10/13/21/ER Draft Date of Exam:10/13/21 SHOULDER, LEFT, 3 VIEWS INDICATION: Shoulder pain post fall TECHNIQUE: Three views of the left shoulder CORRELATION STUDY: None FINDINGS: There is a comminuted, slightly displaced fracture of the distal clavicle. The acromioclavicular joint demonstrates subtle inferior positioning of the acromial relation to the distal clavicle. The glenohumeral joint is maintained. No dislocation. Soft tissue edema in and around the clavicle. IMPRESSION: 1. Comminuted, mildly displaced distal left clavicle fracture. Dictated on workstation # [id number] Dict: 10/13/212033 Trans: 10/13/212042 [facility] [id number] Interpreted by: INDIO HARTMAN DO Electronically signed by: 2028-spoke with Dr. Hartman, looks like there might be a left subdural hematoma on CT which the CT report read as normal. After reviewing the images he agrees there is a small left subdural hematoma. He will correct his report. 20[birth year]-patient's daughter is here. I have spoken with her about the shoulder fracture and the need for sling and an ice pack as well as the small amount of blood around the brain seen on the CT scan. The patient is demented and of advanced age. I discussed with the daughter that at this point there would be no treatment for this bleed around the brain but if it were to enlarge treatment would potentially include surgical evacuation of the blood. I asked if she would want her mother to have surgery if she were to have increasing bleeding and she states "no". I also spoke with her sister Grabiel which is the patient's son. Made him aware of the bleeding and he agrees that he would not want her to undergo surgery should she need that given her advanced age and dementia. He would like nursing staff to keep an eye on her and notify him of any worsening. This seems like a very reasonable plan given the patient's dementia and advanced age. There is also a questionable irregularity about the inferior pubic ramus on the right could be a new fracture. Either way this would be nonoperative as well. (MICHAEL SILVA APRN) Impression Primary Impression: Subdural hematoma Additional Impressions: Dementia Clavicle fracture Frail elderly Disposition: 01 HOME, SELF-CARE Condition: Stable Departure-Patient Inst. Decision time for Depature: 20:39 (MICHAEL SILVA APRN) Referrals: NO,LOCAL PHYSICIAN (PCP/Family) Primary Care Physician Patient Instructions: Broken Collarbone ED, Subdural Hematoma Add. Discharge Instructions: 1. Call Dr. Summers tomorrow to make an appointment to be seen. Return to ER for any worsening or other concerns. Keep the left arm in a sling at all times except when showering. Return to ER for any new or worsening confusion or weakness. All discharge instructions reviewed with patient and/or family. Voiced understanding. Scripts Hydrocodone/Acetaminophen (Hydrocodone-Acetamin 5-325 mg) 1 Each Tablet 0.5-1 TAB PO Q6H PRN for PAIN-MODERATE (5-7), #10 TAB . Prov: MICHAEL SILVA [employer] 10/13/21 ATTENDING PHYSICIAN NOTE: I WAS PHYSICALLY PRESENT ER PHYSICIAN WHEN THIS PATIENT WAS IN ER, BUT I WAS NOT INVOLVED IN ANY DECISION MAKING OR ANY CARE OF THIS PATIENT. (FARZAD MORRIS DO) Copy Copies To 1: PHILIP DUARTE MD, PETER J APRN Oct 13, 2021 19:58 FARZAD MORRIS DO Oct 14, 2021 01:24
[2021-10-13 19:59] LABS: ALBUMIN 4.1 GM/DL (3.2-4.5)
[2021-10-13 20:00] LABS: CALCIUM 9.6 MG/DL (8.5-10.1)
[2021-10-13 20:02] LABS: TOTAL PROTEIN 7.7 GM/DL (6.4-8.2)
[2021-10-13 20:03] LABS: BILIRUBIN,TOTAL 0.4 MG/DL (0.1-1.0)
[2021-10-13 20:05] LABS: CREATININE SERUM 0.97 MG/DL (0.60-1.30)
--- NOTE | 2021-10-13 20:25 | Diagnostic Imaging Report ---
PROCEDURE: CT head and CT cervical spine without contrast. TECHNIQUE: Multiple contiguous axial images were obtained through the brain and cervical spine without the use of intravenous contrast. Sagittal and coronal reformations through the cervical spine were then performed. Auto Exposure Controls were utilized during the CT exam to meet ALARA standards for radiation dose reduction. INDICATION: 86-year-old female, unwitnessed fall, left shoulder pain. CORRELATION STUDY: 06/10/2021, 05/04/21 FINDINGS: CT HEAD: Generalized atrophic changes with prominence of the ventricles and sulci. Scattered areas of decreased attenuation likely owing to chronic small vessel ischemic disease. Findings are positive for a thin acute subdural hemorrhage, left temporal region, maximum thickness 2-3 mm. No midline shift or mass effect. The bony calvarium is intact with visualized paranasal sinuses and mastoid air cells relatively clear. Examination is compromised with a fair amount of streak artifact. CT CERVICAL SPINE: Mild anterolisthesis C3 on C4, C4 on C5 with mild retrolisthesis of C5 on C6. Vertebral body heights overall relatively stable. Odontoid intact. Lateral masses of C1-C2 aligned with the occipital condyles maintained. Various degrees of disc space narrowing is present. Hypertrophic facet arthropathy is present. Atherosclerotic calcification of the carotid bifurcations. Left thyroid mass, 3 cm in size. Lung apices clear. IMPRESSION: CT HEAD: 1. Positive for acute, thin left-sided subdural hematoma. CT CERVICAL SPINE: 1. Negative for acute fracture or traumatic subluxation. Rather advanced multilevel cervical spondylosis present. 2. Left thyroid mass. Nonemergent follow-up thyroid ultrasound imaging recommended. Critical findings. Emergency department is aware. Dictated by: Dictated on workstation # [id number]
--- NOTE | 2021-10-13 20:37 | Diagnostic Imaging Report ---
INDICATION: Pelvic pain post fall TECHNIQUE: AP pelvis 8:15 PM CORRELATION STUDY: None FINDINGS: Partial visualization of the internal fixation hardware of the proximal right femur fixing prior intertrochanteric fracture. There is irregularity of the right inferior pubic ramus, changed from prior. Left hemipelvis maintained. SI joints and pubic symphysis preserved. Left hip joint with mild to moderate degenerative change. Prominent overlying bowel gas and stool. IMPRESSION: New irregularity right inferior pubic rami. Suspect for acute fracture. Correlation with symptoms. Dictated by: Dictated on workstation # [id number]
[2021-10-13] MEDS ORDERED: ACHD5005 PO ×2 (20:42→20:55)
--- NOTE | 2021-10-13 20:43 | Diagnostic Imaging Report ---
INDICATION: Hypoxia, pain post fall. TECHNIQUE: Single view chest 8:20 PM. CORRELATION STUDY: 06/15/2021 FINDINGS: Heart size and mediastinum are generally stable. Chronic appearing change about the lung parenchyma. There is a comminuted mildly displaced distal left clavicle fracture. Slight cortical irregularity lateral left ribs without definitive fracture line. Mild loss of height of multiple thoracic vertebral bodies. IMPRESSION: 1. Negative for acute traumatic abnormality of the chest. Chronic appearing changes about the lung parenchyma. Dictated by: Dictated on workstation # [id number]
--- NOTE | 2021-10-13 20:43 | Diagnostic Imaging Report ---
INDICATION: Shoulder pain post fall TECHNIQUE: Three views of the left shoulder CORRELATION STUDY: None FINDINGS: There is a comminuted, slightly displaced fracture of the distal clavicle. The acromioclavicular joint demonstrates subtle inferior positioning of the acromial relation to the distal clavicle. The glenohumeral joint is maintained. No dislocation. Soft tissue edema in and around the clavicle. IMPRESSION: 1. Comminuted, mildly displaced distal left clavicle fracture. Dictated by: Dictated on workstation # [id number]
[2021-10-13 20:52] LABS: INR 1.1 (0.8-1.4); PROTHROMBIN TIME PATIENT 14.1 SEC (12.2-14.7)
[2021-10-13 21:54] VITALS: BP 147/80
== END 2021-10-13 21:52 | disposition home or self-care (01) ==
LOC: EDUNIT# 19:26 → ER 19:28
DX: S42.032A Displaced fracture of lateral end of left clavicle, initial encounter for closed fracture (principal); I62.00 Nontraumatic subdural hemorrhage, unspecified; F03.90 Unspecified dementia, unspecified severity, without behavioral disturbance, psychotic disturbance, mood disturbance, and anxiety; I10 Essential (primary) hypertension; E78.00 Pure hypercholesterolemia, unspecified; K21.9 Gastro-esophageal reflux disease without esophagitis; Z79.899 Other long term (current) drug therapy; W19.XXXA Unspecified fall, initial encounter; Y92.129 Unspecified place in nursing home as the place of occurrence of the external cause
CPT/HCPCS: 36415; 70450; 71045; 72125; 72170; 73030; 80053; 83880; 85025; 85610; 85730

== ENCOUNTER → 2022-02-10 | Outpatient (CLI) | payer MEDICARE ==
[~2022-02-10] MED LIST changes: +MENT118G TP; +POLY17PO54 PO; +SENN-234 PO; +SPIR25TA5 PO
--- NOTE | 2022-02-10 09:56 | Diagnostic Imaging Report ---
INDICATION: Fracture. 4 views were obtained. FINDINGS: There has been open reduction and internal fixation of the left femoral neck fracture with intramedullary margareth and compression screw. Fracture fragments appear to be near anatomic in alignment. Soft tissues are unremarkable. IMPRESSION: Stable postsurgical changes in left finger as described. Dictated by: Dictated on workstation # [id number]
== END ==
LOC: ORTHO 09:15
PROVIDERS: ATTEND Orthopaedic Surgery
DX: S72.142D Displaced intertrochanteric fracture of left femur, subsequent encounter for closed fracture with routine healing (principal); X58.XXXD Exposure to other specified factors, subsequent encounter
CPT/HCPCS: 73552

== ENCOUNTER → 2022-02-24 | Outpatient (CLI) | payer MEDICARE ==
--- NOTE | 2022-02-24 10:53 | Diagnostic Imaging Report ---
INDICATION: Left femur fracture follow-up. Time of Exam: 10:11 AM Correlation is made with prior radiograph from 02/10/2022. Intramedullary margareth and compression screw transfix the intertrochanteric left hip fracture. Fracture line remains visible. Alignment is anatomic. Rami are intact. IMPRESSION: Postop changes of ORIF of the proximal left femur fracture. Fracture line does remain partly visible. Dictated by: Dictated on workstation # [id number]
== END ==
LOC: ORTHO 09:57
PROVIDERS: ATTEND Orthopaedic Surgery
DX: S72.142D Displaced intertrochanteric fracture of left femur, subsequent encounter for closed fracture with routine healing (principal); Z98.890 Other specified postprocedural states; X58.XXXD Exposure to other specified factors, subsequent encounter
CPT/HCPCS: 73552

== ENCOUNTER → 2022-02-25 | Outpatient (CLI) | payer MEDICARE | LOC: WOUNDCARE 09:11 | PROVIDERS: ATTEND Family Medicine | DX: L89.620 Pressure ulcer of left heel, unstageable (principal); I89.0 Lymphedema, not elsewhere classified; M62.81 Muscle weakness (generalized); R29.6 Repeated falls; F03.90 Unspecified dementia, unspecified severity, without behavioral disturbance, psychotic disturbance, mood disturbance, and anxiety; D64.9 Anemia, unspecified | CPT/HCPCS: 99214 ==

== ENCOUNTER → 2022-03-03 | Outpatient (CLI) | payer MEDICARE | LOC: WOUNDCARE 10:31 | PROVIDERS: ATTEND Family Medicine | DX: I96 Gangrene, not elsewhere classified (principal); L89.623 Pressure ulcer of left heel, stage 3; I89.0 Lymphedema, not elsewhere classified; D64.9 Anemia, unspecified; F03.90 Unspecified dementia, unspecified severity, without behavioral disturbance, psychotic disturbance, mood disturbance, and anxiety; R29.6 Repeated falls; M62.81 Muscle weakness (generalized) | CPT/HCPCS: 87070; 87205; 97597; A6197; A6212; G0463 ==

== ENCOUNTER → 2022-03-10 | Outpatient (CLI) | payer MEDICARE | LOC: WOUNDCARE 10:31 | PROVIDERS: ATTEND Family Medicine | DX: I89.0 Lymphedema, not elsewhere classified (principal); M62.81 Muscle weakness (generalized); F03.90 Unspecified dementia, unspecified severity, without behavioral disturbance, psychotic disturbance, mood disturbance, and anxiety; D64.9 Anemia, unspecified; L89.623 Pressure ulcer of left heel, stage 3; L92.8 Other granulomatous disorders of the skin and subcutaneous tissue; L03.116 Cellulitis of left lower limb; I96 Gangrene, not elsewhere classified; R29.6 Repeated falls | CPT/HCPCS: 11042; G0463 ==

== ENCOUNTER → 2022-03-17 | Outpatient (CLI) | payer MEDICARE ==
--- NOTE | 2022-03-17 10:49 | Diagnostic Imaging Report ---
INDICATION: Follow-up fracture. Status post ORIF. COMPARISON: 02/24/2022 FINDINGS: Multiple radiographic views of the left femur were obtained. Postsurgical changes of previous ORIF are again identified. Long intramedullary margareth traverses the left femoral shaft. This intersects a screw which traverses the femoral head and neck. Distal anchor screw is also noted. No unexpected radiopaque foreign bodies are seen. Fracture fragments remain in appropriate alignment. There may be some early callus formation about the fracture line. Left hip and knee joints remain intact. IMPRESSION: 1. Postsurgical changes of the left femur as above Dictated by: Dictated on workstation # [id number]
== END ==
LOC: ORTHO 10:01
PROVIDERS: ATTEND Orthopaedic Surgery
DX: S72.142D Displaced intertrochanteric fracture of left femur, subsequent encounter for closed fracture with routine healing (principal)
CPT/HCPCS: 73552

== ENCOUNTER → 2022-03-17 | Outpatient (CLI) | payer MEDICARE | LOC: WOUNDCARE 11:16 | PROVIDERS: ATTEND Family Medicine | DX: I89.0 Lymphedema, not elsewhere classified (principal); I96 Gangrene, not elsewhere classified; L89.623 Pressure ulcer of left heel, stage 3; F03.90 Unspecified dementia, unspecified severity, without behavioral disturbance, psychotic disturbance, mood disturbance, and anxiety; D64.9 Anemia, unspecified; L92.8 Other granulomatous disorders of the skin and subcutaneous tissue; M62.81 Muscle weakness (generalized) | CPT/HCPCS: 11042; G0463 ==

== ENCOUNTER → 2022-03-31 | Outpatient (CLI) | payer MEDICARE | LOC: WOUNDCARE 10:21 | PROVIDERS: ATTEND Family Medicine | DX: I89.0 Lymphedema, not elsewhere classified (principal); L89.623 Pressure ulcer of left heel, stage 3; D64.9 Anemia, unspecified; I96 Gangrene, not elsewhere classified; F03.90 Unspecified dementia, unspecified severity, without behavioral disturbance, psychotic disturbance, mood disturbance, and anxiety; R29.6 Repeated falls; M62.81 Muscle weakness (generalized) | CPT/HCPCS: 11042; G0463 ==

== ENCOUNTER → 2022-04-07 | Outpatient (CLI) | payer MEDICARE | LOC: WOUNDCARE 10:33 | PROVIDERS: ATTEND Family Medicine | DX: I89.0 Lymphedema, not elsewhere classified (principal); I96 Gangrene, not elsewhere classified; L89.623 Pressure ulcer of left heel, stage 3; F03.90 Unspecified dementia, unspecified severity, without behavioral disturbance, psychotic disturbance, mood disturbance, and anxiety; D64.9 Anemia, unspecified; M62.81 Muscle weakness (generalized) | CPT/HCPCS: 11042; G0463 ==

== ENCOUNTER → 2022-04-14 | Outpatient (CLI) | payer MEDICARE | LOC: WOUNDCARE 11:23 | PROVIDERS: ATTEND Family Medicine | DX: I89.0 Lymphedema, not elsewhere classified (principal); L89.623 Pressure ulcer of left heel, stage 3; I96 Gangrene, not elsewhere classified; F03.90 Unspecified dementia, unspecified severity, without behavioral disturbance, psychotic disturbance, mood disturbance, and anxiety; D64.9 Anemia, unspecified; R19.6 Halitosis; M62.81 Muscle weakness (generalized) | CPT/HCPCS: 11042; G0463 ==

== ENCOUNTER → 2022-04-21 | Outpatient (CLI) | payer MEDICARE ==
--- NOTE | 2022-04-21 11:45 | Diagnostic Imaging Report ---
INDICATION: Left femur fracture, follow-up. TIME OF EXAM: 10:00 a.m. Comparison is made with prior radiographs from 03/17/2022. FINDINGS: Intramedullary margareth and compression screw transfix the proximal left femur fracture. The fracture line does remain partly visible, but alignment is anatomic. Alignment at the hip and knee is normal. IMPRESSION: ORIF proximal left femur fracture. Fracture does remain partly visible. Dictated by: Dictated on workstation # [id number]
== END ==
LOC: ORTHO 09:46
PROVIDERS: ATTEND Orthopaedic Surgery
DX: S72.142D Displaced intertrochanteric fracture of left femur, subsequent encounter for closed fracture with routine healing (principal); X58.XXXD Exposure to other specified factors, subsequent encounter
CPT/HCPCS: 73552

== ENCOUNTER → 2022-04-21 | Outpatient (CLI) | payer MEDICARE | LOC: WOUNDCARE 10:51 | PROVIDERS: ATTEND Family Medicine | DX: I89.0 Lymphedema, not elsewhere classified (principal); M62.81 Muscle weakness (generalized); F03.90 Unspecified dementia, unspecified severity, without behavioral disturbance, psychotic disturbance, mood disturbance, and anxiety; D64.9 Anemia, unspecified; R29.6 Repeated falls | CPT/HCPCS: A6212; G0463; 99213 ==

== ENCOUNTER 2022-10-18 16:09 | Emergency (ER) | payer MEDICARE ==
[~2022-10-18] VITALS: Ht 157 cm; Wt 61.0 kg
[~2022-10-18 16:09] MED LIST changes: +ALBU8.5H6 IH; -RT-ALBUINH IH
--- NOTE | 2022-10-18 16:26 | ED Fall/Injury ---
General Chief Complaint: Trauma-Non Activation Stated Complaint: FALL Source: family (daughter) History of Present Illness Date Seen by Provider: Oct 18, 2022 Time Seen by Provider: 16:13 Initial Comments Patient is an 87-year-old female brought from a local [facility] after fall from wheelchair today. She was reaching over to get a magazine and apparently the wheelchair came out from underneath her. She landed sitting on her bottom. Has been complaining of left lateral hip pain. Majority of her medical history is obtained from her daughter who is at the bedside. She states that she has had progressive dementia of Alzheimer's type. She has expressive aphasia, is unable to really answer questions. Daughter relates that she also had a fall about a week ago but did not seek medical care at that time. Daughter states that she has a margareth in her left femur and a pin in her right hip. No other complaints of recent illness or injury. Occurred: just prior to arrival, other (also fell 1 week ago) Injuries/Pain Location: pelvis (bilateral hips) Context: lost balance (fell out of her wheel chair today. ) Loss of Consciousness: no loss of consciousness Allergies and Home Medications Allergies Coded Allergies: Penicillins (Verified Allergy, Unknown, 08/07/17) Patient Home Medication List Home Medication List Reviewed: Yes Acetaminophen (Tylenol Extra Strength) 500 Mg Tablet, 500 MG PO TID, (Reported) Entered as Reported by: ISELA GREENE on 01/27/222029 Fluoxetine HCl (Fluoxetine HCl) 10 Mg Capsule, 10 MG PO DAILY, (Reported) Entered as Reported by: JONI CESPEDES on 08/07/17 1351 Hydrocodone Bit/Acetaminophen (HYDROcodone/APAP 5 MG/325 MG TAB) 1 Tab Tab, 1 EA PO Q4H PRN for PAIN-MODERATE (5-7) Prescribed by: CARLOS ABARCA on 02/01/22 1226 Menthol (Biofreeze) 4 % Gel..ml., 1 APPLIC TP UD PRN for JOINT PAIN, (Reported) Entered as Reported by: ISELA GREENE on 01/27/22 203 Metoprolol Succinate (Metoprolol Succinate) 25 Mg Tab.er.24h, 25 MG PO DAILY, (Reported) Entered as Reported by: SARAH VENCES on 01/28/22 0906 Multivitamin with Minerals (Multivitamins with Minerals) 1 Each Tablet, 1 EACH PO DAILY, (Reported) Entered as Reported by: SARAH VENCES on 06/11/21 1329 Omeprazole (Omeprazole) 20 Mg Capsule.dr, 20 MG PO DAILY, (Reported) Entered as Reported by: JONI CESPEDES on 08/07/17 1351 Polyethylene Glycol 3350 (Polyethylene Glycol 3350) 17 Gram Powd.pack, 17 GM PO BID PRN for CONSTIPATION-1ST LINE Prescribed by: CARLOS ABARCA on 02/01/22 1225 Sennosides (Senna) 8.6 Mg Tablet, 8.6 MG PO DAILY PRN for CONSTIPATION-5TH LINE, (Reported) Entered as Reported by: ISELA GREENE on 01/27/222026 Spironolactone (Spironolactone) 25 Mg Tablet, 25 MG PO DAILY, (Reported) Entered as Reported by: ISELA GREENE on 01/27/222025 Review of Systems Review of Systems Constitutional: see HPI Musculoskeletal: joint pain (bilateral hip pain - per daughter) HPI and ROS unobtainable from patient due to expressive aphasia/history of dementia Past Hltmgzd-Ewxmrn-Rrrarn Hx Immunizations Up To Date First/Initial COVID19 Vaccinat: 10/02/20 Second COVID19 Vaccination Doug: 10/30/20 Third COVID19 Vaccination Date: JUN 2020 Seasonal Allergies Seasonal Allergies: No Past Medical History Surgery/Hospitalization HX: Dementia, Fall HX, Hypertension, Hyperlipidemia, GERD, Depression Surgeries: Yes (CARDIAC CATH-NO INTERVENTION; RIGHT KNEE SCOPE; HYST/BSO; LEFT FOOT SURGERY) Gallbladder, Hysterectomy, Oophorectomy, Orthopedic Respiratory: No Currently Using CPAP: No Currently Using BIPAP: No Cardiac: Yes (CARDIAC CATH-NO INTERVENTION) High Cholesterol, Hypertension Neurological: No Dementia Reproductive Disorders: No Genitourinary: No Gastrointestinal: No Gastroesophageal Reflux Musculoskeletal: Yes (LEFT FOOT AND RIGHT KNEE SURGERY) Endocrine: No HEENT: Yes Cataract Hearing Impairment: Hard of Hearing Cancer: No Psychosocial: No Integumentary: No Blood Disorders: No Family Medical History No Pertinent Family Hx Physical Exam Vital Signs Vital Signs - First Documented 10/18/22 16:15 Temp 36.2 Pulse 88 Resp 18 B/P (MAP) 161/82 (108) Pulse Ox 97 Capillary Refill : Height, Weight, BMI Height: 5'3.00" Weight: 145lbs. 0.0oz. 65.544078si; 24.37 BMI Method:Stated General Appearance: WD/WN, no apparent distress HEENT: PERRL/EOMI Cardiovascular: regular rate, rhythm Respiratory: lungs clear, normal breath sounds, no respiratory distress, no accessory muscle use Gastrointestinal: non tender, soft Extremities: no pedal edema, other (decreased ROM both hips - she really resists movement of left more than right. Appears to have intact sensation. DP pulses in both feet present. tenderness to palpation over the left lateral ip) Neurologic/Psychiatric: alert, normal mood/affect Skin: normal color, warm/dry Progress/Results/Core Measures Results/Orders My Orders Orders - ARTIE TERESA MD Pelvis/Ofelia Hips 5> Views (10/18/22 16:27) Vital Signs/I&O 10/18/22 16:15 Temp 36.2 Pulse 88 Resp 18 B/P (MAP) 161/82 (108) Pulse Ox 97 Diagnostic Imaging Diagonstic Imaging: Xray Comments [facility], [place] NAME: YANICK ENCISO [facility] REC#: [id number] PT STATUS: REG ER : 1935 PHYSICIAN: ARTIE TERESA MD ADMIT DATE: 10/18/22/ER Draft Date of Exam:10/18/22 PELVIS/OFELIA HIPS 5> VIEWS INDICATION: Bilateral hip pain AP view pelvis and 2 views of each hip are obtained. There are postoperative changes from internal fixation of both hips with dynamic compression devices. There are old healed intertrochanteric fractures of both hips. Patient has old healed fractures of the right obturator ring. Pelvic ring and left obturator ring are intact. IMPRESSION: Old bilateral hip fractures with internal fixation. Old right ischial pubic rami fractures. No acute abnormalities seen. Dictated on workstation # [id number] Dict: 10/18/221700 Trans: 10/18/221704 CVB [id number] Interpreted by: RIGO JACOB MD Electronically signed by: Departure Impression Primary Impression: Contusion of pelvis Qualified Codes: S30.0XXA - Contusion of lower back and pelvis, initial encounter Additional Impression: Advanced age Disposition: 01 HOME, SELF-CARE Condition: Stable Departure-Patient Inst. Decision time for Depature: 17:17 Referrals: NO,LOCAL PHYSICIAN (PCP/Family) Primary Care Physician Patient Instructions: Contusion (DC) Add. Discharge Instructions: Continue current routine home medications. Tylenol 650 mg every 6 hours as needed for pain. Follow-up with primary care as scheduled/needed. Return to the emergency department for any new, concerning or emergent complaints. ARTIE TERESA MD Oct 18, 2022 16:26
--- NOTE | 2022-10-18 17:05 | Diagnostic Imaging Report ---
INDICATION: Bilateral hip pain AP view pelvis and 2 views of each hip are obtained. There are postoperative changes from internal fixation of both hips with dynamic compression devices. There are old healed intertrochanteric fractures of both hips. Patient has old healed fractures of the right obturator ring. Pelvic ring and left obturator ring are intact. IMPRESSION: Old bilateral hip fractures with internal fixation. Old right ischial pubic rami fractures. No acute abnormalities seen. Dictated by: Dictated on workstation # [id number]
[2022-10-18 17:38] VITALS: BP 161/82
== END 2022-10-18 18:28 | disposition home or self-care (01) ==
LOC: EDUNIT# 16:09 → ER 16:10
DX: S30.0XXA Contusion of lower back and pelvis, initial encounter (principal); R54 Age-related physical debility; W05.0XXA Fall from non-moving wheelchair, initial encounter; Y92.129 Unspecified place in nursing home as the place of occurrence of the external cause
CPT/HCPCS: 73523